=== PATIENT | female | born 1980 ===

== ENCOUNTER 2020-06-11 14:38 | Emergency (ER) | payer OTHER, SELFPAY ==
[2020-06-11 15:05] VITALS: BP 133/94; PULSE 104; RESP 18; TEMP 36.8; O2SAT 100; BMI 35.7
--- NOTE | 2020-06-11 15:43 | ED_ITS ---
HPI - Extremity Problem General Chief complaint: Extremity Injury, Upper Stated complaint: r shoulder pain Time Seen by Provider: 06/11/20 15:35 Source: patient Mode of arrival: ambulatory History of Present Illness HPI Narrative: 39-year-old female with a past medical history of bursitis, diabetes, fibromyalgia, hypothyroid complaining of acute on chronic right shoulder pain. Reports is prescribed tramadol by PCP, however ran out of p rescription, and cannot be filled for 5 days. States was in physical therapy, however was making symptoms worse. Denies any change in symptoms, numbness, tingling, weakness, direct trauma / falls, fever MD Complaint: extremity pain Related Data Home Medications Medication Instructions Recorded Confirmed gabapentin 600 mg tablet 600 mg PO TID 06/11/20 loperamide 2 mg capsule mg PO 06/11/20 meloxicam 15 mg tablet 15 mg PO DAILY 06/11/20 metformin 500 mg tablet mg PO 06/11/20 oxycodone 5 mg tablet 5 mg PO Q6H 06/11/20 tizanidine 4 mg tablet 4 mg PO BID PRN 06/11/20 trazodone 50 mg tablet 50 mg PO BEDTIME 06/11/20 zolpidem 10 mg tablet 10 mg PO BEDTIME PRN 06/11/20 Previous Rx's Medication Instructions Recorded tramadol 50 mg PO Q6H PRN #7 tab 06/11/20 tramadol 50 mg tablet 50 mg PO ONCE PRN 30 Days #30 tab 06/11/20 Allergies Allergy/AdvReac Type Severity Reaction Status Date / Time seasonal Allergy Unknown Itching Uncoded 06/11/20 15:04 SEASONAL ALLERGIES Allergy Unknown ITCHY Uncoded 05/17/20 16:42 NOSE/SNEEZING Review of Systems Review of Systems: Constitutional: No Fever, No Chills Cardiovascular: No Chest Pain, No SOB, No Dyspnea on Exertion Respiratory: No Cough, No Dyspnea Musculoskeletal: + joint pain, No Myalgias, No Joint Swelling Skin: No Skin Lesions, No rash Neuro: No Weakness, No Numbness, No Paresthesias Yes all other systems are reviewed and are negative [facility] Past Medical History Attestation statement: The following information was validated with the patient. Medical History (Updated 06/11/20 @ 15:44 by ALEX Rosenbaum) Bursitis and tendinitis of shoulder region Diabetes Fibromyalgia Knee arthropathy Thyroid activity decreased Social History Social History Smoking Status: Never smoker Use of substances other than those prescribed or required for medical reasons: No Advance Directives: No Advance Directives Information Provided: No Physical Exam Vital Signs: Vital Signs: Vital Signs Temp Pulse Resp BP Pulse Ox 06/11/20 15:05 98.3 F 104 H 18 133/94 H 100 Body Mass Index 35.7 Const: General: cooperative and healthy appearing Orientation/consciousness: patient oriented x3 Limitations: no limitations HENMT: Head: Yes normal to inspection Ears: hearing grossly normal bilaterally General nose exam: Normal external nose present Face and sinus: Yes normal facial exam Eyes: General: appearance normal, both eyes and all related structures EOM: EOMs intact bilaterally Neck: Neck: Yes normal visual inspection Resp: Effort & Inspection: normal respiratory effort Cardio: Rate: regular rate Skin: Rashes: no rashes Wounds: no wounds Neuro: General: patient oriented x3 Gait exam (Neuro): Normal gait present Extrem: Other: + right shoulder tenderness, no deformity or erythema. Decreased ROM. NV intact. General: Yes normal to inspection MDM - Extremity (Nontraumatic) MDM Narrative Medical decision making narrative: Likely MSK pain /acute on chronic pain. Low concern for fracture/ septic joint Discharge Plan Discharge Clinical Impression: Chronic shoulder pain Qualifiers: Laterality: right Qualified Code(s): M25.511 - Pain in right shoulder Patient Disposition: Home, Self-Care Instructions: Shoulder Pain (ED) Additional Instructions: you need to follow-up with her primary care doctor for additional refills her pain medications Follow-up with Physical therapy as discussed with her PCP If pain persists or worsens, you have weakness, or fever return to the ED Prescriptions: New tramadol 50 mg tablet 50 mg PO Q6H PRN (Reason: pain) Qty: 7 RF: 0 No Action tramadol 50 mg tablet 50 mg PO ONCE PRN (Reason: pain) 30 Days Qty: 30 RF: 0 gabapentin 600 mg tablet 600 mg PO TID RF: 0 trazodone 50 mg tablet 50 mg PO BEDTIME RF: 0 zolpidem 10 mg tablet 10 mg PO BEDTIME PRNRF: 0 loperamide 2 mg capsule PO RF: 0 metformin 500 mg tablet PO RF: 0 meloxicam 15 mg tablet 15 mg PO DAILY RF: 0 tizanidine 4 mg tablet 4 mg PO BID PRNRF: 0 oxycodone 5 mg tablet 5 mg PO Q6H RF: 0 Referrals: Meli Olivares NP [Primary Care Provider] - 2 days Discharge Date/Time: 06/11/20 16:09
== END 2020-06-11 16:09 | disposition home or self-care (01) ==
LOC: HO.ED 15:51
PROVIDERS: Emergency Provider Emergency Medicine; PCP Nurse Practitioner Family
DX: M25.511 Pain in right shoulder (principal); E11.9 Type 2 diabetes mellitus without complications; M79.7 Fibromyalgia; Z79.4 Long term (current) use of insulin; Z79.899 Other long term (current) drug therapy
CPT/HCPCS: 99283

== ENCOUNTER → 2020-08-27 09:50 | Outpatient (BNVA) | payer OTHER, SELFPAY | PROVIDERS: PCP Nurse Practitioner Family; Visit Provider Anesthesiology | DX: M19.011 Primary osteoarthritis, right shoulder (principal); M19.012 Primary osteoarthritis, left shoulder | CPT/HCPCS: 99202 ==

== ENCOUNTER 2020-09-11 06:08 | Outpatient (REF) | payer OTHER, SELFPAY ==
--- NOTE | 2020-09-11 08:13 | FL_ITS ---
EXAMINATION: XR FLUOROSCOPY WITH IMAGES CLINICAL INFORMATION: M19.011 - Primary osteoarthritis, right shoulder COMPARISON: Radiographs right shoulder 04/17/2020 TECHNIQUE: Fluoroscopy performed by Oneida Zuniga NP. Fluoroscopy time: 0.3 minutes DAP: 3.5 Gycm2 Images: 1 FINDINGS: There is a spinal needle overlying the right glenohumeral joint with some periarticular contrast, possible early intracapsular contrast. No vascular communication. FL/FL guidance in treatment room IMPRESSION: Fluoroscopy for pain management procedure.
== END 2020-09-11 06:09 | disposition home or self-care (01) ==
LOC: HO.RADIR 06:08
PROVIDERS: Visit Provider Anesthesiology
DX: M19.011 Primary osteoarthritis, right shoulder (principal); M19.012 Primary osteoarthritis, left shoulder
CPT/HCPCS: 20610; J3300; Q9967

== ENCOUNTER → 2020-09-26 08:30 | Outpatient (BNVA) | payer OTHER, SELFPAY | PROVIDERS: PCP Nurse Practitioner Family; Visit Provider Anesthesiology | DX: M19.011 Primary osteoarthritis, right shoulder (principal); M19.012 Primary osteoarthritis, left shoulder; Z02.89 Encounter for other administrative examinations | CPT/HCPCS: 99212 ==

== ENCOUNTER → 2020-10-10 13:42 | Outpatient (BNVA) | payer OTHER, SELFPAY | PROVIDERS: PCP Nurse Practitioner Family; Visit Provider Anesthesiology | DX: M19.011 Primary osteoarthritis, right shoulder (principal); M19.012 Primary osteoarthritis, left shoulder; Z02.89 Encounter for other administrative examinations | CPT/HCPCS: 99212 ==

== ENCOUNTER → 2020-10-17 09:42 | Outpatient (BNVA) | payer OTHER, SELFPAY | PROVIDERS: PCP Internal Medicine; Visit Provider Anesthesiology ==

== ENCOUNTER 2020-11-06 06:10 | Outpatient (REF) | payer OTHER, SELFPAY ==
--- NOTE | ~2020-11-06 | FL_ITS ---
EXAMINATION: XR FLUOROSCOPY WITH IMAGES CLINICAL INFORMATION: M19.011 - Primary osteoarthritis, right shoulder COMPARISON: Fluoroscopic spot view right shoulder 09/11/2020, radiographs right shoulder 04/17/2020 TECHNIQUE: Fluoroscopy performed by Oneida Zuniga NP. Fluoroscopy time: 0.4 minutes DAP: 0.902 Gycm2 Images: 1 FINDINGS: There is spinal needle with tip just superior to the scapular spine with contrast extending medially. No vascular communication. Corticated ossicle at acromioclavicular joint again seen. FL/FL guidance in treatment room IMPRESSION: Fluoroscopy for pain management procedure.
== END 2020-11-06 06:11 | disposition home or self-care (01) ==
LOC: HO.RADIR 06:10
PROVIDERS: Visit Provider Anesthesiology
DX: Z02.89 Encounter for other administrative examinations (principal); M19.011 Primary osteoarthritis, right shoulder; M19.012 Primary osteoarthritis, left shoulder
CPT/HCPCS: Q9967

== ENCOUNTER → 2020-11-07 15:44 | Outpatient (BNVA) | payer OTHER, SELFPAY | PROVIDERS: PCP Internal Medicine; Visit Provider Anesthesiology | DX: Z02.89 Encounter for other administrative examinations (principal); M19.011 Primary osteoarthritis, right shoulder; M19.012 Primary osteoarthritis, left shoulder; Z79.891 Long term (current) use of opiate analgesic | CPT/HCPCS: 99212 ==

== ENCOUNTER → 2020-11-12 14:52 | Outpatient (BNVA) | payer OTHER, SELFPAY | PROVIDERS: PCP Nurse Practitioner Family; Visit Provider Anesthesiology ==

== ENCOUNTER 2020-11-13 06:06 | Outpatient (REF) | payer OTHER, SELFPAY | END 2020-11-13 06:07 | disposition home or self-care (01) | LOC: HO.RADIR 06:06 | PROVIDERS: Visit Provider Anesthesiology | DX: Z13.89 Encounter for screening for other disorder (principal) ==

== ENCOUNTER → 2020-12-05 15:27 | Outpatient (BNVA) | payer OTHER, SELFPAY | PROVIDERS: PCP Internal Medicine; Visit Provider Anesthesiology ==

== ENCOUNTER 2020-12-18 06:05 | Outpatient (REF) | payer OTHER, SELFPAY ==
--- NOTE | ~2020-12-18 | FL_ITS ---
EXAMINATION: XR FLUOROSCOPY WITH IMAGES CLINICAL INFORMATION: Right knee pain COMPARISON: None. TECHNIQUE: Fluoroscopy performed by Oneida Zuniga NP. Fluoroscopy time: 0.1 minutes DAP: 0.275 Gycm2 Images: 1 FINDINGS: There is a needle with tip overlying the mid aspect proximal tibial shaft and a single lateral spot view. FL/FL guidance in treatment room IMPRESSION: Fluoroscopy for pain management procedure.
== END 2020-12-18 06:06 | disposition home or self-care (01) ==
LOC: HO.RADIR 06:05
PROVIDERS: Visit Provider Anesthesiology
DX: M17.11 Unilateral primary osteoarthritis, right knee (principal); M19.011 Primary osteoarthritis, right shoulder; M19.012 Primary osteoarthritis, left shoulder
CPT/HCPCS: 64450; J3300; Q9967

== ENCOUNTER → 2020-12-24 10:42 | Outpatient (BNVA) | payer OTHER, SELFPAY | PROVIDERS: PCP Internal Medicine; Visit Provider Anesthesiology ==

== ENCOUNTER → 2021-01-09 14:01 | Outpatient (BNVA) | payer OTHER, SELFPAY | PROVIDERS: PCP Internal Medicine; Visit Provider Anesthesiology | DX: M19.011 Primary osteoarthritis, right shoulder (principal); M19.012 Primary osteoarthritis, left shoulder; Z02.89 Encounter for other administrative examinations; M17.11 Unilateral primary osteoarthritis, right knee | CPT/HCPCS: 99212 ==

== ENCOUNTER → 2021-02-06 15:23 | Outpatient (BNVA) | payer OTHER, SELFPAY | PROVIDERS: PCP Internal Medicine; Visit Provider Anesthesiology | DX: Z51.81 Encounter for therapeutic drug level monitoring (principal) | CPT/HCPCS: 99211 ==

== ENCOUNTER 2021-02-12 06:26 | Outpatient (REF) | payer OTHER, SELFPAY ==
--- NOTE | ~2021-02-12 | FL_ITS ---
EXAMINATION: XR FLUOROSCOPY WITH IMAGES CLINICAL INFORMATION: M17.11 - Unilateral primary osteoarthritis, right knee COMPARISON: Fluoroscopy with images 12/18/2020 TECHNIQUE: Fluoroscopy performed by Oneida Zuniga NP. Fluoroscopy time: under 1 minute. DAP: 0.571 Gycm2 Images: 1 FINDINGS: There is a needle overlying the mid aspect of the distal right femur. No visible acute bony abnormality. FL/FL guidance in treatment room IMPRESSION: Fluoroscopy for pain management procedure.
== END 2021-02-12 06:27 | disposition home or self-care (01) ==
LOC: HO.RADIR 06:26
PROVIDERS: Visit Provider Anesthesiology
DX: M17.11 Unilateral primary osteoarthritis, right knee (principal); M19.011 Primary osteoarthritis, right shoulder; M19.012 Primary osteoarthritis, left shoulder
CPT/HCPCS: 64450; J3300

== ENCOUNTER → 2021-02-20 14:22 | Outpatient (BNVA) | payer OTHER, SELFPAY | PROVIDERS: PCP Internal Medicine; Visit Provider Anesthesiology ==

== ENCOUNTER → 2021-03-07 15:11 | Outpatient (BNVA) | payer OTHER, SELFPAY | PROVIDERS: PCP Internal Medicine; Visit Provider Anesthesiology | DX: Z02.89 Encounter for other administrative examinations (principal); M19.011 Primary osteoarthritis, right shoulder; M19.012 Primary osteoarthritis, left shoulder; M17.11 Unilateral primary osteoarthritis, right knee | CPT/HCPCS: 99212 ==

== ENCOUNTER 2021-04-10 11:16 | Outpatient (REF) | payer OTHER, SELFPAY ==
[2021-04-10 12:27] LABS: Hematocrit 43.3 % (37-47); Hemoglobin 14.3 g/dl (12.0-16.0); Mean Corpuscular Hemoglobin 28.4 pg (27.0-33.0); Mean Corpuscular Volume 86.1 fL (80-98); Mean Platelet Volume 10.1 fL (9.4-12.3); Platelet Count 312 X10*3/uL (160-400); Red Blood Count 5.03 X10*6/uL (4.20-5.50); Red Cell Distribution Width 13.9 % (11.0-16.0); White Blood Count 9.1 X10*3/uL (4.8-10.8)
[2021-04-10 12:43] LABS: Estimated Average Glucose 148 mg/dL; Hemoglobin A1c % 6.8 %
[2021-04-10 12:51] LABS: Alanine Aminotransferase 12 U/L (0-31); Albumin Level 4.3 g/dL (3.5-5.0); Alkaline Phosphatase 75 U/L (39-117); Anion Gap 14 (12-20); Aspartate Amino Transferase 16 U/L (5-31); Bilirubin Direct 0.3 mg/dL (0.0-0.5); Bilirubin Total 0.6 mg/dL (0.0-1.0); Blood Urea Nitrogen 5 mg/dL (9-16); Calcium 9.6 mg/dL (8.4-10.2); Carbon Dioxide 25 mmol/L (22-29); Chloride 104 mmol/L (96-108); Cholesterol 191 mg/dL; Estimated Glomerular Filt Rate > 60; Glucose Random 123 mg/dL (60-115); HDL Cholesterol 62 mg/dL; LDL Cholesterol Calculated 110 mg/dl; Potassium 4.6 mmol/L (3.3-5.1); Sodium 138 mmol/L (135-145); Total Protein 7.3 g/dL (6.5-8.0); Triglycerides 97 mg/dL
[2021-04-10 13:12] LABS: Thyroid Stimulating Hormone 1.56 uIU/mL (0.32-4.0)
[2021-04-13 12:46] LABS: Folate 7.2 ng/mL (> or = 4.0); Vitamin B12 216 pg/mL (200-900)
[2021-04-15 05:18] LABS: Vitamin D 25-OH, D2 <4 ng/mL; Vitamin D 25-OH, D3 19 ng/mL; Vitamin D 25-OH, Total 19 ng/mL (30-100)
== END 2021-04-10 11:17 | disposition home or self-care (01) ==
LOC: HO.LAB 11:16
PROVIDERS: Absent Provider Internal Medicine; PCP Internal Medicine; Visit Provider Nurse Practitioner Family
DX: G89.4 Chronic pain syndrome (principal); M19.011 Primary osteoarthritis, right shoulder; M17.11 Unilateral primary osteoarthritis, right knee; M19.012 Primary osteoarthritis, left shoulder; M79.7 Fibromyalgia; E11.9 Type 2 diabetes mellitus without complications; G47.00 Insomnia, unspecified; Z87.891 Personal history of nicotine dependence; Z79.891 Long term (current) use of opiate analgesic
CPT/HCPCS: 36415; 80048; 80061; 80076; 82306; 82607; 82746; 83036; 84443; 85027; 99212

== ENCOUNTER 2021-05-07 06:28 | Outpatient (REF) | payer OTHER, SELFPAY | END 2021-05-07 06:29 | disposition home or self-care (01) | LOC: HO.RADIR 06:28 | PROVIDERS: Visit Provider Anesthesiology | DX: Z13.89 Encounter for screening for other disorder (principal) ==

== ENCOUNTER → 2021-05-16 10:36 | Outpatient (BNVA) | payer OTHER, SELFPAY | PROVIDERS: PCP Internal Medicine; Visit Provider Anesthesiology ==

== ENCOUNTER → 2021-06-12 12:55 | Outpatient (BNVA) | payer OTHER, SELFPAY | PROVIDERS: PCP Internal Medicine; Visit Provider Anesthesiology | DX: Z51.81 Encounter for therapeutic drug level monitoring (principal); M19.011 Primary osteoarthritis, right shoulder; M19.012 Primary osteoarthritis, left shoulder; M17.11 Unilateral primary osteoarthritis, right knee | CPT/HCPCS: 99212 ==

== ENCOUNTER → 2021-07-10 13:44 | Outpatient (BNVA) | payer OTHER, SELFPAY | PROVIDERS: PCP Internal Medicine; Visit Provider Anesthesiology | DX: Z51.81 Encounter for therapeutic drug level monitoring (principal); M19.011 Primary osteoarthritis, right shoulder; M19.012 Primary osteoarthritis, left shoulder; M17.11 Unilateral primary osteoarthritis, right knee | CPT/HCPCS: 99212 ==

== ENCOUNTER 2021-07-23 06:31 | Outpatient (REF) | payer OTHER, SELFPAY | END 2021-07-23 06:32 | disposition home or self-care (01) | LOC: HO.RADIR 06:31 | PROVIDERS: Visit Provider Anesthesiology | DX: Z13.89 Encounter for screening for other disorder (principal) ==

== ENCOUNTER → 2021-08-07 14:04 | Outpatient (BNVA) | payer OTHER, SELFPAY | PROVIDERS: PCP Internal Medicine; Visit Provider Anesthesiology | DX: Z51.81 Encounter for therapeutic drug level monitoring (principal); M19.011 Primary osteoarthritis, right shoulder; M19.012 Primary osteoarthritis, left shoulder; M17.11 Unilateral primary osteoarthritis, right knee | CPT/HCPCS: 99212 ==

== ENCOUNTER → 2021-09-11 16:31 | Outpatient (BNVA) | payer OTHER, SELFPAY | PROVIDERS: PCP Internal Medicine; Visit Provider Anesthesiology | DX: M19.012 Primary osteoarthritis, left shoulder (principal); M19.011 Primary osteoarthritis, right shoulder; M17.11 Unilateral primary osteoarthritis, right knee; Z79.891 Long term (current) use of opiate analgesic | CPT/HCPCS: 99212 ==

== ENCOUNTER → 2021-10-09 14:44 | Outpatient (BNVA) | payer OTHER, SELFPAY | PROVIDERS: PCP Internal Medicine; Visit Provider Anesthesiology | DX: Z51.81 Encounter for therapeutic drug level monitoring (principal); F11.20 Opioid dependence, uncomplicated; M19.011 Primary osteoarthritis, right shoulder; M19.012 Primary osteoarthritis, left shoulder; M17.11 Unilateral primary osteoarthritis, right knee | CPT/HCPCS: 99212 ==

== ENCOUNTER → 2021-12-04 15:58 | Outpatient (BNVA) | payer OTHER, SELFPAY | PROVIDERS: PCP Internal Medicine; Visit Provider Anesthesiology | DX: Z13.89 Encounter for screening for other disorder (principal) ==

== ENCOUNTER 2021-12-12 09:40 | Inpatient (IN) | payer OTHER, SELFPAY ==
[2021-12-12] VITALS (9 sets, daily range): BP systolic 124–170; BP diastolic 74–102; PULSE 81–108; RESP 14–18; TEMP 36.6–36.8; O2SAT 97–100; BMI 31.3
--- NOTE | ~2021-12-12 | CT_ITS ---
EXAMINATION: CT HEAD WITHOUT CONTRAST CLINICAL INFORMATION: Dizziness. COMPARISON: None TECHNIQUE: Contiguous axial imaging was performed from the skull base to vertex without intravenous administration of contrast. This CT examination was performed using dose optimization techniques as appropriate, variously including the following: *Automated exposure control *Adjustment of mA and/or kV according to patient size (this includes techniques or standardized protocols for targeted exams where dose is matched to indication/reason for exam; i.e. extremities or head) *Use of iterative reconstruction technique DLP: 648 mGy-cm FINDINGS: There is no evidence of acute intracranial hemorrhage or territorial infarction. No abnormal mass effect or midline shift is seen. Ramos to white matter differentiation is well preserved. No extra-axial fluid collections are identified. The ventricles are normal in size. There is no abnormal attenuation within the brain parenchyma. The osseous structures and soft tissues are normal. The mastoid air cells and visualized portions of the paranasal sinuses are well aerated. CT/CT head/brain wo con IMPRESSION: No acute intracranial process seen.
--- NOTE | ~2021-12-12 | MR_ITS ---
BRAIN MRI WITH IV CONTRAST CLINICAL INFORMATION: CVA. COMPARISON: MRI brain 12/12/2021 and CTA head and neck 12/12/2021. TECHNIQUE: Axial and coronal postcontrast series of the brain are obtained following the administration of 8.5 mL of Gadavist intravenous contrast without complication. FINDINGS: The known acute left cerebellar infarcts are better demonstrated on the previous brain MRI. There is no pathologic enhancement intracranially accounting for artifact.
--- NOTE | ~2021-12-12 | MR_ITS ---
EXAMINATION: MRI OF THE BRAIN WITHOUT CONTRAST CLINICAL INFORMATION: Dizziness, nystagmus. COMPARISON: CT scan of the head obtained earlier 12/12/2021. TECHNIQUE: MRI of the brain was obtained using routine sequences without contrast. FINDINGS: There is an area of restricted diffusion in the medial aspect of the left cerebellar tonsil. This has corresponding hyperintense FLAIR signal. There is no evidence of hemorrhage. No diffusion abnormalities are identified elsewhere to suggest another acute or subacute infarct. No mass effect or midline shift is seen. The ventricles and sulci are slightly commensurately prominent. Brain parenchymal signal elsewhere is unremarkable. No extra-axial fluid collections are seen. The brainstem appears normal. No pathologic magnetic susceptibility artifact is identified on the gradient refocused acquisition. The marrow signal and midline structures are normal. The major intracranial flow-voids at the level of the atka of Venegas are preserved. However, the flow void from the left vertebral artery in the upper cervical region is not well demonstrated. The dural venous sinus flow-voids are maintained. The mastoid air cells and paranasal sinuses are well-aerated. MR/MR head/brain wo con IMPRESSION: 1. There is an area of restricted diffusion in the left cerebellar tonsil, consistent with an acute infarct. There is no evidence of hemorrhagic transformation. No other infarcts are demonstrated. 2. No bleeds or masses are demonstrated. The flow void from the left vertebral artery in the upper neck is not well demonstrated. This could be further evaluated with CTA of the head and neck. 3. This critical result was discussed with ALEX Gallegos by telephone on 12/12/2021 at 9:20 PM and it was ascertained that the content and urgency of the report was understood at the time of direct communication.
--- NOTE | ~2021-12-12 | CT_ITS ---
EXAMINATION: CT ANGIOGRAM OF THE HEAD CT ANGIOGRAM OF THE NECK CLINICAL INFORMATION: Abnormal MRI and dizziness. COMPARISON: MRI of the brain and CT scan of the head obtained earlier 12/12/2021. TECHNIQUE: Test bolus series followed by intravenous administration 70 mL of Omnipaque 350. Helical imaging was performed in the axial plane from the mediastinum to the skull vertex. Delayed postcontrast CT scan of the head was obtained. The degree of stenosis is based off NASCET criteria. The data was processed at the radiologic technologist mammogram workstation for generation of MIP images. Three-dimensional volume rendered reformatted images were also generated at an offline 3-D workstation. This CT examination was performed using dose optimization techniques as appropriate, variously including the following: *Automated exposure control *Adjustment of mA and/or kV according to patient size (this includes techniques or standardized protocols for targeted exams where dose is matched to indication/reason for exam; i.e. extremities or head) *Use of iterative reconstruction technique DLP: 1163 mGy-cm. FINDINGS: CT Head: There is no evidence of acute intracranial hemorrhage or territorial infarction; the area of infarction in the left cerebellar tonsil is better demonstrated on the MRI scan. No abnormal mass-effect or midline shift is seen. Ramos to white matter differentiation is well preserved. No extra-axial fluid collections are identified. There is no abnormal enhancement. The ventricles are normal in size. There is no abnormal attenuation within the brain parenchyma. The osseous structures and soft tissues are normal. The mastoid air cells and visualized portions of the paranasal sinuses are well-aerated. CTA Neck: There is a classic configuration of the aortic arch. Evaluation of the great vessels of the neck is slightly suboptimal due to beam hardening artifact from intravenous blood and from bolus timing. The common carotid arteries are patent bilaterally. The carotid bifurcations appear normal. The cervical internal carotid arteries are slightly tortuous extending almost to the midline bilaterally. The distal cervical internal carotid arteries are widely patent. The origins of the vertebral arteries are well-demonstrated. The right vertebral artery is patent throughout its cervical course. The nondominant left vertebral artery demonstrates flow proximally up to the level of C1 (there is cutoff of the vessel on image [id number], series 502). Flow is demonstrated in the left vertebral artery more distally (image [id number], series 502). Nonvascular: The thyroid gland appears normal. There is no cervical lymphadenopathy. There is no significant spondylosis or facet arthropathy in the cervical spine. The visualized lung lobato are well-aerated. There is extensive caries in multiple teeth in the bilateral mandible and maxilla. CTA Head: The intracranial internal carotid arteries and their bifurcations appear normal. The middle and anterior cerebral arteries bilaterally demonstrate normal caliber with no evidence of focal stenosis, aneurysm or vascular malformation. There is normal arborization of the middle cerebral artery branches. The anterior communicating artery is normal. In the posterior circulation, some flow is demonstrated in the distal V3 segment of the left vertebral artery as described above, and both vertebral arteries are patent in the V4 segments intradurally. The left vertebral artery is thinner compared to the right. The basilar artery is patent. There is a origin of the right posterior cerebral artery. The posterior cerebral arteries are patent bilaterally. The venous sinuses opacify normally. CT/CT angio head neck stroke IMPRESSION: CT head and neck: 1. No acute bleeds or territorial infarcts are demonstrated; the infarct in the left cerebellar tonsil is better visualized on the MRI scan. 2. There are no masses or areas of abnormal enhancement. 3. There is no cervical lymphadenopathy and no masses are demonstrated in the neck CTA head and neck:. 1. The left vertebral artery is nondominant, and no flow is demonstrated in the left vertebral artery from the distal V2 and the proximal V3 segments. Intradurally, flow is demonstrated in the bilateral vertebral arteries. 2. No decreased flow or stenoses are demonstrated in the neck vascularity elsewhere, and intracranially there are no other focal stenoses, aneurysms or vascular malformations. This critical result was discussed with ALEX Gallegos by telephone on 12/12/2021 at 10:37 PM and it was ascertained that the content and urgency of the report was understood at the time of direct communication.
--- NOTE | 2021-12-12 09:46 | ED.GENADULT ---
HPI - General Adult General Chief complaint: Nausea/Vomiting/Diarrhea <Sirena Finn NP - Last Filed: 12/12/21 18:10> Stated complaint: NAUSEA,VOMITING,DIZZY <Sirena Finn NP - Last Filed: 12/12/21 18:10> Time Seen by Provider: 12/12/21 09:44 <Sirena Finn NP - Last Filed: 12/12/21 18:10> Source: patient <Sirena Finn NP - Last Filed: 12/12/21 18:10> Mode of arrival: ambulatory <Sirena Finn NP - Last Filed: 12/12/21 18:10> Limitations: no limitations <Sirena Finn NP - Last Filed: 12/12/21 18:10> History of Present Illness HPI narrative: 39-year-old female with a past medical history of bursitis, diabetes, fibromyalgia, hypothyroidism here with complaints of dizziness which began at 22:00 last evening with associated vomiting. Patient tells me she has been unable to maintain p.o.. Her dizziness is worse with head movement and if her eyes are open. She denies any associated diarrhea, fever, vision changes, weakness, paresthesias. Patient does report some upper abdominal pain associated with her vomiting. <Sirena Finn NP - Last Filed: 12/12/21 18:10> Related Data Home medications: Home Medications Medication Instructions Recorded Confirmed tizanidine 4 mg tablet 4 mg PO DAILY 12/12/21 12/12/21 Previous Rx's Medication Instructions Recorded metformin 500 mg tablet 500 mg PO DAILY 90 Days #90 tab 08/16/21 cholecalciferol (vitamin D3) 1,250 1,250 mcg PO QWEEK #14 cap 10/04/21 mcg (50,000 unit) capsule loratadine 10 mg tablet (Claritin) 10 mg PO DAILY #30 tab 10/07/21 zolpidem 10 mg tablet 10 mg PO BEDTIME #30 tab 11/13/21 gabapentin 600 mg tablet 600 mg PO TID #90 tab 11/25/21 tramadol 50 mg tablet 50 mg PO Q6H PRN 30 Days #120 tab 12/04/21 <Sirena Finn NP - Last Filed: 12/12/21 18:10> Allergies/adverse reactions: Allergies Allergy/AdvReac Type Severity Reaction Status Date / Time Penicillins Allergy Unknown Hives Verified 12/04/21 16:18 Seasonal Allergies Allergy itchy Verified 12/04/21 16:18 nose/sneezing <Sirena Finn NP - Last Filed: 12/12/21 18:10> Review of Systems Review of Systems: Yes all other systems are reviewed and are negative <Sirena Finn NP - Last Filed: 12/12/21 18:10> Constitutional: Constitutional: Reports no additional constitutional complaints, Denies body ache(s), Denies chills, Denies fever(s), Denies headache(s) and Denies weakness <Sirena Finn NP - Last Filed: 12/12/21 18:10> Eyes: Eyes: Reports no additional eye complaints and Denies change in vision <Sirena Finn NP - Last Filed: 12/12/21 18:10> ENT: Reports system reviewed and no additional complaints, except as documented, Reports dizziness, Denies headache(s), Denies nasal congestion, Denies nasal discharge and Denies neck pain <Sirena Finn NP - Last Filed: 12/12/21 18:10> Cardiovascular: Cardiovascular: Reports no additional cardiovascular complaints, Denies chest pain, Denies leg edema and Denies dyspnea <Sirena Finn NP - Last Filed: 12/12/21 18:10> Respiratory: Respiratory: Reports no additional respiratory complaints, Denies cough and Denies dyspnea <Sirena Finn NP - Last Filed: 12/12/21 18:10> Gastrointestinal: Gastrointestinal: Reports no additional gastrointestinal complaints, Reports abdominal pain, Denies diarrhea, Reports nausea and Reports vomiting <Sirena Finn NP - Last Filed: 12/12/21 18:10> Genitourinary: Genitourinary: Reports no additional female genitourinary complaints and Denies urinary incontinence <Sirena Finn NP - Last Filed: 12/12/21 18:10> Musculoskeletal: Musculoskeletal: Reports no additional musculoskeletal complaints, Denies back pain, Denies arthralgias, Denies joint swelling, Denies neck pain, Denies numbness and Denies tingling <Sirena Finn NP - Last Filed: 12/12/21 18:10> Integumentary/Breasts: Skin/Breast: Reports system reviewed and no additional complaints, except as docu and Denies rash <Sirena Finn NP - Last Filed: 12/12/21 18:10> Neurologic: Reports system reviewed and no additional complaints, except as documented, Reports dizziness, Denies headache(s), Denies numbness, Denies tingling and Denies weakness <Sirena Finn NP - Last Filed: 12/12/21 18:10> PMFSH Past Medical History Attestation statement: The following information was validated with the patient. <Sirena Finn NP - Last Filed: 12/12/21 18:10> Source: old records reviewed and nursing notes reviewed <Sirena Finn NP - Last Filed: 12/12/21 18:10> Medical History: Medical History Bronchitis Bursitis and tendinitis of shoulder region Diabetes Diabetes Diabetes mellitus with neuropathy Fibromyalgia Insomnia Knee arthropathy Osteoarthritis of right knee Osteoarthritis of shoulders, bilateral Thyroid activity decreased <Sirena Finn NP - Last Filed: 12/12/21 18:10> Surgical History: Surgical History H/O knee surgery History of shoulder surgery <Sirena Finn NP - Last Filed: 12/12/21 18:10> Family History Family History: Family History Father Stomach cancer Mother No problems noted. Sister No problems noted. <Sirena Finn NP - Last Filed: 12/12/21 18:10> Social History Social History: Social History Housing: Apartment Alcohol intake: never Patient Tobacco Use Status: Former Tobacco user Tobacco use type: Cigarette e-Cigarette/Vaping Use: Never Used Second Hand Smoke Exposure: No Use of substances other than those prescribed or required for medical reasons: No Advance Directives: No Advance Directives Information Provided: No service: No Current occupational status: disabled <Sirena Finn NP - Last Filed: 12/12/21 18:10> Physical Exam ED Vital Signs: Vital Signs - 24 hr 12/12/21 09:47 12/12/21 09:51 12/12/21 12:21 Temperature 98 F Pulse Rate 101 H 83 Respiratory Rate 14 14 Blood Pressure 142/100 H 124/76 Pulse Oximetry 99 99 12/12/21 14:27 12/12/21 16:25 12/12/21 18:47 Temperature 98.3 F 98.2 F Pulse Rate 94 81 89 Respiratory Rate 18 17 18 Blood Pressure 144/94 H 130/75 132/79 Pulse Oximetry 100 100 100 12/12/21 20:58 12/12/21 22:36 Temperature 98.2 F Pulse Rate 85 86 Respiratory Rate 16 15 Blood Pressure 143/83 H 134/74 Pulse Oximetry 97 98 BMI result Body Mass Index 31.3 <Sirena Finn NP - Last Filed: 12/12/21 18:10> Vital Signs - 24 hr 12/12/21 09:47 12/12/21 09:51 12/12/21 12:21 Temperature 98 F Pulse Rate 101 H 83 Respiratory Rate 14 14 Blood Pressure 142/100 H 124/76 Pulse Oximetry 99 99 12/12/21 14:27 12/12/21 16:25 12/12/21 18:47 Temperature 98.3 F 98.2 F Pulse Rate 94 81 89 Respiratory Rate 18 17 18 Blood Pressure 144/94 H 130/75 132/79 Pulse Oximetry 100 100 100 12/12/21 20:58 12/12/21 22:36 Temperature 98.2 F Pulse Rate 85 86 Respiratory Rate 16 15 Blood Pressure 143/83 H 134/74 Pulse Oximetry 97 98 BMI result Body Mass Index 31.3 <ALEX Voss - Last Filed: 12/12/21 23:06> Const General: cooperative, healthy appearing and comfortable <Sirena Finn NP - Last Filed: 12/12/21 18:10> Orientation/consciousness: patient oriented x3 <Sirena Finn NP - Last Filed: 12/12/21 18:10> Limitations: no limitations <Sirena Finn NP - Last Filed: 12/12/21 18:10> HENMT Head: Yes normal to inspection <Sirena Finn NP - Last Filed: 12/12/21 18:10> Ears: hearing grossly normal bilaterally and TM's normal bilaterally <Sirena Finn NP - Last Filed: 12/12/21 18:10> General nose exam: Normal external nose present <Sirena Finn NP - Last Filed: 12/12/21 18:10> Face and sinus: Yes normal facial exam <Sirena Finn NP - Last Filed: 12/12/21 18:10> Mouth: Normal oral and palatal mucosa present <Sirena Finn NP - Last Filed: 12/12/21 18:10> Teeth and gingiva: dentition normal <Sirena Finn NP - Last Filed: 12/12/21 18:10> Throat: Yes posterior oropharynx normal, Yes tonsils normal and Yes uvula midline <Sirena Finn NP - Last Filed: 12/12/21 18:10> Eyes General: appearance normal, both eyes and all related structures <Sirena Finn NP - Last Filed: 12/12/21 18:10> Pupils: Equal, round and reactive pupils present <Sirena Finn NP - Last Filed: 12/12/21 18:10> Neck Neck: Yes normal visual inspection, Yes full ROM, Yes no lymphadenopathy and Yes no meningeal signs <Sirena Finn NP - Last Filed: 12/12/21 18:10> Chest Chest palpation & inspection: normal inspection of the chest <Sirena Finn NP - Last Filed: 12/12/21 18:10> Resp Effort & Inspection: normal respiratory effort <Sirena Finn NP - Last Filed: 12/12/21 18:10> Auscultation: clear to auscultation bilaterally <Sirena Finn NP - Last Filed: 12/12/21 18:10> Cardio Rate: regular rate <Sirena Finn NP - Last Filed: 12/12/21 18:10> Rhythm: regular rhythm <Sirena Finn NP - Last Filed: 12/12/21 18:10> Peripheral pulses: Peripheral pulses 2+ throughout <Sirena Finn NP - Last Filed: 12/12/21 18:10> GI Inspection: Yes normal to inspection <Sirena Finn NP - Last Filed: 12/12/21 18:10> Palpation (GI): Soft to palpation and Tenderness to palpation present (GI) (LUQ/epigastric-no rebound or guarding) <Sirena Finn NP - Last Filed: 12/12/21 18:10> General: Yes no CVA tenderness <Sirena Finn NP - Last Filed: 12/12/21 18:10> Back/Spine/Pelvis Back: no CVA tenderness <Sirena Finn NP - Last Filed: 12/12/21 18:10> Thoracic/Lumbar Spine: thoracic and lumbar spine normal to inspection <Sirena Finn NP - Last Filed: 12/12/21 18:10> Skin General skin exam: no rashes or lesions noted <Sirena Finn NP - Last Filed: 12/12/21 18:10> Neuro Other: Unable to assess nystagmus, EOM, cerebellar function d/t patient having severe dizziness with eyes open <Sirena Finn NP - Last Filed: 12/12/21 18:10> General: patient oriented x3, moves all extremities, no meningeal signs and Unable to assess gait <Sirena Finn NP - Last Filed: 12/12/21 18:10> Cranial nerves: Yes CN's II-XII intact bilaterally, Yes Equal, round and reactive pupils present, Yes Normal facial strength present and Yes Midline tongue present <Sirena Finn NP - Last Filed: 12/12/21 18:10> Cognition (Neuro): normal cognition <Sirena Finn NP - Last Filed: 12/12/21 18:10> Gait exam (Neuro): Unable to assess gait <Sirena Finn NP - Last Filed: 12/12/21 18:10> Motor exam (neuro): 5/5 motor strength present throughout <Sirena Finn NP - Last Filed: 12/12/21 18:10> Sensory Exam: Normal double simultaneous stimulation for sensation <Sirena Finn NP - Last Filed: 12/12/21 18:10> Extrem General: Yes normal to inspection, Yes no pedal edema and Yes no calf tenderness <Sirena Finn NP - Last Filed: 12/12/21 18:10> Course Course Course Narrative: 41 yo female here with dizziness since 10pm with vomiting. Unable to complete neuro exam d/t patient reporting severe dizziness with eyes open. Feels like I'm in motion, on a boat or something. Seems like vertigo Not TPA candidate d/t symptoms >12 hrs. Will obtain labs, EKG, UA, covid/flu testing. Will give zofran, NSB, low dose ativan. Re-asses patient to determine need for CT head, additional meds. <Sirena Finn NP - Last Filed: 12/12/21 18:10> Reevaluation(s) Reevaluation #1: Patient did end up having a CT of the head due to continued symptoms. This was negative for any acute intracranial abnormality. Her labs unremarkable. When I re-evaluated her she was continuing to have symptoms of feeling dizzy. She was able to open her eyes this time with +nystagmus noted. Unable to complete additional cerebellar function due to feeling symptomatic. Discussed with attending physician Dr. Holder. Plan for MRI brain. Unfortunately not TPA candidate d/t length of symptoms <Sirena Finn NP - Last Filed: 12/12/21 18:10> Time: 12:54 <Sirena Finn NP - Last Filed: 12/12/21 18:10> Reevaluation #2: Sign out to Kristy JOHNSON pending MRI <Sirena Finn NP - Last Filed: 12/12/21 18:10> Time: 18:10 <Sirena Finn NP - Last Filed: 12/12/21 18:10> Reevaluation #3: MRI w. Restricted diffusion in the left cerebellar tonsil consistent with acute infarct. This critical result was discussed with . Who tells me this could be a demyelinating lesion or ischemic infarct. Or a variety of other things. At this time he recommends giving a baby aspirin, obtaining a CTA to rule out dissection and other things and posterior circulation. If the CTA is completely negative he recommends 1 g of Solu-Medrol. CTA ordered, aspirin ordered. Will continue to monitor. <ALEX Voss - Last Filed: 12/12/21 23:06> Time: 21:48 <ALEX Voss - Last Filed: 12/12/21 23:06> Additional Reevaluation(s): Left vertebral artery is non dominant no flow is demonstrated in the left vertebral artery from the distal V2 and proximal V3 segments. Discuss this finding with neurology who recommended aspirin, hospital admission. No need for transfer at this time. Patient will be admitted to the hospitalist team to . Patient's nausea and vomiting improving. I informed the patient of the plan she has no questions. Educated her on diagnosis. <ALEX Voss - Last Filed: 12/12/21 23:06> Medical Decision Making Medical Records Medical records reviewed: Yes I reviewed the patient's medical records. <Sirena Finn NP - Last Filed: 12/12/21 18:10> Lab Data Lab results reviewed: Yes I reviewed the patient's lab results. <Sirena Finn NP - Last Filed: 12/12/21 18:10> Result diagrams: : 12/12/21 10:05 12/12/21 10:30 <Sirena Finn NP - Last Filed: 12/12/21 18:10> Labs: Lab Results 12/12/21 12/12/21 12/12/21 Range/Units 10:05 10:05 10:05 WBC 12.3 H (4.8-10.8) X10*3/uL RBC 5.67 H (4.20-5.50) X10*6/uL Hgb 16.0 (12.0-16.0) g/dl Hct 47.7 H (37.0-47.0) % MCV 84.1 (80.0-98.0) fL MCH 28.2 (27.0-33.0) pg MCHC 33.5 (31.0-35.0) g/dl RDW 13.4 (11.0-16.0) % Plt Count 461 H (160-400) X10*3/uL MPV 9.3 L (9.4-12.3) fL Immature Gran % (Auto) 0.3 (0.0-0.4) % Neut % (Auto) 89.4 H (45-73) % Lymph % (Auto) 7.6 L (20-40) % [place] % (Auto) 2.5 (2-11) % Eos % (Auto) 0.0 (0-4) % Baso % (Auto) 0.2 (0-2) % Lymph # (Auto) 0.9 L (1.2-4.9) X10*3/uL [place] # (Auto) 0.3 (0.1-1.2) X10*3/uL Eos # (Auto) 0.0 (0.0-0.4) X10*3/uL Baso # (Auto) 0.0 (0.0-0.2) X10*3/uL Abs Immat Gran (auto) 0.04 H (0.00-0.03) X10*3/uL Absolute Neuts (auto) 11.0 H (2.0-8.3) x10*3/uL Absolute Nucleated RBC 0.000 (0.0-0.012) X10*3/uL Nucleated RBC % (auto) 0.0 (0.0-0.2) /100WBC Sodium (135-145) mmol/L Potassium (3.3-5.1) mmol/L Chloride (96-108) mmol/L Carbon Dioxide (22-29) mmol/L Anion Gap (12-20) BUN (9-16) mg/dL Creatinine (0.5-1.4) mg/dL Estim Creat Clear Calc Estimated GFR Random Glucose (60-115) mg/dL Calcium (8.4-10.2) mg/dL Magnesium (1.6-2.6) mg/dL Total Bilirubin (0.0-1.0) mg/dL Direct Bilirubin (0.0-0.5) mg/dL AST (5-31) U/L ALT (0-31) U/L Alkaline Phosphatase (39-117) U/L Troponin I High Sens < 3.5 (<3.5-17.0) ng/L Total Protein (6.5-8.0) g/dL Albumin (3.5-5.0) g/dL Lipase (8-78) U/L Urine Color Urine Appearance Urine pH (5.0-8.0) Ur Specific [place] (1.005-1.025) Urine Protein (NEG-TRACE) MG/DL Urine Glucose (UA) (NEG) MG/DL Urine Ketones (NEG) MG/DL Urine Blood (NEG) Urine Nitrite (NEG) Ur Leukocyte Esterase (NEG) Urine RBC (0) /HPF Urine WBC (0-4) /HPF Ur Squamous Epith Cells /LPF Urine Bacteria /LPF COVID-19 (GRACY) (Negative) COVID-19 Clin Com Influenza Type A (ROBERT) Negative (Negative) Influenza Type B (ROBERT) Negative (Negative) Influenza A & B Note See Note 12/12/21 12/12/21 12/12/21 Range/Units 10:05 10:30 17:29 WBC (4.8-10.8) X10*3/uL RBC (4.20-5.50) X10*6/uL Hgb (12.0-16.0) g/dl Hct (37.0-47.0) % MCV (80.0-98.0) fL MCH (27.0-33.0) pg MCHC (31.0-35.0) g/dl RDW (11.0-16.0) % Plt Count (160-400) X10*3/uL MPV (9.4-12.3) fL Immature Gran % (Auto) (0.0-0.4) % Neut % (Auto) (45-73) % Lymph % (Auto) (20-40) % [place] % (Auto) (2-11) % Eos % (Auto) (0-4) % Baso % (Auto) (0-2) % Lymph # (Auto) (1.2-4.9) X10*3/uL [place] # (Auto) (0.1-1.2) X10*3/uL Eos # (Auto) (0.0-0.4) X10*3/uL Baso # (Auto) (0.0-0.2) X10*3/uL Abs Immat Gran (auto) (0.00-0.03) X10*3/uL Absolute Neuts (auto) (2.0-8.3) x10*3/uL Absolute Nucleated RBC (0.0-0.012) X10*3/uL Nucleated RBC % (auto) (0.0-0.2) /100WBC Sodium 137 (135-145) mmol/L Potassium 4.9 (3.3-5.1) mmol/L Chloride 104 (96-108) mmol/L Carbon Dioxide 24 (22-29) mmol/L Anion Gap 14 (12-20) BUN 5 L (9-16) mg/dL Creatinine 0.80 (0.5-1.4) mg/dL Estim Creat Clear Calc 97.8 Estimated GFR > 60 Random Glucose 196 H (60-115) mg/dL Calcium 9.3 (8.4-10.2) mg/dL Magnesium 1.7 (1.6-2.6) mg/dL Total Bilirubin 0.5 (0.0-1.0) mg/dL Direct Bilirubin 0.2 (0.0-0.5) mg/dL AST 12 (5-31) U/L ALT < 6 (0-31) U/L Alkaline Phosphatase 67 (39-117) U/L Troponin I High Sens (<3.5-17.0) ng/L Total Protein 6.9 (6.5-8.0) g/dL Albumin 3.9 (3.5-5.0) g/dL Lipase 8 (8-78) U/L Urine Color YELLOW Urine Appearance HAZY Urine pH 7.0 (5.0-8.0) Ur Specific [place] 1.010 (1.005-1.025) Urine Protein NEG (NEG-TRACE) MG/DL Urine Glucose (UA) NEG (NEG) MG/DL Urine Ketones NEG (NEG) MG/DL Urine Blood 1+ H (NEG) Urine Nitrite NEG (NEG) Ur Leukocyte Esterase NEG (NEG) Urine RBC 10-14 H (0) /HPF Urine WBC 0-2 (0-4) /HPF Ur Squamous Epith Cells 3+ /LPF Urine Bacteria 2+ /LPF COVID-19 (GRACY) Negative (Negative) COVID-19 Clin Com See Note Influenza Type A (ROBERT) (Negative) Influenza Type B (ROBERT) (Negative) Influenza A & B Note <Sirena Finn, [employer] - Last Filed: 12/12/21 18:10> Lab Results 12/12/21 12/12/21 12/12/21 Range/Units 10:05 10:05 10:05 WBC 12.3 H (4.8-10.8) X10*3/uL RBC 5.67 H (4.20-5.50) X10*6/uL Hgb 16.0 (12.0-16.0) g/dl Hct 47.7 H (37.0-47.0) % MCV 84.1 (80.0-98.0) fL MCH 28.2 (27.0-33.0) pg MCHC 33.5 (31.0-35.0) g/dl RDW 13.4 (11.0-16.0) % Plt Count 461 H (160-400) X10*3/uL MPV 9.3 L (9.4-12.3) fL Immature Gran % (Auto) 0.3 (0.0-0.4) % Neut % (Auto) 89.4 H (45-73) % Lymph % (Auto) 7.6 L (20-40) % [place] % (Auto) 2.5 (2-11) % Eos % (Auto) 0.0 (0-4) % Baso % (Auto) 0.2 (0-2) % Lymph # (Auto) 0.9 L (1.2-4.9) X10*3/uL [place] # (Auto) 0.3 (0.1-1.2) X10*3/uL Eos # (Auto) 0.0 (0.0-0.4) X10*3/uL Baso # (Auto) 0.0 (0.0-0.2) X10*3/uL Abs Immat Gran (auto) 0.04 H (0.00-0.03) X10*3/uL Absolute Neuts (auto) 11.0 H (2.0-8.3) x10*3/uL Absolute Nucleated RBC 0.000 (0.0-0.012) X10*3/uL Nucleated RBC % (auto) 0.0 (0.0-0.2) /100WBC Sodium (135-145) mmol/L Potassium (3.3-5.1) mmol/L Chloride (96-108) mmol/L Carbon Dioxide (22-29) mmol/L Anion Gap (12-20) BUN (9-16) mg/dL Creatinine (0.5-1.4) mg/dL Estim Creat Clear Calc Estimated GFR Random Glucose (60-115) mg/dL Calcium (8.4-10.2) mg/dL Magnesium (1.6-2.6) mg/dL Total Bilirubin (0.0-1.0) mg/dL Direct Bilirubin (0.0-0.5) mg/dL AST (5-31) U/L ALT (0-31) U/L Alkaline Phosphatase (39-117) U/L Troponin I High Sens < 3.5 (<3.5-17.0) ng/L Total Protein (6.5-8.0) g/dL Albumin (3.5-5.0) g/dL Lipase (8-78) U/L Urine Color Urine Appearance Urine pH (5.0-8.0) Ur Specific [place] (1.005-1.025) Urine Protein (NEG-TRACE) MG/DL Urine Glucose (UA) (NEG) MG/DL Urine Ketones (NEG) MG/DL Urine Blood (NEG) Urine Nitrite (NEG) Ur Leukocyte Esterase (NEG) Urine RBC (0) /HPF Urine WBC (0-4) /HPF Ur Squamous Epith Cells /LPF Urine Bacteria /LPF COVID-19 (GRACY) (Negative) COVID-19 Clin Com Influenza Type A (ROBERT) Negative (Negative) Influenza Type B (ROBERT) Negative (Negative) Influenza A & B Note See Note 12/12/21 12/12/21 12/12/21 Range/Units 10:05 10:30 17:29 WBC (4.8-10.8) X10*3/uL RBC (4.20-5.50) X10*6/uL Hgb (12.0-16.0) g/dl Hct (37.0-47.0) % MCV (80.0-98.0) fL MCH (27.0-33.0) pg MCHC (31.0-35.0) g/dl RDW (11.0-16.0) % Plt Count (160-400) X10*3/uL MPV (9.4-12.3) fL Immature Gran % (Auto) (0.0-0.4) % Neut % (Auto) (45-73) % Lymph % (Auto) (20-40) % [place] % (Auto) (2-11) % Eos % (Auto) (0-4) % Baso % (Auto) (0-2) % Lymph # (Auto) (1.2-4.9) X10*3/uL [place] # (Auto) (0.1-1.2) X10*3/uL Eos # (Auto) (0.0-0.4) X10*3/uL Baso # (Auto) (0.0-0.2) X10*3/uL Abs Immat Gran (auto) (0.00-0.03) X10*3/uL Absolute Neuts (auto) (2.0-8.3) x10*3/uL Absolute Nucleated RBC (0.0-0.012) X10*3/uL Nucleated RBC % (auto) (0.0-0.2) /100WBC Sodium 137 (135-145) mmol/L Potassium 4.9 (3.3-5.1) mmol/L Chloride 104 (96-108) mmol/L Carbon Dioxide 24 (22-29) mmol/L Anion Gap 14 (12-20) BUN 5 L (9-16) mg/dL Creatinine 0.80 (0.5-1.4) mg/dL Estim Creat Clear Calc 97.8 Estimated GFR > 60 Random Glucose 196 H (60-115) mg/dL Calcium 9.3 (8.4-10.2) mg/dL Magnesium 1.7 (1.6-2.6) mg/dL Total Bilirubin 0.5 (0.0-1.0) mg/dL Direct Bilirubin 0.2 (0.0-0.5) mg/dL AST 12 (5-31) U/L ALT < 6 (0-31) U/L Alkaline Phosphatase 67 (39-117) U/L Troponin I High Sens (<3.5-17.0) ng/L Total Protein 6.9 (6.5-8.0) g/dL Albumin 3.9 (3.5-5.0) g/dL Lipase 8 (8-78) U/L Urine Color YELLOW Urine Appearance HAZY Urine pH 7.0 (5.0-8.0) Ur Specific [place] 1.010 (1.005-1.025) Urine Protein NEG (NEG-TRACE) MG/DL Urine Glucose (UA) NEG (NEG) MG/DL Urine Ketones NEG (NEG) MG/DL Urine Blood 1+ H (NEG) Urine Nitrite NEG (NEG) Ur Leukocyte Esterase NEG (NEG) Urine RBC 10-14 H (0) /HPF Urine WBC 0-2 (0-4) /HPF Ur Squamous Epith Cells 3+ /LPF Urine Bacteria 2+ /LPF COVID-19 (GRACY) Negative (Negative) COVID-19 Clin Com See Note Influenza Type A (ROBERT) (Negative) Influenza Type B (ROBERT) (Negative) Influenza A & B Note <ALEX Voss - Last Filed: 12/12/21 23:06> Imaging Data CT scan - head: Attestation: I personally reviewed and interpreted this imaging study as follows: <Sirena Finn NP - Last Filed: 12/12/21 18:10> Radiologist's impression: [place] [id number] CT Scan Report Signed Patient: Lisa Guerrero MR#: [id number] : 1980 Acct:[id number] Age/Sex: 41 / F ADM Date: 12/12/21 Loc: HO.ED Attending Dr: Ordering Physician: Sirena Finn NP Date of Service: 12/12/21 Procedure(s): CT head/brain wo con Accession Number(s): [id number] cc: Sirena Finn NP~ EXAMINATION: CT HEAD WITHOUT CONTRAST CLINICAL INFORMATION: Dizziness.? COMPARISON: None TECHNIQUE: Contiguous axial imaging was performed from the skull base to vertex without intravenous administration of contrast. This CT examination was performed using dose optimization techniques as appropriate, variously including the following: *Automated exposure control *Adjustment of mA and/or kV according to patient size (this includes techniques or standardized protocols for targeted exams where dose is matched to indication/reason for exam; i.e. extremities or head) *Use of iterative reconstruction technique DLP: 648 mGy-cm FINDINGS: There is no evidence of acute intracranial hemorrhage or territorial infarction. No abnormal mass effect or midline shift is seen. Ramos to white matter differentiation is well preserved. No extra-axial fluid collections are identified. The ventricles are normal in size. There is no abnormal attenuation within the brain parenchyma. The osseous structures and soft tissues are normal. The mastoid air cells and visualized portions of the paranasal sinuses are well aerated. ? CT/CT head/brain wo con IMPRESSION: No acute intracranial process seen. <KEVIN Canales Last Filed: 12/12/21 18:10> ECG Data Attestation: I personally reviewed and interpreted this ECG as follows: <KEVIN Canales Last Filed: 12/12/21 18:10> Interpretation: Normal sinus rhythm with a rate of 79, normal PA, normal QRS, normal QT <KEVIN Canales Last Filed: 12/12/21 18:10> Critical Care Time Critical Care Time Critical Care Time: Yes <ALEX Voss Last Filed: 12/12/21 23:06> Total Critical Care Time: 35 <ALEX Voss Last Filed: 12/12/21 23:06> Attestation: I attest to this time spent taking care of the patient, obtaining history, physical, reviewing labs, imaging, speaking to my attending, speaking to specialist. <ALEX Voss Last Filed: 12/12/21 23:06> Discharge Plan Discharge Clinical Impression: Dizziness, Cerebellar infarct <KEVIN Canales Last Filed: 12/12/21 18:10> Patient Disposition: Admitted As Inpatient <KEVIN Canales Last Filed: 12/12/21 18:10>
--- NOTE | 2021-12-12 09:55 | ECG_ITS ---
Test Reason : dissiness Blood Pressure : / mmHG Vent. Rate : 079 BPM Atrial Rate : 079 BPM P-R Int : 152 ms QRS Dur : 080 ms QT Int : 392 ms P-R-T Axes : 023 058 -03 degrees QTc Int : 449 ms Normal sinus rhythm Cannot rule out Inferior infarct , age undetermined Abnormal ECG No previous ECGs available Referred By: Sirena Finn Electronically Signed By:Desean Sena
[2021-12-12 10:20] LABS: MANUAL DIFF FLAG NO
[2021-12-12] MEDS: ondansetron HCL 4 MG/2 ML VIAL IVPUSH ×2 (10:20→11:16)
[2021-12-12] MEDS: 0.9 % Sodium Chloride 1,000 ML 999 ML IV ×2 (10:20→23:28)
[2021-12-12] MEDS: LORazepam 2 MG/ML VIAL 0.5 MG IVPUSH (10:20)
[2021-12-12 10:22] LABS: Basophils Percent Auto 0.2 % (0-2); Hematocrit 47.7 % (37.0-47.0); Imm Gran Abs Auto 0.04 X10*3/uL (0.00-0.03); Imm Gran Pct Auto 0.3 % (0.0-0.4); Lymphocytes Absolute Auto 0.9 X10*3/uL (1.2-4.9); Lymphocytes Percent Auto 7.6 % (20-40); Mean Corpuscular HGB Conc 33.5 g/dl (31.0-35.0); Mean Corpuscular Hemoglobin 28.2 pg (27.0-33.0); Mean Corpuscular Volume 84.1 fL (80.0-98.0); Mean Platelet Volume 9.3 fL (9.4-12.3); Monocytes Absolute Auto 0.3 X10*3/uL (0.1-1.2); Monocytes Percent Auto 2.5 % (2-11); Neutrophils Percent Auto 89.4 % (45-73); Platelet Count 461 X10*3/uL (160-400); Red Blood Count 5.67 X10*6/uL (4.20-5.50); Red Cell Distribution Width 13.4 % (11.0-16.0); White Blood Count 12.3 X10*3/uL (4.8-10.8)
[2021-12-12 10:54] LABS: COVID-19 Test Negative (Negative); IDNOW Serial# 16C4AD1C
[2021-12-12 10:55] LABS: Influenza A Negative (Negative); Influenza B2 Negative (Negative)
[2021-12-12 10:56] LABS: Alanine Aminotransferase < 6 U/L (0-31); Albumin Level 3.9 g/dL (3.5-5.0); Alkaline Phosphatase 67 U/L (39-117); Anion Gap 14 (12-20); Aspartate Amino Transferase 12 U/L (5-31); Bilirubin Direct 0.2 mg/dL (0.0-0.5); Bilirubin Total 0.5 mg/dL (0.0-1.0); Blood Urea Nitrogen 5 mg/dL (9-16); Calcium 9.3 mg/dL (8.4-10.2); Carbon Dioxide 24 mmol/L (22-29); Chloride 104 mmol/L (96-108); Creatinine Clr Calc Pharmacy 97.8; Estimated Glomerular Filt Rate > 60; Glucose Random 196 mg/dL (60-115); Lipase 8 U/L (8-78); Magnesium 1.7 mg/dL (1.6-2.6); Potassium 4.9 mmol/L (3.3-5.1); Sodium 137 mmol/L (135-145); Total Protein 6.9 g/dL (6.5-8.0)
[2021-12-12] MEDS: Meclizine HCl 25 MG TABLET PO ×2 (11:16→13:07)
[2021-12-12 12:46] LABS: Troponin-I High Sensitivity < 3.5 ng/L (<3.5-17.0)
[2021-12-12] MEDS: LORazepam 2 MG/ML VIAL 1 MG IVPUSH (13:07)
[2021-12-12 17:38] LABS: Appearance Urine HAZY; Color Urine YELLOW; Glucose Urine UA NEG (NEG); Leukocyte Esterase Urine NEG (NEG); Nitrite Urine NEG (NEG); UACC Culture Trigger NO; Urine Blood 1+ (NEG); Urine Ketones NEG (NEG); Urine Protein NEG (NEG-TRACE)
[2021-12-12 17:57] LABS: Squamous Epithelial Cell Urine 3+ /LPF
[2021-12-12 17:58] LABS: Bacteria Urine 2+ /LPF
[2021-12-12 17:59] LABS: WBC Urine 0-2 /HPF (0-4)
--- NOTE | 2021-12-12 18:22 | PHA.MEDREC ---
Pharmacy Consult ? Medication Reconciliation Pharmacy has completed the medication reconciliation.
[2021-12-12] MEDS: diphenhydrAMINE HCL 50 MG/ML VIAL IVPUSH (18:49)
[2021-12-12] MEDS: Metoclopramide HCl 10 MG/2 ML VIAL IVPUSH (18:49)
--- NOTE | 2021-12-12 19:11 | PC.NURSE ---
Took report from Jay to assume care of Pt.
[2021-12-12] MEDS: Aspirin Enteric Coated 81 MG TABLET.DR PO (22:15)
[2021-12-12] MEDS: iohexoL 350 MG/ML 100 ML INFUS..BTL IV (22:21)
--- NOTE | 2021-12-12 23:08 | PM.IMHP ---
History of Present Illness Date of Service: 12/12/21 Chief Complaint: Dizziness 41-year-old female with a past medical history of diabetes, osteoarthritis of the knee, fibromyalgia, neuropathy, insomnia presented to the hospital today with a chief complaint of dizziness. Patient reports that since yesterday evening around 2200 she started to have nausea vomiting and dizziness; mentions or dizziness worsens with change of position, movement; also mentioned that she is unsteady on gait; denies any falls or trauma. Mentions that whenever she has dizziness she has hold room spinning. Denies any chest pain or palpitations. Denies any fever chills cough or sputum production. Denies any headaches or blurry visions. Denies any focal weakness, numbness or tingling. Denies any urinary symptoms. Review of all other systems is negative except mentioned above ER course: Per ER team patient noted to be dizzy, unsteady on gait, benign abdominal examination; stent is equal bilaterally; no sensory deficits noted; patient was noted to be having difficulty performing qwwbuz-[id number]-[id number] test and hifm-bi-omyu test;; noted to have nystagmus positive; patient is not a tPA candidate-out of the window; MRI was done which showed acute left cerebellar infarct; patient was given aspirin 81 mg; CT angio of the head and neck was done which showed left vertebral artery at V2/V3 segments-no flow detected; discussed with Dr. Guerrero from Neurology-who mentioned to admit to the hospitalist service, no need for transfer at this time; recommended MRI with contrast in the morning. [facility] Medical History Bronchitis Bursitis and tendinitis of shoulder region Diabetes Diabetes Diabetes mellitus with neuropathy Fibromyalgia Insomnia Knee arthropathy Osteoarthritis of right knee Osteoarthritis of shoulders, bilateral Thyroid activity decreased Family History Father Stomach cancer Mother No problems noted. Sister No problems noted. Surgical History H/O knee surgery History of shoulder surgery Social History Housing: Apartment Alcohol intake: never Patient Tobacco Use Status: Former Tobacco user Tobacco use type: Cigarette e-Cigarette/Vaping Use: Never Used Second Hand Smoke Exposure: No Use of substances other than those prescribed or required for medical reasons: No Advance Directives: No Advance Directives Information Provided: No service: No Current occupational status: disabled Meds Allergies Allergy/AdvReac Type Severity Reaction Status Date / Time Penicillins Allergy Unknown Hives Verified 12/04/21 16:18 Seasonal Allergies Allergy itchy Verified 12/04/21 16:18 nose/sneezing Active Medications: Current Medications Sodium Chloride (Ns) 1,000 mls @ 999 mls/hr IV .Q1H1M ERIC Stop: 12/13/21 00:15 Pharmacy Consult (Consult Rx Perform Med Rec) 1 each MISCELLANE ONCE PRN PRN Reason: Consult order Home Medications Medication Instructions Recorded Confirmed Last Taken Type tizanidine 4 mg tablet 4 mg PO DAILY 12/12/21 12/12/21 Unknown History Physical Exam Vital Signs and Narrative: Vital Signs: Last Vital Signs Temp 98.2 F 12/12/21 20:58 Pulse 86 12/12/21 22:36 Resp 15 12/12/21 22:36 BP 134/74 12/12/21 22:36 Pulse Ox 98 12/12/21 22:36 BMI result Body Mass Index 31.3 Gen: Appears be in no acute distress HEENT: NCAT, Moist mucosa. Pulmonary: Vesicular breath sounds, fair air entry CVS: Normal S1-S2 Abdomen: BS+, Soft, Nontender Extremities: Warm well perfused Neuro: Alert and awake.; oriented x3; strength is equal bilaterally; no sensory deficits; patient unable to perform jxkr-gr-[id number] test with the right leg. Able to perform well with her left leg. Able to perform finger to nose test bilaterally. Gait not tested. Results Labs CBC and Chem 7: 12/12/21 10:05 12/12/21 10:30 Labs: Laboratory Results - last 24 hr 12/12/21 12/12/21 12/12/21 10:05 10:05 10:05 MCV 84.1 MCH 28.2 MCHC 33.5 RDW 13.4 Plt Count 461 H MPV 9.3 L Immature Gran % (Auto) 0.3 Neut % (Auto) 89.4 H Lymph % (Auto) 7.6 L [place] % (Auto) 2.5 Eos % (Auto) 0.0 Baso % (Auto) 0.2 Lymph # (Auto) 0.9 L [place] # (Auto) 0.3 Eos # (Auto) 0.0 Baso # (Auto) 0.0 Abs Immat Gran (auto) 0.04 H Absolute Neuts (auto) 11.0 H Absolute Nucleated RBC 0.000 Nucleated RBC % (auto) 0.0 Anion Gap Estim Creat Clear Calc Estimated GFR Random Glucose Calcium Magnesium Total Bilirubin Direct Bilirubin AST ALT Alkaline Phosphatase Troponin I High Sens < 3.5 Total Protein Albumin Lipase Urine Color Urine Appearance Urine pH Ur Specific [place] Urine Protein Urine Glucose (UA) Urine Ketones Urine Blood Urine Nitrite Ur Leukocyte Esterase Urine RBC Urine WBC Ur Squamous Epith Cells Urine Bacteria COVID-19 (GRACY) COVID-19 Clin Com Influenza Type A (ROBERT) Negative Influenza Type B (ROBERT) Negative Influenza A & B Note See Note 12/12/21 12/12/21 12/12/21 10:05 10:30 17:29 MCV MCH MCHC RDW Plt Count MPV Immature Gran % (Auto) Neut % (Auto) Lymph % (Auto) [place] % (Auto) Eos % (Auto) Baso % (Auto) Lymph # (Auto) [place] # (Auto) Eos # (Auto) Baso # (Auto) Abs Immat Gran (auto) Absolute Neuts (auto) Absolute Nucleated RBC Nucleated RBC % (auto) Anion Gap 14 Estim Creat Clear Calc 97.8 Estimated GFR > 60 Random Glucose 196 H Calcium 9.3 Magnesium 1.7 Total Bilirubin 0.5 Direct Bilirubin 0.2 AST 12 ALT < 6 Alkaline Phosphatase 67 Troponin I High Sens Total Protein 6.9 Albumin 3.9 Lipase 8 Urine Color YELLOW Urine Appearance HAZY Urine pH 7.0 Ur Specific [place] 1.010 Urine Protein NEG Urine Glucose (UA) NEG Urine Ketones NEG Urine Blood 1+ H Urine Nitrite NEG Ur Leukocyte Esterase NEG Urine RBC 10-14 H Urine WBC 0-2 Ur Squamous Epith Cells 3+ Urine Bacteria 2+ COVID-19 (GRACY) Negative COVID-19 Clin Com See Note Influenza Type A (ROBERT) Influenza Type B (ORBERT) Influenza A & B Note Imaging Radiologist's Impressions: Impressions Head CT 12/12/21 11:15 IMPRESSION: No acute intracranial process seen. Brain MRI 12/12/21 20:50 IMPRESSION: 1. There is an area of restricted diffusion in the left cerebellar tonsil, consistent with an acute infarct. There is no evidence of hemorrhagic transformation. No other infarcts are demonstrated. 2. No bleeds or masses are demonstrated. The flow void from the left vertebral artery in the upper neck is not well demonstrated. This could be further evaluated with CTA of the head and neck. 3. This critical result was discussed with ALEX Gallegos by telephone on 12/12/2021 at 9:20 PM and it was ascertained that the content and urgency of the report was understood at the time of direct communication. Head/Neck CTA 12/12/21 22:16 IMPRESSION: CT head and neck: 1. No acute bleeds or territorial infarcts are demonstrated; the infarct in the left cerebellar tonsil is better visualized on the MRI scan. 2. There are no masses or areas of abnormal enhancement. 3. There is no cervical lymphadenopathy and no masses are demonstrated in the neck CTA head and neck:. 1. The left vertebral artery is nondominant, and no flow is demonstrated in the left vertebral artery from the distal V2 and the proximal V3 segments. Intradurally, flow is demonstrated in the bilateral vertebral arteries. 2. No decreased flow or stenoses are demonstrated in the neck vascularity elsewhere, and intracranially there are no other focal stenoses, aneurysms or vascular malformations. This critical result was discussed with ALEX Gallegos by telephone on 12/12/2021 at 10:37 PM and it was ascertained that the content and urgency of the report was understood at the time of direct communication. Assessment and Plan (1) Dizziness: Status: Acute (2) Cerebellar infarct: Status: Acute (3) Diabetes mellitus with neuropathy: Status: Acute Plan 41-year-old female with a past medical history of diabetes, osteoarthritis of the knee, fibromyalgia, neuropathy, insomnia presented to the hospital today with a chief complaint of dizziness. Noted to have acute left cerebellar infarct. Admitted for further management. Acute left cerebellar CVA: Patient has symptoms of onset around 2200 on 12/11/2021. Out of the window. Did not administer tPA. Fall precautions, neuro checks. Speech and swallow eval/PT/OT Continue aspirin, Lipitor. Will obtain lipid profile Monitor on telemetry Echo with bubble study Cycle cardiac enzymes Dizziness: Mentions room spinning and worsens with positional change.? BPPV. Meclizine p.r.n. Left vertebral artery stenosis: No flow directed at V2 V3 segments on the CT angio of the neck. Neurology was notified. No acute intervention recommended. Microscopic hematuria: Denies any urinary symptoms. Repeat urinalysis after hydration. History of diabetes: Insulin sliding scale DVT prophylaxis: SCD boots for now. To be re-evaluated after 24 hours. Code status: Full code Quality Stroke Does the patient have a stroke diagnosis?: No VTE Prior VTE?: No VTE Risk Level:: Medical - moderate - high VTE Device Contraindication: N/A - Device Ordered VTE Drug Contraindication: Treatment Not Indicated
[2021-12-12] MEDS: Dextrose 5 % and 0.45 % NaCl 1,000 ML 50 ML IVCONT (23:28)
[2021-12-13] VITALS (12 sets, daily range): BP systolic 103–138; BP diastolic 55–87; PULSE 9–91; RESP 13–18; TEMP 24.4–36.9; O2SAT 95–100
--- NOTE | 2021-12-13 02:24 | PC.NURSE ---
Pt c/o increased dizziness, Hospitalist made aware and will put in order in OCT.
[2021-12-13] MEDS: Meclizine HCl 25 MG TABLET PO ×3 (02:34→15:28)
[2021-12-13] MEDS: traMADoL HCL 50 MG TABLET PO ×3 (02:50→20:13)
[2021-12-13] MEDS: Zolpidem Tartrate 5 MG TABLET PO (02:50)
--- NOTE | 2021-12-13 05:36 | PC.NURSE ---
Pt sleeping, chest rise and fall observed, on cardiac rn, call light in reach, this RN continues to monitor.
[2021-12-13 06:07] LABS: MANUAL DIFF FLAG NO
[2021-12-13 06:08] LABS: Basophils Percent Auto 0.3 % (0-2); Eosinophils Percent Auto 0.1 % (0-4); Hematocrit 36.1 % (37.0-47.0); Hemoglobin 12.1 g/dl (12.0-16.0); Imm Gran Abs Auto 0.04 X10*3/uL (0.00-0.03); Imm Gran Pct Auto 0.4 % (0.0-0.4); Lymphocytes Absolute Auto 2.4 X10*3/uL (1.2-4.9); Lymphocytes Percent Auto 21.1 % (20-40); Mean Corpuscular HGB Conc 33.5 g/dl (31.0-35.0); Mean Corpuscular Hemoglobin 28.3 pg (27.0-33.0); Mean Corpuscular Volume 84.3 fL (80.0-98.0); Mean Platelet Volume 9.1 fL (9.4-12.3); Monocytes Percent Auto 8.8 % (2-11); Neutrophils Absolute Auto 7.9 x10*3/uL (2.0-8.3); Neutrophils Percent Auto 69.3 % (45-73); Platelet Count 339 X10*3/uL (160-400); Red Blood Count 4.28 X10*6/uL (4.20-5.50); Red Cell Distribution Width 13.8 % (11.0-16.0); White Blood Count 11.3 X10*3/uL (4.8-10.8)
[2021-12-13 06:25] LABS: Anion Gap 11 (12-20); Blood Urea Nitrogen 4 mg/dL (9-16); Calcium 8.7 mg/dL (8.4-10.2); Carbon Dioxide 23 mmol/L (22-29); Chloride 109 mmol/L (96-108); Cholesterol 159 mg/dL; Creatinine Clr Calc Pharmacy 104.3; Estimated Glomerular Filt Rate > 60; Glucose Random 170 mg/dL (60-115); HDL Cholesterol 54 mg/dL; LDL Cholesterol Calculated 92 mg/dl; Potassium 3.8 mmol/L (3.3-5.1); Sodium 139 mmol/L (135-145); Triglycerides 68 mg/dL
--- NOTE | 2021-12-13 07:45 | PC.NURSE ---
no focal deficits noted. denies headache. dizziness is severe. unable to complete orthostatics. was dizzy just adjusting position in bed. NSR on monitor. skin pwd. no vomiting. reports slight nausea.
[2021-12-13 07:56] LABS: Glucose, Whole Blood 119 mg/dL (60-115)
[2021-12-13] MEDS: ondansetron HCL 4 MG/2 ML VIAL IVPUSH (08:36)
--- NOTE | 2021-12-13 08:37 | PC.NURSE ---
pt medicated for nausea and dizziness p/t MRI.
--- NOTE | 2021-12-13 09:00 | CA_ITS ---
Transthoracic Echocardiogram Amended Patient (Last, First, Middle): Lisa Guerrero, Gender: Female Date of : 1980 Age: 41 Procedure Date: 12/13/2021 Procedure Type: Transthoracic Echocardiogram Location: ER Height: 165.1 cm Weight: 85.28 kg BSA: 1.93 m2 Heart Rate: bpm BP: 103 / 55 mmHg Management Planner: DANIELE Amador MD: Donovan Snow MD Symptoms: cva; Study Quality: Fair Conclusions: - Normal left ventricular size, thickness, and systolic function. The visually estimated ejection fraction is between 55-60%. There is no evidence of regional wall motion abnormalities. Diastolic function is normal for age. - Mildly increased right ventricular cavity size. There is normal right ventricular systolic function. - Both atria are normal in size. Findings Left Ventricle Normal left ventricular size, thickness, and systolic function. The visually estimated ejection fraction is between 55-60%. There is no evidence of regional wall motion abnormalities. Diastolic function is normal for age. Right Ventricle Mildly increased right ventricular cavity size. There is normal right ventricular systolic function. Atria Both atria are normal in size. Aortic Valve Normal aortic valve structure and function. There is no aortic valve stenosis. There is no aortic valve regurgitation. Mitral Valve Normal mitral valve structure and function. There is no mitral valve regurgitation. There is no mitral valve stenosis. Pulmonic Valve Normal pulmonic valve structure and function. There is trace pulmonic valve regurgitation. Tricuspid Valve Normal tricuspid valve structure. There is trace tricuspid valve regurgitation. Normal right atrial pressure. There is no evidence of pulmonary hypertension. Great Vessels All visible segments of the aorta are normal in size. The visualized portions of the pulmonary artery and branches are normal. Venous The inferior vena cava is normal in size and collapses greater than 50% with inspiration. Pericardium/Pleural There is no evidence of pericardial effusion. Prior Study Comparison No prior study available for comparison. Measurements 2D Linear Measurements IVSd: 0.99 0.6-0.9/0.6-1.0 cm LVIDd: 4.12 3.9-5.3/4.2-5.9 cm LVIDd Index: 2.13 2.4-3.2/2.2-3.1 cm/m2 LVIDs: 2.54 2.0-3.6 cm LVPWd: 0.80 0.7-1.1 cm LA Diam: 3.40 2.7-3.8/3.0-4.0 cm LAIDs Index: 1.76 1.5-2.3 cm/m2 LV Mass: 141.30 67-162/88-224 g LV Mass Index: 73.21 43-95/49-115 g/m2 LVOT Diam: 2.00 3.0+(-)1.3 cm 2D Volumes LA Vol: 22.20 Mitral Valve MV Pk E: 1.02 MV PK A: 0.86 MV Decel Time: 169.00 E/A: 1.20 E'Lateral: 11.20 E'Medial: 7.83 E/E' Med: 13.00 E/E' Lat: 9.10 PHT: 49.00 MVA PHT: 4.49 Decel [place]: 6.03 Aortic Valve AoV Pk Subhash: 1.62 AoV Mn Subhash: 1.04 AoV VTI: 0.33 AoV Pk Grad: 10.00 Aov Mn Grad: 5.00 JERI Cont.VTI: 2.08 LVOT LVOT Pk Subhash: 1.04 LVOT Mn Subhash: 0.73 LVOT VTI: 0.22 LVOT Pk Grad: 4.00 LVOT Mn Grad: 2.00 LVOT Diam: 2.00 LVOT Area: 3.14 Diastolic Function MV Pk E: 1.02 MV Pk A: 0.86 E/A: 1.20 E'Medial: 7.83 E/E' Med: 13.00 E' Laterial: 11.20 E/E' Lat: 9.10 Right Ventricle TAPSE (mm): 23.60 TVS' Subhash: 11.20 Tricuspid Valve TR Pk Subhash: 2.40 TR Pk Grad: 23.00 RA Press: 8.00 RVSP: 31.00 Great Vessels Aorta Sinus of Valsalva: 3.17 2.0-3.[address] [place]: 2.34 1.7-3.4 cm Ao Asc: 2.70 2.1-3.4 cm Ao Arch: 2.10 Updated in Other Vendor System with Status of Final Desean Sena MD electronically signed on 12/23/2021 4:15:40 PM with status of Final
[2021-12-13] MEDS: Gabapentin 600 MG TABLET PO ×3 (09:35→20:13)
[2021-12-13] MEDS: Loratadine 10 MG TABLET PO (09:35)
[2021-12-13] MEDS: Atorvastatin Calcium 80 MG TABLET PO (09:36)
[2021-12-13] MEDS: Aspirin Enteric Coated 81 MG TABLET.DR PO (09:36)
[2021-12-13] MEDS: TiZANidine HCL 4 MG TABLET PO (09:36)
--- NOTE | 2021-12-13 09:50 | PC.NURSE ---
ed staff assisted pt to commode. rported to this rn that it was difficulty. pt had poor cordination and muscle tone, kind of flopped onto commode. but was able to tolerate the movement despite dizziness.
--- NOTE | 2021-12-13 10:23 | PC.NURSE ---
sister at bedside. states that patient's mother has degenerative cerabellar disease. pt reports feeling much better after zofran and meclazine. was able to tolerate MRI.
--- NOTE | 2021-12-13 10:49 | P.CNNE_ITS ---
History of Present Illness Data of Consult Service Date: 12/13/21 Primary Care Provider: Unknown Physician HPI Reason for consult: Stroke 41 years old woman with no previous history of vascular disease, drug use, her blood clots presented with new onset of severe nausea and vomiting. It started about a day before she came to emergency room. There was no obvious focal weakness. Imaging was done that revealed a small stroke and she was admitted. This morning she was feeling much better Review of Systems Review of Systems: No recent cold or flu-like illness or trauma [facility] Past Medical History Medical History Bronchitis Bursitis and tendinitis of shoulder region Diabetes Diabetes Diabetes mellitus with neuropathy Fibromyalgia Insomnia Knee arthropathy Osteoarthritis of right knee Osteoarthritis of shoulders, bilateral Thyroid activity decreased Family History Family History Father Stomach cancer Mother No problems noted. Sister No problems noted. Surgical History Surgical History H/O knee surgery History of shoulder surgery Social History Social History Housing: Apartment Alcohol intake: never Patient Tobacco Use Status: Former Tobacco user Tobacco use type: Cigarette e-Cigarette/Vaping Use: Never Used Second Hand Smoke Exposure: No Use of substances other than those prescribed or required for medical reasons: No Advance Directives: No Advance Directives Information Provided: No service: No Current occupational status: disabled Meds Allergies Allergy/AdvReac Type Severity Reaction Status Date / Time Penicillins Allergy Unknown Hives Verified 12/04/21 16:18 Seasonal Allergies Allergy itchy Verified 12/04/21 16:18 nose/sneezing Active Medications: Current Medications Acetaminophen (Acetaminophen 325 Mg Tablet) 650 mg PO Q6H PRN PRN Reason: Pain, Mild (Pain Scale 1-3) Aspirin (Aspirin Enteric Coated 81 Mg Tablet.) 81 mg PO DAILY [facility] Last Admin: 12/13/21 09:36 Dose: 81 mg Documented by: Atorvastatin Calcium (Atorvastatin Calcium 80 Mg Tablet) 80 mg PO DAILY [facility] Last Admin: 12/13/21 09:36 Dose: 80 mg Documented by: Dextrose (Dextrose 50 % 25 Gm/50 Ml Syringe) 25 gm IVPUSH Q15M PRN; Protocol PRN Reason: per Hypoglycemia Standing Ord. Gabapentin (Gabapentin 600 Mg Tablet) 600 mg PO TID [facility] Last Admin: 12/13/21 09:35 Dose: 600 mg Documented by: Glucose (Glucose Gel 15 Gm Gel..Gram.) 15 gm PO Q15M PRN; Protocol PRN Reason: per Hypoglycemia Standing Ord. Dextrose/Sodium Chloride (D51/2ns) 1,000 mls @ 50 mls/hr IVCONT .Q20H [facility] Last Admin: 12/12/21 23:28 Dose: 50 mls/hr Documented by: Insulin Human Lispro (Insulin Lispro 100 Unit/Ml 3 Ml Vial) 0 unit SUBCUT QIDACHS [facility]; Protocol Last Admin: 12/13/21 08:14 Dose: Not Given Documented by: Loratadine (Loratadine 10 Mg Tablet) 10 mg PO DAILY [facility] Last Admin: 12/13/21 09:35 Dose: 10 mg Documented by: Meclizine HCl (Meclizine Hcl 25 Mg Tablet) 25 mg PO Q6H PRN PRN Reason: dizziness Last Admin: 12/13/21 08:36 Dose: 25 mg Documented by: Melatonin (Melatonin 3 Mg Tablet) 6 mg PO BEDTIME PRN PRN Reason: Insomnia Ondansetron HCl (Ondansetron Hcl 4 Mg/2 Ml Vial) 4 mg IVPUSH Q6H PRN PRN Reason: Nausea Last Admin: 12/13/21 08:36 Dose: 4 mg Documented by: Pharmacy Consult (Consult Rx Perform Med Rec) 1 each MISCELLANE ONCE PRN PRN Reason: Consult order Senna (Sennosides 8.6 Mg Tablet) 17.2 mg PO BEDTIME PRN PRN Reason: Constipation Sodium Chloride (0.9 % Sodium Chloride Flush 3 Ml Syringe) 3 ml IVFLUSH QSHIFT [facility] Last Admin: 12/13/21 07:47 Dose: Not Given Documented by: Tizanidine HCl (Tizanidine Hcl 4 Mg Tablet) 4 mg PO DAILY [facility] Last Admin: 12/13/21 09:36 Dose: 4 mg Documented by: Tramadol HCl (Tramadol Hcl 50 Mg Tablet) 50 mg PO Q6H PRN PRN Reason: Pain, Severe (Pain Scale 7-10) Last Admin: 12/13/21 02:50 Dose: 50 mg Documented by: Zolpidem Tartrate (Zolpidem Tartrate 5 Mg Tablet) 10 mg PO BEDTIME ERIC Home Medications Medication Instructions Recorded Confirmed Last Taken Type tizanidine 4 mg tablet 4 mg PO DAILY 12/12/21 12/12/21 Unknown History Physical Exam Vital Signs: Vital Signs: Last Vital Signs Temp 98.2 F 12/12/21 20:58 Pulse 87 12/13/21 09:37 Resp 16 12/13/21 09:37 BP 117/71 12/13/21 07:39 Pulse Ox 95 12/13/21 07:32 BMI result Body Mass Index 31.3 Neuro: Other: She was alert and awake with normal spontaneity of speech fluency comprehension and affect. Pupils were equal round react to light. Extraocular muscles were intact. Visual lobato are full. Face was symmetrical. There was no pronator drift. Biwymk-bw-dwgh testing was normal. Deep tendon reflexes were trace with flexor plantars. Speech was normal. There was no nystagmus Results Labs CBC & Chem 7: 12/13/21 06:02 12/13/21 06:02 Labs: Short CBC 12/13/21 Range/Units 06:02 WBC 11.3 H (4.8-10.8) X10*3/uL Hgb 12.1 D (12.0-16.0) g/dl Hct 36.1 L D (37.0-47.0) % Plt Count 339 D (160-400) X10*3/uL BMP 12/12/21 12/13/21 10:30 06:02 Sodium 137 139 Potassium 4.9 3.8 D Chloride 104 109 H Carbon Dioxide 24 23 BUN 5 L 4 L Creatinine 0.80 0.75 Calcium 9.3 8.7 D Liver Function 12/12/21 Range/Units 10:30 Total Bilirubin 0.5 (0.0-1.0) mg/dL Direct Bilirubin 0.2 (0.0-0.5) mg/dL AST 12 (5-31) U/L ALT < 6 (0-31) U/L Alkaline Phosphatase 67 (39-117) U/L Albumin 3.9 (3.5-5.0) g/dL Urine 12/12/21 Range/Units 17:29 Urine Color YELLOW Urine Appearance HAZY Urine pH 7.0 (5.0-8.0) Ur Specific [place] 1.010 (1.005-1.025) Urine Protein NEG (NEG-TRACE) MG/DL Urine Glucose (UA) NEG (NEG) MG/DL Noncontrast head CT revealed a left median cerebellar hypodensity. MRI of brain revealed restricted area of diffusion in that area with hyper intensity on FLAIR sequences. There was no enhancement in that area. 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 EKG revealed normal sinus rhythm. Assessment and Plan (1) Cerebellar infarct: Status: Acute 41 years old woman with subacute left medial cerebellar infarct resulting in severe nausea and vomiting and dizziness. With medical management she was feeling much better. This infarct could be from atherothrombotic disease of left vertebral artery. Because of her young age, cardiac source of embolism should also be looked at. At this time my recommendations are to continue anti- platelet agent such as aspirin 81 mg daily, use p.r.n. antiemetic, and an echocardiogram. Procedures Date of Service Date of Service: 12/13/21
--- NOTE | 2021-12-13 10:57 | MHC.STROKE ---
12/12/21 0933 EMS PRE-NOTIFIED NO STROKE ALERT, DIZZY, NAUSEA, VOMITING, THAT STARTED APPROX. 2200 ON 12/11/21. SEEN BY PROVIDER, NIHSS = 0. 142/100. TO CT, NO BLEED, THEN MRI, THEN CTA, THEN MRI WITH CONTRAST THIS AM. +VERTEBRAL DISEASE. SHE PASSED NURSING SWALLOW SCREEN. SEEN BY PT AND THEY ARE RECOMMENDING ACUTE REHAB. I DISCUSSED CASE WITH DR VINCENT AND SHE SHOULD HAVE AN ECHO WITH BUBBLE, SHE IS ALSO C/O RIGHT LEG ?CALF PAIN. I DID REPORT THIS TO DR SNELL. I DID MEET WITH HER AND HER SISTER AND PROVIDED STROKE EDUCATION, REVIEWED THE BOOKLET, MRI SCREENSHOT AND EXPLAINED THE CORRELATING SYMPTOMS IN THAT LOCATION. AND POWER POINT SLIDES. I REVIEWED THE PLAN OF CARE AND ANSWERED ALL OF HER QUESTIONS. I WILL CONTINUE TO FOLLOW.
[2021-12-13] MEDS: Enoxaparin Sodium 40 MG/0.4 ML SYRINGE SUBCUT (11:27)
--- NOTE | 2021-12-13 12:05 | MHC.SL.SWA ---
Speech Pathologist Impression: Within Functional Limits Risk of Aspiration Due to: None Dysphasia Diet Status: dysphagia and language issues were ruled out Liquid Consistency and Strategies for Safe Swallow: Liquid Intake Recommendation: thin Liquid Intake Strategies: Solid Food Consistency: Dietary Recommendations: Regular Additional Modifications to Solid Foods: Oral Medication Intake: Whole with Liquid Please contact the pharmacy regarding appropriate crushable or liquid drug formulations that are available whenever modified delivery is recommended. Compensatory Strategies and Precautions to be Taken for Safe Swallow: Supervision While Eating and Drinking for Safe Swallow: Foods to Avoid: Swallowing Recommended Treatments: Recommendation for Speech: NA:Typical Evaluation Comment: no barriers or concerns Frequency/Duration: Date Range for Service Req: 1 time follow-up Timeline to reassess: PRN Department Supervisor Clinican/Clinical Fellow: No Supervisory Statement: I have reviewed and agree with the student/clinical fellow's documentation: N/A Speech Language Pathologist: Juliana Phillips M.A., CCC-CAREER EDUCATION TEACHER
--- NOTE | 2021-12-13 13:41 | MHC.CM.PN ---
Patient has a live in [employer]. PT is recommending Acute Rehab; CM has initiated and will follow for dc planning.
--- NOTE | 2021-12-13 14:20 | P.PNIM_ITS ---
Subjective Subjective Date of Service: 12/14/21 Interval History: Feeling better dizziness and nausea has resolved after use of antiemetics and meclizine, complaining of right knee pain that is chronic, denies new neurological symptoms, sister at bedside informed about chronic speech impa irment, and ataxia. Review of Systems [employer] no headache, no dizziness CVS no chest pain, no palpitation GI no nausea, no vomiting, no abdominal pain Review of Systems: Yes all other systems are reviewed and are negative Physical Exam Vital Signs: Vital Signs: Last Vital Signs Temp 98.2 F 12/12/21 20:58 Pulse 83 12/13/21 11:30 Resp 18 12/13/21 11:30 BP 128/73 12/13/21 11:30 Pulse Ox 98 12/13/21 11:30 BMI result Body Mass Index 31.3 Const: Other: General awake alert, no acute distress. Pupils reactive to light and accommodation, no nystagmus, anicteric sclerae Neck supple, no JVD. CVS regular rate rhythm, Respiratory lungs clear to auscultation, no respiratory distress, no wheeze, no rhonchi. Gastrointestinal abdomen soft, nontender, bowel sounds audible Extremities no edema. Neuro nonfocal,speech chronic mild dysarthria as per sister, at present clear speech, no pronator drift, gait not assessed Skin no rash Objective Data Active Medications Acetaminophen (Acetaminophen 325 Mg Tablet) 650 mg PO Q6H PRN PRN Reason: Pain, Mild (Pain Scale 1-3) Aspirin (Aspirin Enteric Coated 81 Mg Tablet.) 81 mg PO DAILY [facility] Last Admin: 12/13/21 09:36 Dose: 81 mg Documented by: HAMMAD Atorvastatin Calcium (Atorvastatin Calcium 80 Mg Tablet) 80 mg PO DAILY [facility] Last Admin: 12/13/21 09:36 Dose: 80 mg Documented by: HAMMAD Dextrose (Dextrose 50 % 25 Gm/50 Ml Syringe) 25 gm IVPUSH Q15M PRN; Protocol PRN Reason: per Hypoglycemia Standing Ord. Enoxaparin Sodium (Enoxaparin Sodium 40 Mg/0.4 Ml Syringe) 40 mg SUBCUT Q24H [facility] Last Admin: 12/13/21 11:27 Dose: 40 mg Documented by: DYLAN Gabapentin (Gabapentin 600 Mg Tablet) 600 mg PO TID [facility] Last Admin: 12/13/21 09:35 Dose: 600 mg Documented by: HAMMAD Glucose (Glucose Gel 15 Gm Gel..Gram.) 15 gm PO Q15M PRN; Protocol PRN Reason: per Hypoglycemia Standing Ord. Dextrose/Sodium Chloride (D51/2ns) 1,000 mls @ 50 mls/hr IVCONT .Q20H [facility] Last Admin: 12/12/21 23:28 Dose: 50 mls/hr Documented by: TOMMY-RYANK Insulin Human Lispro (Insulin Lispro 100 Unit/Ml 3 Ml Vial) 0 unit SUBCUT QIDACHS [facility]; Protocol Last Admin: 12/13/21 08:14 Dose: Not Given Documented by: DYLAN Non-Admin Reason: No Insulin Coverage Loratadine (Loratadine 10 Mg Tablet) 10 mg PO DAILY [facility] Last Admin: 12/13/21 09:35 Dose: 10 mg Documented by: HAMMAD Meclizine HCl (Meclizine Hcl 25 Mg Tablet) 25 mg PO Q6H PRN PRN Reason: dizziness Last Admin: 12/13/21 08:36 Dose: 25 mg Documented by: DYLAN Melatonin (Melatonin 3 Mg Tablet) 6 mg PO BEDTIME PRN PRN Reason: Insomnia Ondansetron HCl (Ondansetron Hcl 4 Mg/2 Ml Vial) 4 mg IVPUSH Q6H PRN PRN Reason: Nausea Last Admin: 12/13/21 08:36 Dose: 4 mg Documented by: DYLAN Pharmacy Consult (Consult Rx Perform Med Rec) 1 each MISCELLANE ONCE PRN PRN Reason: Consult order Senna (Sennosides 8.6 Mg Tablet) 17.2 mg PO BEDTIME PRN PRN Reason: Constipation Sodium Chloride (0.9 % Sodium Chloride Flush 3 Ml Syringe) 3 ml IVFLUSH QSHIFT [facility] Last Admin: 12/13/21 07:47 Dose: Not Given Documented by: DYLAN Non-Admin Reason: Med Not Available Tizanidine HCl (Tizanidine Hcl 4 Mg Tablet) 4 mg PO DAILY [facility] Last Admin: 12/13/21 09:36 Dose: 4 mg Documented by: HAMMAD Tramadol HCl (Tramadol Hcl 50 Mg Tablet) 50 mg PO Q6H PRN PRN Reason: Pain, Severe (Pain Scale 7-10) Last Admin: 12/13/21 11:27 Dose: 50 mg Documented by: DYLAN Zolpidem Tartrate (Zolpidem Tartrate 5 Mg Tablet) 10 mg PO BEDTIME ERIC Labs CBC & Chem 7: 12/13/21 06:02 12/13/21 06:02 Labs: Laboratory Results - last 24 hr 12/12/21 12/13/21 12/13/21 17:29 06:02 06:02 MCV 84.3 MCH 28.3 MCHC 33.5 RDW 13.8 Plt Count 339 D MPV 9.1 L Immature Gran % (Auto) 0.4 Neut % (Auto) 69.3 Lymph % (Auto) 21.1 Gilliam % (Auto) 8.8 Eos % (Auto) 0.1 Baso % (Auto) 0.3 Lymph # (Auto) 2.4 Gilliam # (Auto) 1.0 Eos # (Auto) 0.0 Baso # (Auto) 0.0 Abs Immat Gran (auto) 0.04 H Absolute Neuts (auto) 7.9 Absolute Nucleated RBC 0.000 Nucleated RBC % (auto) 0.0 Anion Gap 11 L Estim Creat Clear Calc 104.3 Estimated GFR > 60 POC Glucose Random Glucose 170 H Calcium 8.7 D Triglycerides Cholesterol LDL Cholesterol, Calc HDL Cholesterol Urine Color YELLOW Urine Appearance HAZY Urine pH 7.0 Ur Specific [place] 1.010 Urine Protein NEG Urine Glucose (UA) NEG Urine Ketones NEG Urine Blood 1+ H Urine Nitrite NEG Ur Leukocyte Esterase NEG Urine RBC 10-14 H Urine WBC 0-2 Ur Squamous Epith Cells 3+ Urine Bacteria 2+ 12/13/21 12/13/21 06:02 07:53 MCV MCH MCHC RDW Plt Count MPV Immature Gran % (Auto) Neut % (Auto) Lymph % (Auto) Gilliam % (Auto) Eos % (Auto) Baso % (Auto) Lymph # (Auto) Gilliam # (Auto) Eos # (Auto) Baso # (Auto) Abs Immat Gran (auto) Absolute Neuts (auto) Absolute Nucleated RBC Nucleated RBC % (auto) Anion Gap Estim Creat Clear Calc Estimated GFR POC Glucose 119 H Random Glucose Calcium Triglycerides 68 Cholesterol 159 LDL Cholesterol, Calc 92 HDL Cholesterol 54 Urine Color Urine Appearance Urine pH Ur Specific [place] Urine Protein Urine Glucose (UA) Urine Ketones Urine Blood Urine Nitrite Ur Leukocyte Esterase Urine RBC Urine WBC Ur Squamous Epith Cells Urine Bacteria Assessment and Plan (1) Cerebellar infarct: Status: Acute (2) Dizziness: Status: Acute (3) Osteoarthritis of right knee: Status: Acute (4) Diabetes: Status: Acute Plan 41-year-old female with a past medical history of diabetes, osteoarthritis of the knee, fibromyalgia, neuropathy, insomnia presented to the hospital today with a chief complaint of dizziness.? Noted to have acute left cerebellar infarct.? Admitted for further management.? Acute left cerebellar CVA: Symptoms of dizziness headache and nausea resolved, patient presented out of window for tPA LDL 92, total cholesterol 159 Will continue aspirin, and low-dose Lipitor.? Follow echo report, bubble study not done since RN not available Patient's sister Alesha Doyle [phone] needs to be cor with any questions. Seen by PT they recommend acute rehab, speech therapy recommend regular diet thin liquids. Seen by neurology they agree with aspirin and recommend echocardiogram with bubble study. Chronic right knee/bilateral shoulder pain due to osteoarthritis continue as needed analgesics Left vertebral artery stenosis:? No flow directed at V2 V3 segments on the CT angio of the neck, No acute intervention as per Neurology History of diabetes: Blood sugar 119, Continue diabetic diet and Insulin sliding scale, at home takes metformin currently on hold. DVT prophylaxis:? Lovenox subQ Code status: Full code Quality Stroke Does the patient have a stroke diagnosis?: No VTE Prior VTE?: No VTE Risk Level:: Medical - moderate - high VTE Device Contraindication: N/A - Device Ordered VTE Drug Contraindication: Treatment Not Indicated
[2021-12-13 14:44] LABS: Glucose, Whole Blood 150 mg/dL (60-115)
--- NOTE | 2021-12-13 15:28 | PC.NURSE ---
dizziness continues to improve. able to move about bed w./o distress, sitting up.
--- NOTE | 2021-12-13 16:15 | PC.NURSE ---
rn to rn with jed on [facility].
[2021-12-13 17:23] LABS: Glucose, Whole Blood 101 mg/dL (60-115)
[2021-12-13 20:03] LABS: Glucose, Whole Blood 118 mg/dL (60-115)
[2021-12-13] MEDS: Zolpidem Tartrate 5 MG TABLET 10 MG PO (20:13)
[2021-12-13] MEDS: 0.9 % Sodium Chloride Flush 3 ML SYRINGE IVFLUSH (20:17)
[2021-12-14] VITALS: BP 154/89; PULSE 85; RESP 20; TEMP 36.8; O2SAT 97
[2021-12-14 04:00] VITALS: BP 136/79; PULSE 90; RESP 19; TEMP 36.9; O2SAT 97
[2021-12-14 07:24] VITALS: BP 146/78; PULSE 78; RESP 18; TEMP 36.5; O2SAT 97
[2021-12-14 07:36] LABS: Glucose, Whole Blood 126 mg/dL (60-115)
[2021-12-14] MEDS: TiZANidine HCL 4 MG TABLET PO (07:55)
[2021-12-14] MEDS: Aspirin Enteric Coated 81 MG TABLET.DR PO (07:55)
[2021-12-14] MEDS: Loratadine 10 MG TABLET PO (07:56)
[2021-12-14] MEDS: Atorvastatin Calcium 10 MG TABLET PO (07:56)
[2021-12-14] MEDS: Meclizine HCl 25 MG TABLET PO (07:56)
[2021-12-14] MEDS: Gabapentin 600 MG TABLET PO (07:56)
[2021-12-14] MEDS: traMADoL HCL 50 MG TABLET PO (07:57)
[2021-12-14] MEDS: 0.9 % Sodium Chloride Flush 3 ML SYRINGE IVFLUSH (07:57)
[2021-12-14 11:27] VITALS: BP 120/68; PULSE 69; RESP 18; TEMP 36.5; O2SAT 99
[2021-12-14 11:36] LABS: Glucose, Whole Blood 142 mg/dL (60-115)
--- NOTE | 2021-12-14 12:18 | MHC.CM.PN ---
per py re eval pt now considered safe to go home with vna for physical therapy aware an d will dc pt home
--- NOTE | 2021-12-14 12:34 | P.DS_ITS ---
DS: Providers Provider Date of Service: 12/14/21 Date of admission: 12/12/21 23:04 Primary care physician: Unknown Physician Consults: 12/12/21 23:02 Consult to Neurology Stat Consulting Provider: [facility] Reason for consultation: cerebellar tonsil infarct 12/12/21 23:06 Consult to Neurology Routine Consulting Provider: Cami Guerrero Reason for consultation: cva DS: Diagnosis Discharge Diagnosis (1) Cerebellar infarct: Status: Acute (2) Dizziness: Status: Acute (3) Osteoarthritis of right knee: Status: Acute (4) Diabetes: Status: Acute DS: Summary Hospital Course Hospital Course: Chief Complaint: Dizziness 41-year-old female with a past medical history of diabetes, osteoarthritis of the knee, fibromyalgia, neuropathy, insomnia presented to the hospital today with a chief complaint of dizziness. Patient reports that since yesterday evening around 2200 she started to have nausea vomiting and dizziness; mentions or dizziness worsens with change of position, movement; also mentioned that she is unsteady on gait; denies any falls or trauma.? Mentions that whenever she has dizziness she has hold room spinning. Denies any chest pain or palpitations.? Denies any fever chills cough or sputum production.? Denies any headaches or blurry visions.? Denies any focal weakness, numbness or tingling.? Denies any urinary symptoms.? Review of all other systems is negative except mentioned above ER course: Per ER team patient noted to be dizzy, unsteady on gait, benign abdominal examination; stent is equal bilaterally; no sensory deficits noted; patient was noted to be having difficulty performing [id number] test and [id number]-[id number] test;; noted to have nystagmus positive; patient is not a tPA candidate-out of the window; MRI was done which showed acute left cerebellar infarct; patient was given aspirin 81 mg; CT angio of the head and neck was done which showed left vertebral artery at V2/V3 segments-no flow detected; discussed with Dr. Guerrero from Neurology-who mentioned to admit to the hospitalist service, no need for transfer at this time; recommended MRI with contrast in the morning. Hospital course 41-year-old female with a past medical history of diabetes, osteoarthritis of the knee, fibromyalgia, neuropathy, insomnia presented to the hospital today with a chief complaint of dizziness mri brain showed acute left cerebellar infarct, admitted to medical floor and placed on aspirin and Lipitor, lipid prof ile showed an LDL 92 total cholesterol of 159, echo with bubble study was not done in-house therefore will be scheduled as outpatient, patient evaluated by Physical therapy and they recommend home PT patient also evaluated by speech therapy and tolerated regular diet and thing liquids since all symptoms of headache dizziness and nausea have resolved patient is being discharged home with PT service. Chronic right knee/bilateral shoulder pain due to osteoarthritis continue as needed analgesics Left vertebral artery stenosis:? No flow directed at V2 V3 segments on the CT angio of the neck, No acute intervention as per Neurology History of diabetes:? Blood sugar 119, recommend to resume metformin. Time Spent with Patient Time attestation: Total time spent providing and/or coordinating discharge services: Discharge coordination time: Greater than 30 minutes Quality: Safe Use of Opioids Does Pt have an Active Cancer Diagnosis on the Problem List?: No Quality: Stroke Does the patient have a stroke diagnosis?: Yes Reason for No Anti-thrombotic at DC: N/A - Med Ordered Reason for No Anticoagulant at DC: N/A - Med Ordered Reason Not Initiating IV-Tpa: Drug treatment not indicated Reason for No Anti-thrombotic by Day Two: N/A - Med Ordered Reason for No Statin at DC: N/A - Med Ordered Physical Exam Vital Signs: Vital Signs: Last Vital Signs Temp 97.7 F 12/14/21 11:27 Pulse 69 12/14/21 11:27 Resp 18 12/14/21 11:27 BP 120/68 12/14/21 11:27 Pulse Ox 99 12/14/21 11:27 BMI result Body Mass Index 31.3 Const: Other: General awake alert, no acute distress.? Pupils reactive to light and accommodation, no nystagmus, anicteric sclerae Neck supple, no JVD. CVS? regular rate rhythm, Respiratory lungs clear to auscultation, no respiratory distress, no wheeze, no rhonchi. Gastrointestinal abdomen soft, nontender, bowel sounds audible Extremities no edema. Neuro nonfocal,speech chronic mild dysarthria as per sister, at present clear speech, no pronator drift, gait not assessed Skin no rash DS: Data Data Completed and Pending Labs on day of discharge: Laboratory Results - last 24 hr 12/13/21 12/13/21 12/13/21 13:12 17:19 19:53 POC Glucose 150 H 101 118 H 12/14/21 12/14/21 07:25 11:26 POC Glucose 126 H 142 H Discharge Plan Discharge Patient Disposition: Home Health Service Discharge Diagnosis: Acute left cerebellar infarction Referrals: sabas ramirez [Other] - 1 Week Physician,Unknown J [Primary Care Provider] - 1 Week Discharge Medications: New atorvastatin 10 mg Tablet 10 mg PO DAILY Qty: 30 0RF aspirin 81 mg Tablet,Delayed Release (Dr/Ec) 81 mg PO DAILY Qty: 30 0RF Continued metformin 500 mg tablet 500 mg PO DAILY 90 Days Qty: 90 7RF cholecalciferol (vitamin D3) 1,250 mcg (50,000 unit) capsule 1,250 mcg PO QWEEK Qty: 14 0RF loratadine [Claritin] 10 mg tablet 10 mg PO DAILY Qty: 30 6RF zolpidem 10 mg tablet 10 mg PO BEDTIME Qty: 30 5RF gabapentin 600 mg tablet 600 mg PO TID Qty: 90 1RF tramadol 50 mg tablet 50 mg PO Q6H PRN (Reason: pain) 30 Days Qty: 120 1RF Rx Instructions: DNF till 12/24/2021 PF per ME tizanidine 4 mg tablet 4 mg PO DAILY 0RF Discharge Orders: Discharge Order (Routine); Ordered 12/14/21 Ordered By: Haroldo Valencia Diet: diabetic diet and low fat, low cholesterol Activity on Discharge: As tolerated Stand Alone Forms: Patient Portal Discharge page Care Plan Goals: Acute CVA, take aspirin 81 mg by mouth daily and follow low-cholesterol diet obtain echocardiogram to be arranged by Cardiology/ going home with physical therapy service Health Concerns: Continue all home medication as before Plan of Treatment: Outpatient follow-up with cardiology for echocardiogram with bubble study, call Dr. Sena from Cardiology if no one call you for an appointment. Assessment: As per discharge summary
[2021-12-14] MEDS: Enoxaparin Sodium 40 MG/0.4 ML SYRINGE SUBCUT (13:05)
--- NOTE | 2021-12-24 09:34 | MHC.STROKE ---
LATE ENTRY FOR 12/14/21, PATIENT HAS PMH OF FIBROMYALGIA AND LDL OF 92, LIPITOR 10MG VERIFIED WITH DR SNLEL DUE TO THIS. HIGHER STATIN DOSE WAS NOT INDICATED.
== END 2021-12-14 14:03 | disposition home health service (06) | DRG 45 ==
LOC: HO.ED 23:04 → HO.EDOVER 12-13 08:17 → HO.S3 12-13 11:03 → HO.EDOVER 12-13 11:04 → HO.IMC 12-13 16:02
PROVIDERS: Nurse Practitioner Family; Admitting Provider Hospitalist; Emergency Provider Emergency Medicine; Visit Provider Hospitalist
DX: I63.212 Cerebral infarction due to unspecified occlusion or stenosis of left vertebral artery (principal); E11.40 Type 2 diabetes mellitus with diabetic neuropathy, unspecified; M79.7 Fibromyalgia; M19.90 Unspecified osteoarthritis, unspecified site; R29.700 NIHSS score 0; H55.00 Unspecified nystagmus; Z20.822 Contact with and (suspected) exposure to COVID-19; Z87.891 Personal history of nicotine dependence; Z79.82 Long term (current) use of aspirin; Z79.84 Long term (current) use of oral hypoglycemic drugs; Z79.899 Other long term (current) drug therapy
CPT/HCPCS: 36415; 70450; 70496; 70498; 70551; 70552; 80048; 80061; 80076; 81001; 82947; 83690; 83735; 84484; 85025; 87502; 87635; 93005; 93306; 96361; 96374; 96375; 96376; 97116; 97162; 97166; 99285; 99291; A9585; J1200; J1650; J2060; J2405; J2765; Q9967

== ENCOUNTER 2021-12-25 23:38 | Emergency (ER) | payer OTHER, SELFPAY ==
--- NOTE | ~2021-12-25 | XR_ITS ---
EXAMINATION: XR CHEST CLINICAL INFORMATION: Chest pain COMPARISON: None TECHNIQUE: Frontal view of the chest was obtained. FINDINGS: No significant abnormality is noted involving the heart, lungs, mediastinum, bony thorax or soft tissues. XR/XR chest 1V IMPRESSION: Unremarkable examination.
[2021-12-25 23:45] VITALS: BP 154/95; BP 160/86; PULSE 95; PULSE 96; RESP 24; TEMP 36.4; O2SAT 100; BMI 34.1
--- NOTE | 2021-12-25 23:45 | ECG_ITS ---
Test Reason : CP Blood Pressure : / mmHG Vent. Rate : 081 BPM Atrial Rate : 081 BPM P-R Int : 142 ms QRS Dur : 082 ms QT Int : 412 ms P-R-T Axes : 023 050 -06 degrees QTc Int : 478 ms Normal sinus rhythm Normal ECG When compared with ECG of 12-DEC-2021 10:02, No significant change was found Referred By: Oneida Acharya Electronically Signed By:JOSLYN DE GUZMAN
--- NOTE | 2021-12-25 23:51 | ED.CHESTPAIN ---
HPI - Chest Pain General Chief Complaint: Chest Pain Stated Complaint: CP Time Seen by Provider: 12/25/21 23:44 Source: patient and EMS Mode of arrival: EMS Limitations: no limitations History of Present Illness HPI narrative: Patient comes to the emergency room complaining of chest pain that started 20 minutes prior to arrival. Patient states that she was arguing with her family, patient states she is under a lot of stress, patient complaining of sharp substernal chest pain, nonradiating, intermittent. Related Data Home Medications Medication Instructions Recorded Confirmed tizanidine 4 mg tablet 4 mg PO DAILY 12/12/21 12/12/21 Previous Rx's Medication Instructions Recorded metformin 500 mg tablet 500 mg PO DAILY 90 Days #90 tab 08/16/21 cholecalciferol (vitamin D3) 1,250 1,250 mcg PO QWEEK #14 cap 10/04/21 mcg (50,000 unit) capsule loratadine 10 mg tablet (Claritin) 10 mg PO DAILY #30 tab 10/07/21 zolpidem 10 mg tablet 10 mg PO BEDTIME #30 tab 11/13/21 gabapentin 600 mg tablet 600 mg PO TID #90 tab 11/25/21 tramadol 50 mg tablet 50 mg PO Q6H PRN 30 Days #120 tab 12/04/21 aspirin 81 mg tablet,delayed 81 mg PO DAILY #30 tab 12/14/21 release atorvastatin 10 mg tablet 10 mg PO DAILY #30 tab 12/14/21 Allergies Allergy/AdvReac Type Severity Reaction Status Date / Time Penicillins Allergy Unknown Hives Verified 12/25/21 23:44 Seasonal Allergies Allergy itchy Verified 12/25/21 23:44 nose/sneezing Review of Systems Review of Systems: Constitutional : No Weight loss, No Fever, No Chills, No Night Sweats, No Fatigue, No Malaise ENT/Mouth : No Hearing loss, No Ear Pain, No Nasal Congestion, No Sinus Pain, No Hoarseness, No sore throat, No Rhinorrhea, No Swallowing Difficulty Eyes: No Eye Pain, No Swelling, No Redness, No Foreign Body, No Discharge, No Vision Changes Cardiovascular : Complaining of sharp substernal Chest Pain, intermittent. No SOB, No Dyspnea on Exertion, No Orthopnea, No Edema, No Palpitations Respiratory : No Cough, No Sputum, No Wheezing, No Smoke Exposure, No Dyspnea Gastrointestinal : No Nausea, No Vomiting, No Diarrhea, No Constipation, No abdominal Pain, No Hematochezia, No Melena Genitourinary : no irregular bleeding, No Dysuria, No Urinary Frequency, No Hematuria, No Urinary Incontinence, No Urgency, No Flank Pain, No Urinary Flow Changes, No Hesitancy Musculoskeletal : No joint pain, No Myalgias, No Joint Swelling Skin : No Skin Lesions, No rash Neuro : No Weakness, No Numbness, No Paresthesias, No Loss of Consciousness, No Dizziness, No Headache Psych : No Anxiety/Panic, No Depression, No SI/HI/AH/VH, No Social Issues, Heme/Lymph: No Bruising, No Bleeding,No Lymphadenopathy Endocrine : No Polyuria, No Polydipsia, No Temperature Intolerance [facility] Past Medical History Medical History Bronchitis Bursitis and tendinitis of shoulder region Diabetes Diabetes Diabetes mellitus with neuropathy Fibromyalgia Insomnia Knee arthropathy Osteoarthritis of right knee Osteoarthritis of shoulders, bilateral Thyroid activity decreased Surgical History H/O knee surgery History of shoulder surgery Family History Family History Father Stomach cancer Mother No problems noted. Sister No problems noted. Social History Social History Household Members: Significant Other Housing: House Do you presently have visiting nurse or other home services: No Alcohol intake: never Patient Tobacco Use Status: Former Tobacco user Tobacco use type: Cigarette e-Cigarette/Vaping Use: Never Used Second Hand Smoke Exposure: No Advance Directives: No Advance Directives Information Provided: No Patient : No service: No Current occupational status: disabled Physical Exam Vital Signs: Vital Signs: Last Vital Signs Temp 97.6 F 12/25/21 23:45 Pulse 72 12/26/21 00:19 Resp 18 12/26/21 00:19 BP 141/86 H 12/26/21 00:19 Pulse Ox 100 12/26/21 00:19 BMI result Body Mass Index 34.1 Course Course Course Narrative: Patient's pain is likely secondary to anxiety. Initial EKG within normal limits. Troponin 1 pending. I discussed with the patient that in 3 hours will repeat a 2nd troponin. Patient was given p.o. aspirin 325 mg and also lorazepam 2 mg. First troponin negative. Second troponin pending. It is likely that patient's pain is likely secondary to anxiety. Sign-out given to Dr. Carmen [facility] - Chest Pain Lab Data Result diagrams: 12/26/21 00:24 12/26/21 00:24 Labs: Lab Results 12/26/21 12/26/21 12/26/21 Range/Units 00:24 00:24 00:24 WBC 9.1 (4.8-10.8) X10*3/uL RBC 4.99 (4.20-5.50) X10*6/uL Hgb 14.0 (12.0-16.0) g/dl Hct 42.1 (37.0-47.0) % MCV 84.4 (80.0-98.0) fL MCH 28.1 (27.0-33.0) pg MCHC 33.3 (31.0-35.0) g/dl RDW 13.4 (11.0-16.0) % Plt Count 390 (160-400) X10*3/uL MPV 9.0 L (9.4-12.3) fL Immature Gran % (Auto) 0.2 (0.0-0.4) % Neut % (Auto) 67.6 (45-73) % Lymph % (Auto) 23.4 (20-40) % Coffey % (Auto) 8.1 (2-11) % Eos % (Auto) 0.3 (0-4) % Baso % (Auto) 0.4 (0-2) % Lymph # (Auto) 2.1 (1.2-4.9) X10*3/uL Coffey # (Auto) 0.7 (0.1-1.2) X10*3/uL Eos # (Auto) 0.0 (0.0-0.4) X10*3/uL Baso # (Auto) 0.0 (0.0-0.2) X10*3/uL Abs Immat Gran (auto) 0.02 (0.00-0.03) X10*3/uL Absolute Neuts (auto) 6.1 (2.0-8.3) x10*3/uL Absolute Nucleated RBC 0.000 (0.0-0.012) X10*3/uL Nucleated RBC % (auto) 0.0 (0.0-0.2) /100WBC Sodium 139 (135-145) mmol/L Potassium 4.3 (3.3-5.1) mmol/L Chloride 100 (96-108) mmol/L Carbon Dioxide 26 (22-29) mmol/L Anion Gap 17 (12-20) BUN 5 L (9-16) mg/dL Creatinine 0.77 (0.5-1.4) mg/dL Estim Creat Clear Calc 106.2 Estimated GFR > 60 Random Glucose 175 H (60-115) mg/dL Calcium 10.0 D (8.4-10.2) mg/dL Troponin I High Sens < 3.5 (<3.5-17.0) ng/L Discharge Plan Discharge Clinical Impression: Chest pain, Anxiety Patient Disposition: Still a Patient Instructions: Chest Pain (DC), Anxiety (ED) Additional Instructions: Please follow-up with your primary care physician tomorrow. If you have any worsening or new symptoms, please return to the emergency room or call 911 Prescriptions: No Action metformin 500 mg tablet 500 mg PO DAILY 90 Days Qty: 90 7RF cholecalciferol (vitamin D3) 1,250 mcg (50,000 unit) capsule 1,250 mcg PO QWEEK Qty: 14 0RF loratadine [Claritin] 10 mg tablet 10 mg PO DAILY Qty: 30 6RF zolpidem 10 mg tablet 10 mg PO BEDTIME Qty: 30 5RF gabapentin 600 mg tablet 600 mg PO TID Qty: 90 1RF tramadol 50 mg tablet 50 mg PO Q6H PRN (Reason: pain) 30 Days Qty: 120 1RF Rx Instructions: DNF till 12/24/2021 PF per DC tizanidine 4 mg tablet 4 mg PO DAILY 0RF atorvastatin 10 mg Tablet 10 mg PO DAILY Qty: 30 0RF aspirin 81 mg Tablet,Delayed Release (Dr/Ec) 81 mg PO DAILY Qty: 30 0RF
[2021-12-26] MEDS: Aspirin Enteric Coated 325 MG TABLET.DR PO (00:04)
[2021-12-26] MEDS: LORazepam 1 MG TABLET 2 MG PO (00:04)
[2021-12-26 00:19] VITALS: BP 141/86; PULSE 72; RESP 18; O2SAT 100
[2021-12-26 00:31] LABS: MANUAL DIFF FLAG NO
[2021-12-26 00:39] LABS: Basophils Percent Auto 0.4 % (0-2); Eosinophils Percent Auto 0.3 % (0-4); Hematocrit 42.1 % (37.0-47.0); Imm Gran Abs Auto 0.02 X10*3/uL (0.00-0.03); Imm Gran Pct Auto 0.2 % (0.0-0.4); Lymphocytes Absolute Auto 2.1 X10*3/uL (1.2-4.9); Lymphocytes Percent Auto 23.4 % (20-40); Mean Corpuscular HGB Conc 33.3 g/dl (31.0-35.0); Mean Corpuscular Hemoglobin 28.1 pg (27.0-33.0); Mean Corpuscular Volume 84.4 fL (80.0-98.0); Monocytes Absolute Auto 0.7 X10*3/uL (0.1-1.2); Monocytes Percent Auto 8.1 % (2-11); Neutrophils Absolute Auto 6.1 x10*3/uL (2.0-8.3); Neutrophils Percent Auto 67.6 % (45-73); Platelet Count 390 X10*3/uL (160-400); Red Blood Count 4.99 X10*6/uL (4.20-5.50); Red Cell Distribution Width 13.4 % (11.0-16.0); White Blood Count 9.1 X10*3/uL (4.8-10.8)
[2021-12-26 01:00] LABS: Anion Gap 17 (12-20); Blood Urea Nitrogen 5 mg/dL (9-16); Carbon Dioxide 26 mmol/L (22-29); Chloride 100 mmol/L (96-108); Creatinine Clr Calc Pharmacy 106.2; Estimated Glomerular Filt Rate > 60; Glucose Random 175 mg/dL (60-115); Potassium 4.3 mmol/L (3.3-5.1); Sodium 139 mmol/L (135-145)
[2021-12-26 01:01] LABS: Troponin-I High Sensitivity < 3.5 ng/L (<3.5-17.0)
[2021-12-26 01:45] VITALS: BP 138/81; PULSE 79; RESP 16; O2SAT 99
[2021-12-26 03:31] LABS: Troponin-I High Sensitivity < 3.5 ng/L (<3.5-17.0)
[2021-12-26 03:57] VITALS: BP 110/70; PULSE 96; RESP 18; O2SAT 98
== END 2021-12-26 04:23 | disposition home or self-care (01) ==
PROVIDERS: Emergency Provider Emergency Medicine
DX: R07.9 Chest pain, unspecified (principal); F41.9 Anxiety disorder, unspecified; E11.9 Type 2 diabetes mellitus without complications
CPT/HCPCS: 36415; 71045; 80048; 84484; 85025; 93005; 99284

== ENCOUNTER → 2021-12-31 16:30 | Outpatient (BNVA) | payer OTHER, SELFPAY | PROVIDERS: Visit Provider Anesthesiology | DX: Z51.81 Encounter for therapeutic drug level monitoring (principal); Z79.891 Long term (current) use of opiate analgesic | CPT/HCPCS: 99211 ==

== ENCOUNTER → 2022-02-03 15:50 | Outpatient (BNVA) | payer OTHER, SELFPAY | PROVIDERS: Visit Provider Anesthesiology | DX: Z79.891 Long term (current) use of opiate analgesic (principal) | CPT/HCPCS: 99211 ==

== ENCOUNTER → 2022-03-10 13:13 | Outpatient (BNVA) | payer OTHER, SELFPAY | PROVIDERS: Visit Provider Anesthesiology | DX: M19.011 Primary osteoarthritis, right shoulder (principal); M19.012 Primary osteoarthritis, left shoulder; M17.11 Unilateral primary osteoarthritis, right knee; Z79.891 Long term (current) use of opiate analgesic | CPT/HCPCS: 99212 ==

== ENCOUNTER → 2022-04-09 15:45 | Outpatient (BNVA) | payer OTHER, SELFPAY | PROVIDERS: Visit Provider Anesthesiology | DX: M19.011 Primary osteoarthritis, right shoulder (principal); M19.012 Primary osteoarthritis, left shoulder; Z79.891 Long term (current) use of opiate analgesic | CPT/HCPCS: 99212 ==

== ENCOUNTER → 2022-06-11 15:48 | Outpatient (BNVA) | payer OTHER, SELFPAY | PROVIDERS: PCP Internal Medicine; Visit Provider Anesthesiology | DX: Z51.81 Encounter for therapeutic drug level monitoring (principal); F11.20 Opioid dependence, uncomplicated | CPT/HCPCS: 99211 ==

== ENCOUNTER → 2022-07-16 15:22 | Outpatient (BNVA) | payer OTHER, SELFPAY | PROVIDERS: PCP Internal Medicine; Visit Provider Anesthesiology | DX: Z51.81 Encounter for therapeutic drug level monitoring (principal); F11.20 Opioid dependence, uncomplicated; M19.011 Primary osteoarthritis, right shoulder; M19.012 Primary osteoarthritis, left shoulder | CPT/HCPCS: 99212 ==

== ENCOUNTER → 2022-08-12 15:46 | Outpatient (BNVA) | payer OTHER, SELFPAY | PROVIDERS: PCP Internal Medicine; Visit Provider Anesthesiology | DX: Z51.81 Encounter for therapeutic drug level monitoring (principal) | CPT/HCPCS: 99211 ==

== ENCOUNTER 2023-04-20 11:13 | Outpatient (AMB) | payer OTHER, SELFPAY ==
--- NOTE | 2023-04-20 11:16 | MHC.OFFVIS ---
Intake Vital Signs 04/20/23 11:22 Height 5 ft 5 in Weight 222 lb BMI 36.9 BP 132/78 Blood Pressure Location Rt brachial Position Sitting Respiration 18 Pulse 93 Pulse Source Pulse Oximeter Pulse Oximetry (%) 99 Oxygen Delivery Method Room Air Intake Visit Reasons: Opioid Program Re-Evaluation Allergies Penicillins Allergy (Unknown, Verified 04/20/23 11:21) Hives Seasonal Allergies Allergy (Verified 04/20/23 11:21) itchy nose/sneezing HPI HPI Comments History of Present Illness Details Lisa is in the office to restart her pain I opioid program. She was suspended in the program for a no-show for random pill count. I strongly recommended her to adhere to the contracts next time she is here. She will be sent for our random urine drug screen today. If the urine drug screen is corresponding to her current opioid regimen she will be rinsed old in the opioid program. She received opioid medications from Dr. Salazar. She also needs to sign a new opioid contract, opioid information page, and Opioid consent. She is suffering from osteoarthritis. She is suffering from shoulder arthritis and knee arthritis. Infrapatellar saphenous nerve block resulted in 40% pain relieve. Suprepatelarr saphenous nerve resulted in 45% pain relieve only. She is also suffering from the shoulder osteoarthritis. She had suprascapular nerve block. Before that she received interarticular steroid injection.? Unfortunately neither block was working for her. Prior: c/o? pain in the neck with radiation into the left shoulder.? She reports that she is suffering from this pain as well as pain in the back in the knee as well as fibromyalgia for long period of time.? ? She reports that cold and weather changes aggravate her pain as well as movements.? She reports that topical medications and oral medications alleviate her pain. ?She was a subject of psychological evaluation her PHQ score is equal to 7. Her opioid risk assessment score is equal to 4 and therefore the total risk is equal to 11 PFSH Medical History Bronchitis Bursitis and tendinitis of shoulder region Diabetes Diabetes Diabetes mellitus with neuropathy Fibromyalgia Insomnia Knee arthropathy Osteoarthritis of right knee Osteoarthritis of shoulders, bilateral Thyroid activity decreased Surgical History H/O knee surgery History of shoulder surgery Family History Father Stomach cancer Mother No problems noted. Sister No problems noted. Social History Household Members: Significant Other Housing: House Do you presently have visiting nurse or other home services: No Alcohol intake: never Patient Tobacco Use Status: Former Tobacco user Tobacco use type: Cigarette e-Cigarette/Vaping Use: Never Used Second Hand Smoke Exposure: No service: No Current occupational status: disabled Current occupational exposures/hazards: No Cognitive needs: Yes Hearing needs: No Vision needs: Yes Review of Systems Const All systems reviewed & are unremarkable except as noted in HPI and below Physical Exam Vital Signs: Last Vital Signs Pulse 93 04/20/23 11:22 Resp 18 04/20/23 11:22 BP 132/78 04/20/23 11:22 Pulse Ox 99 04/20/23 11:22 Oxygen Delivery Method Room Air 04/20/23 11:22 BMI result Body Mass Index 36.9 Const Nutritional Appearance: obese HEENT Head: Yes normocephalic and Yes atraumatic Ears: hearing grossly normal bilaterally Eyes General: appearance normal, both eyes and all related structures Eyelids: Yes eyelids normal Pupils: Equal, round and reactive pupils present EOM: EOMs intact bilaterally Neck Neck: Yes normal visual inspection and Yes no JVD Resp Effort & Inspection: normal respiratory effort, able to speak in complete sentences and no audible wheezes Cardio Jugular venous distension: no JVD Neuro Cranial nerves: Yes Equal, round and reactive pupils present Psych Appearance: grossly normal Mental Status: mental status grossly normal Speech and movement: Normal speech and movement present Affect: normal affect Attitude: cooperative Thought process: Normal thought process present Thought content: Normal thought content present Insight: Good insight present (Psych) Judgement: Good judgement present (Psych) Assessment & Plan Assessment & Plan (1) Osteoarthritis of shoulders, bilateral: Code(s): M19.011 - Primary osteoarthritis, right shoulder; M19.012 - Primary osteoarthritis, left shoulder Plan New opioid contract will be sign. She will call for urine drug screen today. When urine drug screen will return and corresponding to her current opioid regimen I will reinstate her in prescribe her the opioid medication: Tramadol 50 mg q.6 hours. Her opioid addiction risk was mild the score was equal to 11, however now it will go moderate. Next time she is suspended is will be for full year. She had infrapatellar saphenous nerve block in the past she had intra-articular shoulder injections in the past. Coding Level of Care Code New Pt Level 3 (15253) Diagnoses Osteoarthritis of shoulders, bilateral M19.011; M19.012
[2023-04-20 11:22] VITALS: BP 132/78; PULSE 93; RESP 18; O2SAT 99; BMI 36.9
== END 2023-04-20 11:59 | disposition home or self-care (01) ==
PROVIDERS: PCP Internal Medicine; Visit Provider Anesthesiology
DX: M19.011 Primary osteoarthritis, right shoulder (principal); M19.012 Primary osteoarthritis, left shoulder; M16.11 Unilateral primary osteoarthritis, right hip; Z79.891 Long term (current) use of opiate analgesic
CPT/HCPCS: 99213

== ENCOUNTER → 2023-04-20 11:13 | Outpatient (BNVA) | payer OTHER, SELFPAY | PROVIDERS: PCP Internal Medicine; Visit Provider Anesthesiology | DX: M17.11 Unilateral primary osteoarthritis, right knee (principal); M19.012 Primary osteoarthritis, left shoulder; M19.011 Primary osteoarthritis, right shoulder; E11.40 Type 2 diabetes mellitus with diabetic neuropathy, unspecified | CPT/HCPCS: 99212 ==

== ENCOUNTER 2023-05-07 09:15 | Outpatient (AMB) | payer OTHER, SELFPAY ==
--- NOTE | 2023-05-07 09:16 | A.OFFVIS_ITS ---
Intake Vital Signs 05/07/23 09:22 Height 5 ft 5 in Weight 225 lb BMI 37.4 BP 138/84 Blood Pressure Location Rt brachial Position Sitting Respiration 18 Pulse 99 Pulse Source Pulse Oximeter Pulse Oximetry (%) 98 Oxygen Delivery Method Room Air Intake Visit Reasons: Follow Up/UDS Review Intake Note: patient comes in for follow up. Allergies Penicillins Allergy (Unknown, Verified 05/07/23 09:21) Hives Seasonal Allergies Allergy (Verified 05/07/23 09:21) itchy nose/sneezing HPI HPI Comments History of Present Illness Details Lisa is in the office to restart her pain I opioid program. She was suspended in the program for a no-show for random pill count. I strongly recommended her to adhere to the contracts next time she is here. She was sent for urine drug screen and it is consistent with tramadol which was prescribed to her by Dr. Salazar. She signed new opioid contract, opioid information page, and Opioid consent. I will send tramadol 50 mg t.i.d. to her pharmacy today. See as below. She is suffering from osteoarthritis. She is suffering from shoulder arthritis and knee arthritis. Infrapatellar saphenous nerve block resulted in 40% pain relieve. Suprepatelarr saphenous nerve resulted in 45% pain relieve only. She is also suffering from the shoulder osteoarthritis. She had suprascapular nerve block. Before that she received interarticular steroid injection.? Unfortunately neither block was working for her. Prior: c/o? pain in the neck with radiation into the left shoulder.? She reports that she is suffering from this pain as well as pain in the back in the knee as well as fibromyalgia for long period of time.? ? She reports that cold and weather changes aggravate her pain as well as movements.? She reports that topical medications and oral medications alleviate her pain. Her prior risk was mild for opioid addiction however now the risk will be elevated to moderate and if she is suspended it will be 1 year suspension. [facility] Medical History (Updated 05/07/23 @ 09:43 by Bill Sierra MD) Diabetes mellitus with neuropathy Osteoarthritis of right knee Insomnia Diabetes Osteoarthritis of shoulders, bilateral Bronchitis Fibromyalgia Diabetes Thyroid activity decreased Knee arthropathy Bursitis and tendinitis of shoulder region Surgical History History of shoulder surgery H/O knee surgery Family History Father Stomach cancer Mother No problems noted. Sister No problems noted. Social History Household Members: Significant Other Housing: House Do you presently have visiting nurse or other home services: No Alcohol intake: never Patient Tobacco Use Status: Former Tobacco user Tobacco use type: Cigarette e-Cigarette/Vaping Use: Never Used Second Hand Smoke Exposure: No service: No Current occupational status: disabled Current occupational exposures/hazards: No Cognitive needs: Yes Hearing needs: No Vision needs: Yes Review of Systems Const All systems reviewed & are unremarkable except as noted in HPI and below Physical Exam Vital Signs: Last Vital Signs Pulse 99 05/07/23 09:22 Resp 18 05/07/23 09:22 BP 138/84 05/07/23 09:22 Pulse Ox 98 05/07/23 09:22 Oxygen Delivery Method Room Air 05/07/23 09:22 BMI result Body Mass Index 37.4 Const Nutritional Appearance: obese HEENT Head: Yes normocephalic and Yes atraumatic Ears: hearing grossly normal bilaterally Eyes General: appearance normal, both eyes and all related structures Eyelids: Yes eyelids normal Pupils: Equal, round and reactive pupils present EOM: EOMs intact bilaterally Neck Neck: Yes normal visual inspection and Yes no JVD Resp Effort & Inspection: normal respiratory effort, able to speak in complete sentences and no audible wheezes Cardio Jugular venous distension: no JVD Neuro Cranial nerves: Yes Equal, round and reactive pupils present Psych Appearance: grossly normal Mental Status: mental status grossly normal Speech and movement: Normal speech and movement present Affect: normal affect Attitude: cooperative Thought process: Normal thought process present Thought content: Normal thought content present Insight: Good insight present (Psych) Judgement: Good judgement present (Psych) Assessment & Plan Assessment & Plan (1) Osteoarthritis of shoulders, bilateral: Code(s): M19.011 - Primary osteoarthritis, right shoulder; M19.012 - Primary osteoarthritis, left shoulder (2) Osteoarthritis of right knee: Code(s): M17.11 - Unilateral primary osteoarthritis, right knee Plan New opioid contract will be sign. Her UDS is consistent with the tramadol which was prescribed to her by her primary care physician. She was prescribed today: Tramadol 50 mg t.i.d. Her opioid addiction risk was mild the score was equal to 11, however now it will go moderate. Next time she is suspended is will be for full year. She had infrapatellar saphenous nerve block in the past she had intra-articular shoulder injections in the past. She reports no help from those injections. Medications: New tramadol 50 mg PO TID 30 days PRN 90 tabs 1RF pain Discontinued tramadol DNF till 09/13/2022 partial fill only per patient's request Discontinued Reason: Doctor's Order 50 mg PO Q6H 28 days PRN 28 tabs 0RF pain Coding Level of Care Code Est Pt Level 3 (22704) Diagnoses Osteoarthritis of shoulders, bilateral M19.011; M19.012 Osteoarthritis of right knee M17.11
[2023-05-07 09:22] VITALS: BP 138/84; PULSE 99; RESP 18; O2SAT 98; BMI 37.4
== END 2023-05-07 09:35 | disposition home or self-care (01) ==
PROVIDERS: PCP Internal Medicine; Visit Provider Anesthesiology
DX: M19.011 Primary osteoarthritis, right shoulder (principal); M19.012 Primary osteoarthritis, left shoulder; M17.11 Unilateral primary osteoarthritis, right knee
CPT/HCPCS: 99213

== ENCOUNTER → 2023-05-07 09:15 | Outpatient (BNVA) | payer OTHER, SELFPAY | PROVIDERS: PCP Internal Medicine; Visit Provider Anesthesiology | DX: M19.011 Primary osteoarthritis, right shoulder (principal); M19.012 Primary osteoarthritis, left shoulder; M17.11 Unilateral primary osteoarthritis, right knee; M79.7 Fibromyalgia | CPT/HCPCS: 99212 ==

== ENCOUNTER 2023-06-22 10:52 | Outpatient (AMB) | payer OTHER, SELFPAY ==
--- NOTE | 2023-06-22 11:56 | MHC.OFFVIS ---
Intake Vital Signs 06/22/23 11:57 Height 5 ft 5 in Weight 229 lb BMI 38.1 BP 140/82 H Blood Pressure Location Lt brachial Position Sitting Respiration 18 Pulse 96 Pulse Source Pulse Oximeter Pulse Oximetry (%) 98 Oxygen Delivery Method Room Air Intake Visit Reasons: PILL COUNT Intake Note: patient comes in for pill count to Tramadol tablets. Allergies Penicillins Allergy (Unknown, Verified 06/22/23 11:58) Hives Seasonal Allergies Allergy (Verified 06/22/23 11:58) itchy nose/sneezing HPI HPI Comments History of Present Illness Details Lisa is back in my office for the follow-up and pain medication refill. She presented today with 74.5 pills in her possession, she supposed to have only 63 pills in her possession. She is on 50 mg tramadol t.i.d. for her pain. She reports minimal to moderate pain degrees on tramadol. She denies side effects of opioid medications. She is suffering from osteoarthritis. She is suffering from shoulder arthritis and knee arthritis. In the past I attempted to perform some injections to help her pain. Infrapatellar saphenous nerve block resulted in 40% pain relieve. Suprepatelarr saphenous nerve resulted in 45% pain relieve only. Unfortunately at this time I can offer her to adhere to her opioid regimen. I also can offer her to perform some other injections but she does not want to proceed with them. She is also suffering from the shoulder osteoarthritis. She had suprascapular nerve block. Before that she received interarticular steroid injection.? Unfortunately neither block was working for her. Prior: c/o? pain in the neck with radiation into the left shoulder.? She reports that she is suffering from this pain as well as pain in the back in the knee as well as fibromyalgia for long period of time.? ? She reports that cold and weather changes aggravate her pain as well as movements.? She reports that topical medications and oral medications alleviate her pain. She was suspended once for noncompliance. Her prior risk was mild for opioid addiction however now the risk will be elevated to moderate and if she is suspended it will be 1 year suspension. [facility] Medical History (Updated 05/07/23 @ 09:43 by Bill Sierra MD) Diabetes mellitus with neuropathy Osteoarthritis of right knee Insomnia Diabetes Osteoarthritis of shoulders, bilateral Bronchitis Fibromyalgia Diabetes Thyroid activity decreased Knee arthropathy Bursitis and tendinitis of shoulder region Surgical History History of shoulder surgery H/O knee surgery Family History Father Stomach cancer Mother No problems noted. Sister No problems noted. Social History Household Members: Significant Other Housing: House Do you presently have visiting nurse or other home services: No Alcohol intake: never Patient Tobacco Use Status: Former Tobacco user Tobacco use type: Cigarette e-Cigarette/Vaping Use: Never Used Second Hand Smoke Exposure: No service: No Current occupational status: disabled Current occupational exposures/hazards: No Cognitive needs: Yes Hearing needs: No Vision needs: Yes Review of Systems Const All systems reviewed & are unremarkable except as noted in HPI and below Physical Exam Vital Signs: Last Vital Signs Pulse 96 06/22/23 11:57 Resp 18 06/22/23 11:57 BP 140/82 H 06/22/23 11:57 Pulse Ox 98 06/22/23 11:57 Oxygen Delivery Method Room Air 06/22/23 11:57 BMI result Body Mass Index 38.1 Const Nutritional Appearance: obese HEENT Head: Yes normocephalic and Yes atraumatic Ears: hearing grossly normal bilaterally Eyes General: appearance normal, both eyes and all related structures Eyelids: Yes eyelids normal Pupils: Equal, round and reactive pupils present EOM: EOMs intact bilaterally Neck Neck: Yes normal visual inspection and Yes no JVD Resp Effort & Inspection: normal respiratory effort, able to speak in complete sentences and no audible wheezes Cardio Jugular venous distension: no JVD Neuro Cranial nerves: Yes Equal, round and reactive pupils present Psych Appearance: grossly normal Mental Status: mental status grossly normal Speech and movement: Normal speech and movement present Affect: normal affect Attitude: cooperative Thought process: Normal thought process present Thought content: Normal thought content present Insight: Good insight present (Psych) Judgement: Good judgement present (Psych) Assessment & Plan Assessment & Plan (1) Osteoarthritis of shoulders, bilateral: Code(s): M19.011 - Primary osteoarthritis, right shoulder; M19.012 - Primary osteoarthritis, left shoulder (2) Osteoarthritis of right knee: Code(s): M17.11 - Unilateral primary osteoarthritis, right knee Plan Tramadol 50 mg t.i.d. will be sent to her pharmacy due on 07/13/2023 with 1 refill. Her opioid addiction risk was mild the score was equal to 11, however now it will go moderate. Next time she is suspended is will be for full year. She had infrapatellar saphenous nerve block in the past she had intra-articular shoulder injections in the past. She reports no help from those injections. If she wants to try some injections in the future will be open for those procedures. At this time I will continue the prescription. Medications: Refilled tramadol 50 mg PO TID PRN 90 tabs 1RF pain 30 days Coding Level of Care Code Est Pt Level 3 (05474) Diagnoses Osteoarthritis of shoulders, bilateral M19.011; M19.012 Osteoarthritis of right knee M17.11
[2023-06-22 11:57] VITALS: BP 140/82; PULSE 96; RESP 18; O2SAT 98; BMI 38.1
== END 2023-06-22 12:14 | disposition home or self-care (01) ==
PROVIDERS: PCP Internal Medicine; Visit Provider Anesthesiology
DX: M19.011 Primary osteoarthritis, right shoulder (principal); M19.012 Primary osteoarthritis, left shoulder; M17.11 Unilateral primary osteoarthritis, right knee
CPT/HCPCS: 99213

== ENCOUNTER → 2023-06-22 10:52 | Outpatient (BNVA) | payer OTHER, SELFPAY | PROVIDERS: PCP Internal Medicine; Visit Provider Anesthesiology | DX: Z51.81 Encounter for therapeutic drug level monitoring (principal); F11.20 Opioid dependence, uncomplicated; M19.011 Primary osteoarthritis, right shoulder; M19.012 Primary osteoarthritis, left shoulder; M17.11 Unilateral primary osteoarthritis, right knee | CPT/HCPCS: 99212 ==

== ENCOUNTER → 2023-08-21 10:59 | Outpatient (BNVA) | payer OTHER, SELFPAY | PROVIDERS: PCP Internal Medicine; Visit Provider Anesthesiology ==

== ENCOUNTER 2023-10-01 10:11 | Outpatient (AMB) | payer OTHER, SELFPAY ==
--- NOTE | 2023-10-01 10:21 | MHC.OFFVIS ---
Intake Vital Signs 10/01/23 10:30 Height 5 ft 5 in Weight 228 lb 4 oz BMI 38.0 BP 138/90 H Blood Pressure Location Lt brachial Position Sitting Respiration 18 Pulse 107 H Pulse Source Pulse Oximeter Pulse Oximetry (%) 97 Oxygen Delivery Method Room Air Intake Visit Reasons: PILL COUNT/confirmed Intake Note: Patient comes in for pill count to Tramadol 50mg tablets. Reports pain 6/10. Allergies Penicillins Allergy (Unknown, Verified 10/01/23 10:29) Hives Seasonal Allergies Allergy (Verified 10/01/23 10:29) itchy nose/sneezing HPI HPI Comments History of Present Illness Details Lisa is back in my office for the follow-up and pain medication refill. She presented today with 34 pills in her possession, she supposed to have only 30 pills in her possession. She is on 50 mg tramadol t.i.d. for her pain. She reports pain level 6/10 today. She relates the pain increased due to incremental weather. She is using icy hot OTC and NSAIDs OTC to help her pain. She demonstrates responsible attitude to were the opioid medication. In the past I attempted to perform some injections to help her pain. Infrapatellar saphenous nerve block resulted in 40% pain relieve. Suprepatelarr saphenous nerve resulted in 45% pain relieve only. Unfortunately at this time I can offer her to adhere to her opioid regimen. I also can offer her to perform some other injections but she does not want to proceed with them. She is also suffering from the shoulder osteoarthritis. She had suprascapular nerve block. Before that she received interarticular steroid injection.? Unfortunately neither block was working for her. Prior: c/o? pain in the neck with radiation into the left shoulder.? She reports that she is suffering from this pain as well as pain in the back in the knee as well as fibromyalgia for long period of time.? ? She reports that cold and weather changes aggravate her pain as well as movements.? She reports that topical medications and oral medications alleviate her pain. She was suspended once for noncompliance. Her prior risk was mild for opioid addiction however now the risk will be elevated to moderate and if she is suspended it will be 1 year suspension. [facility] Medical History (Updated 10/01/23 @ 10:41 by Bill Sierra MD) Diabetes mellitus with neuropathy Osteoarthritis of right knee Insomnia Diabetes Osteoarthritis of shoulders, bilateral Bronchitis Fibromyalgia Diabetes Thyroid activity decreased Knee arthropathy Bursitis and tendinitis of shoulder region Surgical History History of shoulder surgery H/O knee surgery Family History Father Stomach cancer Mother No problems noted. Sister No problems noted. Social History Household Members: Significant Other Housing: House Do you presently have visiting nurse or other home services: No Alcohol intake: never Patient Tobacco Use Status: Former Tobacco user Tobacco use type: Cigarette e-Cigarette/Vaping Use: Never Used Second Hand Smoke Exposure: No service: No Current occupational status: disabled Current occupational exposures/hazards: No Cognitive needs: Yes Hearing needs: No Vision needs: Yes Review of Systems Const All systems reviewed & are unremarkable except as noted in HPI and below Physical Exam Vital Signs: Last Vital Signs Pulse 107 H 10/01/23 10:30 Resp 18 10/01/23 10:30 BP 138/90 H 10/01/23 10:30 Pulse Ox 97 10/01/23 10:30 Oxygen Delivery Method Room Air 10/01/23 10:30 BMI result Body Mass Index 38.0 Const Nutritional Appearance: obese HEENT Head: Yes normocephalic and Yes atraumatic Ears: hearing grossly normal bilaterally Eyes General: appearance normal, both eyes and all related structures Eyelids: Yes eyelids normal Pupils: Equal, round and reactive pupils present EOM: EOMs intact bilaterally Neck Neck: Yes normal visual inspection and Yes no JVD Resp Effort & Inspection: normal respiratory effort, able to speak in complete sentences and no audible wheezes Cardio Jugular venous distension: no JVD Neuro Cranial nerves: Yes Equal, round and reactive pupils present Psych Appearance: grossly normal Mental Status: mental status grossly normal Speech and movement: Normal speech and movement present Affect: normal affect Attitude: cooperative Thought process: Normal thought process present Thought content: Normal thought content present Insight: Good insight present (Psych) Judgement: Good judgement present (Psych) Assessment & Plan Assessment & Plan (1) Osteoarthritis of shoulders, bilateral: Code(s): M19.011 - Primary osteoarthritis, right shoulder; M19.012 - Primary osteoarthritis, left shoulder (2) Osteoarthritis of right knee: Code(s): M17.11 - Unilateral primary osteoarthritis, right knee (3) Chronic pain syndrome: Code(s): G89.4 - Chronic pain syndrome Plan There is a refill of tramadol in the pharmacy due on October 10 2023. She would need to give us a call when the October script will in October. Next appointment will be scheduled in 2 months. Her opioid addiction risk was mild the score was equal to 11, however now it will go moderate. Next time she is suspended is will be for full year. She had infrapatellar saphenous nerve block in the past she had intra-articular shoulder injections in the past. She reports no help from those injections. If she wants to try some injections in the future will be open for those procedures. Coding Level of Care Code Est Pt Level 3 (20774) Diagnoses Osteoarthritis of shoulders, bilateral M19.011; M19.012 Osteoarthritis of right knee M17.11 Chronic pain syndrome G89.4
[2023-10-01 10:30] VITALS: BP 138/90; PULSE 107; RESP 18; O2SAT 97; BMI 38.0
== END 2023-10-01 10:40 | disposition home or self-care (01) ==
PROVIDERS: PCP Internal Medicine; Visit Provider Anesthesiology
DX: G89.4 Chronic pain syndrome (principal); M19.011 Primary osteoarthritis, right shoulder; M19.012 Primary osteoarthritis, left shoulder; Z79.891 Long term (current) use of opiate analgesic; M17.11 Unilateral primary osteoarthritis, right knee
CPT/HCPCS: 99213

== ENCOUNTER → 2023-10-01 10:11 | Outpatient (BNVA) | payer OTHER, SELFPAY | PROVIDERS: PCP Internal Medicine; Visit Provider Anesthesiology | DX: G89.4 Chronic pain syndrome (principal); M19.011 Primary osteoarthritis, right shoulder; M19.012 Primary osteoarthritis, left shoulder; M17.11 Unilateral primary osteoarthritis, right knee; Z79.891 Long term (current) use of opiate analgesic | CPT/HCPCS: 99212 ==

== ENCOUNTER 2023-12-03 10:09 | Outpatient (AMB) | payer OTHER, SELFPAY ==
--- NOTE | 2023-12-03 10:15 | MHC.OFFVIS ---
Intake Vital Signs 12/03/23 10:23 Height 5 ft 5 in Weight 224 lb BMI 37.3 BP 144/90 H Blood Pressure Location Lt brachial Position Sitting Respiration 16 Pulse 100 Pulse Source Pulse Oximeter Pulse Oximetry (%) 98 Oxygen Delivery Method Room Air Intake Visit Reasons: Medication Count Intake Note: Patient comes in for pill count. Reports pain 03/09. Allergies Penicillins Allergy (Unknown, Verified 12/03/23 10:22) Hives Seasonal Allergies Allergy (Verified 12/03/23 10:22) itchy nose/sneezing HPI HPI Comments History of Present Illness Details Lisa is back in my office for the follow-up and pain medication refill. She presented today with 22 pills in her possession, she supposed to have 24 pills in her possession. She is 2 pills short today. She states that she forgot counting 2 pills, she forgot to present them for the count. I strictly warned her next time to present all the medications in his possession. This is very important. For shortage of the medication she maybe suspended. She understood. She is on 50 mg tramadol t.i.d. for her pain. She is using icy hot OTC and NSAIDs OTC to help her pain. She demonstrates responsible attitude to were the opioid medication. In the past I attempted to perform injections Infrapatellar saphenous nerve block resulted in 40% pain relieve. Suprepatelarr saphenous nerve resulted in 45% pain relieve only. Unfortunately at this time I can offer her to adhere to her opioid regimen. I also can offer her to perform some other injections but she does not want to proceed with them. She is also suffering from the shoulder osteoarthritis. She had suprascapular nerve block. Before that she received interarticular steroid injection.? Unfortunately neither block was working for her. Prior: c/o? pain in the neck with radiation into the left shoulder.? She reports that she is suffering from this pain as well as pain in the back in the knee as well as fibromyalgia for long period of time.? ? She reports that cold and weather changes aggravate her pain as well as movements.? She reports that topical medications and oral medications alleviate her pain. She was suspended once for noncompliance. Her prior risk was mild for opioid addiction however now the risk will be elevated to moderate and if she is suspended it will be 1 year suspension. PFSH Medical History (Updated 10/01/23 @ 10:41 by Bill Sierra MD) Diabetes mellitus with neuropathy Osteoarthritis of right knee Insomnia Diabetes Osteoarthritis of shoulders, bilateral Bronchitis Fibromyalgia Diabetes Thyroid activity decreased Knee arthropathy Bursitis and tendinitis of shoulder region Surgical History History of shoulder surgery H/O knee surgery Family History Father Stomach cancer Mother No problems noted. Sister No problems noted. Social History Household Members: Significant Other Housing: House Do you presently have visiting nurse or other home services: No Alcohol intake: never Patient Tobacco Use Status: Former Tobacco user Tobacco use type: Cigarette e-Cigarette/Vaping Use: Never Used Second Hand Smoke Exposure: No service: No Current occupational status: disabled Current occupational exposures/hazards: No Cognitive needs: Yes Hearing needs: No Vision needs: Yes Review of Systems Const All systems reviewed & are unremarkable except as noted in HPI and below Physical Exam Vital Signs: Last Vital Signs Pulse 100 12/03/23 10:23 Resp 16 12/03/23 10:23 BP 144/90 H 12/03/23 10:23 Pulse Ox 98 12/03/23 10:23 Oxygen Delivery Method Room Air 12/03/23 10:23 BMI result Body Mass Index 37.3 Const Nutritional Appearance: obese HEENT Head: Yes normocephalic and Yes atraumatic Ears: hearing grossly normal bilaterally Eyes General: appearance normal, both eyes and all related structures Eyelids: Yes eyelids normal Pupils: Equal, round and reactive pupils present EOM: EOMs intact bilaterally Neck Neck: Yes normal visual inspection and Yes no JVD Resp Effort & Inspection: normal respiratory effort, able to speak in complete sentences and no audible wheezes Cardio Jugular venous distension: no JVD Neuro Cranial nerves: Yes Equal, round and reactive pupils present Psych Appearance: grossly normal Mental Status: mental status grossly normal Speech and movement: Normal speech and movement present Affect: normal affect Attitude: cooperative Thought process: Normal thought process present Thought content: Normal thought content present Insight: Good insight present (Psych) Judgement: Good judgement present (Psych) Assessment & Plan Assessment & Plan (1) Osteoarthritis of shoulders, bilateral: Code(s): M19.011 - Primary osteoarthritis, right shoulder; M19.012 - Primary osteoarthritis, left shoulder (2) Osteoarthritis of right knee: Code(s): M17.11 - Unilateral primary osteoarthritis, right knee (3) Chronic pain syndrome: Code(s): G89.4 - Chronic pain syndrome Plan She is 2 pills short today. She was given strict warning. She is above. There is a refill of tramadol in the pharmacy due on 12/11/2023. She would need to give us a call in December when she will run out of the prescription. I will send the next prescription for her. Her opioid addiction risk was mild the score was equal to 11, however now it will go moderate. Next time she is suspended is will be for full year. She had infrapatellar saphenous nerve block in the past she had intra-articular shoulder injections in the past. She reports no help from those injections. Coding Level of Care Code Est Pt Level 3 (57683) Diagnoses Osteoarthritis of shoulders, bilateral M19.011; M19.012 Osteoarthritis of right knee M17.11 Chronic pain syndrome G89.4
[2023-12-03 10:23] VITALS: BP 144/90; PULSE 100; RESP 16; O2SAT 98; BMI 37.3
== END 2023-12-03 10:38 | disposition home or self-care (01) ==
PROVIDERS: PCP Internal Medicine; Visit Provider Anesthesiology
DX: G89.4 Chronic pain syndrome (principal); M19.011 Primary osteoarthritis, right shoulder; M19.012 Primary osteoarthritis, left shoulder; M17.11 Unilateral primary osteoarthritis, right knee
CPT/HCPCS: 99213

== ENCOUNTER → 2023-12-03 10:09 | Outpatient (BNVA) | payer OTHER, SELFPAY | PROVIDERS: PCP Internal Medicine; Visit Provider Anesthesiology | DX: M19.011 Primary osteoarthritis, right shoulder (principal); M19.012 Primary osteoarthritis, left shoulder; M17.11 Unilateral primary osteoarthritis, right knee; M79.7 Fibromyalgia; G89.4 Chronic pain syndrome | CPT/HCPCS: 99212 ==

== ENCOUNTER 2024-01-28 11:10 | Outpatient (AMB) | payer OTHER, SELFPAY ==
--- NOTE | 2024-01-28 11:15 | A.OFFVIS_ITS ---
Vital Signs 01/28/24 11:27 Height 5 ft 5 in Weight 219 lb 8 oz BMI 36.5 BP 141/90 H Blood Pressure Location Lt brachial Position Sitting Respiration 14 Pulse 102 H Pulse Source Pulse Oximeter Pulse Oximetry (%) 99 Oxygen Delivery Method Room Air Intake Visit Reasons: PILL COUNT Intake Note: Patient comes in for pill count. Reports pain 6-7/10. Allergies Penicillins Allergy (Unknown, Verified 01/28/24 11:28) Hives Seasonal Allergies Allergy (Verified 01/28/24 11:28) itchy nose/sneezing HPI Comments Details: Lisa is back in my office for the follow-up and pain medication refill. She is on 50 mg tramadol t.i.d. for her pain. She is using icy hot OTC and NSAIDs OTC to help her pain. She demonstrates responsible attitude to were the opioid medication. The pill count was performed today. She supposed to have 42 pills in her possession. She came with 46 pills in her possession. Her pain level today 6/10. She is also taking gabapentin 600 mg t.i.d. which is prescribed to her by primary care physician. She is adequately managed by this regimen. In the past I attempted to perform injections Infrapatellar saphenous nerve block resulted in 40% pain relieve. Suprepatelarr saphenous nerve resulted in 45% pain relieve only. Unfortunately at this time I can offer her to adhere to her opioid regimen. I also can offer her to perform some other injections but she does not want to proceed with them. She is also suffering from the shoulder osteoarthritis. She had suprascapular nerve block. Before that she received interarticular steroid injection.? Unfortunately neither block was working for her. Prior: c/o? pain in the neck with radiation into the left shoulder.? She reports that she is suffering from this pain as well as pain in the back in the knee as well as fibromyalgia for long period of time.? ? She reports that cold and weather changes aggravate her pain as well as movements.? She reports that topical medications and oral medications alleviate her pain. She was suspended once for noncompliance. Her prior risk was mild for opioid addiction however now the risk will be elevated to moderate and if she is suspended it will be 1 year suspension. [facility] Medical History (Updated 10/01/23 @ 10:41 by Bill Sierra MD) Diabetes mellitus with neuropathy Osteoarthritis of right knee Insomnia Diabetes Osteoarthritis of shoulders, bilateral Bronchitis Fibromyalgia Diabetes Thyroid activity decreased Knee arthropathy Bursitis and tendinitis of shoulder region Surgical History History of shoulder surgery H/O knee surgery Family History Father Stomach cancer Mother No problems noted. Sister No problems noted. Social History Household Members: Significant Other Housing: House Do you presently have visiting nurse or other home services: No Alcohol intake: never Patient Tobacco Use Status: Former Tobacco user Tobacco use type: Cigarette e-Cigarette/Vaping Use: Never Used Second Hand Smoke Exposure: No service: No Current occupational status: disabled Current occupational exposures/hazards: No Cognitive needs: Yes Hearing needs: No Vision needs: Yes Review of Systems Const All systems reviewed & are unremarkable except as noted in HPI and below Physical Exam Vital Signs: Last Vital Signs Pulse 102 H 01/28/24 11:27 Resp 14 01/28/24 11:27 BP 141/90 H 01/28/24 11:27 Pulse Ox 99 01/28/24 11:27 Oxygen Delivery Method Room Air 01/28/24 11:27 BMI result Body Mass Index 36.5 Const Nutritional Appearance: obese HEENT Head: Yes normocephalic and Yes atraumatic Ears: hearing grossly normal bilaterally Eyes General: appearance normal, both eyes and all related structures Eyelids: Yes eyelids normal Pupils: Equal, round and reactive pupils present EOM: EOMs intact bilaterally Neck Neck: Yes normal visual inspection and Yes no JVD Resp Effort & Inspection: normal respiratory effort, able to speak in complete sentences and no audible wheezes Cardio Jugular venous distension: no JVD Neuro Cranial nerves: Yes Equal, round and reactive pupils present Psych Appearance: grossly normal Mental Status: mental status grossly normal Speech and movement: Normal speech and movement present Affect: normal affect Attitude: cooperative Thought process: Normal thought process present Thought content: Normal thought content present Insight: Good insight present (Psych) Judgement: Good judgement present (Psych) Assessment & Plan Assessment & Plan (1) Osteoarthritis of shoulders, bilateral: Code(s): M19.011 - Primary osteoarthritis, right shoulder; M19.012 - Primary osteoarthritis, left shoulder Category: Medical (2) Osteoarthritis of right knee: Code(s): M17.11 - Unilateral primary osteoarthritis, right knee Category: Medical (3) Chronic pain syndrome: Code(s): G89.4 - Chronic pain syndrome Category: Medical Plan Her pill count is correct today. There is a refill of tramadol in the pharmacy She supposed to receive new prescription with 1 refill on 02/11/2024. I requested her to give us a call close to the day of the refill I will refill her medications. Next appointment in 2 months. Her opioid addiction risk was mild the score was equal to 11, however now it will go moderate. Next time she is suspended is will be for full year. She had infrapatellar saphenous nerve block in the past she had intra-articular shoulder injections in the past. She reports no help from those injections. Coding Level of Care Code Est Pt Level 3 (06826) Diagnoses Osteoarthritis of shoulders, bilateral M19.011; M19.012 Osteoarthritis of right knee M17.11 Chronic pain syndrome G89.4
[2024-01-28 11:27] VITALS: BP 141/90; PULSE 102; RESP 14; O2SAT 99; BMI 36.5
== END 2024-01-28 11:36 | disposition home or self-care (01) ==
PROVIDERS: PCP Internal Medicine; Visit Provider Anesthesiology
DX: G89.4 Chronic pain syndrome (principal); M19.011 Primary osteoarthritis, right shoulder; M19.012 Primary osteoarthritis, left shoulder; M17.11 Unilateral primary osteoarthritis, right knee
CPT/HCPCS: 99213

== ENCOUNTER → 2024-01-28 11:10 | Outpatient (BNVA) | payer OTHER, SELFPAY | PROVIDERS: PCP Internal Medicine; Visit Provider Anesthesiology | DX: M17.11 Unilateral primary osteoarthritis, right knee (principal); M19.011 Primary osteoarthritis, right shoulder; M19.012 Primary osteoarthritis, left shoulder; G89.4 Chronic pain syndrome | CPT/HCPCS: 99212 ==

== ENCOUNTER 2024-02-12 11:28 | Outpatient (AMB) | payer OTHER, SELFPAY ==
[2024-02-12 11:29] VITALS: BP 130/84; PULSE 84; O2SAT 98; BMI 36.6
--- NOTE | 2024-02-12 11:29 | MHC.PC.OV ---
Vital Signs 02/12/24 11:29 Height 5 ft 5 in Weight 220 lb BMI 36.6 BP 130/84 Blood Pressure Location Lt brachial Position Sitting Pulse 84 Pulse Source Pulse Oximeter Pulse Oximetry (%) 98 Oxygen Delivery Method Room Air Intake Visit Reasons: office visit National Coverage Specialist Required: No Maintenance Supervisor Electrical: Not Required per policy Accompanied by: Self / Same As Patient Allergies Penicillins Allergy (Unknown, Verified 02/12/24 11:30) Hives Seasonal Allergies Allergy (Verified 02/12/24 11:30) itchy nose/sneezing Medication List - Last Reconciled 02/12/24 by Panchito Morales MD aspirin 81 mg PO DAILY atorvastatin 10 mg PO DAILY cholecalciferol (vitamin D3) 1,250 mcg PO QWEEK clonidine HCl 0.1 mg PO BID PRN 30 days gabapentin 600 mg PO TID loratadine (Claritin) 10 mg PO DAILY metformin 500 mg PO DAILY 90 days tizanidine 4 mg PO DAILY tramadol 50 mg PO TID PRN 30 days zolpidem 10 mg PO BEDTIME Tobacco use date assessed: 02/12/24 Dental Screening Dental Screen Date: 02/12/24 Did you have a dental visit in the last 12 months?: Yes Did you have a dental problem in the last 6 months where you did not have access to dental care?: No Was dental information given to patient?: Patient has dentist HPI office visit HPI Details rash on hands due to eczeme PFSH Medical History (Updated 02/12/24 @ 12:53 by Panchito Morales MD) Diabetes mellitus with neuropathy Osteoarthritis of right knee Insomnia Diabetes Osteoarthritis of shoulders, bilateral Bronchitis Fibromyalgia Diabetes Thyroid activity decreased Knee arthropathy Bursitis and tendinitis of shoulder region Surgical History History of shoulder surgery H/O knee surgery Family History Father Stomach cancer Mother No problems noted. Sister No problems noted. Social History Household Members: Significant Other Housing: House Do you presently have visiting nurse or other home services: No Alcohol intake: never Patient Tobacco Use Status: Former Tobacco user Tobacco use type: Cigarette e-Cigarette/Vaping Use: Never Used Second Hand Smoke Exposure: No service: No Current occupational status: disabled Current occupational exposures/hazards: No Cognitive needs: Yes Hearing needs: No Vision needs: Yes Questionnaire PHQ-9 Over the last 2 weeks, how often have you been bothered by any of the following problems? 1. Little interest or pleasure in doing things: not at all 2. Feeling down, depressed, or hopeless: not at all 3. Trouble falling or staying asleep, or sleeping too much: not at all 4. Feeling tired or having little energy: not at all 5. Poor appetite or overeating: not at all 6. Feeling bad about yourself - or that you are a failure or have let yourself or your family down: not at all 7. Trouble concentrating on things, such as reading the newspaper or watching television: not at all 8. Moving or speaking so slowly that other people could have noticed. Or the opposite - being so fidgety or restless that you have been moving around a lot more than usual: not at all 9. Thoughts that you would be better off or of hurting yourself in some way: not at all Total score: 0 Depression Screening Interpretation: Negative Depression Screening Done: Yes 46326 - PHQ-9 Billing: Yes Source: Developed by Drs. Spenser Lopez, Guerda Mayberry, Eliot Espitia and colleagues, with an educational sinan from [employer]. Thrive Questionnaire Date Thrive assessed: 02/12/24 I am a: Patient What is your living situation today?: I have a steady place to live Within the past 12 months, did the food you bought not last and you didn't have the money to get more?: Never true Within the past 12 months, did you worry whether your food would run out before you got money to buy more?: Never true Do you have trouble paying for medicines?: No Do you have trouble getting transportation to medical appointments?: No Do you have trouble paying your heating and electricity bill?: No Do you have trouble taking care of your child, family member or friend?: No Do you have trouble with day-to-day activities such as bathing, preparing meals, shopping, managing finances, etc.?: No Are you currently unemployed and looking for a job?: No Are you interested in more education?: No Please select the resources that you would like help with: None THRIVE Score: 0 AUDIT C Alcohol Use Questionnaire (AUDIT-C) Score Reviewed/Action Taken: Yes BRADLEY-7 AMB Questionnaire BRADLEY-7 Date BRADLEY - 7 assessed: 02/12/24 Feeling nervous, anxious, or on edge: 0 = Not at all Not being able to stop or control worryin = Not at all Worrying too much about different things: 0 = Not at all Trouble relaxin = Not at all Being so restless that it is hard to sit still: 0 = Not at all Becoming easily annoyed or irritable: 0 = Not at all Feeling afraid as if something awful might happen: 0 = Not at all Total BRADLEY-7 score (0-4 normal; 5-9 mild; 10-14 moderate; 15-21 severe): 0 Source: Developed by Drs. Spenser Lopez, Guerda Mayberry, Eliot Espitia and colleagues, with an educational sinan from [employer]. Review of Systems Const Denies chills, Denies headache(s) and Denies weight loss ENT Denies headache(s) Card Denies chest pain, Denies syncope, Denies irregular heart rhythm and Denies dyspnea Resp Denies chest congestion, Denies cough and Denies dyspnea GI Denies abdominal pain, Denies change in stool character, Denies nausea and Denies vomiting Musc Denies deformity and Denies joint swelling Neuro Denies syncope and Denies headache(s) Physical exam (Primary Care) Vital Signs: Last Vital Signs Pulse 84 02/12/24 11:29 BP 130/84 02/12/24 11:29 Pulse Ox 98 02/12/24 11:29 Oxygen Delivery Method Room Air 02/12/24 11:29 BMI result Body Mass Index 36.6 Tobacco/Smoking Status: Tobacco use Status Tobacco use date assessed 02/12/24 02/12/24 11:31 Patient Tobacco Use Status Former Tobacco user 02/12/24 11:31 Tobacco use type Cigarette 02/12/24 11:31 e-Cigarette/Vaping Use Never Used 02/12/24 11:31 PHQ-9: PHQ-9 Score PHQ-9: Total score 0 02/12/24 11:31 Depression Screening Interpretation: Negative Thrive Assessment: Date of Thrive Assessment Date Thrive assessed 02/12/24 02/12/24 11:31 Const General: cooperative, comfortable, no acute distress and alert Neck Neck: Yes no lymphadenopathy Thyroid: Thyroid normal Resp Effort & Inspection: normal respiratory effort Auscultation: clear to auscultation bilaterally Percussion: percussion normal Cardio Jugular venous distension: no JVD Palpation: normal PMI Rate: regular rate Rhythm: regular rhythm Heart sounds: S1 normal heart sound present and S2 normal heart sound present GI Inspection: Yes normal to inspection Palpation (GI): No hepatosplenomegaly present Extrem General: Yes no clubbing, cyanosis or edema Assessment and Plan Assessment & Plan (1) Eczema: Code(s): L30.9 - Dermatitis, unspecified Plan: rx sent Medications: New triamcinolone acetonide 0.5% 1 appl topical TID 15 grams 3RF Coding Level of Care Code Est Pt Level 3 (91996) Diagnoses Eczema L30.9
== END 2024-02-12 11:42 | disposition home or self-care (01) ==
PROVIDERS: PCP Internal Medicine; Visit Provider Internal Medicine
DX: L30.9 Dermatitis, unspecified (principal)
CPT/HCPCS: 99213

== ENCOUNTER 2024-03-24 10:47 | Outpatient (AMB) | payer OTHER, SELFPAY ==
--- NOTE | 2024-03-24 10:53 | MHC.OFFVIS ---
Vital Signs 03/24/24 11:07 Height 5 ft 5 in Weight 218 lb 8 oz BMI 36.4 BP 197/104 H Blood Pressure Location Rt brachial Position Sitting Pulse 107 H Pulse Source Pulse Oximeter Pulse Oximetry (%) 96 Oxygen Delivery Method Room Air Intake Visit Reasons: PILL COUNT Intake Note: Lisa comes in today for a pill count to tramadol, patient should have 63 tablets and presents with 62 tablets which she last took today 03/24/24 at 6am. 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 She reports today level of her pain 03/09. She reports tramadol has no side effects. She wants to try TENS unit to help her pain. I encouraged her to try. Today pill count is correct she supposed to come with 63 pills in her possession. She came with 62 pills in her possession. She has 1 refill of the tramadol available for her on April 14. After that she will give us a call and we will send new prescription for her. She is on 50 mg tramadol t.i.d. for her pain. She is using icy hot OTC and NSAIDs OTC to help her pain. She is also taking gabapentin 600 mg t.i.d. which is prescribed to her by primary care physician. She is adequately managed by this regimen. In the past I attempted to perform injections Infrapatellar saphenous nerve block resulted in 40% pain relieve. Suprepatelarr saphenous nerve resulted in 45% pain relieve only. Unfortunately at this time I can offer her to adhere to her opioid regimen. I also can offer her to perform some other injections but she does not want to proceed with them. She is also suffering from the shoulder osteoarthritis. She had suprascapular nerve block. Before that she received interarticular steroid injection.? Unfortunately neither block was working for her. Prior: c/o? pain in the neck with radiation into the left shoulder.? She reports that she is suffering from this pain as well as pain in the back in the knee as well as fibromyalgia for long period of time.? ? She reports that cold and weather changes aggravate her pain as well as movements.? She reports that topical medications and oral medications alleviate her pain. She was suspended once for noncompliance. Her prior risk was mild for opioid addiction however now the risk will be elevated to moderate and if she is suspended it will be 1 year suspension. [facility] Medical History (Updated 02/12/24 @ 12:53 by Panchito Morales MD) Diabetes mellitus with neuropathy Osteoarthritis of right knee Insomnia Diabetes Osteoarthritis of shoulders, bilateral Bronchitis Fibromyalgia Diabetes Thyroid activity decreased Knee arthropathy Bursitis and tendinitis of shoulder region Surgical History History of shoulder surgery H/O knee surgery Family History Father Stomach cancer Mother No problems noted. Sister No problems noted. Social History Household Members: Significant Other Housing: House Do you presently have visiting nurse or other home services: No Alcohol intake: never Patient Tobacco Use Status: Former Tobacco user Tobacco use type: Cigarette e-Cigarette/Vaping Use: Never Used Second Hand Smoke Exposure: No service: No Current occupational status: disabled Current occupational exposures/hazards: No Cognitive needs: Yes Hearing needs: No Vision needs: Yes Review of Systems Const All systems reviewed & are unremarkable except as noted in HPI and below Physical Exam Vital Signs: Last Vital Signs Pulse 107 H 03/24/24 11:07 BP 197/104 H 03/24/24 11:07 Pulse Ox 96 03/24/24 11:07 Oxygen Delivery Method Room Air 03/24/24 11:07 BMI result Body Mass Index 36.4 Const Nutritional Appearance: obese HEENT Head: Yes normocephalic and Yes atraumatic Ears: hearing grossly normal bilaterally Eyes General: appearance normal, both eyes and all related structures Eyelids: Yes eyelids normal Pupils: Equal, round and reactive pupils present EOM: EOMs intact bilaterally Neck Neck: Yes normal visual inspection and Yes no JVD Resp Effort & Inspection: normal respiratory effort, able to speak in complete sentences and no audible wheezes Cardio Jugular venous distension: no JVD Neuro Cranial nerves: Yes Equal, round and reactive pupils present Psych Appearance: grossly normal Mental Status: mental status grossly normal Speech and movement: Normal speech and movement present Affect: normal affect Attitude: cooperative Thought process: Normal thought process present Thought content: Normal thought content present Insight: Good insight present (Psych) Judgement: Good judgement present (Psych) Assessment & Plan Assessment & Plan (1) Osteoarthritis of shoulders, bilateral: Code(s): M19.011 - Primary osteoarthritis, right shoulder; M19.012 - Primary osteoarthritis, left shoulder Category: Medical (2) Osteoarthritis of right knee: Code(s): M17.11 - Unilateral primary osteoarthritis, right knee Category: Medical (3) Chronic pain syndrome: Code(s): G89.4 - Chronic pain syndrome Category: Medical Plan Her pill count is correct today. There is a refill of tramadol in the pharmacy I requested her to give us a call close to the day of the refill I will refill her medications. Next appointment in 2 months. Her opioid addiction risk was mild the score was equal to 11, however now it will go moderate. Next time she is suspended is will be for full year. She had infrapatellar saphenous nerve block in the past she had intra-articular shoulder injections in the past. She reports no help from those injections. Coding Level of Care Code Est Pt Level 3 (60365) Diagnoses Osteoarthritis of shoulders, bilateral M19.011; M19.012 Osteoarthritis of right knee M17.11 Chronic pain syndrome G89.4
[2024-03-24 11:07] VITALS: BP 197/104; PULSE 107; O2SAT 96; BMI 36.4
== END 2024-03-24 11:15 | disposition home or self-care (01) ==
PROVIDERS: PCP Internal Medicine; Visit Provider Anesthesiology
DX: G89.4 Chronic pain syndrome (principal); M19.011 Primary osteoarthritis, right shoulder; M19.012 Primary osteoarthritis, left shoulder; M17.11 Unilateral primary osteoarthritis, right knee
CPT/HCPCS: 99213

== ENCOUNTER → 2024-03-24 10:47 | Outpatient (BNVA) | payer OTHER, SELFPAY | PROVIDERS: PCP Internal Medicine; Visit Provider Anesthesiology | DX: M17.11 Unilateral primary osteoarthritis, right knee (principal); M19.011 Primary osteoarthritis, right shoulder; M19.012 Primary osteoarthritis, left shoulder; G89.4 Chronic pain syndrome; M79.7 Fibromyalgia | CPT/HCPCS: 99212 ==

== ENCOUNTER → 2024-05-19 13:57 | Outpatient (BNVA) | payer OTHER, SELFPAY | PROVIDERS: PCP Internal Medicine; Visit Provider Anesthesiology ==

== ENCOUNTER 2024-07-05 11:23 | Outpatient (AMB) | payer OTHER, SELFPAY ==
[2024-07-05 11:27] VITALS: BP 150/102; PULSE 102; O2SAT 96; BMI 35.8
--- NOTE | 2024-07-05 11:27 | MHC.PC.OV ---
Vital Signs 07/05/24 11:27 Height 5 ft 5 in Weight 215 lb BMI 35.8 BP 150/102 H Blood Pressure Location Lt brachial Position Sitting Pulse 102 H Pulse Source Pulse Oximeter Pulse Oximetry (%) 96 Oxygen Delivery Method Room Air Intake Visit Reasons: f\u Intake Note: pt states feeling dizzy and numb/tingling in her RT leg and LT arm but it eventually resolves itself. she says this is normal for her since the stroke. 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 Accompanied by: Self / Same As Patient Allergies Penicillins Allergy (Unknown, Verified 07/05/24 11:27) Hives Seasonal Allergies Allergy (Verified 07/05/24 11:27) itchy nose/sneezing Medication List - Last Reconciled 07/05/24 by Panchito Morales MD aspirin 81 mg PO DAILY atorvastatin 10 mg PO DAILY cholecalciferol (vitamin D3) 1,250 mcg PO QWEEK clonidine HCl 0.1 mg PO BID PRN 30 days gabapentin 600 mg PO TID loratadine (Claritin) 10 mg PO DAILY metformin 500 mg PO DAILY 90 days tizanidine 4 mg PO DAILY tramadol 50 mg PO TID PRN 30 days triamcinolone acetonide 0.5% 1 appl topical TID zolpidem 10 mg PO BEDTIME Tobacco use date assessed: 02/12/24 Dental Screening Dental Screen Date: 02/12/24 HPI f\u HPI Details hyperlip on rx; doing well; due for labs [facility] Medical History (Updated 02/12/24 @ 12:53 by Panchito Morales MD) Diabetes mellitus with neuropathy Osteoarthritis of right knee Insomnia Diabetes Osteoarthritis of shoulders, bilateral Bronchitis Fibromyalgia Diabetes Thyroid activity decreased Knee arthropathy Bursitis and tendinitis of shoulder region Surgical History History of shoulder surgery H/O knee surgery Family History Father Stomach cancer Mother No problems noted. Sister No problems noted. Social History Household Members: Significant Other Housing: House Do you presently have visiting nurse or other home services: No Alcohol intake: never Patient Tobacco Use Status: Former Tobacco user Tobacco use type: Cigarette e-Cigarette/Vaping Use: Never Used Second Hand Smoke Exposure: No service: No Current occupational status: disabled Current occupational exposures/hazards: No Cognitive needs: Yes Hearing needs: No Vision needs: Yes Questionnaire Thrive Questionnaire Date Thrive assessed: 02/12/24 AUDIT C Alcohol Use Questionnaire (AUDIT-C) 3. How often do you have six or more drinks on one occasion?: Never Total Score: 0 BRADLEY-7 AMB Questionnaire BRADLEY-7 Date BRADLEY - 7 assessed: 02/12/24 Source: Developed by Drs. Spenser Lopez, Guerda Mayberry, Eliot Espitia and colleagues, with an educational sinan from [employer]. Review of Systems Const Denies chills, Denies headache(s) and Denies weight loss ENT Denies headache(s) Card Denies chest pain, Denies syncope, Denies irregular heart rhythm and Denies dyspnea Resp Denies chest congestion, Denies cough and Denies dyspnea GI Denies abdominal pain, Denies change in stool character, Denies nausea and Denies vomiting Musc Denies deformity and Denies joint swelling Neuro Denies syncope and Denies headache(s) Physical exam (Primary Care) Vital Signs: Last Vital Signs Pulse 102 H 07/05/24 11:27 BP 150/102 H 07/05/24 11:27 Pulse Ox 96 07/05/24 11:27 Oxygen Delivery Method Room Air 07/05/24 11:27 BMI result Body Mass Index 35.8 Tobacco/Smoking Status: Tobacco use Status Tobacco use date assessed 02/12/24 07/05/24 11:28 Patient Tobacco Use Status Former Tobacco user 07/05/24 11:28 Tobacco use type Cigarette 07/05/24 11:28 e-Cigarette/Vaping Use Never Used 07/05/24 11:28 Thrive Assessment: Date of Thrive Assessment Date Thrive assessed 02/12/24 07/05/24 11:28 Const General: cooperative, comfortable, no acute distress and alert Neck Neck: Yes no lymphadenopathy Thyroid: Thyroid normal Resp Effort & Inspection: normal respiratory effort Auscultation: clear to auscultation bilaterally Percussion: percussion normal Cardio Jugular venous distension: no JVD Palpation: normal PMI Rate: regular rate Rhythm: regular rhythm Heart sounds: S1 normal heart sound present and S2 normal heart sound present GI Inspection: Yes normal to inspection Palpation (GI): No hepatosplenomegaly present Skin General skin exam: no rashes or lesions noted Extrem General: Yes no clubbing, cyanosis or edema Coding Level of Care Code Est Pt Level 3 (65011) Diagnoses Hyperlipidemia E78.5 Assessment & Plan Assessment & Plan (1) Hyperlipidemia: Code(s): E78.5 - Hyperlipidemia, unspecified Category: Medical Plan: stable; do labs Orders: Orders Lipid Panel Today Z13.220 - Encounter for screening for lipoid disorders
== END 2024-07-05 11:37 | disposition home or self-care (01) ==
LOC: HO.HMCH 11:24
PROVIDERS: PCP Internal Medicine; Visit Provider Internal Medicine
DX: E78.5 Hyperlipidemia, unspecified (principal)

== ENCOUNTER → 2024-07-05 11:23 | Outpatient (BNVA) | payer OTHER, SELFPAY | PROVIDERS: PCP Internal Medicine; Visit Provider Internal Medicine | DX: E78.5 Hyperlipidemia, unspecified (principal) | CPT/HCPCS: 99212 ==

== ENCOUNTER 2024-07-07 11:10 | Outpatient (AMB) | payer OTHER, SELFPAY ==
--- NOTE | 2024-07-07 11:12 | A.OFFVIS_ITS ---
Vital Signs 07/07/24 11:19 Height 5 ft 5 in Weight 214 lb 8 oz BMI 35.7 BP 156/82 H Blood Pressure Location Lt brachial Position Sitting Respiration 17 Pulse 103 H Pulse Source Pulse Oximeter Pulse Oximetry (%) 98 Oxygen Delivery Method Room Air Intake Visit Reasons: PILL COUNT Intake Note: Patient comes in for pill count. Reports pain 7/10. Allergies Penicillins Allergy (Unknown, Verified 07/07/24 11:20) Hives Seasonal Allergies Allergy (Verified 07/07/24 11:20) itchy nose/sneezing HPI Comments Details: Lisa is back in my office for the follow-up and pain medication refill. She reports today level of her pain 7/10. She reports tramadol has no side effects. She tried 10s units and that was not helpful. She reports that in the past she had ?orange round pill ?which helped her a lot. She is going to call to [place] pharmacy where she received those medications and when she will come back she will tell me what medication it was. If it is not an opioid or goes into conflict with her tramadol I do not mind to start this medication. On a pill count today she presented with 38 pills in her possession. She supposed to have 39 pills in her possession. She has 1 pills short but it is within the limit of her 3 pills a day limitation. She is on 50 mg tramadol t.i.d. for her pain. She is using icy hot OTC and NSAIDs OTC to help her pain. She is on gabapentin 600 mg t.i.d. which is prescribed to her by primary care physician. In the past I attempted to perform injections Infrapatellar saphenous nerve block resulted in 40% pain relieve. Suprepatelarr saphenous nerve resulted in 45% pain relieve only. Unfortunately at this time I can offer her to adhere to her opioid regimen. I also can offer her to perform some other injections but she does not want to proceed with them. She is also suffering from the shoulder osteoarthritis. She had suprascapular nerve block. Before that she received interarticular steroid injection.? Unfortunately neither block was working for her. Prior: c/o? pain in the neck with radiation into the left shoulder.? She reports that she is suffering from this pain as well as pain in the back in the knee as well as fibromyalgia for long period of time.? ? She reports that cold and weather changes aggravate her pain as well as movements.? She reports that topical medications and oral medications alleviate her pain. She was suspended once for noncompliance. Her prior risk was mild for opioid addiction however now the risk will be elevated to moderate and if she is suspended it will be 1 year suspension. [facility] Medical History (Updated 02/12/24 @ 12:53 by Panchito Morales MD) Diabetes mellitus with neuropathy Osteoarthritis of right knee Insomnia Diabetes Osteoarthritis of shoulders, bilateral Bronchitis Fibromyalgia Diabetes Thyroid activity decreased Knee arthropathy Bursitis and tendinitis of shoulder region Surgical History History of shoulder surgery H/O knee surgery Family History Father Stomach cancer Mother No problems noted. Sister No problems noted. Social History Household Members: Significant Other Housing: House Do you presently have visiting nurse or other home services: No Alcohol intake: never Patient Tobacco Use Status: Former Tobacco user Tobacco use type: Cigarette e-Cigarette/Vaping Use: Never Used Second Hand Smoke Exposure: No service: No Current occupational status: disabled Current occupational exposures/hazards: No Cognitive needs: Yes Hearing needs: No Vision needs: Yes Review of Systems Const All systems reviewed & are unremarkable except as noted in HPI and below Physical Exam Vital Signs: Last Vital Signs Pulse 103 H 07/07/24 11:19 Resp 17 07/07/24 11:19 BP 156/82 H 07/07/24 11:19 Pulse Ox 98 07/07/24 11:19 Oxygen Delivery Method Room Air 07/07/24 11:19 BMI result Body Mass Index 35.7 Const Nutritional Appearance: obese HEENT Head: Yes normocephalic and Yes atraumatic Ears: hearing grossly normal bilaterally Eyes General: appearance normal, both eyes and all related structures Eyelids: Yes eyelids normal Pupils: Equal, round and reactive pupils present EOM: EOMs intact bilaterally Neck Neck: Yes normal visual inspection and Yes no JVD Resp Effort & Inspection: normal respiratory effort, able to speak in complete sentences and no audible wheezes Cardio Jugular venous distension: no JVD Neuro Cranial nerves: Yes Equal, round and reactive pupils present Psych Appearance: grossly normal Mental Status: mental status grossly normal Speech and movement: Normal speech and movement present Affect: normal affect Attitude: cooperative Thought process: Normal thought process present Thought content: Normal thought content present Insight: Good insight present (Psych) Judgement: Good judgement present (Psych) Assessment & Plan Assessment & Plan (1) Osteoarthritis of shoulders, bilateral: Code(s): M19.011 - Primary osteoarthritis, right shoulder; M19.012 - Primary osteoarthritis, left shoulder Category: Medical (2) Osteoarthritis of right knee: Code(s): M17.11 - Unilateral primary osteoarthritis, right knee Category: Medical (3) Chronic pain syndrome: Code(s): G89.4 - Chronic pain syndrome Category: Medical Plan Her pill count is correct today although she is 1 pills short today. We agreed that I will schedule her for an appointment in 2 months. Tramadol with 2 refills is prescribed today to be due on 07/20/2024.. Medications: Refilled tramadol 50 mg PO TID 30 days PRN 90 tabs 1RF pain Coding Level of Care Code Est Pt Level 3 (76451) Diagnoses Osteoarthritis of shoulders, bilateral M19.011; M19.012 Osteoarthritis of right knee M17.11 Chronic pain syndrome G89.4
[2024-07-07 11:19] VITALS: BP 156/82; PULSE 103; RESP 17; O2SAT 98; BMI 35.7
== END 2024-07-07 11:30 | disposition home or self-care (01) ==
LOC: HO.PMC 11:11
PROVIDERS: PCP Internal Medicine; Visit Provider Anesthesiology
DX: M19.011 Primary osteoarthritis, right shoulder (principal); M19.012 Primary osteoarthritis, left shoulder; M17.11 Unilateral primary osteoarthritis, right knee; G89.4 Chronic pain syndrome
CPT/HCPCS: 99213

== ENCOUNTER → 2024-07-07 11:10 | Outpatient (BNVA) | payer OTHER, SELFPAY | PROVIDERS: PCP Internal Medicine; Visit Provider Anesthesiology | DX: M19.011 Primary osteoarthritis, right shoulder (principal); M19.012 Primary osteoarthritis, left shoulder; M17.11 Unilateral primary osteoarthritis, right knee; G89.4 Chronic pain syndrome; Z51.81 Encounter for therapeutic drug level monitoring; Z79.891 Long term (current) use of opiate analgesic | CPT/HCPCS: 99212 ==

== ENCOUNTER 2024-09-01 12:52 | Outpatient (AMB) | payer OTHER, SELFPAY ==
--- NOTE | 2024-09-01 13:10 | MHC.OFFVIS ---
Vital Signs 09/01/24 13:11 09/01/24 13:11 Height 5 ft 5 in Weight 212 lb 8 oz BMI 35.4 BP 192/111 H 174/107 H Blood Pressure Location Rt brachial Lt brachial Position Sitting Sitting Pulse 78 Pulse Source Pulse Oximeter Pulse Oximetry (%) 98 Oxygen Delivery Method Room Air Intake Visit Reasons: PILL COUNT/ random UDS Intake Note: Lisa comes in today for a pill count to Tramadol, patient should have 78 tablets and presents with 85 which she last took today 09/01/24 at 9am. Pain today 03/09. Patient resigned opioid contracts in office today, signed copy of contract was provided to patient. Patient had random UDS done in office today. 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 She reports today level of her pain 03/09. She reports tramadol has no side effects. She reports it helps very little with her pain. She request escalation of the opioid medications. I explained to her that we are interventional pain management and when patient asks us for escalation we offer interventional pain management 1st. The patient stated that she will think about interventional pain management. She had some medial branch blocks performed back in [place]. I think I can offer her diagnostic medial branch block L3, L4, dorsal ramus L5 bilateral good results I can offer her sprint PNS to help her lower back pain. The same approach could be done for her neck pain. Pill count today: She supposed to have 78 pills in her possession. She presented with 85 pills in her possession. This demonstrates responsible attitude for opioid medications. She denies side effects of the opioid medications she denies constipation. She is on 50 mg tramadol t.i.d. for her pain. She is using icy hot OTC and NSAIDs OTC to help her pain. She is on gabapentin 600 mg t.i.d. which is prescribed to her by primary care physician. In the past I attempted to perform injections Infrapatellar saphenous nerve block resulted in 40% pain relieve. Suprepatelarr saphenous nerve resulted in 45% pain relieve only. Unfortunately at this time I can offer her to adhere to her opioid regimen. I also can offer her to perform some other injections but she does not want to proceed with them. She is also suffering from the shoulder osteoarthritis. She had suprascapular nerve block. Before that she received interarticular steroid injection.? Unfortunately neither block was working for her. Prior: c/o? pain in the neck with radiation into the left shoulder.? She reports that she is suffering from this pain as well as pain in the back in the knee as well as fibromyalgia for long period of time.? ? She reports that cold and weather changes aggravate her pain as well as movements.? She reports that topical medications and oral medications alleviate her pain. She was suspended once for noncompliance. Her prior risk was mild for opioid addiction however now the risk will be elevated to moderate and if she is suspended it will be 1 year suspension. [facility] Medical History (Updated 02/12/24 @ 12:53 by Panchito Morales MD) Diabetes mellitus with neuropathy Osteoarthritis of right knee Insomnia Diabetes Osteoarthritis of shoulders, bilateral Bronchitis Fibromyalgia Diabetes Thyroid activity decreased Knee arthropathy Bursitis and tendinitis of shoulder region Surgical History History of shoulder surgery H/O knee surgery Family History Father Stomach cancer Mother No problems noted. Sister No problems noted. Social History Household Members: Significant Other Housing: House Do you presently have visiting nurse or other home services: No Alcohol intake: never Patient Tobacco Use Status: Former Tobacco user Tobacco use type: Cigarette e-Cigarette/Vaping Use: Never Used Second Hand Smoke Exposure: No service: No Current occupational status: disabled Current occupational exposures/hazards: No Cognitive needs: Yes Hearing needs: No Vision needs: Yes Review of Systems Const All systems reviewed & are unremarkable except as noted in HPI and below Physical Exam Vital Signs: Last Vital Signs Pulse 78 09/01/24 13:11 BP 174/107 H 09/01/24 13:11 Pulse Ox 98 09/01/24 13:11 Oxygen Delivery Method Room Air 09/01/24 13:11 BMI result Body Mass Index 35.4 Const Nutritional Appearance: obese HEENT Head: Yes normocephalic and Yes atraumatic Ears: hearing grossly normal bilaterally Eyes General: appearance normal, both eyes and all related structures Eyelids: Yes eyelids normal Pupils: Equal, round and reactive pupils present EOM: EOMs intact bilaterally Neck Neck: Yes normal visual inspection and Yes no JVD Resp Effort & Inspection: normal respiratory effort, able to speak in complete sentences and no audible wheezes Cardio Jugular venous distension: no JVD Neuro Cranial nerves: Yes Equal, round and reactive pupils present Psych Appearance: grossly normal Mental Status: mental status grossly normal Speech and movement: Normal speech and movement present Affect: normal affect Attitude: cooperative Thought process: Normal thought process present Thought content: Normal thought content present Insight: Good insight present (Psych) Judgement: Good judgement present (Psych) Assessment & Plan Assessment & Plan (1) Osteoarthritis of shoulders, bilateral: Code(s): M19.011 - Primary osteoarthritis, right shoulder; M19.012 - Primary osteoarthritis, left shoulder Category: Medical (2) Osteoarthritis of right knee: Code(s): M17.11 - Unilateral primary osteoarthritis, right knee Category: Medical (3) Chronic pain syndrome: Code(s): G89.4 - Chronic pain syndrome Category: Medical Plan Her pill count is correct today she presented with excess of the medication. See as above. The patient will be scheduled for urine drug screen today. Thinks that her last medication she took today at 09:00 but she is unsure if she took it. We agreed that I will schedule her for an appointment in 2 months. Tramadol with 2 refills is prescribed today to be due on 09/29/2024 We discussed possible medial branch blocks for the lower back pain. Patient refused but she agreed to think about it. Medications: Refilled tramadol 50 mg PO TID PRN 90 tabs 1RF pain 30 days Patient Instructions: I hereby testify that I spent 35 minutes in conversation with this patient as well as evaluating her prior records and organizing this note. Coding Level of Care Code Est Pt Level 4 (26765) Diagnoses Osteoarthritis of shoulders, bilateral M19.011; M19.012 Osteoarthritis of right knee M17.11 Chronic pain syndrome G89.4
[2024-09-01 13:11] VITALS: BP 174/107; BP 192/111; PULSE 78; O2SAT 98; BMI 35.4
== END 2024-09-01 13:18 | disposition home or self-care (01) ==
PROVIDERS: PCP Internal Medicine; Visit Provider Anesthesiology
DX: M19.011 Primary osteoarthritis, right shoulder (principal); M19.012 Primary osteoarthritis, left shoulder; M17.11 Unilateral primary osteoarthritis, right knee; G89.4 Chronic pain syndrome
CPT/HCPCS: 99214

== ENCOUNTER → 2024-09-01 12:52 | Outpatient (BNVA) | payer OTHER, SELFPAY | PROVIDERS: PCP Internal Medicine; Visit Provider Anesthesiology | DX: Z51.81 Encounter for therapeutic drug level monitoring (principal); F11.20 Opioid dependence, uncomplicated; M17.11 Unilateral primary osteoarthritis, right knee; M19.011 Primary osteoarthritis, right shoulder; M19.012 Primary osteoarthritis, left shoulder; G89.4 Chronic pain syndrome | CPT/HCPCS: 99212 ==

== ENCOUNTER 2024-10-31 10:49 | Outpatient (AMB) | payer OTHER, SELFPAY ==
[2024-10-31 10:57] VITALS: BP 171/91; PULSE 111; O2SAT 98; BMI 36.1
--- NOTE | 2024-10-31 10:57 | A.OFFVIS_ITS ---
Vital Signs 10/31/24 10:57 Height 5 ft 5 in Weight 217 lb BMI 36.1 BP 171/91 H Blood Pressure Location Rt brachial Position Sitting Pulse 111 H Pulse Source Doppler Pulse Oximetry (%) 98 Oxygen Delivery Method Room Air Intake Visit Reasons: Pill Count Allergies Penicillins Allergy (Unknown, Verified 10/31/24 11:01) Hives Seasonal Allergies Allergy (Verified 10/31/24 11:01) itchy nose/sneezing HPI Comments Details: Lisa is back in my office for the follow-up and pain medication refill. She reports today level of her pain 03/09. She reports tramadol has no side effects. She reports it helps very little with her pain. We discussed possibility of treatment of her pain with physical therapy. I will schedule her for physical therapy at [facility]. Patient states that she has problems with transportation however she can use public transportation to reach the hospital since she lives in [place]. The patient stated that she will think about interventional pain management. She had some medial branch blocks performed back in [place]. I think I can offer her diagnostic medial branch block L3, L4, dorsal ramus L5 bilateral good results I can offer her sprint PNS to help her lower back pain. The same approach could be done for her neck pain. Pill count today: She supposed to have a 81 pills in her possession. She presented with 84 pills in her possession. This demonstrates responsible attitude for opioid medications. She denies side effects of the opioid medications she denies constipation. She is on 50 mg tramadol t.i.d. for her pain. She is using icy hot OTC and NSAIDs OTC to help her pain. She is on gabapentin 600 mg t.i.d. which is prescribed to her by primary care physician. In the past I attempted to perform injections Infrapatellar saphenous nerve block resulted in 40% pain relieve. Suprepatelarr saphenous nerve resulted in 45% pain relieve only. She is also suffering from the shoulder osteoarthritis. She had suprascapular nerve block. Before that she received interarticular steroid injection.? Unfortunately neither block was working for her. Prior: c/o? pain in the neck with radiation into the left shoulder.? She reports that she is suffering from this pain as well as pain in the back in the knee as well as fibromyalgia for long period of time.? ? She reports that cold and weather changes aggravate her pain as well as movements. She was suspended once for noncompliance. Her prior risk was mild for opioid addiction however now the risk will be elevated to moderate and if she is suspended it will be 1 year suspension. [facility] Medical History (Updated 10/31/24 @ 11:24 by Bill Sierra MD) Cerebellar infarct Diabetes mellitus with neuropathy Osteoarthritis of right knee Insomnia Diabetes Osteoarthritis of shoulders, bilateral Bronchitis Fibromyalgia Diabetes Thyroid activity decreased Knee arthropathy Bursitis and tendinitis of shoulder region Surgical History History of shoulder surgery H/O knee surgery Family History Father Stomach cancer Mother No problems noted. Sister No problems noted. Social History Household Members: Significant Other Housing: House Do you presently have visiting nurse or other home services: No Alcohol intake: never Patient Tobacco Use Status: Former Tobacco user Tobacco use type: Cigarette e-Cigarette/Vaping Use: Never Used Second Hand Smoke Exposure: No service: No Current occupational status: disabled Current occupational exposures/hazards: No Cognitive needs: Yes Hearing needs: No Vision needs: Yes Review of Systems Const All systems reviewed & are unremarkable except as noted in HPI and below Physical Exam Vital Signs: Last Vital Signs Pulse 111 H 10/31/24 10:57 BP 171/91 H 10/31/24 10:57 Pulse Ox 98 10/31/24 10:57 Oxygen Delivery Method Room Air 10/31/24 10:57 BMI result Body Mass Index 36.1 Const Nutritional Appearance: obese HEENT Head: Yes normocephalic and Yes atraumatic Ears: hearing grossly normal bilaterally Eyes General: appearance normal, both eyes and all related structures Eyelids: Yes eyelids normal Pupils: Equal, round and reactive pupils present EOM: EOMs intact bilaterally Neck Neck: Yes normal visual inspection and Yes no JVD Resp Effort & Inspection: normal respiratory effort, able to speak in complete sentences and no audible wheezes Cardio Jugular venous distension: no JVD Neuro Cranial nerves: Yes Equal, round and reactive pupils present Psych Appearance: grossly normal Mental Status: mental status grossly normal Speech and movement: Normal speech and movement present Affect: normal affect Attitude: cooperative Thought process: Normal thought process present Thought content: Normal thought content present Insight: Good insight present (Psych) Judgement: Good judgement present (Psych) Assessment & Plan Assessment & Plan (1) Osteoarthritis of shoulders, bilateral: Code(s): M19.011 - Primary osteoarthritis, right shoulder; M19.012 - Primary osteoart hritis, left shoulder Category: Medical (2) Osteoarthritis of right knee: Code(s): M17.11 - Unilateral primary osteoarthritis, right knee Category: Medical (3) Chronic pain syndrome: Code(s): G89.4 - Chronic pain syndrome Category: Medical (4) Bursitis and tendinitis of shoulder region: Code(s): M75.50 - Bursitis of unspecified shoulder; M75.90 - Shoulder lesion, unspecified, unspecified shoulder Category: Medical (5) Cerebellar infarct: Code(s): I63.9 - Cerebral infarction, unspecified Category: Medical (6) Cerebellar infarct: Code(s): I63.9 - Cerebral infarction, unspecified Category: Medical Plan Her pill count is correct today she presented with excess of the medication. See as above. She will be sent for physical therapy to maintain mobility and improve function. She reports problems with transportation however she lives in [place] pain can reach Hospital on public transportation. We agreed that I will schedule her for an appointment in 2 months. Tramadol with 2 refills is prescribed today to be due on 11/26/2024 with 1 refill Orders: Orders PT Evaluation and Treatment Today G89.4 - Chronic pain syndrome, I63.9 - Cerebral infarction, unspecified, M19.011 - Primary osteoarthritis, right shoulder, M19.012 - Primary osteoarthritis, left shoulder, M75.50 - Bursitis of unspecified shoulder, M75.90 - Shoulder lesion, unspecified, unspecified shoulder Medications: Refilled tramadol 50 mg PO TID 30 days PRN 90 tabs 1RF pain Coding Level of Care Code Est Pt Level 3 (39736) Diagnoses Osteoarthritis of shoulders, bilateral M19.011; M19.012 Osteoarthritis of right knee M17.11 Chronic pain syndrome G89.4 Bursitis and tendinitis of shoulder region M75.50; M75.90 Cerebellar infarct I63.9
--- OUTSIDE RECORDS SUMMARY | 2024-10-31 12:44 | XMS_ITS | Data Portability ---
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 She underwent knee arthroscopic surgery in July 2015. She states that surgery increased her pain. There have been two subsequent knee surgeries with Dr. Alexander in [place]. . She also reports right shoulder surgery under the care of Dr. Alexander. She has failed shoulder and knee inj per the orthopedic provider. Percocet 5/325 mg twice a day is well tolerated and helpful. continue current medication. After eval today recommend stabilization brace right knee. there is a therapy provider in [place] but she does not know the name of the address. I provided her with a written prescription so she may hand deliver that to set up an appointment to be fitted for the appropriate brace. A prescription for opioids was prescribed today given the failure of more conservative treatment options. The risks (including dependency, addiction, and possible ), benefits, and alternatives were discussed in detail with the patient. Goals of improved activity and analgesia will continue to be monitored in subsequent encounters. There is no evidence of addiction or aberrancy to date. The terms and conditions of the Opioid Contract were discussed in detail with the patient today. The patient is agreeable to the terms and signed the document. the confirmatory drug screen from february 2019 was reviewed today and was as expected [email or web address] Not available 05/09/2019 11:17:23 07/06/2019 07/06/2019 Ms CONTRERAS here for follow up visit and medication refill. She is 38-year-old female with history of right knee pain that began 2014 after falling on ice. She underwent knee arthroscopic surgery in July 2015. She states that surgery increased her pain. There have been two subsequent knee surgeries with Dr. Alexander in [place]. . She also reports right shoulder surgery under the care of Dr. Alexander. She has failed shoulder and knee inj per the orthopedic provider. Percocet 5/325 mg twice a day is well tolerated and helpful. continue current medication. A prescription for opioids was prescribed today given the failure of more conservative treatment options. The risks (including dependency, addiction, and possible ), benefits, and alternatives were discussed in detail with the patient. Goals of improved activity and analgesia will continue to be monitored in subsequent encounters. There is no evidence of addiction or aberrancy to date. The terms and conditions of the Opioid Contract were discussed in detail with the patient today. The patient is agreeable to the terms and signed the document. the confirmatory drug screen from MAY 2019 was reviewed today and was as expected/ moderate risk/ all udts have been as expected. [email or web address] Not available 07/06/2019 11:39:23 09/07/2019 09/07/2019 Ms CONTRERAS is 38-year-old female with history of right knee pain that began 2014 after falling on ice. She underwent knee arthroscopic surgery in July 2015. She states that surgery increased her pain. There have been two subsequent knee surgeries with Dr. Alexander in [place]. . She also reports right shoulder surgery under the care of Dr. Alexander. She has failed shoulder and knee inj per the orthopedic provider. Percocet 5/325 mg twice a day is helping her maintain ADLs and is keeping pain tolerable so continue the same regimen. A prescription for opioids was prescribed today given the failure of more conservative treatment options. The risks (including dependency, addiction, and possible ), benefits, and alternatives were discussed in detail with the patient. Goals of improved activity and analgesia will continue to be monitored in subsequent encounters. There is no evidence of addiction or aberrancy to date. The terms and conditions of the Opioid Contract were discussed in detail with the patient today. The patient is agreeable to the terms and signed the document. the preliminary screening does need to be sent to confirm the presence of only the currently prescribed opiate medication as there can be false negatives in the cup MOD risk [email or web address] Not available 09/07/2019 11:26:29 11/03/2019 11/03/2019 Ms CONTRERAS is 39-year-old female with history of right knee pain that began 2014 after falling on ice. She underwent knee arthroscopic surgery in July 2015. She states that surgery increased her pain. There have been two subsequent knee surgeries with Dr. Alexander in [place]. . She also had right shoulder surgery under the care of Dr. Alexander. She has failed shoulder and knee inj per the orthopedic provider. Percocet 5/325 mg twice a day is helping her maintain ADLs and is keeping pain tolerable so continue the same A prescription for opioids was prescribed today given the failure of more conservative treatment options. The risks (including dependency, addiction, and possible ), benefits, and alternatives were discussed in detail with the patient. Goals of improved activity and analgesia will continue to be monitored in subsequent encounters. There is no evidence of addiction or aberrancy to date. The terms and conditions of the Opioid Contract were discussed in detail with the patient today. The patient is agreeable to the terms and signed the document. conf udt aug 2019 reviewed today and appropriate. MOD risk Not available 11/03/2019 11:34:53 01/10/2020 01/10/2020 Ms CONTRERAS is 39-year-old female scheduled today for a telemedicine visit. She has a history of right knee pain that began 2014 after falling on ice. She underwent knee arthroscopic surgery in July 2015. She states that surgery increased her pain. There have been two subsequent knee surgeries with Dr. Alexander in [place]. . She also had right shoulder surgery under the care of Dr. Alexander. She has failed shoulder and knee inj per the orthopedic provider. Percocet 5/325 mg twice a day is helping her maintain ADLs and is keeping pain tolerable so continue the same A prescription for opioids was prescribed today given the failure of more conservative treatment options. The risks (including dependency, addiction, and possible ), benefits, and alternatives were discussed in detail with the patient. Goals of improved activity and analgesia will continue to be monitored in subsequent encounters. There is no evidence of addiction or aberrancy to date. The terms and conditions of the Opioid Contract were discussed in detail with the patient today. The patient is agreeable to the terms and signed the document. conf udt OCTOBER 2019 reviewed today and appropriate. MOD risk Patient is an established patient with their informed consent to treat signed and on file. Patient was visually authenticated based on the photograph in the patient? s file. Patient was given choice of telemedicine visit or office visit; patient chose telemedicine visit due to COVID-19 state of emergency. This visit is being conducted via telemedicine in accordance to all applicable laws and regulations. Patient is located in their home and the treating medical provider is located in [facility]. [email or web address] Not available 01/10/2020 12:10:01 Plan of Treatment Reminders Order Date Submit Date Provider Last Modified By Organization Details Last Modified Time Details Appointments None recorded. Lab drug screen, urine 2019 020 [email or web address] [place], [address], [place], [address], 0 11:33:41 drug screen, urine 2019 020 [email or web address] [place], [address], [place], [address], 0 11:24:07 unlisted lab - confirm appropriat e oxycodone 2019 020 [email or web address] [facility], [facility], [address] [place] [address], [address], 0 06:58:19 drug screen, urine 2018 019 [email or web address] [place], [address], [place], [address], 9 11:16:53 opiates, quantitati ve, urine 2018 019 [email or web address] [facility], [facility], [address] [place] [address], [address], 9 10:46:33 drug screen, urine 2018 019 [email or web address] [place], [address], [place], [address], 9 11:13:17 Referral physical therapist referral 2018 019 [email or web address] Not available 9 11:17:02 Procedures None recorded. Surgeries None recorded. Imaging None recorded. Medication Orders oxycodone- acetaminop hen 5 mg-325 mg tablet 2019 020 INTERFACE [facility], [address] [facility] [place], [address], 0 12:13:23 oxycodone- acetaminop hen 5 mg-325 mg tablet 2019 020 [facility], [address] [facility], [address], 0 12:13:23 oxycodone- acetaminop hen 5 mg-325 mg tablet 2019 020 [facility], [address], [address], 0 11:35:58 oxycodone- acetaminop hen 5 mg-325 mg tablet 2019 020 [facility], [address] [place], [address], 0 11:35:57 oxycodone- acetaminop hen 5 mg-325 mg tablet 2019 020 [facility], [address], [address], 0 11:25:41 oxycodone- acetaminop hen 5 mg-325 mg tablet 2019 020 [facility], [address], [address], 0 11:25:43 oxycodone- acetaminop hen 5 mg-325 mg tablet 2018 019 INTERFACE [facility], [address] [address] [place], [address], 9 11:20:30 oxycodone- acetaminop hen 5 mg-325 mg tablet 2018 [facility], [address] [place], [place] [address] [place], [address], 9 11:20:28 oxycodone- acetaminop hen 5 mg-325 mg tablet 2018 [facility], [address] [place] [place] [address] [place], [address], 9 11:15:59 oxycodone- acetaminop hen 5 mg-325 mg tablet 2018 [facility], [address] [place] [address] [place], [address], 9 11:16:24 Patient TargetsNo targets recorded. Patient InstructionsNo instructions recorded. Reason for Referral Physical Therapist Referral for Derangement of knee Referring Physician: Radha Gaffney, Pain Management, Encounter Date: 05/09/2019 Results Created Date Observation Date Name Description Value Unit Range Abnormal Flag Note LastModifiedBy Organization Detail LastModifiedTime 11/03/1911/03/2019 drug scree n, urine THC: negati ve Not Available [place] [address], [place], [address], 11/03/2019 11:06:25 11/03/1911/03/2019 drug scree n, urine Buprenorphin e: negati ve Not Available [place] [address], [place], [address], 11/03/2019 11:06:25 11/03/19 20 11/03/2019 drug scree n, urine TCA: negati ve Not Available [place] [address], [place], [address], 11/03/2019 11:06:25 11/03/19 20 11/03/2019 drug scree n, urine Barbiturates : negati ve Not Available [place] [address], [place], [address], 11/03/2019 11:06:25 11/03/19 20 11/03/2019 drug scree n, urine Benzodiazepi lavonne: negati ve Not Available [place] [address], [place], [address], 11/03/2019 11:06:25 11/03/19 20 11/03/2019 drug scree n, urine Methadone: negati ve Not Available [place] [address], [place], [address], 11/03/2019 11:06:25 11/03/19 20 11/03/2019 drug scree n, urine Amphetamines : negati ve Not Available [place] [address], [place], [address], 11/03/2019 11:06:25 11/03/19 20 11/03/2019 drug scree n, urine Morphine/Opi ates: negati ve Not Available [place] [address], [place], [address], 11/03/2019 11:06:25 11/03/19 20 11/03/2019 drug scree n, urine Oxycodone: positi ve Not Available [place] [address], [place], [address], 11/03/2019 11:06:25 11/03/19 20 11/03/2019 drug scree n, urine MDMA: negati ve Not Available [place] [address], [place], [address], 11/03/2019 11:06:25 11/03/19 20 11/03/2019 drug scree n, urine Cocaine: negati ve Not Available [place] [address], [place], [address], 11/03/2019 11:06:25 11/03/19 20 11/03/2019 drug scree n, urine Methamphetam ine: negati ve Not Available [place] [address], [place], [address], 11/03/2019 11:06:25 09/07/19 20 09/07/2019 drug scree n, urine THC: negati ve Not Available [place] [address], [place], [address], 09/07/2019 10:49:25 09/07/19 20 09/07/2019 drug scree n, urine Buprenorphin e: negati ve Not Available [place] [address], [place], [address], 09/07/2019 10:49:25 09/07/19 20 09/07/2019 drug scree n, urine TCA: negati ve Not Available [place] [address], [place], [address], 09/07/2019 10:49:25 09/07/19 20 09/07/2019 drug scree n, urine Barbiturates : negati ve Not Available [place] [address], [place], [address], 09/07/2019 10:49:25 09/07/19 20 09/07/2019 drug scree n, urine Benzodiazepi lavonne: negati ve Not Available [place] [address], [place], [address], 09/07/2019 10:49:25 09/07/19 20 09/07/2019 drug scree n, urine Methadone: negati ve Not Available [place] [address], [place], [address], 09/07/2019 10:49:25 09/07/19 20 09/07/2019 drug scree n, urine Amphetamines : negati ve Not Available [place] [address], [place], [address], 09/07/2019 10:49:25 09/07/19 20 09/07/2019 drug scree n, urine Morphine/Opi ates: negati ve Not Available [place] [address], [place], [address], 09/07/2019 10:49:25 09/07/19 20 09/07/2019 drug scree n, urine Oxycodone: positi ve Not Available [place] [address], [place], [address], 09/07/2019 10:49:25 09/07/19 20 09/07/2019 drug scree n, urine MDMA: negati ve Not Available [place] [address], [place], [address], 09/07/2019 10:49:25 09/07/19 20 09/07/2019 drug scree n, urine Cocaine: negati ve Not Available [place] [address], [place], [address], 09/07/2019 10:49:25 09/07/19 20 09/07/2019 drug scree n, urine Methamphetam ine: negati ve Not Available [place] [address], [place], [address], 09/07/2019 10:49:25 07/06/20 19 07/06/2019 drug scree n, urine THC: negati ve Not Available [place] [address], [place], [address], 07/06/2019 10:31:41 11/0607/06/2019 drug scree n, urine Buprenorphin e: negati ve Not Available [place] [address], [place], [address], 07/06/2019 10:31:41 07/06/2007/06/2019 drug scree n, urine TCA: negati ve Not Available [place] [address], [place], [address], 07/06/2019 10:31:41 07/06/2007/06/2019 drug scree n, urine Barbiturates : negati ve Not Available [place] [address], [place], [address], 07/06/2019 10:31:41 07/06/2007/06/2019 drug scree n, urine Benzodiazepi lavonne: negati ve Not Available [place] [address], [place], [address], 07/06/2019 10:31:41 07/06/2007/06/2019 drug scree n, urine Methadone: negati ve Not Available [place] [address], [place], [address], 07/06/2019 10:31:41 07/06/2007/06/2019 drug scree n, urine Amphetamines : negati ve Not Available [place] [address], [place], [address], 07/06/2019 10:31:41 07/06/2007/06/2019 drug scree n, urine Morphine/Opi ates: negati ve Not Available [place] [address], [place], [address], 07/06/2019 10:31:41 07/06/2007/06/2019 drug scree n, urine Oxycodone: positi ve Not Available [place] [address], [place], [address], 07/06/2019 10:31:41 07/06/20 19 07/06/2019 drug scree n, urine MDMA: negati ve Not Available [place] [address], [place], [address], 07/06/2019 10:31:41 07/06/20 19 07/06/2019 drug scree n, urine Cocaine: negati ve Not Available [place] [address], [place], [address], 07/06/2019 10:31:41 07/06/20 19 07/06/2019 drug scree n, urine Methamphetam ine: negati ve Not Available [place] [address], [place], [address], 07/06/2019 10:31:41 05/09/20 19 05/09/2019 drug scree n, urine THC: negati ve Not Available [place] [address], [place], [address], 05/09/2019 10:34:13 05/09/20 19 05/09/2019 drug scree n, urine Buprenorphin e: negati ve Not Available [place] [address], [place], [address], 05/09/2019 10:34:13 05/09/20 19 05/09/2019 drug scree n, urine TCA: negati ve Not Available [place] [address], [place], [address], 05/09/2019 10:34:13 05/09/20 19 05/09/2019 drug scree n, urine Barbiturates : negati ve Not Available [place] [address], [place], [address], 05/09/2019 10:34:13 05/09/20 19 05/09/2019 drug scree n, urine Benzodiazepi lavonne: negati ve Not Available [place] [address], [place], [address], 05/09/2019 10:34:13 05/09/2005/09/2019 drug scree n, urine Methadone: negati ve Not Available [place] [address], [place], [address], 05/09/2019 10:34:13 05/09/2005/09/2019 drug scree n, urine Amphetamines : negati ve Not Available [place] [address], [place], [address], 05/09/2019 10:34:13 05/09/2005/09/2019 drug scree n, urine Morphine/Opi ates: negati ve Not Available [place] [address], [place], [address], 05/09/2019 10:34:13 05/09/2005/09/2019 drug scree n, urine Oxycodone: positi ve Not Available [place] [address], [place], [address], 05/09/2019 10:34:05/09/2005/09/2019 drug scree n, urine MDMA: negati ve Not Available [place] [address], [place], [address], 05/09/2019 10:34:13 05/09/2005/09/2019 drug scree n, urine Cocaine: negati ve Not Available [place] [address], [place], [address], 05/09/2019 10:34:13 05/09/2005/09/2019 drug scree n, urine Methamphetam ine: negati ve Not Available [place] [address], [place], [address], 05/09/2019 10:34:13 05/09/20 19 05/09/2019 6-Mon oacet ylmor phine (6-MA M), QN, urine 6-acetylmorp princess Negati ve NG/mL 5 normal Negat duy-E xpect ed Not Available [facility] [address], [address], 05/13/2019 05:01:40 05/09/20 19 05/09/2019 6-Mon oacet ylmor phine (6-MA M), QN, urine buprenorphin e Negati ve NG/mL 5 normal Negat duy-E xpect ed Not Available [facility] [address], [address], 05/13/2019 05:01:40 05/09/20 19 05/09/2019 6-Mon oacet ylmor phine (6-MA M), QN, urine codeine Negati ve NG/mL 50 normal Negat duy-E xpect ed Not Available [facility] [address], [address], 05/13/2019 05:01:40 05/09/20 19 05/09/2019 6-Mon oacet ylmor phine (6-MA M), QN, urine EDDP Negati ve NG/mL 100 normal Negat duy-E xpect ed Not Available [facility] [address], [address], 05/13/2019 05:01:40 05/09/20 19 05/09/2019 6-Mon oacet ylmor phine (6-MA M), QN, urine fentanyl Negati ve NG/mL 1 normal Negat duy-E xpect ed Not Available [facility] [address], [address], 05/13/2019 05:01:40 05/09/20 19 05/09/2019 6-Mon oacet ylmor phine (6-MA M), QN, urine hydrocodone Negati ve NG/mL 5 normal Negat duy-E xpect ed Not Available [facility] [address], [address], 05/13/2019 05:01:40 05/09/20 19 05/09/2019 6-Mon oacet ylmor phine (6-MA M), QN, urine hydromorphon e Negati ve NG/mL 5 normal Negat duy-E xpect ed Not Available [facility] [address], [address], 05/13/2019 05:01:40 05/09/20 19 05/09/2019 6-Mon oacet ylmor phine (6-MA M), QN, urine ketamine Negati ve NG/mL 2 normal Negat duy-E xpect ed Not Available [address], [address], 05/13/2019 05:01:40 05/09/20 19 05/09/2019 6-Mon oacet ylmor phine (6-MA M), QN, urine meperidine Negati ve NG/mL 2 normal Negat duy-E xpect ed Not Available [address], [address], 05/13/2019 05:01:40 05/09/20 19 05/09/2019 6-Mon oacet ylmor phine (6-MA M), QN, urine methadone Negati ve NG/mL 50 normal Negat duy-E xpect ed Not Available [address], [address], 05/13/2019 05:01:40 05/09/20 19 05/09/2019 6-Mon oacet ylmor phine (6-MA M), QN, urine morphine Negati ve NG/mL 50 normal Negat duy-E xpect ed Not Available [facility] [address], [address], 05/13/2019 05:01:40 05/09/20 19 05/09/2019 6-Mon oacet ylmor phine (6-MA M), QN, urine naloxone Negati ve NG/mL 10 normal Negat duy-E xpect ed Not Available [facility] [address], [address], 05/13/2019 05:01:40 05/09/20 19 05/09/2019 6-Mon oacet ylmor phine (6-MA M), QN, urine N-desmethylt apentadol Negati ve NG/mL 25 normal Negat duy-E xpect ed Not Available [facility] [address], [address], 05/13/2019 05:01:40 05/09/20 19 05/09/2019 6-Mon oacet ylmor phine (6-MA M), QN, urine norbuprenorp princess Negati ve NG/mL 5 normal Negat duy-E xpect ed Not Available [facility] [address], [address], 05/13/2019 05:01:40 05/09/20 19 05/09/2019 6-Mon oacet ylmor phine (6-MA M), QN, urine norfentanyl Negati ve NG/mL 2 normal Negat duy-E xpect ed Not Available [facility] [address], [address], 05/13/2019 05:01:40 05/09/20 19 05/09/2019 6-Mon oacet ylmor phine (6-MA M), QN, urine norhydrocodo ne Negati ve NG/mL 10 normal Negat duy-E xpect ed Not Available [facility] [address], [address], 05/13/2019 05:01:40 05/09/20 19 05/09/2019 6-Mon oacet ylmor phine (6-MA M), QN, urine norketamine Negati ve NG/mL 2 normal Negat duy-E xpect ed Not Available [facility] [address], [address], 05/13/2019 05:01:40 05/09/20 19 05/09/2019 6-Mon oacet ylmor phine (6-MA M), QN, urine oxymorphone 259 NG/mL 10 high Posit duy-E xpect ed Not Available [facility] [address], [address], 05/13/2019 05:01:40 05/09/20 19 05/09/2019 6-Mon oacet ylmor phine (6-MA M), QN, urine propoxyphene Negati ve NG/mL 10 normal Negat duy-E xpect ed Not Available [facility] [address], [address], 05/13/2019 05:01:40 05/09/20 19 05/09/2019 6-Mon oacet ylmor phine (6-MA M), QN, urine tapentadol Negati ve NG/mL 2 normal Negat duy-E xpect ed Not Available [facility] [address], [address], 05/13/2019 05:01:40 05/09/20 19 05/09/2019 6-Mon oacet ylmor phine (6-MA M), QN, urine tramadol Negati ve NG/mL 25 normal Negat duy-E xpect ed Not Available [facility] [address], [address], 05/13/2019 05:01:40 05/09/20 19 05/09/2019 6-Mon oacet ylmor phine (6-MA M), QN, urine noroxycodone 3257 NG/mL 50 high Posit duy-E xpect ed Not Available [facility] [address], [address], 05/13/2019 05:01:40 05/09/20 19 05/09/2019 6-Mon oacet ylmor phine (6-MA M), QN, urine oxycodone 3247 NG/mL 50 high Posit duy-E xpect ed Not Available [address], [address], 05/13/2019 05:01:40 05/09/20 19 05/09/2019 6-Mon oacet ylmor phine (6-MA M), QN, urine acetylfentan yl Negati ve NG/mL 2 normal Negat duy-E xpect ed Not Available [address], [address], 05/13/2019 05:01:40 05/09/20 19 05/09/2019 6-Mon oacet ylmor phine (6-MA M), QN, urine acetylnorfen tanyl Negati ve NG/mL 5 normal Negat duy-E xpect ed Not Available [facility] [address], [address], 05/13/2019 05:01:40 05/09/20 19 05/09/2019 6-Mon oacet ylmor phine (6-MA M), QN, urine acrylfentany l Negati ve NG/mL 2 normal Negat duy-E xpect ed Not Available [facility] [address], [address], 05/13/2019 05:01:40 05/09/20 19 05/09/2019 6-Mon oacet ylmor phine (6-MA M), QN, urine butyrylfenta nyl Negati ve NG/mL 10 normal Negat duy-E xpect ed Not Available [facility] [address], [address], 05/13/2019 05:01:40 05/09/20 19 05/09/2019 6-Mon oacet ylmor phine (6-MA M), QN, urine butyrylnorfe ntanyl Negati ve NG/mL 10 normal Negat duy-E xpect ed Not Available [facility] [address], [address], 05/13/2019 05:01:40 05/09/20 19 05/09/2019 6-Mon oacet ylmor phine (6-MA M), QN, urine carfentanil Negati ve NG/mL 5 normal Negat duy-E xpect ed Not Available [facility] [address], [address], 05/13/2019 05:01:40 05/09/2005/09/2019 6-Mon oacet ylmor phine (6-MA M), QN, urine vua-5-mhkzsa fentanyl Negati ve NG/mL 10 normal Negat duy-E xpect ed Not Available [facility] [address], [address], 05/13/2019 05:01:40 05/09/20 19 05/09/2019 6-Mon oacet ylmor phine (6-MA M), QN, urine [id number] norfentanyl Negati ve NG/mL 10 normal Negat duy-E xpect ed Not Available [facility] [address], [address], 05/13/2019 05:01:40 05/09/20 19 05/09/2019 6-Mon oacet ylmor phine (6-MA M), QN, urine furanylfenta nyl Negati ve NG/mL 2 normal Negat duy-E xpect ed Not Available [facility] [address], [address], 05/13/2019 05:01:40 05/09/20 19 05/09/2019 6-Mon oacet ylmor phine (6-MA M), QN, urine N-desmethyl- [id number] Negati ve NG/mL 5 normal Negat duy-E xpect ed Not Available [facility] [address], [address], 05/13/2019 05:01:40 05/09/20 19 05/09/2019 6-Mon oacet ylmor phine (6-MA M), QN, urine norcarfentan il Negati ve NG/mL 5 normal Negat duy-E xpect ed Not Available [facility] [address], [address], 05/13/2019 05:01:40 05/09/20 19 05/09/2019 6-Mon oacet ylmor phine (6-MA M), QN, urine O-desmethylt ramadol Negati ve NG/mL 100 normal Negat duy-E xpect ed Not Available [facility] [address], [address], 05/13/2019 05:01:40 05/09/20 19 05/09/2019 6-Mon oacet ylmor phine (6-MA M), QN, urine [id number] Negati ve NG/mL 5 normal Negat duy-E xpect ed Not Available [address], [place], [address], 05/13/2019 05:01:40 09/07/19 20 09/10/2019 [facility] 6-acetylmorp princess, cutoff 10 NG/mL normal Not Available [facility] [address] [place] [address], [id number], 09/14/2019 16:39:29 09/07/19 20 09/10/2019 [facility] buprenorphin e, cutoff 5 NG/mL normal Not Available [facility] [address] [place] [address], [id number], 09/14/2019 16:39:29 09/07/19 20 09/10/2019 [facility] fentanyl, cutoff 5 NG/mL normal Not Available [facility] [address] [place] [address], [id number], 09/14/2019 16:39:29 09/07/19 20 09/10/2019 [facility] methadone, cutoff 50 NG/mL normal Not Available [facility] [address] [place] [address], [id number], 09/14/2019 16:39:29 09/07/19 20 09/10/2019 [facility] codeine, cutoff 50 NG/mL normal Not Available [facility] [address] [place] [address], [id number], 09/14/2019 16:39:29 09/07/19 20 09/10/2019 [facility] hydrocodone, cutoff 50 NG/mL normal Not Available [facility] [address] [place] [address], [id number], 09/14/2019 16:39:29 09/07/19 20 09/10/2019 [facility] hydromorphon e, cutoff 50 NG/mL normal Not Available [facility] [address] [place] [address], [id number], 09/14/2019 16:39:29 09/07/19 20 09/10/2019 [facility] morphine, cutoff 50 NG/mL normal Not Available [facility] [address] [place] [address], 18[address], 09/14/2019 16:39:29 09/07/19 20 09/10/2019 [facility] naloxone, cutoff 10 NG/mL normal Not Available [facility] [address] [place] [address], [id number], 09/14/2019 16:39:29 09/07/19 20 09/10/2019 [facility] oxycodone, cutoff 50 NG/mL normal Not Available [facility] [address] [place] [address], [id number], 09/14/2019 16:39:29 09/07/19 20 09/10/2019 [facility] oxymorphone, cutoff 50 NG/mL normal Not Available [facility] [address] [place] [address], [id number], 09/14/2019 16:39:29 09/07/19 20 09/10/2019 [facility] tapentadol, cutoff 50 NG/mL normal Not Available [facility] [address] [place] [address], 56131, 09/14/2019 16:39:29 09/07/19 20 09/10/2019 [facility] cis-tramadol , cutoff 50 NG/mL normal Not Available [facility] [address] [place] [address], 06144, 09/14/2019 16:39:29 09/07/19 20 09/14/2019 [facility] 6-acetylmorp princess Not Detect ed NG/mL normal Not Available [facility] [address] [place] [address], 60482, 09/14/2019 16:39:29 09/07/19 20 09/14/2019 [facility] buprenorphin e Not Detect ed NG/mL normal Not Available [facility] [address] [place] [address], [id number], 09/14/2019 16:39:29 09/07/19 20 09/14/2019 [facility] fentanyl Not Detect ed NG/mL normal Not Available [facility] [address] [place] [address], [id number], 09/14/2019 16:39:29 09/07/19 20 09/14/2019 [facility] methadone Not Detect ed NG/mL normal Not Available [facility] [address] [place] [address], [id number], 09/14/2019 16:39:29 09/07/19 20 09/14/2019 [facility] codeine Not Detect ed NG/mL normal Not Available [facility] [address] [place] [address], [id number], 09/14/2019 16:39:29 09/07/19 20 09/14/2019 [facility] hydrocodone Not Detect ed NG/mL normal Not Available [facility] [address] [place] [address], [id number], 09/14/2019 16:39:29 09/07/19 20 09/14/2019 [facility] hydromorphon e Not Detect ed NG/mL normal Not Available [facility] [address] [place] [address], [id number], 09/14/2019 16:39:29 09/07/19 20 09/14/2019 [facility] morphine Not Detect ed NG/mL normal Not Available [facility] [address] [place] [address], [id number], 09/14/2019 16:39:29 09/07/19 20 09/14/2019 [facility] naloxone Not Detect ed NG/mL normal Not Available [facility] [address] [place] [address], 15717, 09/14/2019 16:39:29 09/07/19 20 09/14/2019 [facility] oxycodone Detect ed NG/mL abnormal Not Available [facility] [address] [place] [address], [id number], 09/14/2019 16:39:29 09/07/19 20 09/14/2019 [facility] oxycodone, interp Consis tent NG/mL normal Oxyco done is a semi- synth etic narco tic analg esic relat ed to codei ne and is avail able by presc ripti on (e.g. Extam pza ER?, Oxyco ntin? , Roxic odone ?). It is metab olize d by the liver enzym e CYP2D 6 to the activ e metab olite oxymo rphon e. Patie nts with defic ient CYP2D 6 enzym atic activ ity may not produ ce oxymo rphon e at detec table level s. Low sohan ntrat ions of hydro codon e may be prese nt. Not Available [facility] [address] [place] [address], [id number], 09/14/2019 16:39:29 09/07/19 20 09/14/2019 [facility] oxycodone, creat adj >786 normal Not Available [facility] [address] [place] [address], 92881, 09/14/2019 16:39:29 09/07/19 20 09/14/2019 [facility] oxymorphone Detect ed NG/mL abnormal Not Available [facility] [address] [place] [address], 58771, 09/14/2019 16:39:29 09/07/19 20 09/14/2019 [facility] oxymorphone, interp Consis tent NG/mL normal Oxymo rphon e is an opioi d analg esic simil ar to morph ine. It is avail able by presc ripti on (Numo rphan ?, Opana ?) and is a metab olite of oxyco done. Not Available [facility] [address] [place] [address], [id number], 09/14/2019 16:39:29 09/07/19 20 09/14/2019 [facility] oxymorphone, creat adj >786 normal Not Available [facility] [address] [place] [address], 54946, 09/14/2019 16:39:29 09/07/19 20 09/14/2019 [facility] tapentadol Not Detect ed NG/mL normal Not Available [facility] [address] [place] [address], [id number], 09/14/2019 16:39:29 09/07/19 20 09/14/2019 [facility] cis-tramadol Not Detect ed NG/mL normal Not Available [facility] [address] [place] [address], 05445, 09/14/2019 16:39:29 09/07/19 20 09/10/2019 [facility] general oxidants, cutoff 200 NG/mL normal Not Available [facility] [address] [place] [address], 10540, 09/14/2019 16:39:30 09/07/19 20 09/13/2019 [facility] general oxidants Not Detect ed NG/mL normal Not Available [facility] [address] [place] [address], [id number], 09/14/2019 16:39:30 09/07/19 20 09/10/2019 [facility] xref confirmation [id number] 50 normal Not Available [facility] [address] [place] [address], [id number], 09/14/2019 16:39:30 09/07/19 20 09/10/2019 oxyco done, QN, confi rm, urine oxycodone, cutoff 50 NG/mL normal Not Available [facility] [address] [place] [address], 33654, 09/14/2019 16:39:31 09/07/19 20 09/10/2019 oxyco done, QN, confi rm, urine noroxycodone , cutoff 50 NG/mL normal Not Available [facility] [address] [place] [address], 65801, 09/14/2019 16:39:31 09/07/19 20 09/10/2019 oxyco done, QN, confi rm, urine oxymorphone, cutoff 50 NG/mL normal Not Available [facility] [address] [place] [address], [id number], 09/14/2019 16:39:31 09/07/19 20 09/14/2019 oxyco done, QN, confi rm, urine oxycodone Detect ed NG/mL abnormal Not Available [facility] [address] [place] [address], [id number], 09/14/2019 16:39:31 09/07/19 20 09/14/2019 oxyco done, QN, confi rm, urine oxycodone, interp Consis tent NG/mL normal Oxyco done is a semi- synth etic narco tic analg esic relat ed to codei ne and is avail able by presc ripti on (e.g. Extam pza ER?, Oxyco ntin? , Roxic odone ?). It is metab olize d by the liver enzym e CYP2D 6 to the activ e metab olite oxymo rphon e. Patie nts with defic ient CYP2D 6 enzym atic activ ity may not produ ce oxymo rphon e at detec table level s. Low sohan ntrat ions of hydro codon e may be prese nt. Not Available [facility] [address] [place] [address], [id number], 09/14/2019 16:39:31 09/07/19 20 09/14/2019 oxyco done, QN, confi rm, urine oxycodone, creat adj >786 normal Not Available [facility] [address] [place] [address], 24612, 09/14/2019 16:39:31 09/07/19 20 09/14/2019 oxyco done, QN, confi rm, urine noroxycodone Detect ed NG/mL abnormal Not Available [facility] [address] [place] [address], [id number], 09/14/2019 16:39:31 09/07/19 20 09/14/2019 oxyco done, QN, confi rm, urine noroxycodone , interp Consis tent NG/mL normal Nor-O xycod one is a uniqu e metab olite of oxyco done. It is not avail able by presc ripti on. Not Available [facility] [address] [place] [address], [id number], 09/14/2019 16:39:31 09/07/19 20 09/14/2019 oxyco done, QN, confi rm, urine noroxycodone , creat adj >786 normal Not Available [facility] [address] [place] [address], 34665, 09/14/2019 16:39:31 09/07/19 20 09/14/2019 oxyco done, QN, confi rm, urine oxymorphone Detect ed NG/mL abnormal Not Available [facility] [address] [place] [address], 13660, 09/14/2019 16:39:31 09/07/19 20 09/14/2019 oxyco done, QN, confi rm, urine oxymorphone, interp Consis tent NG/mL normal Oxymo rphon e is an opioi d analg esic simil ar to morph ine. [facility] (Numo rphan ?, Opana ?) and is a metab olite of oxyco done. Not Available [facility] [address] [place] [address], [id number], 09/14/2019 16:39:31 09/07/19 20 09/14/2019 oxyco done, QN, confi rm, urine oxymorphone, creat adj >786 normal Not Available [facility] [address] [place] [address], 46721, 09/14/2019 16:39:31 09/07/19 20 09/07/2019 gabap entin , quant itati ve, urine abnormal status abnormal Not Available [facility] [address] [place] [address], 87276, 09/14/2019 16:39:31 09/07/19 20 09/10/2019 [facility] 6-acetylmorp princess, cutoff 10 NG/mL normal Not Available [facility] [address] [place] [address], 66172, 09/14/2019 17:30:01 09/07/19 20 09/10/2019 [facility] buprenorphin e, cutoff 5 NG/mL normal Not Available [facility] [address], [address], 09/14/2019 17:30:01 09/07/19 20 09/10/2019 [facility] fentanyl, cutoff 5 NG/mL normal Not Available [facility] [address] [place] [address], 84007, 09/14/2019 17:30:01 09/07/19 20 09/10/2019 [facility] methadone, cutoff 50 NG/mL normal Not Available [facility] [address] [place] [address], [id number], 09/14/2019 17:30:01 09/07/19 20 09/10/2019 [facility] codeine, cutoff 50 NG/mL normal Not Available [facility] [address] [place] [address], 90486, 09/14/2019 17:30:01 09/07/19 20 09/10/2019 [facility] hydrocodone, cutoff 50 NG/mL normal Not Available [facility] [address] [place] [address], 76461, 09/14/2019 17:30:01 09/07/19 20 09/10/2019 [facility] hydromorphon e, cutoff 50 NG/mL normal Not Available [facility] [address] [place] [address], [id number], 09/14/2019 17:30:01 09/07/19 20 09/10/2019 [facility] morphine, cutoff 50 NG/mL normal Not Available [facility] [address] [place] [address], 43886, 09/14/2019 17:30:01 09/07/19 20 09/10/2019 [facility] naloxone, cutoff 10 NG/mL normal Not Available [facility] [address] [place] [address] [place], [address], 09/14/2019 17:30:01 09/07/19 20 09/10/2019 [facility] oxycodone, cutoff 50 NG/mL normal Not Available [facility] [address] [place] [address], 65398, 09/14/2019 17:30:01 09/07/19 20 09/10/2019 [facility] oxymorphone, cutoff 50 NG/mL normal Not Available [facility] [address] [place] [address], 60711, 09/14/2019 17:30:01 09/07/19 20 09/10/2019 [facility] tapentadol, cutoff 50 NG/mL normal Not Available [facility] [address] [place] [address], 26722, 09/14/2019 17:30:01 09/07/19 20 09/10/2019 [facility] cis-tramadol , cutoff 50 NG/mL normal Not Available [facility] [address] [place] [address], 86466, 09/14/2019 17:30:01 09/07/19 20 09/14/2019 [facility] 6-acetylmorp princess Not Detect ed NG/mL normal Not Available [facility] [address] [place] [address], 76407, 09/14/2019 17:30:01 09/07/19 20 09/14/2019 [facility] buprenorphin e Not Detect ed NG/mL normal Not Available [facility] [address] [place] [address], 60769, 09/14/2019 17:30:01 09/07/19 20 09/14/2019 [facility] fentanyl Not Detect ed NG/mL normal Not Available [facility] [address] [place] [address], 91309, 09/14/2019 17:30:01 09/07/19 20 09/14/2019 [facility] methadone Not Detect ed NG/mL normal Not Available [facility] [address] [place] [address], 58771, 09/14/2019 17:30:01 09/07/19 20 09/14/2019 [facility] codeine Not Detect ed NG/mL normal Not Available [facility] [address] [place] [address], 54702, 09/14/2019 17:30:01 09/07/19 20 09/14/2019 [facility] hydrocodone Not Detect ed NG/mL normal Not Available [facility] [address] [place] [address], 53371, 09/14/2019 17:30:01 09/07/19 20 09/14/2019 [facility] hydromorphon e Not Detect ed NG/mL normal Not Available [facility] [address] [place] [address], 92922, 09/14/2019 17:30:01 09/07/19 20 09/14/2019 [facility] morphine Not Detect ed NG/mL normal Not Available [facility] [address] [place] [address], [id number], 09/14/2019 17:30:01 09/07/19 20 09/14/2019 [facility] naloxone Not Detect ed NG/mL normal Not Available [facility] [address] [place] [address], 96554, 09/14/2019 17:30:01 09/07/19 20 09/14/2019 [facility] oxycodone Detect ed NG/mL abnormal Not Available [facility] [address] [place] [address], 22373, 09/14/2019 17:30:01 09/07/19 20 09/14/2019 [facility] oxycodone, interp Consis tent NG/mL normal Oxyco done is a semi- synth etic narco tic analg esic relat ed to codei ne and is avail able by presc ripti on (e.g. Extam pza ER?, Oxyco ntin? , Roxic odone ?). It is metab olize d by the liver enzym e CYP2D 6 to the activ e metab olite oxymo rphon e. Patie nts with defic ient CYP2D 6 enzym atic activ ity may not produ ce oxymo rphon e at detec table level s. Low sohan ntrat ions of hydro codon e may be prese nt. Not Available [facility] [address] [place] [address], 43183, 09/14/2019 17:30:01 09/07/19 20 09/14/2019 [facility] oxycodone, creat adj >786 normal Not Available [facility] [address] [place] [address], 05746, 09/14/2019 17:30:01 09/07/19 20 09/14/2019 [facility] oxymorphone Detect ed NG/mL abnormal Not Available [facility] [address] [place] [address], 70914, 09/14/2019 17:30:01 09/07/19 20 09/14/2019 [facility] oxymorphone, interp Consis tent NG/mL normal Oxymo rphon e is an opioi d analg esic simil ar to morph ine. It is avail able by presc ripti on (Numo rphan ?, Opana ?) and is a metab olite of oxyco done. Not Available [facility] [address] [place] [address], 98707, 09/14/2019 17:30:01 09/07/19 20 09/14/2019 [facility] oxymorphone, creat adj >786 normal Not Available [facility] [address] [place] [address], 61480, 09/14/2019 17:30:01 09/07/19 20 09/14/2019 [facility] tapentadol Not Detect ed NG/mL normal Not Available [facility] [address] [place] [address], 56633, 09/14/2019 17:30:01 09/07/19 20 09/14/2019 [facility] cis-tramadol Not Detect ed NG/mL normal Not Available [facility] [address] [place] [address], 17417, 09/14/2019 17:30:01 09/07/19 20 09/10/2019 [facility] general oxidants, cutoff 200 NG/mL normal Not Available [facility] [address] [place] [address], 56239, 09/14/2019 17:30:01 09/07/19 20 09/13/2019 [facility] general oxidants Not Detect ed NG/mL normal Not Available [facility] [address] [place] [address], 69852, 09/14/2019 17:30:01 09/07/19 20 09/14/2019 [facility] xref confirmation [id number] 12 normal Not Available [facility] [address] [place] [address], [id number], 09/14/2019 17:30:02 Result Notes None recorded. Problems Name Problem SNOMED Code Status Onset Date Resolution Date Notes Provider Name and Address Organization Details Recorded Time Long-term drug therapy Active Surendra colin [facility] 10/21/2017 10:41:31 Knee pain Active 018 WILLIE Armstrong [facility] 10/21/2017 10:41:53 Problem Notes None recorded. Procedures Surgical History Date Name Laterality Status Provider Name and Address Organization Details Recorded Time 5 General Surgery completed Patti TAPIA [facility] 10/21/2017 10:42:27 Imaging Results None recorded. Procedure Notes None recorded. Medical Equipment None Reported. Allergies Allergen ID Allergen Name Allergen Category Reaction Reaction Severity Criticality Documentation Date Start Date Code Code System Note Provider Name and Address Organization Details Recorded Time 00810 Product containin g penicilli n (product) medicatio n Not available Not available Not available 09/15/20172016 22732 8001 SNOMED Not Available [facility] 8 23:37:56 Medications Name Sig Start Date Stop Date Status Note LastModified by Organization Details LastModified Time cyclobenzap rine 10 mg tablet 07/12 completed Not Available Not Available Not Available atorvastati n 40 mg tablet 09/07 completed Not Available Not Available Not Available metformin 500 mg tablet active Not Available Not Available Not Available atorvastati n 80 mg tablet active Not Available Not Available Not Available gabapentin 600 mg tablet active Not Available Not Available Not Available atorvastati n 20 mg tablet 03/15 completed Not Available Not Available Not Available azithromyci n 250 mg tablet 07/06 completed Not Available Not Available Not Available tizanidine 4 mg tablet Take 1 tablet twice a day by oral route. active Not Available Not Available No t Available benzonatate 200 mg capsule active Not Available Not Available Not Available hydrocodone 5 mg-acetamin ophen 325 mg tablet 10/21 completed Not Available Not Available Not Available FreeStyle Lancets 28 gauge 01/05 completed Not Available Not Available Not Available betamethaso ne, augmented 0.05 % topical cream 01/05 completed Not Available Not Available Not Available doxepin 75 mg capsule 05/12 completed Not Available Not Available Not Available tramadol 50 mg tablet 10/21 completed Not Available Not Available Not Available oxycodone-a cetaminophe n 5 mg-325 mg tablet one po BID prn pain active Not Available Not Available No t Available trazodone 100 mg tablet 10/21 completed Not Available Not Available Not Available levothyroxi ne 50 mcg tablet active Not Available Not Available Not Available hydrocodone 7.5 mg-acetamin ophen 325 mg tablet 10/21 completed Not Available Not Available Not Available trazodone 150 mg tablet 03/15 completed Not Available Not Available Not Available metformin 1,000 mg tablet active Not Available Not Available Not Available gabapentin 300 mg capsule 03/15 completed Not Available Not Available Not Available levofloxaci n 500 mg tablet 10/21 completed Not Available Not Available Not Available zolpidem 10 mg tablet active Not Available Not Available No t Available methylpredn isolone 4 mg tablets in a dose pack 10/21 completed Not Available Not Available Not Available cholecalcif nivia (vitamin D3) 125 mcg (5,000 unit) capsule 05/12 completed Not Available Not Available Not Available loratadine 10 mg tablet active Not Available Not Available Not Available naproxen 500 mg tablet 03/15 completed Not Available Not Available Not Available omeprazole 20 mg tablet,phillip yed release active Not Available Not Available Not Available Voltaren 1 % topical gel APPLY 2 GRAM TO THE AFFECTED AREA(S) BY TOPICAL ROUTE 4 TIMES PER DAY 01/13 completed Not Available Not Available Not Available Accu-Chek SmartView Test Strips 09/07 completed Not Available Not Available Not Available Belsomra 20 mg tablet 11/02 completed Not Available Not Available Not Available Fluvirin 45 mcg (15 mcg x 3)/0.5 mL intramuscul ar suspension 05/12 completed Not Available Not Available Not Available Afluria Quad 60 mcg (15 mcg x 4)/0.5 mL IM suspension 09/09 completed Not Available Not Available Not Available Vitals Date Recorded Body height Body mass index (BMI) Body weight Provider Name and Address Organization Details Last Updated DateTime 05/09/2019 160.02 cm 39 kg/m2 81632.32 g Patti Ede [facility] 05/09/2019 10:34:29 Date Recorded Body height Body mass index (BMI) Body weight Heart rate Oxygen saturation Oxygen saturation in Arterial blood by Pulse oximetry Systolic blood pressure Diastolic blood pressure Provider Name and Address Organization Details Last Updated DateTime 9 160.02 cm 39 kg/m2 80395.3 2 g 78 /min 100 % 100 % 126 mm[Hg] 82 mm[Hg] Patti Mera [facility] [place] [facility] 10:37:59 Date Recorded Body height Body mass index (BMI) Body weight Heart rate Oxygen saturation Oxygen saturation in Arterial blood by Pulse oximetry Systolic blood pressure Diastolic blood pressure Provider Name and Address Organization Details Last Updated DateTime 0 160.02 cm 39 kg/m2 69232.3 2 g 84 /min 98 % 98 % 134 mm[Hg] 82 mm[Hg] Patti Mera [facility] 0 10:55:57 Date Recorded Body height Body mass index (BMI) Body weight Oxygen saturation Oxygen saturation in Arterial blood by Pulse oximetry Heart rate Systolic blood pressure Diastolic blood pressure Provider Name and Address Organization Details Last Updated DateTime 0 160.02 cm 39 kg/m2 40314.3 2 g 98 % 98 % 80 /min 136 mm[Hg] 80 mm[Hg] Eros Villegas [facility] 0 11:13:09 Date Recorded Body height Provider Name an d Address Organization Details Last Updated DateTime 01/10/2020 160.02 cm Patti TAPIA [facility] 01/10/2020 11:38:28 Social History Question Answer Notes LastModified by Organizat ion Details LastModified Time Tobacco Smoking Status Never [facility]oker [facility] 10/21/2017 10:45:58 What Is Your Level Of Alcohol Consumption? None [email or web address] Information not available 10/21/2017 What Is Your Occupation? Unemployed [email or web address] Information not available 10/21/2017 Prescription Drug Abuse No Information not available 10/21/2017 History Of Sexual Abuse No [email or web address] Information not available 10/21/2017 Marital Status [email or web address] Informatio n not available 10/21/2017 What Was The Date Of Your Most Recent Tobacco Screening? 04/14/2018 Information not available 03/23/2019 Sex: Unknown Functional Status Question Answer Note LastModified by Organization D etails LastModified Time What is your exercise level? None [email or web address] Information not available 10/21/2017 Mental Status None recorded. Family History Relationship Description Onset Age of this Age Resolved Age Notes LastModified by Organization Details LastModified Time Father No current problems or disability [email or web address] Not available 10/21 10:41:55 Mother No current problems or disability [email or web address] Not available 10/21 10:41:55 Medical History Condition Response Bipolar Disease N Coronary Artery Disease N Gout N Seizure Disorder N Atrial Fibrillation N Thyroid Disease Y Osteoarthritis N Head Trauma/Injury N Hernia N Neurosurgery N Depression N COPD N Peptic Ulcer Disease N Anemia Y Heart Attack (ME) N Anxiety Disorder Y Diabetes Y Cardiomyopathy N Bleeding Disorder N CHF N AIDS/HIV N Inflammatory Bowel Disease N Cancer N Stroke N Skin Disorder N Dementia N Asthma N Substance Abuse N Sleep Apnea N High Cholesterol N Hepatitis N Liver Disease N Heart Disease N Rheumatoid Arthritis N Chronic Low Back Pain N Headaches N Fibromyalgia Y Hypertension N Osteoporosis N Kidney Disease N Autoimmune Disease N Gynecological HistoryNo gynecological history recorded. Obstetrics History GPAL:G 0 P 0 0 0 0 Past Encounters Encounter ID Performer Location Encounter Start Date Encounter Closed Date Diagnosis/Indication Diagnosis SNOMED-CT Code Diagnosis ICD10 Code Diagnosis Note [id number] [facility] [address] [place] [address] 10/21/2017 10:30:50 10/21/2017 11:09:30 Knee pain 54023000 M25.569 Long-term drug therapy 487659584 Z79.899 the confirmato ry drug screen from August 2017 was reviewed today and it was appropriat e. The preliminar y screen today is as expected. [id number] [facility] [address] [place] [address] 11/16/2017 09:49:29 11/16/2017 11:03:40 Knee pain 63031648 M25.569 M25.561 Long-term drug therapy 170185316 Z79.899 the preliminar y drug screen does need to be sent to confirm all substances to monitor adherence to the opiate contract due to the safety of the patient Shoulder pain 65586677 M 25.511 Medication monitoring 39 4678205 Z51.81 [id number] [facility] [address] [place] [address] 12/14/2017 11:19:10 12/14/2017 11:52:59 Knee pain 05785368 M25.569 M25.561 Shoulder pain 56691714 M 25.511 Long-term drug therapy 195904324 Z79.899 the preliminar y drug screen does need to be sent to confirm all substances to monitor adherence to the opiate contract due to the safety of the patient Medication monitoring 39 4662619 Z79.899 [id number] [facility] [address] [place] [address] 01/13/2018 10:30:23 01/13/2018 11:21:36 Knee pain 05345583 M25.569 M25.561 Shoulder pain 44662765 M 25.511 Long-term drug therapy 194007207 Z79.899 the confirmato ry drug screen from November 2017 was reviewed today and it was appropriat e. The preliminar y screen today is as expected [id number] [facility] [address] [place] [address] 02/10/2018 10:10:31 02/10/2018 10:56:03 Knee pain 55977204 M25.569 M25.561 Shoulder pain 73081347 M 25.511 Long-term drug therapy 056814232 Z79.899 The preliminar y urine drug screen is appropriat e for the class of medication s that the patient is being prescribed , however the patient's current medication is in a large family of drugs. The sample is being sent for quantitati ve, LCMS analysis to confirm the presence of this specific drug within this much larger family of drugs and to evaluate for the expected metabolite s. Medication monitoring 39 7791282 Z79.899 [id number] [facility] [address] [place] [address] 03/15/2018 11:12:26 03/15/2018 12:05:46 Knee pain 85334543 M25.569 M25.561 Shoulder pain 28567948 M 25.511 Long-term drug therapy 012621552 Z79.899 the confirmato ry drug screen from January 2018 was reviewed today and was appropriat e. The pulmonary screen today if as expected [id number] [facility] [address] [place] [address] 04/14/2018 11:00:23 04/14/2018 12:04:12 Knee pain 04324169 M25.569 M25.561 Shoulder pain 17442855 M 25.511 Long-term drug therapy 264141729 Z79.899 the confirmato ry drug screen from January 2018 was reviewed today and was appropriat e. The preliminar y screening today is as expected positive for oxycodone [id number] [facility] [address] [place] [address] 05/12/2018 14:07:58 05/12/2018 15:17:19 Knee pain 26280676 M25.569 M25.561 Shoulder pain 54423882 M 25.511 Long-term drug therapy 118384753 Z79.899 The preliminar y urine drug screen is appropriat e for the class of medication s that the patient is being prescribed , however the patient's current medication is in a large family of drugs. The sample is being sent for quantitati ve, LCMS analysis to confirm the presence of this specific drug within this much larger family of drugs and to evaluate for the expected metabolite s. Medication monitoring 39 3943180 Z79.899 [id number] [facility] [address] [place] [address] 07/12/2018 10:17:07 07/12/2018 11:04:07 Knee pain 53147770 M25.569 M25.561 Shoulder pain 33403219 M 25.511 Long-term drug therapy 175118253 Z79.899 the confirmato ry drug screen from May 2018 was reviewed today and it was appropriat e. The preliminar y screen today is appropriat [place] positive for oxycodone. Medication monitoring 39 3403701 Z79.899 [id number] [facility] [address] [place] [address] 09/09/2018 13:04:07 09/09/2018 14:03:35 Shoulder pain 93100424 M25.511 Long-term drug therapy 439317254 Z79.899 Derangement of knee 6364 3000 M23.91 [id number] [facility] [address] [place] [address] 11/09/2018 11:01:23 11/09/2018 12:02:40 Derangement of knee 33964480 M23.91 Shoulder pain 28742385 M 25.511 Long-term drug therapy 064867267 Z79.899 The preliminar y urine drug screen is appropriat e for the class of medication s that the patient is being prescribed , however the patient's current medication is in a large family of drugs. The sample is being sent for quantitati ve, LCMS analysis to confirm the presence of this specific drug within this much larger family of drugs and to evaluate for the expected metabolite s. Medication monitoring 39 6648131 Z79.899 [id number] AN[facility] [address] [place] [address] 01/05/2019 11:14:22 01/05/2019 11:43:42 Derangement of knee 71120937 M23.91 Shoulder pain 50857143 M 25.511 Long-term drug therapy 004154644 Z79.899 The preliminar y urine drug screen is appropriat e for the class of medication s that the patient is being prescribed , however the patient's current medication is in a large family of drugs. The sample is being sent for quantitati ve, LCMS analysis to confirm the presence of this specific drug within this much larger family of drugs and to evaluate for the expected metabolite s. Medication monitoring 39 2853781 Z79.899 [id number] AN[facility] [address] [place] [address] 03/09/2019 10:50:52 03/09/2019 11:41:33 Derangement of knee 96532617 M23.91 Shoulder pain 59048072 M 25.511 Long-term drug therapy 454169348 Z79.899 [id number] AN[facility] [address] [place] [address] 05/09/2019 10:21:08 05/09/2019 11:17:02 Derangement of knee 30076092 M23.91 Shoulder pain 92267708 M 25.511 Long-term drug therapy 295660264 Z79.899 Send for LCMS confirmati on of Opiates (Codeine, Hydrocodon e, Hydromorph one, Morphine, and Heroin) to confirm the quantitati ve level of drug and metabolite s in this urine sample, as hydrocodon e is part of a larger family of drugs that could be present with a positive Opiate IA test. Send for LCMS confirmati on of Oxycodone and Oxymorphon e as these drugs are frequently not detected with IA testing at 300 ng/mL and these are frequently used and/or abused pain medication s in our community. Send for LCMS confirmati on of Synthetic Opioids (Fentanyl, Methadone, Tramadol, Tapentadol , and Buprenorph ine) as these drugs will not be detected in Opiate IA testing and these are frequently used and/or abused pain medication s in our community. Medication monitoring 39 3915904 Z79.899 [id number] [facility] [address] [place] [address] 07/06/2019 10:27:03 07/06/2019 11:18:23 Derangement of knee 25312165 M23.91 Shoulder pain 07810829 M 25.511 Long-term drug therapy 113578170 Z79.899 The preliminar y IA urine drug screen is appropriat e for the class of medication (s) that the patient is being prescribed and based on their risk stratifica tion I will not send this sample for further quantitati ve LCMS testing. [id number] [facility] [address] [place] [address] 09/07/2019 10:45:07 09/07/2019 11:25:49 Derangement of knee 29340561 M23.91 Shoulder pain 17830023 M 25.511 Long-term drug therapy 641548241 Z79.899 Send for LCMS confirmati on of Oxycodone and Oxymorphon e to confirm the quantitati ve levels of these drugs that the patient is prescribed . Send for LCMS confirmati on of Opiates (Codeine, Hydrocodon e, Hydromorph one, Morphine, and Heroin) as these are frequently used and/or abused pain medication s amongst chronic pain patients in our community. Send for LCMS confirmati on of Synthetic Opioids (Fentanyl, Methadone, Tramadol, Tapentadol , and Buprenorph ine) as these drugs will not be detected in Opiate IA testing and these are also frequently used and/or abused pain medication s in our community. [id number] [facility] [address] [place] [address] 11/03/2019 10:49:53 11/03/2019 11:37:10 Derangement of knee 47609609 M23.91 Shoulder pain 34353806 M 25.511 Long-term drug therapy 519245890 Z79.899 The preliminar y IA urine drug screen is appropriat e for the class of medication (s) that the patient is being prescribed and based on their risk stratifica tion I will not send this sample for further quantitati ve LCMS testing. [id number] [facility] [address] [place] [address] 01/10/2020 11:16:40 01/10/2020 12:27:53 Derangement of knee 40623919 M23.91 Shoulder pain 65321551 M 25.511 Long-term drug therapy 764814585 Z79.899 Health Concerns Section Related Observation LastModified by Organization Detai ls LastModified Time None Recorded Concern Status LastModified by Organization Details LastModified Time None Recorded Advance Directives Directive None Recorded Payers Encounter Date Sequence Insurance Name Policy Number Policy Mcdaniels Covered Member ID Mcdaniels Member ID Guarantor Name 05/09/2019 1 [employer] [place] [id number] Lisa A Presz [id number] Lisa A Presz 07/06/2019 1 [employer] [place] [id number] Lisa A Presz [id number] Lisa A Presz 09/07/2019 1 [employer] [place] [id number] Lisa A Presz [id number] Lisa A Presz 11/03/2019 [facility] [place] [facility] [place] [id number] Lisa A Presz [id number] Lisa A Presz 01/10/2020 1 [employer] [facility] [place] [id number] Lisa A Presz [id number] Lisa A Presz Notes Date Note Type Note Provider Name and Address Organization Details Recorded Time 05/09/2019 text/html Follow-up (meds & injections)Reporte d bypatient.Improvem ent:Pain is the same as compared to last visit. Current Analgesics:Opioids - oxycodone; Reported pain relief- 20% for 4 hours (The last dose of percocet was taken 05-09-2019) Pain Scores:Current pain- 7/10 Activities of Daily Living (ADL):Living independently.; Able to bathe/groom without assistance.; Able to complete continuing education specialist.; Walking without assistance. Physical Therapy:[facility] ( [facility] completed [facility]); Response to therapy- stopped by therapist due to lack of improvement Recent Injections:NoneKne eReported bypatient.Location :right; anterior; posterior; medial; lateral Quality:throbbing; sharp Severity:pain level 7/10; worst pain 7/10 Duration:continuou s since onset Timing:chronic Context:cannot identify Alleviating Factors:rest; pain medication Aggravating Factors:standing; walking; weight bearing Associated Symptoms:no weakness; no numbness; no tingling Previous Surgery:2015 right knee arthroscopy Prior Imaging:x ray; 2015 @ [facility] in [place] Previous Injections:none Previous PT: in [place] Work Related:no Working:noNotes: NSAID's: Naproxen - ineffective Muscle Relaxers: Currently takes Flexeril 10mg TID -effective Neuropathic Meds: Currently takes Neurontin 600mg TID -effective Narcotic Meds: [place] 7.5/325mg TID - QID s Tramadol 50mg TID - ineffective, Percocet 5/325 BID- Effective PREVIOUS TREATMENTS: Physical therapy: [facility] (2014) 6 months of PT without relief Prior Pain Management: Dr. Paul and Dr. Guthrie - Oral Meds Injection in the past: Dr. Alexander - ShoulderReported bypatient.Location :right Quality:aching; burning; stabbing; constant Severity:pain level 7/10; worst pain 8/10 Duration:1 years Timing:cannot identify Context:cannot identify Alleviating Factors:pain medication Aggravating Factors:movement Associated Symptoms:no numbness; no tingling;weakness Previous Surgery:Right Shoulder surgery ? Prior Imaging:x ray; MRI Previous Injections:intr-ar ticular steroid injection; did not help Work Related:no Working:noNotes: Radha Gaffney APRN [address] [place] [address], [phone], [facility] 05/09/2019 11:17:37 07/06/2019 text/html Follow-up (meds & injections)Reporte d bypatient.Improvem ent:Pain is the same as compared to last visit. Current Analgesics:Opioids - oxycodone; Reported pain relief- 20% for 4 hours (The last dose of percocet was taken 07-06-2019) Pain Scores:Current pain- 6/10 Activities of Daily Living (ADL):Living independently.; Able to bathe/groom without assistance.; Able to complete continuing education specialist.; Walking without assistance. Physical Therapy:Completed [facility] the [facility]- @ [facility] ( for the [facility] @ [employer] completed 6 weeks); Response to therapy- stopped by therapist due to lack of improvement Recent Injections:NoneKne eReported bypatient.Location :right; anterior; posterior; medial; lateral Quality:throbbing; sharp Severity:pain level 6/10; worst pain 7/10 Duration:continuou s since onset Timing:chronic Context:cannot identify Alleviating Factors:rest; pain medication Aggravating Factors:standing; walking; weight bearing Associated Symptoms:no weakness; no numbness; no tingling Previous Surgery:2014 right knee arthroscopy Prior Imaging:x ray; 2014 @ [facility] in [place] Previous Injections:none [place]: [place] Work Related:no Working:noNotes: NSAID's: Naproxen - ineffective Muscle Relaxers: Currently takes Flexeril 10mg TID -effective Neuropathic Meds: Currently takes Neurontin 600mg TID -effective Narcotic Meds: [place] 7.5/325mg TID - QID s Tramadol 50mg TID - ineffective, Percocet 5/325 BID- Effective PREVIOUS TREATMENTS: Physical therapy: [facility] (2014) 6 months of PT without relief Prior Pain Management: Dr. Paul and Dr. Guthrie - Oral Meds Injection in the past: Dr. Alexander - ShoulderReported bypatient.Location :right Quality:aching; burning; stabbing; constant Severity:pain level 6/10; worst pain 8/10 Duration:1 years Timing:cannot identify Context:cannot identify Alleviating Factors:pain medication Aggravating Factors:movement Associated Symptoms:no numbness; no tingling;weakness Previous Surgery:Right Shoulder surgery ? Prior Imaging:x ray; MRI Previous Injections:intr-ar ticular steroid injection; did not help Work Related:no Working:noNotes: Radha Gaffney APRN [address] [place], [phone], [facility] 07/06/2019 11:39:30 09/07/2019 text/html Follow-up (meds & injections)Reporte d bypatient.Improvem ent:Pain is the same as compared to last visit. Current Analgesics:Opioids - oxycodone; Reported pain relief- 20% for 4 hours (The last dose of percocet was taken 09-07-2019) Pain Scores:Current pain- 6/10 Activities of Daily Living (ADL):Living independently.; Able to bathe/groom without assistance.; Able to complete continuing education specialist.; Walking without assistance. Physical Therapy:Completed [facility] the [facility]- [facility] ( for the [facility] @ [facility] [employer] completed 6 weeks); Response to therapy- stopped by therapist due to lack of improvement Recent Injections:NoneKne eReported bypatient.Location :right; anterior; posterior; medial; lateral Quality:throbbing; sharp Severity:pain level 6/10; worst pain 7/10 Duration:continuou s since onset Timing:chronic Context:cannot identify Alleviating Factors:rest; pain medication Aggravating Factors:standing; walking; weight bearing Associated Symptoms:no weakness; no numbness; no tingling Previous Surgery:2015 right knee arthroscopy Prior Imaging:x ray; 2015 @ [facility] [place] Previous Injections:none [place]: [place] Work Related:no Working:noNotes: NSAID's: Naproxen - ineffective Muscle Relaxers: Currently takes Flexeril 10mg TID -effective Neuropathic Meds: Currently takes Neurontin 600mg TID -effective Narcotic Meds: [place] 7.5/325mg TID - QID s Tramadol 50mg TID - ineffective, Percocet 5/325 BID- Effective PREVIOUS TREATMENTS: Physical therapy: [facility] (2014) 6 months of PT without relief Prior Pain Management: Dr. Paul and Dr. Guthrie - Oral Meds Injection in the past: Dr. Alexander - ShoulderReported bypatient.Location :right Quality:aching; burning; stabbing; constant Severity:pain level 6/10; worst pain 8/10 Duration:1 years Timing:cannot identify Context:cannot identify Alleviating Factors:pain medication Aggravating Factors:movement Associated Symptoms:no numbness; no tingling;weakness Previous Surgery:Right Shoulder surgery ? Prior Imaging:x ray; MRI Previous Injections:intr-ar ticular steroid injection; did not help Work Related:no Working:noNotes: Radha Gaffney, [employer] TECHNICIAN [address] [place], [phone], [facility] 09/07/2019 11:26:38 11/03/2019 text/html Follow-up (meds & injections)Reporte d bypatient.Improvem ent:Pain is the same as compared to last visit. Current Analgesics:Opioids - oxycodone; Reported pain relief- 20% for 4 hours (The last dose of percocet was taken this morning 11/03/2019) Pain Scores:Current pain- 5/10 Activities of Daily Living (ADL):Living independently.; Able to bathe/groom without assistance.; Able to complete continuing education specialist.; Walking without assistance. Adverse Reactions:No nausea.; No vomiting.; No constipation.; No itching.; No sedation. Physical Therapy:Completed [facility]- [facility] ( for [facility] @ [facility] [employer] completed 6 weeks); Response to therapy- stopped by therapist due to lack of improvement Recent Injections:NoneKne eReported bypatient.Location :right; anterior; posterior; medial; lateral Quality:throbbing; sharp Severity:pain level 4/10; worst pain 7/10 Duration:continuou s since onset Timing:chronic Context:cannot identify Alleviating Factors:rest; pain medication Aggravating Factors:standing; walking; weight bearing Associated Symptoms:no weakness; no numbness; no tingling Previous Surgery:2014 right knee arthroscopy Prior Imaging:x ray; 2014 @ [facility] [place] Previous Injections:none Previous PT: in [place] Work Related:no Working:noNotes: NSAID's: Naproxen - ineffective Muscle Relaxers: Currently takes Flexeril 10mg TID -effective Neuropathic Meds: Currently takes Neurontin 600mg TID -effective Narcotic Meds: [place] 7.5/325mg TID - QID s Tramadol 50mg TID - ineffective, Percocet 5/325 BID- Effective PREVIOUS TREATMENTS: Physical therapy: [facility] (2014) 6 months of PT without relief Prior Pain Management: Dr. Paul and Dr. Guthrie - Oral Meds Injection in the past: Dr. Alexander - ShoulderReported bypatient.Location :right Quality:aching; burning; stabbing; constant Severity:pain level 5/10; worst pain 8/10 Duration:1 years Timing:cannot identify Context:cannot identify Alleviating Factors:pain medication Aggravating Factors:movement Associated Symptoms:no numbness; no tingling;weakness Previous Surgery:Right Shoulder surgery ? Prior Imaging:x ray; MRI Previous Injections:intr-ar ticular steroid injection; did not help Work Related:no Working:noNotes: Radha Gaffney APRN [address] [place] [address], [phone], [facility] 11/03/2019 11:51:35 01/10/2020 text/html Follow-up (meds & injections)Reporte d bypatient.Improvem ent:Pain is the same as compared to last visit. Current Analgesics:Opioids - oxycodone; Reported pain relief- 20% for 4 hours (The last dose of percocet was taken 01-10-2020) Pain Scores:Current pain- 5/10 Activities of Daily Living (ADL):Living independently.; Able to bathe/groom without assistance.; Able to complete continuing education specialist.; Walking without assistance. Adverse Reactions:No nausea.; No vomiting.; No constipation.; No itching.; No sedation. Physical Therapy:Completed [facility]- [facility] ( for [facility] @ [employer] completed 6 weeks); Response to therapy- stopped by therapist due to lack of improvement Recent Injections:NoneKne eReported bypatient.Location :right; anterior; posterior; medial; lateral Quality:throbbing; sharp Severity:pain level 5/10; worst pain 7/10 Duration:continuou s since onset Timing:chronic Context:cannot identify Alleviating Factors:rest; pain medication Aggravating Factors:standing; walking; weight bearing Associated Symptoms:no weakness; no numbness; no tingling Previous Surgery:2014 right knee arthroscopy Prior Imaging:x ray; 2015 @ [facility] [place] Previous Injections:none Previous PT: in [place] Work Related:no Working:noNotes: NSAID's: Naproxen - ineffective Muscle Relaxers: Currently takes Flexeril 10mg TID -effective Neuropathic Meds: Currently takes Neurontin 600mg TID -effective Narcotic Meds: [place] 7.5/325mg TID - QID s Tramadol 50mg TID - ineffective, Percocet 5/325 BID- Effective PREVIOUS TREATMENTS: Physical therapy: [facility] (2014) 6 months of PT without relief Prior Pain Management: Dr. Paul and Dr. Guthrie - Oral Meds Injection in the past: Dr. Alexander - ShoulderReported bypatient.Location :right Quality:aching; burning; stabbing; constant Severity:pain level 5/10; worst pain 8/10 Duration:1 years Timing:cannot identify Context:cannot identify Alleviating Factors:pain medication Aggravating Factors:movement Associated Symptoms:no numbness; no tingling;weakness Previous Surgery:Right Shoulder surgery ? Prior Imaging:x ray; MRI Previous Injections:intr-ar ticular steroid injection; did not help Work Related:no Working:noNotes: Radha Gaffney APRN [address] [place], [id number], [facility] 01/10/2020 12:15:24 OBGyn Episode No OBEpisode recorded.
== END 2024-10-31 11:11 | disposition home or self-care (01) ==
PROVIDERS: PCP Internal Medicine; Visit Provider Anesthesiology
DX: G89.4 Chronic pain syndrome (principal); M19.011 Primary osteoarthritis, right shoulder; M19.012 Primary osteoarthritis, left shoulder; Z79.891 Long term (current) use of opiate analgesic; M17.11 Unilateral primary osteoarthritis, right knee; M75.50 Bursitis of unspecified shoulder; M75.90 Shoulder lesion, unspecified, unspecified shoulder; I63.9 Cerebral infarction, unspecified
CPT/HCPCS: 99213

== ENCOUNTER → 2024-10-31 10:49 | Outpatient (BNVA) | payer OTHER, SELFPAY | PROVIDERS: PCP Internal Medicine; Visit Provider Anesthesiology | DX: G89.4 Chronic pain syndrome (principal); M19.011 Primary osteoarthritis, right shoulder; M19.012 Primary osteoarthritis, left shoulder; M17.11 Unilateral primary osteoarthritis, right knee; M75.52 Bursitis of left shoulder; M75.51 Bursitis of right shoulder; I63.9 Cerebral infarction, unspecified; Z79.891 Long term (current) use of opiate analgesic; Z59.82 Transportation insecurity | CPT/HCPCS: 99212 ==

== ENCOUNTER 2024-11-11 14:04 | Outpatient (AMB) | payer OTHER, SELFPAY ==
--- NOTE | 2024-11-11 14:04 | MHC.PC.OV ---
Intake Visit Reasons: Follow Up Equipment Service Technician Required: No Puddler Pile Driving: Not Required per policy Accompanied by: Self / Same As Patient Allergies Penicillins Allergy (Unknown, Verified 11/11/24 14:05) Hives Seasonal Allergies Allergy (Verified 11/11/24 14:05) itchy nose/sneezing Medication List - Last Reconciled 11/11/24 by Panchito Morales MD albuterol sulfate 90 mcg/actuation 2 puffs inhalation Q6H PRN 15 days aspirin 81 mg PO DAILY atorvastatin 10 mg PO DAILY cholecalciferol (vitamin D3) 1,250 mcg PO QWEEK clonidine HCl 0.1 mg PO BID PRN 30 days clotrimazole-betamethasone 1-0.05 % 1 appl topical BID 2 weeks gabapentin 600 mg PO TID loratadine (Claritin) 10 mg PO DAILY metformin 500 mg PO DAILY 90 days tizanidine 4 mg PO DAILY tramadol 50 mg PO TID PRN 30 days triamcinolone acetonide 0.5% 1 appl topical TID zolpidem 10 mg PO BEDTIME Tobacco use date assessed: 11/11/24 Dental Screening Dental Screen Date: 11/11/24 Did you have a dental visit in the last 12 months?: Yes Did you have a dental problem in the last 6 months where you did not have access to dental care?: No Was dental information given to patient?: Patient has dentist HPI Follow Up HPI Details recurrent shingles; improving; on trunk [facility] Medical History (Updated 10/31/24 @ 11:24 by Bill Sierra MD) Cerebellar infarct Diabetes mellitus with neuropathy Osteoarthritis of right knee Insomnia Diabetes Osteoarthritis of shoulders, bilateral Bronchitis Fibromyalgia Diabetes Thyroid activity decreased Knee arthropathy Bursitis and tendinitis of shoulder region Surgical History History of shoulder surgery H/O knee surgery Family History Father Stomach cancer Mother No problems noted. Sister No problems noted. Social History Household Members: Significant Other Housing: House Do you presently have visiting nurse or other home services: No Alcohol intake: never Patient Tobacco Use Status: Former Tobacco user Tobacco use type: Cigarette e-Cigarette/Vaping Use: Never Used Second Hand Smoke Exposure: Yes service: No Current occupational status: disabled Current occupational exposures/hazards: No Cognitive needs: Yes Hearing needs: No Vision needs: Yes Questionnaire PHQ-9 Over the last 2 weeks, how often have you been bothered by any of the following problems? 1. Little interest or pleasure in doing things: not at all 2. Feeling down, depressed, or hopeless: not at all 3. Trouble falling or staying asleep, or sleeping too much: not at all 4. Feeling tired or having little energy: not at all 5. Poor appetite or overeating: not at all 6. Feeling bad about yourself - or that you are a failure or have let yourself or your family down: not at all 7. Trouble concentrating on things, such as reading the newspaper or watching television: not at all 8. Moving or speaking so slowly that other people could have noticed. Or the opposite - being so fidgety or restless that you have been moving around a lot more than usual: not at all 9. Thoughts that you would be better off or of hurting yourself in some way: not at all Total score: 0 Depression Screening Interpretation: Negative Depression Screening Done: Yes Source: Developed by Drs. Spenser Lopez, Guerda Mayberry, Eliot Espitia and colleagues, with an educational sinan from [employer]. Thrive Questionnaire Date Thrive assessed: 11/11/24 I am a: Patient What is your living situation today?: I have a steady place to live Within the past 12 months, did the food you bought not last and you didn't have the money to get more?: Never true Within the past 12 months, did you worry whether your food would run out before you got money to buy more?: Never true Do you have trouble paying for medicines?: No Do you have trouble getting transportation to medical appointments?: No Do you have trouble paying your heating and electricity bill?: No Do you have trouble taking care of your child, family member or friend?: No Do you have trouble with day-to-day activities such as bathing, preparing meals, shopping, managing finances, etc.?: No Are you currently unemployed and looking for a job?: No Are you interested in more education?: No Please select the resources that you would like help with: None Currently or been in a relationship where the following occur: No concerns reported THRIVE Score: 0 AUDIT C Alcohol Use Questionnaire (AUDIT-C) 1. How often do you have a drink containing alcohol?: Never Total Score: 0 BRADLEY-7 AMB Questionnaire BRADLEY-7 Date BRADLEY - 7 assessed: 11/11/24 Feeling nervous, anxious, or on edge: 0 = Not at all Not being able to stop or control worryin = Not at all Worrying too much about different things: 0 = Not at all Trouble relaxin = Not at all Being so restless that it is hard to sit still: 0 = Not at all Becoming easily annoyed or irritable: 0 = Not at all Feeling afraid as if something awful might happen: 0 = Not at all Total BRADLEY-7 score (0-4 normal; 5-9 mild; 10-14 moderate; 15-21 severe): 0 Source: Developed by Drs. Spenser Lopez, Guerda Mayberry, Eliot Espitia and colleagues, with an educational sinan from [employer]. Review of Systems Const Denies chills, Denies headache(s) and Denies weight loss ENT Denies headache(s) Card Denies chest pain, Denies syncope, Denies irregular heart rhythm and Denies dyspnea Resp Denies chest congestion, Denies cough and Denies dyspnea GI Denies abdominal pain, Denies change in stool character, Denies nausea and Denies vomiting Musc Denies deformity and Denies joint swelling Neuro Denies syncope and Denies headache(s) Physical exam (Primary Care) Tobacco/Smoking Status: Tobacco use Status Tobacco use date assessed 11/11/24 11/11/24 14:06 Patient Tobacco Use Status Former Tobacco user 11/11/24 14:06 Tobacco use type Cigarette 11/11/24 14:06 e-Cigarette/Vaping Use Never Used 11/11/24 14:06 PHQ-9: PHQ-9 Score PHQ-9: Total score 0 11/11/24 14:06 Depression Screening Interpretation: Negative Thrive Assessment: Date of Thrive Assessment Date Thrive assessed 11/11/24 11/11/24 14:06 Currently or been in a relationship where the following occur: No concerns reported Telehealth Telehealth Telehealth Platform: Telephone Location of provider rendering services: practice address Location of patient: address on file Patient Identification confirmed using: Name, : Yes Telehealth method: voice only Patient verbally consented to treatment: Yes Patient verbally consented to billing insurance company: Yes Patient informed of any privacy concerns related to visit: Yes Minutes spent on Phone/Video with Pt.: 15 (telephone) Coding Level of Care Code Est Pt Level 3 (43238) Diagnoses Shingles B02.9 Assessment & Plan Assessment & Plan (1) Shingles: Code(s): B02.9 - Zoster without complications Plan: supportive care; too late for rx; shingles shots in 4-6 months
--- OUTSIDE RECORDS SUMMARY | 2024-11-11 15:44 | XMS_ITS | Data Portability ---
Author Organization Formerly [facility] in [facility] Address [address] [place] [address] Care Team Providers Care Manager Activities Name Role Isauro CLAUDIO NEGRO Primary Care [...] subsequent knee surgeries with Dr. Alexander in [place]. . She also reports right shoulder surgery under the care of Dr. Alexander. She has failed shoulder and knee inj per the orthopedic provider. Percocet 5/325 mg twice a day is well tolerated and helpful. continue current medication. After eval today recommend stabilization brace right knee. there is a therapy provider in [place] but she does not know the name [...] was reviewed today and was as expected [email or web address] Not available 05/09/2019 11:17:23 07/06/2019 07/06/2019 Ms CONTRERAS here for follow up visit and medication refill. She is 38-year-old female with history of right knee pain that began 2014 after falling on ice. She underwent knee arthroscopic surgery in July 2015. She states that surgery increased her pain. There have been two subsequent knee surgeries with Dr. Alexander in [place]. . She also reports right shoulder surgery [...] risk/ all udts have been as expected. [email or web address] Not available 07/06/2019 11:39:23 09/07/2019 09/07/2019 Ms CONTRERAS is 38-year-old female with history of right knee pain that began 2014 after falling on ice. She underwent knee arthroscopic surgery in July 2015. She states that surgery increased her pain. There have been two subsequent knee surgeries with Dr. Alexander in [place]. . She also reports right shoulder surgery [...] false negatives in the cup MOD risk [email or web address] Not available 09/07/2019 11:26:29 11/03/2019 11/03/2019 Ms CONTRERAS is 39-year-old female with history of right knee pain that began 2014 after falling on ice. She underwent knee arthroscopic surgery in July 2015. She states that surgery increased her pain. There have been two subsequent knee surgeries with Dr. Alexander in [place]. . She also had right shoulder surgery [...] 2019 reviewed today and appropriate. MOD risk [email or web address] Not available 11/03/2019 11:34:53 01/10/2020 01/10/2020 Ms CONTRERAS is 39-year-old female scheduled today for a telemedicine visit. She has a history of right knee pain that began 2014 after falling on ice. She underwent knee arthroscopic surgery in July 2015. She states that surgery increased her pain. There have been two subsequent knee surgeries with Dr. Alexander in [place]. . She also had right shoulder surgery [...] the treating medical provider is located in [facility]. [email or web address] Not available 01/10/2020 12:10:01 Plan of Treatment Reminders Order Date Submit Date Provider Last Modified By Organization Details Last Modified Time Details Appointments None recorded. Lab drug screen, urine 2019 020 [email or web address] [place], [address], [place], [address], 0 11:33:41 drug screen, urine 2019 020 [email or web address] [place], [address], [place], [address], 0 11:24:07 unlisted lab - confirm appropriat e oxycodone 2019 020 [email or web address] [facility], [facility], [address] [place] [address], [address], 0 06:58:19 drug screen, urine 2018 019 [email or web address] [place], [address], [place], [address], 9 11:16:53 opiates, quantitati ve, urine 2018 019 [email or web address] [facility], [facility], [address] [place] [address], [address], 9 10:46:33 drug screen, urine 2018 019 [email or web address] [place], [address], [place], [address], 9 11:13:17 Referral physical therapist referral 2018 019 [email or web address] Not available 9 11:17:02 Procedures None recorded. Surgeries None recorded. Imaging None recorded. Medication Orders oxycodone- acetaminop hen 5 mg-325 mg tablet 2019 020 INTERFACE [facility], [address] [facility], [address], 0 12:13:23 oxycodone- acetaminop hen 5 mg-325 mg tablet 2019 020 [facility], [address] [facility], [address], 0 12:13:23 oxycodone- acetaminop hen 5 mg-325 mg tablet 2019 020 [facility], [address] [place], [address], 0 11:35:58 oxycodone- acetaminop hen 5 mg-325 mg tablet 2019 020 [facility], [address], [address], 0 11:35:57 oxycodone- acetaminop hen 5 mg-325 mg tablet 2019 020 [facility], [address] [place], [address], 0 11:25:41 oxycodone- acetaminop hen 5 mg-325 mg tablet 2019 020 [facility], [address] [place], [address], 0 11:25:43 oxycodone- acetaminop hen 5 mg-325 mg tablet 2018 019 INTERFACE [facility], [address] [place] [address] [place], [address], 9 11:20:30 oxycodone- acetaminop hen 5 mg-325 mg tablet 2018 [facility], [address] [place], [place] [address] [place], [address], 9 11:20:28 oxycodone- acetaminop hen 5 mg-325 mg tablet 2018 [facility], [address] [place] [address] [place], [address], 9 11:15:59 oxycodone- acetaminop hen 5 mg-325 mg tablet 2018 [facility], [address] [place] [address] [place], [address], 9 11:16:24 Patient TargetsNo targets recorded. Patient InstructionsNo instructions recorded. Reason for Referral Physical Therapist Referral for Derangement of knee Referring Physician: Radha Gaffney, Pain Management, Encounter Date: 05/09/2019 Results Created Date Observation Date Name Description Value Unit Range Abnormal Flag Note LastModifiedBy Organization Detail LastModifiedTime 11/03/1911/03/2019 drug scree n, urine THC: negati ve Not Available [place] [address], [place], [address], 11/03/2019 11:06:25 11/03/1911/03/2019 drug scree n, urine Buprenorphin e: negati ve Not Available [place] [address], [place], [address], 11/03/2019 11:06:25 11/03/19 20 11/03/2019 drug scree n, urine TCA: negati ve Not Available [place] [address], [place], [address], 11/03/2019 11:06:25 11/03/19 20 11/03/2019 drug scree n, urine Barbiturates : negati ve Not Available [place] [address], [place], [address], 11/03/2019 11:06:25 11/03/19 20 11/03/2019 drug scree n, urine Benzodiazepi lavonne: negati ve Not Available [place] [address], [place], [address], 11/03/2019 11:06:25 11/03/19 20 11/03/2019 drug scree n, urine Methadone: negati ve Not Available [place] [address], [place], [address], 11/03/2019 11:06:25 11/03/19 20 11/03/2019 drug scree n, urine Amphetamines : negati ve Not Available [place] [address], [place], [address], 11/03/2019 11:06:25 11/03/19 20 11/03/2019 drug scree n, urine Morphine/Opi ates: negati ve Not Available [place] [address], [place], [address], 11/03/2019 11:06:25 11/03/19 20 11/03/2019 drug scree n, urine Oxycodone: positi ve Not Available [place] [address], [place], [address], 11/03/2019 11:06:25 11/03/19 20 11/03/2019 drug scree n, urine MDMA: negati ve Not Available [place] [address], [place], [address], 11/03/2019 11:06:25 11/03/19 20 11/03/2019 drug scree n, urine Cocaine: negati ve Not Available [place] [address], [place], [address], 11/03/2019 11:06:25 11/03/19 20 11/03/2019 drug scree n, urine Methamphetam ine: negati ve Not Available [place] [address], [place], [address], 11/03/2019 11:06:25 09/07/19 20 09/07/2019 drug scree n, urine THC: negati ve Not Available [place] [address], [place], [address], 09/07/2019 10:49:25 09/07/19 20 09/07/2019 drug scree n, urine Buprenorphin e: negati ve Not Available [place] [address], [place], [address], 09/07/2019 10:49:25 09/07/19 20 09/07/2019 drug scree n, urine TCA: negati ve Not Available [place] [address], [place], [address], 09/07/2019 10:49:25 09/07/19 20 09/07/2019 drug scree n, urine Barbiturates : negati ve Not Available [place] [address], [place], [address], 09/07/2019 10:49:25 09/07/19 20 09/07/2019 drug scree n, urine Benzodiazepi lavonne: negati ve Not Available [place] [address], [place], [address], 09/07/2019 10:49:25 09/07/19 20 09/07/2019 drug scree n, urine Methadone: negati ve Not Available [place] [address], [place], [address], 09/07/2019 10:49:25 09/07/19 20 09/07/2019 drug scree n, urine Amphetamines : negati ve Not Available [place] [address], [place], [address], 09/07/2019 10:49:25 09/07/19 20 09/07/2019 drug scree n, urine Morphine/Opi ates: negati ve Not Available [place] [address], [place], [address], 09/07/2019 10:49:25 09/07/19 20 09/07/2019 drug scree n, urine Oxycodone: positi ve Not Available [place] [address], [place], [address], 09/07/2019 10:49:25 09/07/19 20 09/07/2019 drug scree n, urine MDMA: negati ve Not Available [place] [address], [place], [address], 09/07/2019 10:49:25 09/07/19 20 09/07/2019 drug scree n, urine Cocaine: negati ve Not Available [place] [address], [place], [address], 09/07/2019 10:49:25 09/07/19 20 09/07/2019 drug scree n, urine Methamphetam ine: negati ve Not Available [place] [address], [place], [address], 09/07/2019 10:49:25 07/06/20 19 07/06/2019 drug scree n, urine THC: negati ve Not Available [place] [address], [place], [address], 07/06/2019 10:31:41 11/0607/06/2019 drug scree n, urine Buprenorphin e: negati ve Not Available [place] [address], [place], [address], 07/06/2019 10:31:41 07/06/2007/06/2019 drug scree n, urine TCA: negati ve Not Available [place] [address], [place], [address], 07/06/2019 10:31:41 07/06/2007/06/2019 drug scree n, urine Barbiturates : negati ve Not Available [place] [address], [place], [address], 07/06/2019 10:31:41 07/06/2007/06/2019 drug scree n, urine Benzodiazepi lavonne: negati ve Not Available [place] [address], [place], [address], 07/06/2019 10:31:41 07/06/2007/06/2019 drug scree n, urine Methadone: negati ve Not Available [place] [address], [place], [address], 07/06/2019 10:31:41 07/06/2007/06/2019 drug scree n, urine Amphetamines : negati ve Not Available [place] [address], [place], [address], 07/06/2019 10:31:41 07/06/2007/06/2019 drug scree n, urine Morphine/Opi ates: negati ve Not Available [place] [address], [place], [address], 07/06/2019 10:31:41 07/06/2007/06/2019 drug scree n, urine Oxycodone: positi ve Not Available [place] [address], [place], [address], 07/06/2019 10:31:41 07/06/20 19 07/06/2019 drug scree n, urine MDMA: negati ve Not Available [place] [address], [place], [address], 07/06/2019 10:31:41 07/06/20 19 07/06/2019 drug scree n, urine Cocaine: negati ve Not Available [place] [address], [place], [address], 07/06/2019 10:31:41 07/06/20 19 07/06/2019 drug scree n, urine Methamphetam ine: negati ve Not Available [place] [address], [place], [address], 07/06/2019 10:31:41 05/09/20 19 05/09/2019 drug scree n, urine THC: negati ve Not Available [place] [address], [place], [address], 05/09/2019 10:34:13 05/09/20 19 05/09/2019 drug scree n, urine Buprenorphin e: negati ve Not Available [place] [address], [place], [address], 05/09/2019 10:34:13 05/09/20 19 05/09/2019 drug scree n, urine TCA: negati ve Not Available [place] [address], [place], [address], 05/09/2019 10:34:13 05/09/20 19 05/09/2019 drug scree n, urine Barbiturates : negati ve Not Available [place] [address], [place], [address], 05/09/2019 10:34:13 05/09/20 19 05/09/2019 drug scree n, urine Benzodiazepi lavonne: negati ve Not Available [place] [address], [place], [address], 05/09/2019 10:34:13 05/09/2005/09/2019 drug scree n, urine Methadone: negati ve Not Available [place] [address], [place], [address], 05/09/2019 10:34:13 05/09/2005/09/2019 drug scree n, urine Amphetamines : negati ve Not Available [place] [address], [place], [address], 05/09/2019 10:34:13 05/09/2005/09/2019 drug scree n, urine Morphine/Opi ates: negati ve Not Available [place] [address], [place], [address], 05/09/2019 10:34:13 05/09/2005/09/2019 drug scree n, urine Oxycodone: positi ve Not Available [place] [address], [place], [address], 05/09/2019 10:34:05/09/2005/09/2019 drug scree n, urine MDMA: negati ve Not Available [place] [address], [place], [address], 05/09/2019 10:34:13 05/09/2005/09/2019 drug scree n, urine Cocaine: negati ve Not Available [place] [address], [place], [address], 05/09/2019 10:34:13 05/09/2005/09/2019 drug scree n, urine Methamphetam ine: negati ve Not Available [place] [address], [place], [address], 05/09/2019 10:34:13 05/09/20 19 05/09/2019 6-Mon o[place] ylmor phine (6-MA M), QN, urine 6-acetylmorp princess Negati ve NG/mL 5 normal Negat duy-E xpect ed Not Available [facility] [address], [address], 05/13/2019 05:01:40 05/09/20 19 05/09/2019 6-Mon o[place] ylmor phine (6-MA M), QN, urine buprenorphin e Negati ve NG/mL 5 normal Negat duy-E xpect ed Not Available [facility] [address], [address], 05/13/2019 05:01:40 05/09/20 19 05/09/2019 6-Mon oacet ylmor phine (6-MA M), QN, urine codeine Negati ve NG/mL 50 normal Negat duy-E xpect ed Not Available [facility] [address], [address], 05/13/2019 05:01:40 05/09/20 19 05/09/2019 6-Mon oacet ylmor phine (6-MA M), QN, urine EDDP Negati ve NG/mL 100 normal Negat duy-E xpect ed Not Available [facility] [address], [address], 05/13/2019 05:01:40 05/09/20 19 05/09/2019 6-Mon oacet ylmor phine (6-MA M), QN, urine fentanyl Negati ve NG/mL 1 normal Negat duy-E xpect ed Not Available [facility] [address], [address], 05/13/2019 05:01:40 05/09/20 19 05/09/2019 6-Mon o[place] ylmor phine (6-MA M), QN, urine hydrocodone Negati ve NG/mL 5 normal Negat duy-E xpect ed Not Available [facility] [address], [address], 05/13/2019 05:01:40 05/09/20 19 05/09/2019 6-Mon oacet ylmor phine (6-MA M), QN, urine hydromorphon e Negati ve NG/mL 5 normal Negat duy-E xpect ed Not Available [facility] [address], [address], 05/13/2019 05:01:40 05/09/20 19 05/09/2019 6-Mon o[place] ylmor phine (6-MA M), QN, urine ketamine Negati ve NG/mL 2 normal Negat duy-E xpect ed Not Available [address], [address], 05/13/2019 05:01:40 05/09/20 19 05/09/2019 6-Mon o[place] ylmor phine (6-MA M), QN, urine meperidine Negati ve NG/mL 2 normal Negat duy-E xpect ed Not Available [address], [address], 05/13/2019 05:01:40 05/09/20 19 05/09/2019 6-Mon o[place] ylmor phine (6-MA M), QN, urine methadone Negati ve NG/mL 50 normal Negat duy-E xpect ed Not Available [address], [address], 05/13/2019 05:01:40 05/09/20 19 05/09/2019 6-Mon [place] ylmor phine (6-MA M), QN, urine morphine Negati ve NG/mL 50 normal Negat duy-E xpect ed Not Available [facility] [address], [address], 05/13/2019 05:01:40 05/09/20 19 05/09/2019 6-Mon [place] ylmor phine (6-MA M), QN, urine naloxone Negati ve NG/mL 10 normal Negat duy-E xpect ed Not Available [facility] [address], [address], 05/13/2019 05:01:40 05/09/20 19 05/09/2019 6-Mon o[place] ylmor phine (6-MA M), QN, urine N-desmethylt apentadol Negati ve NG/mL 25 normal Negat duy-E xpect ed Not Available [facility] [address], [address], 05/13/2019 05:01:40 05/09/20 19 05/09/2019 6-Mon [place] ylmor phine (6-MA M), QN, urine norbuprenorp princess Negati ve NG/mL 5 normal Negat duy-E xpect ed Not Available [facility] [address], [address], 05/13/2019 05:01:40 05/09/20 19 05/09/2019 6-Mon oacet ylmor phine (6-MA M), QN, urine norfentanyl Negati ve NG/mL 2 normal Negat duy-E xpect ed Not Available [facility] [address], [address], 05/13/2019 05:01:40 05/09/20 19 05/09/2019 6-Mon o[place] ylmor phine (6-MA M), QN, urine norhydrocodo ne Negati ve NG/mL 10 normal Negat duy-E xpect ed Not Available [facility] [address], [address], 05/13/2019 05:01:40 05/09/20 19 05/09/2019 6-Mon o[place] ylmor phine (6-MA M), QN, urine norketamine Negati ve NG/mL 2 normal Negat duy-E xpect ed Not Available [facility] [address], [address], 05/13/2019 05:01:40 05/09/20 19 05/09/2019 6-Mon oacet ylmor phine (6-MA M), QN, urine oxymorphone 259 NG/mL 10 high Posit duy-E xpect ed Not Available [facility] [address], [address], 05/13/2019 05:01:40 05/09/20 19 05/09/2019 6-Mon o[place] ylmor phine (6-MA M), QN, urine propoxyphene Negati ve NG/mL 10 normal Negat duy-E xpect ed Not Available [facility] [address], [address], 05/13/2019 05:01:40 05/09/20 19 05/09/2019 6-Mon [place] ylmor phine (6-MA M), QN, urine tapentadol Negati ve NG/mL 2 normal Negat duy-E xpect ed Not Available [facility] [address], [address], 05/13/2019 05:01:40 05/09/20 19 05/09/2019 6-Mon [place] ylmor phine (6-MA M), QN, urine tramadol Negati ve NG/mL 25 normal Negat duy-E xpect ed Not Available [facility] [address], [address], 05/13/2019 05:01:40 05/09/20 19 05/09/2019 6-Mon [place] ylmor phine (6-MA M), QN, urine noroxycodone 3257 NG/mL 50 high Posit duy-E xpect ed Not Available [facility] [address], [address], 05/13/2019 05:01:40 05/09/20 19 05/09/2019 6-Mon [place] ylmor phine (6-MA M), QN, urine oxycodone 3247 NG/mL 50 high Posit duy-E xpect ed Not Available [address], [address], 05/13/2019 05:01:40 05/09/20 19 05/09/2019 6-Mon [place] ylmor phine (6-MA M), QN, urine acetylfentan yl Negati ve NG/mL 2 normal Negat duy-E xpect ed Not Available [address], [address], 05/13/2019 05:01:40 05/09/20 19 05/09/2019 6-Mon o[place] ylmor phine (6-MA M), QN, urine acetylnorfen tanyl Negati ve NG/mL 5 normal Negat duy-E xpect ed Not Available [facility] [address], [address], 05/13/2019 05:01:40 05/09/20 19 05/09/2019 6-Mon [place] ylmor phine (6-MA M), QN, urine acrylfentany l Negati ve NG/mL 2 normal Negat duy-E xpect ed Not Available [facility] [address], [address], 05/13/2019 05:01:40 05/09/20 19 05/09/2019 6-Mon [place] ylmor phine (6-MA M), QN, urine butyrylfenta nyl Negati ve NG/mL 10 normal Negat duy-E xpect ed Not Available [facility] [address], [address], 05/13/2019 05:01:40 05/09/20 19 05/09/2019 6-Mon [place] ylmor phine (6-MA M), QN, urine butyrylnorfe ntanyl Negati ve NG/mL 10 normal Negat duy-E xpect ed Not Available [facility] [address], [address], 05/13/2019 05:01:40 05/09/20 19 05/09/2019 6-Mon [place] ylmor phine (6-MA M), QN, urine carfentanil Negati ve NG/mL 5 normal Negat duy-E xpect ed Not Available [facility] [address], [address], 05/13/2019 05:01:40 05/09/2005/09/2019 6-Mon [place] ylmor phine (6-MA M), QN, urine [id number] fentanyl Negati ve NG/mL 10 normal Negat duy-E xpect ed Not Available [facility] [address], [address], 05/13/2019 05:01:40 05/09/20 19 05/09/2019 6-Mon [place] ylmor phine (6-MA M), QN, urine bop-3-[id number] norfentanyl Negati ve NG/mL 10 normal Negat duy-E xpect ed Not Available [facility] [address], [address], 05/13/2019 05:01:40 05/09/20 19 05/09/2019 6-Mon [place] ylmor phine (6-MA M), QN, urine furanylfenta nyl Negati ve NG/mL 2 normal Negat duy-E xpect ed Not Available [facility] [address], [address], 05/13/2019 05:01:40 05/09/20 19 05/09/2019 6-Mon [place] ylmor phine (6-MA M), QN, urine N-desmethyl- [id number] Negati ve NG/mL 5 normal Negat duy-E xpect ed Not Available [facility] [address], [address], 05/13/2019 05:01:40 05/09/20 19 05/09/2019 6-Mon [place] ylmor phine (6-MA M), QN, urine norcarfentan il Negati ve NG/mL 5 normal Negat duy-E xpect ed Not Available [facility] [address], [address], 05/13/2019 05:01:40 05/09/20 19 05/09/2019 6-Mon [place] ylmor phine (6-MA M), QN, urine O-desmethylt ramadol Negati ve NG/mL 100 normal Negat duy-E xpect ed Not Available [facility] [address], [address], 05/13/2019 05:01:40 05/09/20 19 05/09/2019 6-Mon [place] ylmor phine (6-MA M), QN, urine [id number] Negati ve NG/mL 5 normal Negat duy-E xpect ed Not Available [address], [place], [address], 05/13/2019 05:01:40 09/07/19 20 09/10/2019 [facility] 6-acetylmorp princess, cutoff 10 NG/mL normal Not Available [facility] [address] [place] [address], [address], 09/14/2019 16:39:29 09/07/19 20 09/10/2019 [facility] buprenorphin e, cutoff 5 NG/mL normal Not Available [facility] [address] [place] [address], [address], 09/14/2019 16:39:29 09/07/19 20 09/10/2019 [facility] fentanyl, cutoff 5 NG/mL normal Not Available [facility] [address] [place] [address], [address], 09/14/2019 16:39:29 09/07/19 20 09/10/2019 [facility] methadone, cutoff 50 NG/mL normal Not Available [facility] [address] [place] [address], [address], 09/14/2019 16:39:29 09/07/19 20 09/10/2019 [facility] codeine, cutoff 50 NG/mL normal Not Available [facility] [address] [place] [address], [address], 09/14/2019 16:39:29 09/07/19 20 09/10/2019 [facility] hydrocodone, cutoff 50 NG/mL normal Not Available [facility] [address] [place] [address], [address], 09/14/2019 16:39:29 09/07/19 20 09/10/2019 [facility] hydromorphon e, cutoff 50 NG/mL normal Not Available [facility] [address] [place] [address], [address], 09/14/2019 16:39:29 09/07/19 20 09/10/2019 [facility] morphine, cutoff 50 NG/mL normal Not Available [facility] [address] [place] [address], [address], 09/14/2019 16:39:29 09/07/19 20 09/10/2019 [facility] naloxone, cutoff 10 NG/mL normal Not Available [facility] [address] [place] [address], [address], 09/14/2019 16:39:29 09/07/19 20 09/10/2019 [facility] oxycodone, cutoff 50 NG/mL normal Not Available [facility] [address] [place] [address], [address], 09/14/2019 16:39:29 09/07/19 20 09/10/2019 [facility]ori es oxymorphone, cutoff 50 NG/mL normal Not Available [facility] [address] [place] [address], [address], 09/14/2019 16:39:29 09/07/19 20 09/10/2019 [facility]ori [facility] tapentadol, cutoff 50 NG/mL normal Not Available [facility] [address] [place] [address], [address], 09/14/2019 16:39:29 09/07/19 20 09/10/2019 [facility] cis-tramadol , cutoff 50 NG/mL normal Not Available [facility] [address] [place] [address], [address], 09/14/2019 16:39:29 09/07/19 20 09/14/2019 [facility]ori es 6-acetylmorp princess Not Detect ed NG/mL normal Not Available [facility] [address] [place] [address], [address], 09/14/2019 16:39:29 09/07/19 20 09/14/2019 [facility]ori es buprenorphin e Not Detect ed NG/mL normal Not Available [facility] [address] [place] [address], [address], 09/14/2019 16:39:29 09/07/19 20 09/14/2019 [facility] fentanyl Not Detect ed NG/mL normal Not Available [facility] [address] [place] [address], [address], 09/14/2019 16:39:29 09/07/19 20 09/14/2019 [facility] methadone Not Detect ed NG/mL normal Not Available [facility] [address] [place] [address], [id number], 09/14/2019 16:39:29 09/07/19 20 09/14/2019 [facility] codeine Not Detect ed NG/mL normal Not Available [facility] [address] [place] [address], [id number], 09/14/2019 16:39:29 09/07/19 20 09/14/2019 [facility] hydrocodone Not Detect ed NG/mL normal Not Available [facility] [address] [place] [address], 36700, 09/14/2019 16:39:29 09/07/19 20 09/14/2019 [facility] hydromorphon e Not Detect ed NG/mL normal Not Available [facility] [address] [place] [address], 22369, 09/14/2019 16:39:29 09/07/19 20 09/14/2019 [facility] morphine Not Detect ed NG/mL normal Not Available [facility] [address] [place] [address], 61579, 09/14/2019 16:39:29 09/07/19 20 09/14/2019 [facility] naloxone Not Detect ed NG/mL normal Not Available [facility] [address] [place] [address], 38022, 09/14/2019 16:39:29 09/07/19 20 09/14/2019 [facility] oxycodone Detect ed NG/mL abnormal Not Available [facility] [address] [place] [address], 05239, 09/14/2019 16:39:29 09/07/19 20 09/14/2019 [facility] [...] prese nt. Not Available [facility] [address] [place] [address], [id number], 09/14/2019 16:39:29 09/07/19 20 09/14/2019 [facility] oxycodone, creat adj >786 normal Not Available [facility] [address] [place] [address], 27279, 09/14/2019 16:39:29 09/07/19 20 09/14/2019 [facility] oxymorphone Detect ed NG/mL abnormal Not Available [facility] [address] [place] [address], 37930, 09/14/2019 16:39:29 09/07/19 20 09/14/2019 [facility] oxymorphone, interp Consis tent NG/mL normal Oxymo rphon e is an opioi d analg esic simil ar to morph ine. It is avail able by presc ripti on (Numo rphan ?, Opana ?) and is a metab olite of oxyco done. Not Available [facility] [address] [place] [address], [id number], 09/14/2019 16:39:29 09/07/19 20 09/14/2019 [facility] oxymorphone, creat adj >786 normal Not Available [facility] [address] [place] [address], 07617, 09/14/2019 16:39:29 09/07/19 20 09/14/2019 [facility] tapentadol Not Detect ed NG/mL normal Not Available [facility] [address] [place] [address], [id number], 09/14/2019 16:39:29 09/07/19 20 09/14/2019 [facility] cis-tramadol Not Detect ed NG/mL normal Not Available [facility] [address] [place] [address], 02098, 09/14/2019 16:39:29 09/07/19 20 09/10/2019 [facility] general oxidants, cutoff 200 NG/mL normal Not Available [facility] [address] [place] [address], 45267, 09/14/2019 16:39:30 09/07/19 20 09/13/2019 [facility] general oxidants Not Detect ed NG/mL normal Not Available [facility] [address] [place] [address], [id number], 09/14/2019 16:39:30 09/07/19 20 09/10/2019 [facility] xref confirmation [id number] 50 normal Not Available [facility] [address] [place] [address], 79475, 09/14/2019 16:39:30 09/07/19 20 09/10/2019 oxyco done, QN, confi rm, urine oxycodone, cutoff 50 NG/mL normal Not Available [facility] [address] [place] [address], 71245, 09/14/2019 16:39:31 09/07/19 20 09/10/2019 oxyco done, QN, confi rm, urine noroxycodone , cutoff 50 NG/mL normal Not Available [facility] [address] [place] [address], 15819, 09/14/2019 16:39:31 09/07/19 20 09/10/2019 oxyco done, QN, confi rm, urine oxymorphone, cutoff 50 NG/mL normal Not Available [facility] [address] [place] [address], [id number], 09/14/2019 16:39:31 09/07/19 20 09/14/2019 oxyco done, QN, confi rm, urine oxycodone Detect ed NG/mL abnormal Not Available [facility] [address] [place] [address], 92266, 09/14/2019 16:39:31 09/07/19 20 09/14/2019 oxyco done, [...] prese nt. Not Available [facility] [address] [place] [address], 27431, 09/14/2019 16:39:31 09/07/19 20 09/14/2019 oxyco done, QN, confi rm, urine oxycodone, creat adj >786 normal Not Available [facility] [address] [place] [address], 98387, 09/14/2019 16:39:31 09/07/19 20 09/14/2019 oxyco done, QN, confi rm, urine noroxycodone Detect ed NG/mL abnormal Not Available [facility] [address] [place] [address], 11493, 09/14/2019 16:39:31 09/07/19 20 09/14/2019 oxyco done, QN, confi rm, urine noroxycodone , interp Consis tent NG/mL normal Nor-O xycod one is a uniqu e metab olite of oxyco done. It is not avail able by presc ripti on. Not Available [facility] [address] [place] [address], 69035, 09/14/2019 16:39:31 09/07/19 20 09/14/2019 oxyco done, QN, confi rm, urine noroxycodone , creat adj >786 normal Not Available [facility] [address] [place] [address], 21468, 09/14/2019 16:39:31 09/07/19 20 09/14/2019 oxyco done, QN, confi rm, urine oxymorphone Detect ed NG/mL abnormal Not Available [facility] [address] [place] [address], 30630, 09/14/2019 16:39:31 09/07/19 20 09/14/2019 oxyco done, QN, confi rm, urine oxymorphone, interp Consis tent NG/mL normal Oxymo rphon e is an opioi d analg esic simil ar to morph ine. It is [facility] (Numo rphan ?, Opana ?) and is a metab olite of oxyco done. Not Available [facility] [address] [place] [address], 80434, 09/14/2019 16:39:31 09/07/19 20 09/14/2019 oxyco done, QN, confi rm, urine oxymorphone, creat adj >786 normal Not Available [facility] [address] [place] [address], 87011, 09/14/2019 16:39:31 09/07/19 20 09/07/2019 gabap entin , quant itati ve, urine abnormal status abnormal Not Available [facility] [address] [place] [address], 86807, 09/14/2019 16:39:31 09/07/19 20 09/10/2019 [facility] 6-acetylmorp princess, cutoff 10 NG/mL normal Not Available [facility] [address] [place] [address], 60460, 09/14/2019 17:30:01 09/07/19 20 09/10/2019 [facility] buprenorphin e, cutoff 5 NG/mL normal Not Available [facility] [address], [address], 09/14/2019 17:30:01 09/07/19 20 09/10/2019 [facility] fentanyl, cutoff 5 NG/mL normal Not Available [facility] [address] [place] [address], 31705, 09/14/2019 17:30:01 09/07/19 20 09/10/2019 [facility] methadone, cutoff 50 NG/mL normal Not Available [facility] [address] [place] [address], 99758, 09/14/2019 17:30:01 09/07/19 20 09/10/2019 [facility] codeine, cutoff 50 NG/mL normal Not Available [facility] [address] [place] [address], 53323, 09/14/2019 17:30:01 09/07/19 20 09/10/2019 [facility] hydrocodone, cutoff 50 NG/mL normal Not Available [facility] [address] [place] [address], 20023, 09/14/2019 17:30:01 09/07/19 20 09/10/2019 [facility] hydromorphon e, cutoff 50 NG/mL normal Not Available [facility] [address] [place] [address], 59416, 09/14/2019 17:30:01 09/07/19 20 09/10/2019 [facility] morphine, cutoff 50 NG/mL normal Not Available [facility] [address] [place] [address], 29100, 09/14/2019 17:30:01 09/07/19 20 09/10/2019 [facility] naloxone, cutoff 10 NG/mL normal Not Available [facility] [address] [place] [address] [place], [address], 09/14/2019 17:30:01 09/07/19 20 09/10/2019 [facility] oxycodone, cutoff 50 NG/mL normal Not Available [facility] [address] [place] [address], 32357, 09/14/2019 17:30:01 09/07/19 20 09/10/2019 [facility] oxymorphone, cutoff 50 NG/mL normal Not Available [facility] [address] [place] [address], 48980, 09/14/2019 17:30:01 09/07/19 20 09/10/2019 [facility] tapentadol, cutoff 50 NG/mL normal Not Available [facility] [address] [place] [address], 80146, 09/14/2019 17:30:01 09/07/19 20 09/10/2019 [facility] cis-tramadol , cutoff 50 NG/mL normal Not Available [facility] [address] [place] [address], 88484, 09/14/2019 17:30:01 09/07/19 20 09/14/2019 [facility] 6-acetylmorp princess Not Detect ed NG/mL normal Not Available [facility] [address] [place] [address], 91077, 09/14/2019 17:30:01 09/07/19 20 09/14/2019 [facility] buprenorphin e Not Detect ed NG/mL normal Not Available [facility] [address] [place] [address], 31752, 09/14/2019 17:30:01 09/07/19 20 09/14/2019 [facility] fentanyl Not Detect ed NG/mL normal Not Available [facility] [address] [place] [address], 28464, 09/14/2019 17:30:01 09/07/19 20 09/14/2019 [facility] methadone Not Detect ed NG/mL normal Not Available [facility] [address] [place] [address], 62268, 09/14/2019 17:30:01 09/07/19 20 09/14/2019 [facility] codeine Not Detect ed NG/mL normal Not Available [facility] [address] [place] [address], 01964, 09/14/2019 17:30:01 09/07/19 20 09/14/2019 [facility] hydrocodone Not Detect ed NG/mL normal Not Available [facility] [address] [place] [address], 31927, 09/14/2019 17:30:01 09/07/19 20 09/14/2019 [facility] hydromorphon e Not Detect ed NG/mL normal Not Available [facility] [address] [place] [address], 98448, 09/14/2019 17:30:01 09/07/19 20 09/14/2019 [facility] morphine Not Detect ed NG/mL normal Not Available [facility] [address] [place] [address], 22066, 09/14/2019 17:30:01 09/07/19 20 09/14/2019 [facility] naloxone Not Detect ed NG/mL normal Not Available [facility] [address] [place] [address], 23186, 09/14/2019 17:30:01 09/07/19 20 09/14/2019 [facility] oxycodone Detect ed NG/mL abnormal Not Available [facility] [address] [place] [address], 22269, 09/14/2019 17:30:01 09/07/19 20 09/14/2019 [facility] [...] prese nt. Not Available [facility] [address] [place] [address], 94038, 09/14/2019 17:30:01 09/07/19 20 09/14/2019 [facility] oxycodone, creat adj >786 normal Not Available [facility] [address] [place] [address], 78795, 09/14/2019 17:30:01 09/07/19 20 09/14/2019 [facility] oxymorphone Detect ed NG/mL abnormal Not Available [facility] [address] [place] [address], 12188, 09/14/2019 17:30:01 09/07/19 20 09/14/2019 [facility] oxymorphone, interp Consis tent NG/mL normal Oxymo rphon e is an opioi d analg esic simil ar to morph ine. It is avail able by presc ripti on (Numo rphan ?, Opana ?) and is a metab olite of oxyco done. Not Available [facility] [address] [place] [address], 37148, 09/14/2019 17:30:01 09/07/19 20 09/14/2019 [facility] oxymorphone, creat adj >786 normal Not Available [facility] [address] [place] [address], 24802, 09/14/2019 17:30:01 09/07/19 20 09/14/2019 [facility] tapentadol Not Detect ed NG/mL normal Not Available [facility] [address] [place] [address], 89627, 09/14/2019 17:30:01 09/07/19 20 09/14/2019 [facility] cis-tramadol Not Detect ed NG/mL normal Not Available [facility] [address] [place] [address], 94777, 09/14/2019 17:30:01 09/07/19 20 09/10/2019 [facility] general oxidants, cutoff 200 NG/mL normal Not Available [facility] [address] [place] [address], 92543, 09/14/2019 17:30:01 09/07/19 20 09/13/2019 [facility] general oxidants Not Detect ed NG/mL normal Not Available [facility] [address] [place] [address], 34656, 09/14/2019 17:30:01 09/07/19 20 09/14/2019 [facility] xref confirmation [id number] 12 normal Not Available [facility] [address] [place] [address], 88897, 09/14/2019 17:30:02 Result Notes None recorded. Problems Name Problem SNOMED Code Status Onset Date Resolution Date Notes Provider Name and Address Organization Details Recorded Time Long-term drug therapy Active Surendra colin [facility] 10/21/2017 10:41:31 Knee pain Active 018 WILLIE Armstrong [facility] 10/21/2017 10:41:53 Problem Notes None recorded. Procedures Surgical History Date Name Laterality Status Provider Name and Address Organization Details Recorded Time 5 General Surgery completed Patti TAPIA [facility] 10/21/2017 10:42:27 Imaging Results None recorded. Procedure Notes None recorded. Medical Equipment None Reported. Allergies Allergen ID Allergen Name Allergen Category Reaction Reaction Severity Criticality Documentation Date Start Date Code Code System Note Provider Name and Address Organization Details Recorded Time 49497 Product containin g penicilli n (product) medicatio n Not available Not available Not available 09/15/20172016 84110 8001 SNOMED Not Available [facility] 8 23:37:56 Medications Name Sig Start Date [...] Updated DateTime 05/09/2019 160.02 cm 39 kg/m2 35075.32 g Patti Ede [facility] 05/09/2019 10:34:29 Date Recorded Body height Body mass index (BMI) Body weight Heart rate Oxygen saturation Oxygen saturation in Arterial blood by Pulse oximetry Systolic blood pressure Diastolic blood pressure Provider Name and Address Organization Details Last Updated DateTime 9 160.02 cm 39 kg/m2 83133.3 2 g 78 /min 100 % 100 % 126 mm[Hg] 82 mm[Hg] Patti Mera [facility] 9 10:37:59 Date Recorded Body height Body mass index (BMI) Body weight Heart rate Oxygen saturation Oxygen saturation in Arterial blood by Pulse oximetry Systolic blood pressure Diastolic blood pressure Provider Name and Address Organization Details Last Updated DateTime 0 160.02 cm 39 kg/m2 24488.3 2 g 84 /min 98 % 98 % 134 mm[Hg] 82 mm[Hg] Patti Mera [facility] 0 10:55:57 Date Recorded Body height Body mass index (BMI) Body weight Oxygen saturation Oxygen saturation in Arterial blood by Pulse oximetry Heart rate Systolic blood pressure Diastolic blood pressure Provider Name and Address Organization Details Last Updated DateTime 0 160.02 cm 39 kg/m2 08232.3 2 g 98 % 98 % 80 /min 136 mm[Hg] 80 mm[Hg] Eros Villegas [facility] 0 11:13:09 Date Recorded Body height Provider Name an d Address Organization Details Last Updated DateTime 01/10/2020 160.02 cm Patti TAPIA On license of [facility] 01/10/2020 11:38:28 Social History Question Answer Notes LastModified by Organizat ion Details LastModified Time Tobacco Smoking Status [facility] 10/21/2017 10:45:58 What Is Your Level Of Alcohol Consumption? None [email or web address] Information not available 10/21/2017 What Is Your Occupation? Unemployed Information not available 10/21/2017 Prescription Drug Abuse No [email or web address] Information not available 10/21/2017 History Of Sexual Abuse No [email or web address] Information not available 10/21/2017 Marital Status [email or web address] Informatio n not available 10/21/2017 What Was The Date Of Your Most Recent Tobacco Screening? 04/14/2018 Information not available 03/23/2019 Sex: Unknown Functional Status Question Answer Note LastModified by Organization D etails LastModified Time What is your exercise level? None [email or web address] Information not available 10/21/2017 Mental Status None recorded. Family History Relationship Description Onset Age of this Age Resolved Age Notes LastModified by Organization Details LastModified Time Father No current problems or disability [email or web address] Not available 10/21 10:41:55 Mother No current problems or disability [email or web address] Not available 10/21 10:41:55 Medical History Condition Response Bipolar Disease N Coronary Artery Disease N Seizure Disorder N Gout N Thyroid Disease Y Atrial Fibrillation N Osteoarthritis N Head Trauma/Injury N Hernia N Neurosurgery N Depression N COPD N Peptic Ulcer Disease N Anemia Y Heart Attack (PA) N Anxiety Disorder Y Diabetes Y Cardiomyopathy N Bleeding Disorder N CHF N AIDS/HIV N Inflammatory Bowel Disease N Cancer N Stroke N Skin Disorder N Dementia N Asthma N Substance Abuse N Sleep Apnea N High Cholesterol N Hepatitis N Liver Disease N Heart Disease N Rheumatoid Arthritis N Chronic Low Back Pain N Fibromyalgia Y Headaches N Hypertension N Osteoporosis N Kidney Disease N Autoimmune Disease N Gynecological HistoryNo gynecological history recorded. Obstetrics History GPAL:G 0 P 0 0 0 0 Past Encounters Encounter ID Performer Location Encounter Start Date Encounter Closed Date Diagnosis/Indication Diagnosis SNOMED-CT Code Diagnosis ICD10 Code Diagnosis Note [id number] [facility] [address] [place] [id number] 10/21/2017 10:30:50 10/21/2017 11:09:30 Knee pain 91388520 M25.569 Long-term drug therapy 640862414 Z79.899 the confirmato ry drug screen from August 2017 was reviewed today and it was appropriat e. The preliminar y screen today is as expected. [id number] [facility] [address] [place] [id number] 11/16/2017 09:49:29 11/16/2017 11:03:40 Knee pain 99068987 M25.569 M25.561 Long-term drug therapy 048427078 Z79.899 the preliminar y drug screen does need to be sent to confirm all substances to monitor adherence to the opiate contract due to the safety of the patient Shoulder pain 62325440 M 25.511 Medication monitoring 39 7218836 Z51.81 [id number] [facility] [address] [place] [address] 12/14/2017 11:19:10 12/14/2017 11:52:59 Knee pain 89630119 M25.569 M25.561 Shoulder pain 00269741 M 25.511 Long-term drug therapy 515612661 Z79.899 the preliminar y drug screen does need to be sent to confirm all substances to monitor adherence to the opiate contract due to the safety of the patient Medication monitoring 39 6688744 Z79.899 [id number] [facility] [address] [place] [id number] 01/13/2018 10:30:23 01/13/2018 11:21:36 Knee pain 75918159 M25.569 M25.561 Shoulder pain 69689873 M 25.511 Long-term drug therapy 661172657 Z79.899 the confirmato ry drug screen from November 2017 was reviewed today and it was appropriat e. The preliminar y screen today is as expected [id number] [facility] [address] [place] [id number] 02/10/2018 10:10:31 02/10/2018 10:56:03 Knee pain 90582345 M25.569 M25.561 Shoulder pain 25113849 M 25.511 Long-term drug therapy 660415565 Z79.899 The preliminar y urine drug screen [...] the expected metabolite s. Medication monitoring 39 7983974 Z79.899 [id number] [facility] [address] [place] [id number] 03/15/2018 11:12:26 03/15/2018 12:05:46 Knee pain 86777911 M25.569 M25.561 Shoulder pain 08751202 M 25.511 Long-term drug therapy 834981537 Z79.899 the confirmato ry drug screen from January 2018 was reviewed today and was appropriat e. The pulmonary screen today if as expected [id number] [facility] [address] [place] [id number] 04/14/2018 11:00:23 04/14/2018 12:04:12 Knee pain 93948796 M25.569 M25.561 Shoulder pain 21418895 M 25.511 Long-term drug therapy 224238812 Z79.899 the confirmato ry drug screen from January 2018 was reviewed today and was appropriat e. The preliminar y screening today is as expected positive for oxycodone [id number] [facility] [address] [place] [id number] 05/12/2018 14:07:58 05/12/2018 15:17:19 Knee pain 88749749 M25.569 M25.561 Shoulder pain 36925614 M 25.511 Long-term drug therapy 039946026 Z79.899 The preliminar y urine drug screen [...] the expected metabolite s. Medication monitoring 39 2192817 Z79.899 [id number] [facility] [address] [place] [address] 07/12/2018 10:17:07 07/12/2018 11:04:07 Knee pain 71975340 M25.569 M25.561 Shoulder pain 57781895 M 25.511 Long-term drug therapy 276040383 Z79.899 the confirmato ry drug screen from May 2018 was reviewed today and it was appropriat e. The preliminar y screen today is appropriat [place] positive for oxycodone. Medication monitoring 39 2404423 Z79.899 [id number] [facility] [address] [place] [address] 09/09/2018 13:04:07 09/09/2018 14:03:35 Shoulder pain 09099927 M25.511 Long-term drug therapy 066476748 Z79.899 Derangement of knee 6364 3000 M23.91 [id number] [facility] [address] [place] [id number] 11/09/2018 11:01:23 11/09/2018 12:02:40 Derangement of knee 28912382 M23.91 Shoulder pain 20642523 M 25.511 Long-term drug therapy 586426497 Z79.899 The preliminar y urine drug screen [...] the expected metabolite s. Medication monitoring 39 0375581 Z79.899 [id number] [facility] [address] [place] [id number] 01/05/2019 11:14:22 01/05/2019 11:43:42 Derangement of knee 65480166 M23.91 Shoulder pain 60062647 M 25.511 Long-term drug therapy 674331236 Z79.899 The preliminar y urine drug screen [...] the expected metabolite s. Medication monitoring 39 2643767 Z79.899 [id number] [facility] [address] [place] [address] 03/09/2019 10:50:52 03/09/2019 11:41:33 Derangement of knee 50412665 M23.91 Shoulder pain 22024549 M 25.511 Long-term drug therapy 255676356 Z79.899 [id number] [facility] [address] [place] [address] 05/09/2019 10:21:08 05/09/2019 11:17:02 Derangement of knee 35824603 M23.91 Shoulder pain 03378446 M 25.511 Long-term drug therapy 617847708 Z79.899 Send for LCMS confirmati on of [...] s in our community. Medication monitoring 39 9301109 Z79.899 [id number] [facility] [address] [place] [address] 07/06/2019 10:27:03 07/06/2019 11:18:23 Derangement of knee 64594631 M23.91 Shoulder pain 31034466 M 25.511 Long-term drug therapy 442913826 Z79.899 The preliminar y [place] urine drug screen is appropriat e for the class of medication (s) that the patient is being prescribed and based on their risk stratifica tion I will not send this sample for further quantitati ve LCMS testing. [id number] [facility] [address] [place] [address] 09/07/2019 10:45:07 09/07/2019 11:25:49 Derangement of knee 67407594 M23.91 Shoulder pain 63589026 M 25.511 Long-term drug therapy 749743332 Z79.899 Send for LCMS confirmati on of [...] abused pain medication s in our community. [id number] [address] [place] [address] 11/03/2019 10:49:53 11/03/2019 11:37:10 Derangement of knee [id number] M23.91 Shoulder pain [id number] M 25.511 Long-term drug therapy [id number] Z79.899 The preliminar y [place] urine drug screen is appropriat e for the class of medication (s) that the patient is being prescribed and based on their risk stratifica tion I will not send this sample for further quantitati ve LCMS testing. [id number] [address] [place] [address] 01/10/2020 11:16:40 01/10/2020 12:27:53 Derangement of knee [id number] M23.91 Shoulder pain [id number] M 25.511 Long-term drug therapy [id number] Z79.899 Health Concerns Section Related Observation LastModified by Organization Detai ls LastModified Time None Recorded Concern Status LastModified by Organization Details LastModified Time None Recorded Advance Directives Directive None Recorded Payers Encounter Date Sequence Insurance Name Policy Number Policy Mcdaniels Covered Member ID Mcdaniels Member ID Guarantor Name 05/09/2019 1 [employer] [place] [id number] Lisa A Presz [id number] Lisa A Presz 07/06/2019 1 [employer] [place] [id number] Lisa A Presz [id number] Lisa A Presz 09/07/2019 1 [employer] [place] [id number] Lisa A Presz [id number] Lisa A Presz 11/03/2019 1 [facility] [place] [place] [facility] [place] [id number] Lisa A Presz [id number] Lisa A Presz 01/10/2020 1 [employer] [facility] [place] [id number] Lisa A Presz [id number] Lisa A Presz Notes Date Note [...] to bathe/groom without assistance.; 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 Physical Therapy:Completed course in [...] Prior Imaging:x ray; 2015 @ [facility] in [place] Previous Injections:none Previous PT: in [place] Work Related:no Working:noNotes: NSAID's: Naproxen - ineffective Muscle Relaxers: Currently takes Flexeril 10mg TID -effective Neuropathic Meds: Currently takes Neurontin 600mg TID -effective Narcotic Meds: Hooppole 7.5/325mg TID - QID s Tramadol 50mg TID - ineffective, Percocet 5/325 BID- Effective PREVIOUS TREATMENTS: Physical therapy: [facility] (2014) 6 months of PT without [...] help Work Related:no Working:noNotes: Radha Gaffney APRN [address] [place] [address], [phone], [facility] 05/09/2019 11:17:37 07/06/2019 text/html Follow-up (meds & injections)Reporte d bypatient.Improvem ent:Pain is the same as compared to last visit. Current Analgesics:Opioids - oxycodone; Reported pain relief- 20% for 4 hours (The last dose of percocet was taken 07-06-2019) Pain Scores:Current pain- 6/10 Activities of Daily Living (ADL):Living independently.; Able to bathe/groom without assistance.; 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 Physical Therapy:Completed course in [...] Prior Imaging:x ray; 2014 @ [facility] in [place] Previous Injections:none [place] PT: [place] Work Related:no Working:noNotes: NSAID's: Naproxen - ineffective Muscle Relaxers: Currently takes Flexeril 10mg TID -effective Neuropathic Meds: Currently takes Neurontin 600mg TID -effective Narcotic Meds: Hooppole 7.5/325mg TID - QID s Tramadol 50mg TID - ineffective, Percocet 5/325 BID- Effective PREVIOUS TREATMENTS: Physical therapy: [facility] (2014) 6 months of PT without [...] Work Related:no Working:noNotes: Radha Gaffney APRN [address] [place], [phone], [facility] 07/06/2019 11:39:30 09/07/2019 text/html Follow-up (meds & injections)Reporte d bypatient.Improvem ent:Pain is the same as compared to last visit. Current Analgesics:Opioids - oxycodone; Reported pain relief- 20% for 4 hours (The last dose of percocet was taken 09-07-2019) Pain Scores:Current pain- 6/10 Activities of Daily Living (ADL):Living independently.; Able to bathe/groom without assistance.; 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 Physical Therapy:Completed course in [...] [place] Previous Injections:none [place]: [place] Work Related:no Working:noNotes: NSAID's: Naproxen - ineffective Muscle Relaxers: Currently takes Flexeril 10mg TID -effective Neuropathic Meds: Currently takes Neurontin 600mg TID -effective Narcotic Meds: Hooppole 7.5/325mg TID - QID s Tramadol 50mg TID - ineffective, Percocet 5/325 BID- Effective PREVIOUS TREATMENTS: Physical therapy: [facility] (2014) 6 months of PT without [...] not help Work Related:no Working:noNotes: Radha Gaffney, COUNSEL [address] [place], [phone], [facility] 09/07/2019 11:26:38 11/03/2019 text/html Follow-up (meds & injections)Reporte d bypatient.Improvem ent:Pain is the same as compared to last visit. Current Analgesics:Opioids - oxycodone; Reported pain relief- 20% for 4 hours (The last dose of percocet was taken this morning 11/03/2019) Pain Scores:Current pain- 5/10 Activities of Daily Living (ADL):Living independently.; Able to bathe/groom without assistance.; 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 Adverse Reactions:No nausea.; No [...] Prior Imaging:x ray; 2014 @ [facility] in [place] Previous Injections:none Previous PT: [place] Work Related:no Working:noNotes: NSAID's: Naproxen - ineffective Muscle Relaxers: Currently takes Flexeril 10mg TID -effective Neuropathic Meds: Currently takes Neurontin 600mg TID -effective Narcotic Meds: Hooppole 7.5/325mg TID - QID s Tramadol 50mg TID - ineffective, Percocet 5/325 BID- Effective PREVIOUS TREATMENTS: Physical therapy: [facility] (2014) 6 months of PT without [...] help Work Related:no Working:noNotes: Radha Gaffney APRN [address] [place] [address], [phone], [facility] 11/03/2019 11:51:35 01/10/2020 text/html Follow-up (meds & injections)Reporte d bypatient.Improvem ent:Pain is the same as compared to last visit. Current Analgesics:Opioids - oxycodone; Reported pain relief- 20% for 4 hours (The last dose of percocet was taken 01-10-2020) Pain Scores:Current pain- 5/10 Activities of Daily Living (ADL):Living independently.; Able to bathe/groom without assistance.; 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 Adverse Reactions:No nausea.; No [...] Prior Imaging:x ray; 2015 @ [facility] in [place] Previous Injections:none Previous PT: [place] Work Related:no Working:noNotes: NSAID's: Naproxen - ineffective Muscle Relaxers: Currently takes Flexeril 10mg TID -effective Neuropathic Meds: Currently takes Neurontin 600mg TID -effective Narcotic Meds: Hooppole 7.5/325mg TID - QID s Tramadol 50mg TID - ineffective, Percocet 5/325 BID- Effective PREVIOUS TREATMENTS: Physical therapy: [facility] (2014) 6 months of PT without [...] Work Related:no Working:noNotes: Radha Gaffney APRN [address] [place], [address], [facility] 01/10/2020 12:15:24 OBGyn Episode No OBEpisode recorded.
== END 2024-11-11 14:54 | disposition home or self-care (01) ==
LOC: HO.HMCH 14:04
PROVIDERS: PCP Internal Medicine; Visit Provider Internal Medicine
DX: B02.9 Zoster without complications (principal)

== ENCOUNTER → 2024-11-11 14:04 | Outpatient (BNVA) | payer OTHER, SELFPAY | PROVIDERS: PCP Internal Medicine; Visit Provider Internal Medicine | DX: B02.9 Zoster without complications (principal) | CPT/HCPCS: 99212 ==

== ENCOUNTER 2024-12-26 15:16 | Outpatient (AMB) | payer OTHER, SELFPAY ==
--- NOTE | 2024-12-26 15:35 | A.OFFVIS_ITS ---
Vital Signs 12/26/24 15:36 Height 5 ft 5 in Weight 217 lb BMI 36.1 BP 150/104 H Blood Pressure Location Lt brachial Position Sitting Respiration 16 Pulse 99 Pulse Source Pulse Oximeter Pulse Oximetry (%) 100 Oxygen Delivery Method Room Air Intake Visit Reasons: Pill count Intake Note: Pt states she last took tramadol 12/26/24 @ 11am Allergies Penicillins Allergy (Unknown, Verified 12/26/24 15:37) Hives Seasonal Allergies Allergy (Verified 12/26/24 15:37) itchy nose/sneezing Medication List - Last Reconciled 12/26/24 by Carmen Carpenter LPN albuterol sulfate 90 mcg/actuation 2 puffs inhalation Q6H PRN 15 days aspirin 81 mg PO DAILY atorvastatin 10 mg PO DAILY cholecalciferol (vitamin D3) 1,250 mcg PO QWEEK clonidine HCl 0.1 mg PO BID PRN 30 days clotrimazole-betamethasone 1-0.05 % 1 appl topical BID 2 weeks gabapentin 600 mg PO TID loratadine (Claritin) 10 mg PO DAILY metformin 500 mg PO DAILY 90 days tizanidine 4 mg PO DAILY tramadol 50 mg PO TID PRN 30 days triamcinolone acetonide 0.5% 1 appl topical TID zolpidem 10 mg PO BEDTIME HPI Comments Details: Lisa is back in my office for the follow-up and pain medication refill. She reports today level of her pain 7/10. She reports tramadol has no side effects. She reports it helps very little with her pain. However she reports that medication helps her with the mobility. The pill count is correct today, she supposed to have no medications in her possession. She presented with 7 pills in her possession. This demonstrates responsible attitude to were the opioid medications. The patient stated that she will think about interventional pain management. She had some medial branch blocks performed back in [place]. I think I can offer her diagnostic medial branch block L3, L4, dorsal ramus L5 bilateral good results I can offer her sprint PNS to help her lower back pain. The same approach could be done for her neck pain. Pill count today: She supposed to have a 81 pills in her possession. She presented with 84 pills in her possession. This demonstrates responsible attitude for opioid medications. She denies side effects of the opioid medications she denies constipation. She is on 50 mg tramadol t.i.d. for her pain. She is using icy hot OTC and NSAIDs OTC to help her pain. She is on gabapentin 600 mg t.i.d. which is prescribed to her by primary care physician. In the past I attempted to perform injections Infrapatellar saphenous nerve block resulted in 40% pain relieve. Suprepatelarr saphenous nerve resulted in 45% pain relieve only. She is also suffering from the shoulder osteoarthritis. She had suprascapular nerve block. Before that she received interarticular steroid injection.? Unfortunately neither block was working for her. Prior: c/o? pain in the neck with radiation into the left shoulder.? She reports that she is suffering from this pain as well as pain in the back in the knee as well as fibromyalgia for long period of time.? ? She reports that cold and weather changes aggravate her pain as well as movements. She was suspended once for noncompliance. Her prior risk was mild for opioid addiction however now the risk will be elevated to moderate and if she is suspended it will be 1 year suspension. [facility] Medical History (Updated 10/31/24 @ 11:24 by Bill Sierra MD) Cerebellar infarct Diabetes mellitus with neuropathy Osteoarthritis of right knee Insomnia Diabetes Osteoarthritis of shoulders, bilateral Bronchitis Fibromyalgia Diabetes Thyroid activity decreased Knee arthropathy Bursitis and tendinitis of shoulder region Surgical History History of shoulder surgery H/O knee surgery Family History Father Stomach cancer Mother No problems noted. Sister No problems noted. Social History Household Members: Significant Other Housing: House Do you presently have visiting nurse or other home services: No Alcohol intake: never Patient Tobacco Use Status: Former Tobacco user Tobacco use type: Cigarette e-Cigarette/Vaping Use: Never Used Second Hand Smoke Exposure: Yes service: No Current occupational status: disabled Current occupational exposures/hazards: No Cognitive needs: Yes Hearing needs: No Vision needs: Yes Review of Systems Const All systems reviewed & are unremarkable except as noted in HPI and below Physical Exam Vital Signs: Last Vital Signs Pulse 99 12/26/24 15:36 Resp 16 12/26/24 15:36 BP 150/104 H 12/26/24 15:36 Pulse Ox 100 12/26/24 15:36 Oxygen Delivery Method Room Air 12/26/24 15:36 BMI result Body Mass Index 36.1 Const Nutritional Appearance: obese HEENT Head: Yes normocephalic and Yes atraumatic Ears: hearing grossly normal bilaterally Eyes General: appearance normal, both eyes and all related structures Eyelids: Yes eyelids normal Pupils: Equal, round and reactive pupils present EOM: EOMs intact bilaterally Neck Neck: Yes normal visual inspection and Yes no JVD Resp Effort & Inspection: normal respiratory effort, able to speak in complete sentences and no audible wheezes Cardio Jugular venous distension: no JVD Neuro Cranial nerves: Yes Equal, round and reactive pupils present Psych Appearance: grossly normal Mental Status: mental status grossly normal Speech and movement: Normal speech and movement present Affect: normal affect Attitude: cooperative Thought process: Normal thought process present Thought content: Normal thought content present Insight: Good insight present (Psych) Judgement: Good judgement present (Psych) Assessment & Plan Assessment & Plan (1) Osteoarthritis of shoulders, bilateral: Code(s): M19.011 - Primary osteoarthritis, right shoulder; M19.012 - Primary osteoarthritis, left shoulder Category: Medical (2) Osteoarthritis of right knee: Code(s): M17.11 - Unilateral primary osteoarthritis, right knee Category: Medical (3) Chronic pain syndrome: Code(s): G89.4 - Chronic pain syndrome Category: Medical (4) Bursitis and tendinitis of shoulder region: Code(s): M75.50 - Bursitis of unspecified shoulder; M75.90 - Shoulder lesion, unspecified, unspecified shoulder Category: Medical Plan Her pill count is correct today she presented with excess of the medication. See as above. Tramadol with 1 refills is prescribed on 11/26/2024 with 1 refill therefore she must have 1 refill her possession. She will give us a call when she will run out of her refill and I will renew her medication. I will see her in 2 months. Coding Level of Care Code Est Pt Level 3 (19793) Diagnoses Osteoarthritis of shoulders, bilateral M19.011; M19.012 Osteoarthritis of right knee M17.11 Chronic pain syndrome G89.4 Bursitis and tendinitis of shoulder region M75.50; M75.90
[2024-12-26 15:36] VITALS: BP 150/104; PULSE 99; RESP 16; O2SAT 100; BMI 36.1
--- OUTSIDE RECORDS SUMMARY | 2024-12-26 18:02 | XMS_ITS | Data Portability ---
Author Organization [facility] in [facility] Address [address] [place] [address] Care Team Providers Care Cleaning Professional Name Role Isauro CLAUDIO NEGRO Primary Care Provider [phone] Assessment Encounter Date Assessment Date Assessment LastModified by Organization Details LastModified Time 05/09/2019 05/09/2019 This is a 38-year-old female with history of right knee pain that began 2014 after falling on ice. She underwent knee arthroscopic surgery in July 2015. She states that surgery increased her pain. There have been two subsequent knee surgeries with Dr. Alexander in [place]. . She also reports right shoulder surgery under the care of Dr. Alexander. She has failed shoulder and knee inj per the orthopedic provider. Percocet 5/325 mg twice a day is well tolerated and helpful. continue current medication. After eval today recommend stabilization brace right knee. there is a therapy provider in [place] but she does not know the name [...] was reviewed today and was as expected [email or web address] Not available 05/09/2019 11:17:23 07/06/2019 07/06/2019 Ms CONTRERAS here for follow up visit and medication refill. She is 38-year-old female with history of right knee pain that began 2014 after falling on ice. She underwent knee arthroscopic surgery in July 2015. She states that surgery increased her pain. There have been two subsequent knee surgeries with Dr. Alexander in [place]. . She also reports right shoulder surgery [...] risk/ all udts have been as expected. [email or web address] Not available 07/06/2019 11:39:23 09/07/2019 09/07/2019 Ms CONTRERAS is 38-year-old female with history of right knee pain that began 2014 after falling on ice. She underwent knee arthroscopic surgery in July 2015. She states that surgery increased her pain. There have been two subsequent knee surgeries with Dr. Alexander in [place]. . She also reports right shoulder surgery [...] false negatives in the cup MOD risk [email or web address] Not available 09/07/2019 11:26:29 11/03/2019 11/03/2019 Ms CONTRERAS is 39-year-old female with history of right knee pain that began 2014 after falling on ice. She underwent knee arthroscopic surgery in July 2015. She states that surgery increased her pain. There have been two subsequent knee surgeries with Dr. Alexander in [place]. . She also had right shoulder surgery [...] 2019 reviewed today and appropriate. MOD risk [email or web address] Not available 11/03/2019 11:34:53 01/10/2020 01/10/2020 Ms CONTRERAS is 39-year-old female scheduled today for a telemedicine visit. She has a history of right knee pain that began 2014 after falling on ice. She underwent knee arthroscopic surgery in July 2015. She states that surgery increased her pain. There have been two subsequent knee surgeries with Dr. Alexander in [place]. . She also had right shoulder surgery [...] the treating medical provider is located in [facility]. [email or web address] Not available 01/10/2020 12:10:01 Plan of Treatment Reminders Order Date Submit Date Provider Last Modified By Organization Details Last Modified Time Details Appointments None recorded. Lab drug screen, urine 2019 020 [email or web address] [place], [address], [place], [address], 0 11:33:41 drug screen, urine 2019 020 [email or web address] [place], [address], [place], [address], 0 11:24:07 unlisted lab - confirm appropriat e oxycodone 2019 020 [email or web address] [facility], [facility], [address] [place] [address], [address], 0 06:58:19 drug screen, urine 2018 019 [email or web address] [place], [address], [place], [address], 9 11:16:53 opiates, quantitati ve, urine 2018 019 [email or web address] [facility], [facility], [address] [place] [address], [address], 9 10:46:33 drug screen, urine 2018 019 [email or web address] [place], [address], [place], [address], 9 11:13:17 Referral physical therapist referral 2018 019 [email or web address] Not available 9 11:17:02 Procedures None recorded. Surgeries None recorded. Imaging None recorded. Medication Orders oxycodone- acetaminop hen 5 mg-325 mg tablet 2019 020 INTERFACE [facility], [address] [facility], [address], 0 12:13:23 oxycodone- acetaminop hen 5 mg-325 mg tablet 2019 020 [facility], [address] [facility], [address], 0 12:13:23 oxycodone- acetaminop hen 5 mg-325 mg tablet 2019 020 [facility], [address] [facility] [place], [address], 0 11:35:58 oxycodone- acetaminop hen 5 mg-325 mg tablet 2019 020 [facility], [address] [facility] [place], [address], 0 11:35:57 oxycodone- acetaminop hen 5 mg-325 mg tablet 2019 020 [facility], [address] [facility] [place], [address], 0 11:25:41 oxycodone- acetaminop hen 5 mg-325 mg tablet 2019 020 [facility], [address] [place], [address], 0 11:25:43 oxycodone- acetaminop hen 5 mg-325 mg tablet 2018 019 INTERFACE [facility], [address] [place] [address] [place], [address], 9 11:20:30 oxycodone- acetaminop hen 5 mg-325 mg tablet 2018 [facility], [address] [place], [place] [address] [place], [address], 9 11:20:28 oxycodone- acetaminop hen 5 mg-325 mg tablet 2018 [facility], [address] [place] [address] [place], [address], 9 11:15:59 oxycodone- acetaminop hen 5 mg-325 mg tablet 2018 [facility], [address] [place] [address] [place], [address], 9 11:16:24 Patient TargetsNo targets recorded. Patient InstructionsNo instructions recorded. Reason for Referral Physical Therapist Referral for Derangement of knee Referring Physician: Radha Gaffney, Pain Management, Encounter Date: 05/09/2019 Results Created Date Observation Date Name Description Value Unit Range Abnormal Flag Note LastModifiedBy Organization Detail LastModifiedTime 11/03/1911/03/2019 drug scree n, urine THC: negati ve Not Available [place] [address], [place], [address], 11/03/2019 11:06:25 11/03/1911/03/2019 drug scree n, urine Buprenorphin e: negati ve Not Available [place] [address], [place], [address], 11/03/2019 11:06:25 11/03/19 20 11/03/2019 drug scree n, urine TCA: negati ve Not Available [place] [address], [place], [address], 11/03/2019 11:06:25 11/03/19 20 11/03/2019 drug scree n, urine Barbiturates : negati ve Not Available [place] [address], [place], [address], 11/03/2019 11:06:25 11/03/19 20 11/03/2019 drug scree n, urine Benzodiazepi lavonne: negati ve Not Available [place] [address], [place], [address], 11/03/2019 11:06:25 11/03/19 20 11/03/2019 drug scree n, urine Methadone: negati ve Not Available [place] [address], [place], [address], 11/03/2019 11:06:25 11/03/19 20 11/03/2019 drug scree n, urine Amphetamines : negati ve Not Available [place] [address], [place], [address], 11/03/2019 11:06:25 11/03/19 20 11/03/2019 drug scree n, urine Morphine/Opi ates: negati ve Not Available [place] [address], [place], [address], 11/03/2019 11:06:25 11/03/19 20 11/03/2019 drug scree n, urine Oxycodone: positi ve Not Available [place] [address], [place], [address], 11/03/2019 11:06:25 11/03/19 20 11/03/2019 drug scree n, urine MDMA: negati ve Not Available [place] [address], [place], [address], 11/03/2019 11:06:25 11/03/19 20 11/03/2019 drug scree n, urine Cocaine: negati ve Not Available [place] [address], [place], [address], 11/03/2019 11:06:25 11/03/19 20 11/03/2019 drug scree n, urine Methamphetam ine: negati ve Not Available [place] [address], [place], [address], 11/03/2019 11:06:25 09/07/19 20 09/07/2019 drug scree n, urine THC: negati ve Not Available [place] [address], [place], [address], 09/07/2019 10:49:25 09/07/19 20 09/07/2019 drug scree n, urine Buprenorphin e: negati ve Not Available [place] [address], [place], [address], 09/07/2019 10:49:25 09/07/19 20 09/07/2019 drug scree n, urine TCA: negati ve Not Available [place] [address], [place], [address], 09/07/2019 10:49:25 09/07/19 20 09/07/2019 drug scree n, urine Barbiturates : negati ve Not Available [place] [address], [place], [address], 09/07/2019 10:49:25 09/07/19 20 09/07/2019 drug scree n, urine Benzodiazepi lavonne: negati ve Not Available [place] [address], [place], [address], 09/07/2019 10:49:25 09/07/19 20 09/07/2019 drug scree n, urine Methadone: negati ve Not Available [place] [address], [place], [address], 09/07/2019 10:49:25 09/07/19 20 09/07/2019 drug scree n, urine Amphetamines : negati ve Not Available [place] [address], [place], [address], 09/07/2019 10:49:25 09/07/19 20 09/07/2019 drug scree n, urine Morphine/Opi ates: negati ve Not Available [place] [address], [place], [address], 09/07/2019 10:49:25 09/07/19 20 09/07/2019 drug scree n, urine Oxycodone: positi ve Not Available [place] [address], [place], [address], 09/07/2019 10:49:25 09/07/19 20 09/07/2019 drug scree n, urine MDMA: negati ve Not Available [place] [address], [place], [address], 09/07/2019 10:49:25 09/07/19 20 09/07/2019 drug scree n, urine Cocaine: negati ve Not Available [place] [address], [place], [address], 09/07/2019 10:49:25 09/07/19 20 09/07/2019 drug scree n, urine Methamphetam ine: negati ve Not Available [place] [address], [place], [address], 09/07/2019 10:49:25 07/06/20 19 07/06/2019 drug scree n, urine THC: negati ve Not Available [place] [address], [place], [address], 07/06/2019 10:31:41 11/0607/06/2019 drug scree n, urine Buprenorphin e: negati ve Not Available [place] [address], [place], [address], 07/06/2019 10:31:41 07/06/2007/06/2019 drug scree n, urine TCA: negati ve Not Available [place] [address], [place], [address], 07/06/2019 10:31:41 07/06/2007/06/2019 drug scree n, urine Barbiturates : negati ve Not Available [place] [address], [place], [address], 07/06/2019 10:31:41 07/06/2007/06/2019 drug scree n, urine Benzodiazepi lavonne: negati ve Not Available [place] [address], [place], [address], 07/06/2019 10:31:41 07/06/2007/06/2019 drug scree n, urine Methadone: negati ve Not Available [place] [address], [place], [address], 07/06/2019 10:31:41 07/06/2007/06/2019 drug scree n, urine Amphetamines : negati ve Not Available [place] [address], [place], [address], 07/06/2019 10:31:41 07/06/2007/06/2019 drug scree n, urine Morphine/Opi ates: negati ve Not Available [place] [address], [place], [address], 07/06/2019 10:31:41 07/06/2007/06/2019 drug scree n, urine Oxycodone: positi ve Not Available [place] [address], [place], [address], 07/06/2019 10:31:41 07/06/20 19 07/06/2019 drug scree n, urine MDMA: negati ve Not Available [place] [address], [place], [address], 07/06/2019 10:31:41 07/06/20 19 07/06/2019 drug scree n, urine Cocaine: negati ve Not Available [place] [address], [place], [address], 07/06/2019 10:31:41 07/06/20 19 07/06/2019 drug scree n, urine Methamphetam ine: negati ve Not Available [place] [address], [place], [address], 07/06/2019 10:31:41 05/09/20 19 05/09/2019 drug scree n, urine THC: negati ve Not Available [place] [address], [place], [address], 05/09/2019 10:34:13 05/09/20 19 05/09/2019 drug scree n, urine Buprenorphin e: negati ve Not Available [place] [address], [place], [address], 05/09/2019 10:34:13 05/09/20 19 05/09/2019 drug scree n, urine TCA: negati ve Not Available [place] [address], [place], [address], 05/09/2019 10:34:13 05/09/20 19 05/09/2019 drug scree n, urine Barbiturates : negati ve Not Available [place] [address], [place], [address], 05/09/2019 10:34:13 05/09/20 19 05/09/2019 drug scree n, urine Benzodiazepi lavonne: negati ve Not Available [place] [address], [place], [address], 05/09/2019 10:34:13 05/09/2005/09/2019 drug scree n, urine Methadone: negati ve Not Available [place] [address], [place], [address], 05/09/2019 10:34:13 05/09/2005/09/2019 drug scree n, urine Amphetamines : negati ve Not Available [place] [address], [place], [address], 05/09/2019 10:34:13 05/09/2005/09/2019 drug scree n, urine Morphine/Opi ates: negati ve Not Available [place] [address], [place], [address], 05/09/2019 10:34:13 05/09/2005/09/2019 drug scree n, urine Oxycodone: positi ve Not Available [place] [address], [place], [address], 05/09/2019 10:34:05/09/2005/09/2019 drug scree n, urine MDMA: negati ve Not Available [place] [address], [place], [address], 05/09/2019 10:34:13 05/09/2005/09/2019 drug scree n, urine Cocaine: negati ve Not Available [place] [address], [place], [address], 05/09/2019 10:34:13 05/09/2005/09/2019 drug scree n, urine Methamphetam ine: negati ve Not Available [place] [address], [place], [address], 05/09/2019 10:34:13 05/09/20 19 05/09/2019 6-Mon oacet ylmor phine (6-MA M), QN, urine 6-acetylmorp princess Negati ve NG/mL 5 normal Negat duy-E xpect ed Not Available [facility] [address], [address], 05/13/2019 05:01:40 05/09/20 19 05/09/2019 6-Mon oacet ylmor phine (6-MA M), QN, urine buprenorphin e Negati ve NG/mL 5 normal Negat duy-E xpect ed Not Available [facility] [address], [address], 05/13/2019 05:01:40 05/09/20 19 05/09/2019 6-Mon oacet ylmor phine (6-MA M), QN, urine codeine Negati ve NG/mL 50 normal Negat duy-E xpect ed Not Available [facility] [address], [address], 05/13/2019 05:01:40 05/09/20 19 05/09/2019 6-Mon oacet ylmor phine (6-MA M), QN, urine EDDP Negati ve NG/mL 100 normal Negat duy-E xpect ed Not Available [facility] [address], [address], 05/13/2019 05:01:40 05/09/20 19 05/09/2019 6-Mon oacet ylmor phine (6-MA M), QN, urine fentanyl Negati ve NG/mL 1 normal Negat duy-E xpect ed Not Available [facility] [address], [address], 05/13/2019 05:01:40 05/09/20 19 05/09/2019 6-Mon oacet ylmor phine (6-MA M), QN, urine hydrocodone Negati ve NG/mL 5 normal Negat duy-E xpect ed Not Available [facility] [address], [address], 05/13/2019 05:01:40 05/09/20 19 05/09/2019 6-Mon oacet ylmor phine (6-MA M), QN, urine hydromorphon e Negati ve NG/mL 5 normal Negat duy-E xpect ed Not Available [facility] [address], [address], 05/13/2019 05:01:40 05/09/20 19 05/09/2019 6-Mon oacet ylmor phine (6-MA M), QN, urine ketamine Negati ve NG/mL 2 normal Negat duy-E xpect ed Not Available [address], [address], 05/13/2019 05:01:40 05/09/20 19 05/09/2019 6-Mon oacet ylmor phine (6-MA M), QN, urine meperidine Negati ve NG/mL 2 normal Negat duy-E xpect ed Not Available [address], [address], 05/13/2019 05:01:40 05/09/20 19 05/09/2019 6-Mon oacet ylmor phine (6-MA M), QN, urine methadone Negati ve NG/mL 50 normal Negat duy-E xpect ed Not Available [address], [address], 05/13/2019 05:01:40 05/09/20 19 05/09/2019 6-Mon oacet ylmor phine (6-MA M), QN, urine morphine Negati ve NG/mL 50 normal Negat duy-E xpect ed Not Available [facility] [address], [address], 05/13/2019 05:01:40 05/09/20 19 05/09/2019 6-Mon oacet ylmor phine (6-MA M), QN, urine naloxone Negati ve NG/mL 10 normal Negat duy-E xpect ed Not Available [facility] [address], [address], 05/13/2019 05:01:40 05/09/20 19 05/09/2019 6-Mon oacet ylmor phine (6-MA M), QN, urine N-desmethylt apentadol Negati ve NG/mL 25 normal Negat duy-E xpect ed Not Available [facility] [address], [address], 05/13/2019 05:01:40 05/09/20 19 05/09/2019 6-Mon oacet ylmor phine (6-MA M), QN, urine norbuprenorp princess Negati ve NG/mL 5 normal Negat duy-E xpect ed Not Available [facility] [address], [address], 05/13/2019 05:01:40 05/09/20 19 05/09/2019 6-Mon oacet ylmor phine (6-MA M), QN, urine norfentanyl Negati ve NG/mL 2 normal Negat duy-E xpect ed Not Available [facility] [address], [address], 05/13/2019 05:01:40 05/09/20 19 05/09/2019 6-Mon oacet ylmor phine (6-MA M), QN, urine norhydrocodo ne Negati ve NG/mL 10 normal Negat duy-E xpect ed Not Available [facility] [address], [address], 05/13/2019 05:01:40 05/09/20 19 05/09/2019 6-Mon oacet ylmor phine (6-MA M), QN, urine norketamine Negati ve NG/mL 2 normal Negat duy-E xpect ed Not Available [facility] [address], [address], 05/13/2019 05:01:40 05/09/20 19 05/09/2019 6-Mon oacet ylmor phine (6-MA M), QN, urine oxymorphone 259 NG/mL 10 high Posit duy-E xpect ed Not Available [facility] [address], [address], 05/13/2019 05:01:40 05/09/20 19 05/09/2019 6-Mon oacet ylmor phine (6-MA M), QN, urine propoxyphene Negati ve NG/mL 10 normal Negat duy-E xpect ed Not Available [facility] [address], [address], 05/13/2019 05:01:40 05/09/20 19 05/09/2019 6-Mon oacet ylmor phine (6-MA M), QN, urine tapentadol Negati ve NG/mL 2 normal Negat duy-E xpect ed Not Available [facility] [address], [address], 05/13/2019 05:01:40 05/09/20 19 05/09/2019 6-Mon oacet ylmor phine (6-MA M), QN, urine tramadol Negati ve NG/mL 25 normal Negat duy-E xpect ed Not Available [facility] [address], [address], 05/13/2019 05:01:40 05/09/20 19 05/09/2019 6-Mon oacet ylmor phine (6-MA M), QN, urine noroxycodone 3257 NG/mL 50 high Posit duy-E xpect ed Not Available [facility] [address], [address], 05/13/2019 05:01:40 05/09/20 19 05/09/2019 6-Mon oacet ylmor phine (6-MA M), QN, urine oxycodone 3247 NG/mL 50 high Posit duy-E xpect ed Not Available [address], [address], 05/13/2019 05:01:40 05/09/20 19 05/09/2019 6-Mon oacet ylmor phine (6-MA M), QN, urine acetylfentan yl Negati ve NG/mL 2 normal Negat duy-E xpect ed Not Available [address], [address], 05/13/2019 05:01:40 05/09/20 19 05/09/2019 6-Mon oacet ylmor phine (6-MA M), QN, urine acetylnorfen tanyl Negati ve NG/mL 5 normal Negat duy-E xpect ed Not Available [facility] [address], [address], 05/13/2019 05:01:40 05/09/20 19 05/09/2019 6-Mon oacet ylmor phine (6-MA M), QN, urine acrylfentany l Negati ve NG/mL 2 normal Negat duy-E xpect ed Not Available [facility] [address], [address], 05/13/2019 05:01:40 05/09/20 19 05/09/2019 6-Mon oacet ylmor phine (6-MA M), QN, urine butyrylfenta nyl Negati ve NG/mL 10 normal Negat duy-E xpect ed Not Available [facility] [address], [address], 05/13/2019 05:01:40 05/09/20 19 05/09/2019 6-Mon oacet ylmor phine (6-MA M), QN, urine butyrylnorfe ntanyl Negati ve NG/mL 10 normal Negat duy-E xpect ed Not Available [facility] [address], [address], 05/13/2019 05:01:40 05/09/20 19 05/09/2019 6-Mon oacet ylmor phine (6-MA M), QN, urine carfentanil Negati ve NG/mL 5 normal Negat duy-E xpect ed Not Available [facility] [address], [address], 05/13/2019 05:01:40 05/09/2005/09/2019 6-Mon oacet ylmor phine (6-MA M), QN, urine yps-8-[id number] fentanyl Negati ve NG/mL 10 normal Negat duy-E xpect ed Not Available [facility] [address], [address], 05/13/2019 05:01:40 05/09/20 19 05/09/2019 6-Mon oacet ylmor phine (6-MA M), QN, urine ndl-1-zafxld norfentanyl Negati ve NG/mL 10 normal Negat duy-E xpect ed Not Available [facility] [address], [address], 05/13/2019 05:01:40 05/09/20 19 05/09/2019 6-Mon oacet ylmor phine (6-MA M), QN, urine furanylfenta nyl Negati ve NG/mL 2 normal Negat duy-E xpect ed Not Available [facility] [address], [address], 05/13/2019 05:01:40 05/09/20 19 05/09/2019 6-Mon oacet ylmor phine (6-MA M), QN, urine N-desmethyl- [id number] Negati ve NG/mL 5 normal Negat duy-E xpect ed Not Available [facility] [address], [address], 05/13/2019 05:01:40 05/09/20 19 05/09/2019 6-Mon oacet ylmor phine (6-MA M), QN, urine norcarfentan il Negati ve NG/mL 5 normal Negat duy-E xpect ed Not Available [facility] [address], [address], 05/13/2019 05:01:40 05/09/20 19 05/09/2019 6-Mon oacet ylmor phine (6-MA M), QN, urine O-desmethylt ramadol Negati ve NG/mL 100 normal Negat duy-E xpect ed Not Available [facility] [address], [address], 05/13/2019 05:01:40 05/09/20 19 05/09/2019 6-Mon oacet ylmor phine (6-MA M), QN, urine [id number] Negati ve NG/mL 5 normal Negat duy-E xpect ed Not Available [address], [place], [address], 05/13/2019 05:01:40 09/07/19 20 09/10/2019 [facility]ori es 6-acetylmorp princess, cutoff 10 NG/mL normal Not Available [facility] [address] [place] [address], [address], 09/14/2019 16:39:29 09/07/19 20 09/10/2019 [facility] buprenorphin e, cutoff 5 NG/mL normal Not Available [facility] [address] [place] [address], [address], 09/14/2019 16:39:29 09/07/19 20 09/10/2019 [facility]ori es fentanyl, cutoff 5 NG/mL normal Not Available [facility] [address] [place] [address], [address], 09/14/2019 16:39:29 09/07/19 20 09/10/2019 [facility]ori es methadone, cutoff 50 NG/mL normal Not Available [facility] [address] [place] [address], [address], 09/14/2019 16:39:29 09/07/19 20 09/10/2019 [facility] labor [facility]ori es codeine, cutoff 50 NG/mL normal Not Available [facility] [address] [place] [address], [address], 09/14/2019 16:39:29 09/07/19 20 09/10/2019 [facility]ori es hydrocodone, cutoff 50 NG/mL normal Not Available [facility] [address] [place] [address], [address], 09/14/2019 16:39:29 09/07/19 20 09/10/2019 [facility] labor [facility]ori es hydromorphon e, cutoff 50 NG/mL normal Not Available [facility] [address] [place] [address], [address], 09/14/2019 16:39:29 09/07/19 20 09/10/2019 [facility] labor atori es morphine, cutoff 50 NG/mL normal Not Available [facility] [address] [place] [address], [address], 09/14/2019 16:39:29 09/07/19 20 09/10/2019 [facility] labor atori es naloxone, cutoff 10 NG/mL normal Not Available [facility] [address] [place] [address], [address], 09/14/2019 16:39:29 09/07/19 20 09/10/2019 [facility] labor atori es oxycodone, cutoff 50 NG/mL normal Not Available [facility] [address] [place] [address], [address], 09/14/2019 16:39:29 09/07/19 20 09/10/2019 [facility] clin[facility] labor atori es oxymorphone, cutoff 50 NG/mL normal Not Available [facility] [address] [place] [address], [address], 09/14/2019 16:39:29 09/07/19 20 09/10/2019 [facility] labor atori es tapentadol, cutoff 50 NG/mL normal Not Available [facility] [address] [place] [address], [address], 09/14/2019 16:39:29 09/07/19 20 09/10/2019 [facility] labor atori es cis-tramadol , cutoff 50 NG/mL normal Not Available [facility] [address] [place] [address], [address], 09/14/2019 16:39:29 09/07/19 20 09/14/2019 [facility] labor atori es 6-acetylmorp princess Not Detect ed NG/mL normal Not Available [facility] [address] [place] [address], [address], 09/14/2019 16:39:29 09/07/19 20 09/14/2019 [facility] clini [facility] labor atori es buprenorphin e Not Detect ed NG/mL normal Not Available [facility] [address] [place] [address], [address], 09/14/2019 16:39:29 09/07/19 20 09/14/2019 [facility] labor atori es fentanyl Not Detect ed NG/mL normal Not Available [facility] [address] [place] [address], [address], 09/14/2019 16:39:29 09/07/19 20 09/14/2019 [facility] methadone Not Detect ed NG/mL normal Not Available [facility] [address] [place] [address], [id number], 09/14/2019 16:39:29 09/07/19 20 09/14/2019 [facility] codeine Not Detect ed NG/mL normal Not Available [facility] [address] [place] [address], [id number], 09/14/2019 16:39:29 09/07/19 20 09/14/2019 [facility] hydrocodone Not Detect ed NG/mL normal Not Available [facility] [address] [place] [address], 82478, 09/14/2019 16:39:29 09/07/19 20 09/14/2019 [facility] hydromorphon e Not Detect ed NG/mL normal Not Available [facility] [address] [place] [address], 89127, 09/14/2019 16:39:29 09/07/19 20 09/14/2019 [facility] morphine Not Detect ed NG/mL normal Not Available [facility] [address] [place] [address], 77762, 09/14/2019 16:39:29 09/07/19 20 09/14/2019 [facility] naloxone Not Detect ed NG/mL normal Not Available [facility] [address] [place] [address], 55168, 09/14/2019 16:39:29 09/07/19 20 09/14/2019 [facility] oxycodone Detect ed NG/mL abnormal Not Available [facility] [address] [place] [address], 75705, 09/14/2019 16:39:29 09/07/19 20 09/14/2019 [facility] [...] prese nt. Not Available [facility] [address] [place] [address], 52278, 09/14/2019 16:39:29 09/07/19 20 09/14/2019 [facility] oxycodone, creat adj >786 normal Not Available [facility] [address] [place] [address], 24199, 09/14/2019 16:39:29 09/07/19 20 09/14/2019 [facility] oxymorphone Detect ed NG/mL abnormal Not Available [facility] [address] [place] [address], 77260, 09/14/2019 16:39:29 09/07/19 20 09/14/2019 [facility] oxymorphone, interp Consis tent NG/mL normal Oxymo rphon e is an opioi d analg esic simil ar to morph ine. It is avail able by presc ripti on (Numo rphan ?, Opana ?) and is a metab olite of oxyco done. Not Available [facility] [address] [place] [address], 51063, 09/14/2019 16:39:29 09/07/19 20 09/14/2019 [facility] oxymorphone, creat adj >786 normal Not Available [facility] [address] [place] [address], 42474, 09/14/2019 16:39:29 09/07/19 20 09/14/2019 [facility] tapentadol Not Detect ed NG/mL normal Not Available [facility] [address] [place] [address], 58249, 09/14/2019 16:39:29 09/07/19 20 09/14/2019 [facility] cis-tramadol Not Detect ed NG/mL normal Not Available [facility] [address] [place] [address], 43788, 09/14/2019 16:39:29 09/07/19 20 09/10/2019 [facility] general oxidants, cutoff 200 NG/mL normal Not Available [facility] [address] [place] [address], 01525, 09/14/2019 16:39:30 09/07/19 20 09/13/2019 [facility] general oxidants Not Detect ed NG/mL normal Not Available [facility] [address] [place] [address], 31936, 09/14/2019 16:39:30 09/07/19 20 09/10/2019 [facility] xref confirmation [id number] 50 normal Not Available [facility] [address] [place] [address], 51086, 09/14/2019 16:39:30 09/07/19 20 09/10/2019 oxyco done, QN, confi rm, urine oxycodone, cutoff 50 NG/mL normal Not Available [facility] [address] [place] [address], 03686, 09/14/2019 16:39:31 09/07/19 20 09/10/2019 oxyco done, QN, confi rm, urine noroxycodone , cutoff 50 NG/mL normal Not Available [facility] [address] [place] [address], 60108, 09/14/2019 16:39:31 09/07/19 20 09/10/2019 oxyco done, QN, confi rm, urine oxymorphone, cutoff 50 NG/mL normal Not Available [facility] [address] [place] [address], 63256, 09/14/2019 16:39:31 09/07/19 20 09/14/2019 oxyco done, QN, confi rm, urine oxycodone Detect ed NG/mL abnormal Not Available [facility] [address] [place] [address], 26108, 09/14/2019 16:39:31 09/07/19 20 09/14/2019 oxyco done, [...] prese nt. Not Available [facility] [address] [place] [address], 40584, 09/14/2019 16:39:31 09/07/19 20 09/14/2019 oxyco done, QN, confi rm, urine oxycodone, creat adj >786 normal Not Available [facility] [address] [place] [address], 06741, 09/14/2019 16:39:31 09/07/19 20 09/14/2019 oxyco done, QN, confi rm, urine noroxycodone Detect ed NG/mL abnormal Not Available [facility] [address] [place] [address], 90655, 09/14/2019 16:39:31 09/07/19 20 09/14/2019 oxyco done, QN, confi rm, urine noroxycodone , interp Consis tent NG/mL normal Nor-O xycod one is a uniqu e metab olite of oxyco done. It is not avail able by presc ripti on. Not Available [facility] [address] [place] [address], 89835, 09/14/2019 16:39:31 09/07/19 20 09/14/2019 oxyco done, QN, confi rm, urine noroxycodone , creat adj >786 normal Not Available [facility] [address] [place] [address], 98936, 09/14/2019 16:39:31 09/07/19 20 09/14/2019 oxyco done, QN, confi rm, urine oxymorphone Detect ed NG/mL abnormal Not Available [facility] [address] [place] [address], 00404, 09/14/2019 16:39:31 09/07/19 20 09/14/2019 oxyco done, QN, confi rm, urine oxymorphone, interp Consis tent NG/mL normal Oxymo rphon e is an opioi d analg esic simil ar to morph ine. It is [facility] able [facility] (Numo rphan ?, Opana ?) and is a metab olite of oxyco done. Not Available [facility] [address] [place] [address], 73818, 09/14/2019 16:39:31 09/07/19 20 09/14/2019 oxyco done, QN, confi rm, urine oxymorphone, creat adj >786 normal Not Available [facility] [address] [place] [address], 71370, 09/14/2019 16:39:31 09/07/19 20 09/07/2019 gabap entin , quant itati ve, urine abnormal status abnormal Not Available [facility] [address] [place] [address], 96457, 09/14/2019 16:39:31 09/07/19 20 09/10/2019 [facility] 6-acetylmorp princess, cutoff 10 NG/mL normal Not Available [facility] [address] [place] [address], 89538, 09/14/2019 17:30:01 09/07/19 20 09/10/2019 [facility] buprenorphin e, cutoff 5 NG/mL normal Not Available [facility] [address], 76[address], 09/14/2019 17:30:01 09/07/19 20 09/10/2019 [facility] fentanyl, cutoff 5 NG/mL normal Not Available [facility] [address] [place] [address], 42847, 09/14/2019 17:30:01 09/07/19 20 09/10/2019 [facility] methadone, cutoff 50 NG/mL normal Not Available [facility] [address] [place] [address], 30279, 09/14/2019 17:30:01 09/07/19 20 09/10/2019 [facility] codeine, cutoff 50 NG/mL normal Not Available [facility] [address] [place] [address], 51936, 09/14/2019 17:30:01 09/07/19 20 09/10/2019 [facility] hydrocodone, cutoff 50 NG/mL normal Not Available [facility] [address] [place] [address], 81420, 09/14/2019 17:30:01 09/07/19 20 09/10/2019 [facility] hydromorphon e, cutoff 50 NG/mL normal Not Available [facility] [address] [place] [address], 44464, 09/14/2019 17:30:01 09/07/19 20 09/10/2019 [facility] morphine, cutoff 50 NG/mL normal Not Available [facility] [address] [place] [address], 17325, 09/14/2019 17:30:01 09/07/19 20 09/10/2019 [facility] naloxone, cutoff 10 NG/mL normal Not Available [facility] [address] [place] [address] [place], [address], 09/14/2019 17:30:01 09/07/19 20 09/10/2019 [facility] oxycodone, cutoff 50 NG/mL normal Not Available [facility] [address] [place] [address], 26951, 09/14/2019 17:30:01 09/07/19 20 09/10/2019 [facility] oxymorphone, cutoff 50 NG/mL normal Not Available [facility] [address] [place] [address], 39689, 09/14/2019 17:30:01 09/07/19 20 09/10/2019 [facility] tapentadol, cutoff 50 NG/mL normal Not Available [facility] [address] [place] [address], 22326, 09/14/2019 17:30:01 09/07/19 20 09/10/2019 [facility] cis-tramadol , cutoff 50 NG/mL normal Not Available [facility] [address] [place] [address], 17370, 09/14/2019 17:30:01 09/07/19 20 09/14/2019 [facility] 6-acetylmorp princess Not Detect ed NG/mL normal Not Available [facility] [address] [place] [address], 90641, 09/14/2019 17:30:01 09/07/19 20 09/14/2019 [facility] buprenorphin e Not Detect ed NG/mL normal Not Available [facility] [address] [place] [address], 08759, 09/14/2019 17:30:01 09/07/19 20 09/14/2019 [facility] fentanyl Not Detect ed NG/mL normal Not Available [facility] [address] [place] [address], 32977, 09/14/2019 17:30:01 09/07/19 20 09/14/2019 [facility] methadone Not Detect ed NG/mL normal Not Available [facility] [address] [place] [address], 67989, 09/14/2019 17:30:01 09/07/19 20 09/14/2019 [facility] codeine Not Detect ed NG/mL normal Not Available [facility] [address] [place] [address], 97299, 09/14/2019 17:30:01 09/07/19 20 09/14/2019 [facility] hydrocodone Not Detect ed NG/mL normal Not Available [facility] [address] [place] [address], 55186, 09/14/2019 17:30:01 09/07/19 20 09/14/2019 [facility] hydromorphon e Not Detect ed NG/mL normal Not Available [facility] [address] [place] [address], 21267, 09/14/2019 17:30:01 09/07/19 20 09/14/2019 [facility] morphine Not Detect ed NG/mL normal Not Available [facility] [address] [place] [address], 92041, 09/14/2019 17:30:01 09/07/19 20 09/14/2019 [facility] naloxone Not Detect ed NG/mL normal Not Available [facility] [address] [place] [address], 97551, 09/14/2019 17:30:01 09/07/19 20 09/14/2019 [facility] oxycodone Detect ed NG/mL abnormal Not Available [facility] [address] [place] [address], 46374, 09/14/2019 17:30:01 09/07/19 20 09/14/2019 [facility] [...] prese nt. Not Available [facility] [address] [place] [address], 14747, 09/14/2019 17:30:01 09/07/19 20 09/14/2019 [facility] oxycodone, creat adj >786 normal Not Available [facility] [address] [place] [address], 81567, 09/14/2019 17:30:01 09/07/19 20 09/14/2019 [facility] oxymorphone Detect ed NG/mL abnormal Not Available [facility] [address] [place] [address], 51703, 09/14/2019 17:30:01 09/07/19 20 09/14/2019 [facility] oxymorphone, interp Consis tent NG/mL normal Oxymo rphon e is an opioi d analg esic simil ar to morph ine. It is avail able by presc ripti on (Numo rphan ?, Opana ?) and is a metab olite of oxyco done. Not Available [facility] [address] [place] [address], 82794, 09/14/2019 17:30:01 09/07/19 20 09/14/2019 [facility] oxymorphone, creat adj >786 normal Not Available [facility] [address] [place] [address], 27903, 09/14/2019 17:30:01 09/07/19 20 09/14/2019 [facility] tapentadol Not Detect ed NG/mL normal Not Available [facility] [address] [place] [address], 35145, 09/14/2019 17:30:01 09/07/19 20 09/14/2019 [facility] cis-tramadol Not Detect ed NG/mL normal Not Available [facility] [address] [place] [address], 41016, 09/14/2019 17:30:01 09/07/19 20 09/10/2019 [facility] general oxidants, cutoff 200 NG/mL normal Not Available [facility] [address] [place] [address], 00816, 09/14/2019 17:30:01 09/07/19 20 09/13/2019 [facility] general oxidants Not Detect ed NG/mL normal Not Available [facility] [address] [place] [address], 04025, 09/14/2019 17:30:01 09/07/19 20 09/14/2019 [facility] xref confirmation [id number] 019003 12 normal Not Available [facility] [address] [place] [address], 32248, 09/14/2019 17:30:02 Result Notes None recorded. Problems Name Problem SNOMED Code Status Onset Date Resolution Date Notes Provider Name and Address Organization Details Recorded Time Long-term drug therapy Active Surendra colin [facility] 10/21/2017 10:41:31 Knee pain Active 018 WILLIE Armstrong [facility] 10/21/2017 10:41:53 Problem Notes None recorded. Procedures Surgical History Date Name Laterality Status Provider Name and Address Organization Details Recorded Time 5 General Surgery completed Patti TAPIA [facility] 10/21/2017 10:42:27 Imaging Results None recorded. Procedure Notes None recorded. Medical Equipment None Reported. Allergies Allergen ID Allergen Name Allergen Category Reaction Reaction Severity Criticality Documentation Date Start Date Code Code System Note Provider Name and Address Organization Details Recorded Time 56345 Product containin g penicilli n (product) medicatio n Not available Not available Not available 09/15/20172016 57000 8001 SNOMED Not Available [facility] 8 23:37:56 Medications Name Sig Start Date [...] Updated DateTime 05/09/2019 160.02 cm 39 kg/m2 15106.32 g Patti Ede [facility] 05/09/2019 10:34:29 Date Recorded Body height Body mass index (BMI) Body weight Heart rate Oxygen saturation Oxygen saturation in Arterial blood by Pulse oximetry Systolic blood pressure Diastolic blood pressure Provider Name and Address Organization Details Last Updated DateTime 9 160.02 cm 39 kg/m2 73892.3 2 g 78 /min 100 % 100 % 126 mm[Hg] 82 mm[Hg] Patti Mera [facility] 9 10:37:59 Date Recorded Body height Body mass index (BMI) Body weight Heart rate Oxygen saturation Oxygen saturation in Arterial blood by Pulse oximetry Systolic blood pressure Diastolic blood pressure Provider Name and Address Organization Details Last Updated DateTime 0 160.02 cm 39 kg/m2 72456.3 2 g 84 /min 98 % 98 % 134 mm[Hg] 82 mm[Hg] Patti Mera [facility] 0 10:55:57 Date Recorded Body height Body mass index (BMI) Body weight Oxygen saturation Oxygen saturation in Arterial blood by Pulse oximetry Heart rate Systolic blood pressure Diastolic blood pressure Provider Name and Address Organization Details Last Updated DateTime 0 160.02 cm 39 kg/m2 89722.3 2 g 98 % 98 % 80 /min 136 mm[Hg] 80 mm[Hg] Eros Villegas [facility] 0 11:13:09 Date Recorded Body height Provider Name an d Address Organization Details Last Updated DateTime 01/10/2020 160.02 cm Patti TAPIA [facility] 01/10/2020 11:38:28 Social History Question Answer Notes LastModified by Organizat ion Details LastModified Time Tobacco Smoking Status [facility] 10/21/2017 10:45:58 What Is Your Level Of Alcohol Consumption? None [email or web address] Information not available 10/21/2017 What Is Your Occupation? Unemployed [email or web address] Information not available 10/21/2017 Prescription Drug Abuse No Information not available 10/21/2017 History Of Sexual Abuse No Information not available 10/21/2017 Marital Status [email or web address] Informatio n not available 10/21/2017 What Was The Date Of Your Most Recent Tobacco Screening? 04/14/2018 Information not available 03/23/2019 Sex: Unknown Functional Status Question Answer Note LastModified by Organization D etails LastModified Time What is your exercise level? None [email or web address] Information not available 10/21/2017 Mental Status None recorded. Family History Relationship Description Onset Age of this Age Resolved Age Notes LastModified by Organization Details LastModified Time Father No current problems or disability [email or web address] Not available 10/21 10:41:55 Mother No current problems or disability Not available 10/21 10:41:55 Medical History Condition Response Bipolar Disease N Coronary Artery Disease N Seizure Disorder N Gout N Atrial Fibrillation N Osteoarthritis N Thyroid Disease Y Head Trauma/Injury N Hernia N Neurosurgery N Depression N COPD N Peptic Ulcer Disease N Anemia Y Heart Attack ([place]) N Anxiety Disorder Y Diabetes Y Cardiomyopathy [...] SNOMED-CT Code Diagnosis ICD10 Code Diagnosis Note [id number] [facility] [address] [place] [address] 10/21/2017 10:30:50 10/21/2017 11:09:30 Knee pain 88530938 M25.569 Long-term drug therapy 592544090 Z79.899 the confirmato ry drug screen from August 2017 was reviewed today and it was appropriat e. The preliminar y screen today is as expected. [id number] [facility] [address] [place] [address] 11/16/2017 09:49:29 11/16/2017 11:03:40 Knee pain 79044254 M25.569 M25.561 Long-term drug therapy 010789957 Z79.899 the preliminar y drug screen does need to be sent to confirm all substances to monitor adherence to the opiate contract due to the safety of the patient [facility] 19653649 M25.511 Medication monitoring 39 1874098 Z51.81 [id number] AN[facility] [address] [place] [address] 12/14/2017 11:19:10 12/14/2017 11:52:59 Knee pain 06063521 M25.569 M25.561 [facility] 72049841 M25.511 Long-term drug therapy 894594241 Z79.899 the preliminar y drug screen does need to be sent to confirm all substances to monitor adherence to the opiate contract due to the safety of the patient Medication monitoring 39 1533011 Z79.899 [id number] ANEL [facility] [address] [place] [address] 01/13/2018 10:30:23 01/13/2018 11:21:36 Knee pain 48462138 M25.569 M25.561 [facility] 30245608 M25.511 Long-term drug therapy 030012778 Z79.899 the confirmato ry drug screen from November 2017 was reviewed today and it was appropriat e. The preliminar y screen today is as expected [id number] ANEL [facility] [address] [place] [address] 02/10/2018 10:10:31 02/10/2018 10:56:03 Knee pain 32793975 M25.569 M25.561 [facility] 88425110 M25.511 Long-term drug therapy 411644025 Z79.899 The preliminar y urine drug screen [...] the expected metabolite s. Medication monitoring 39 7407828 Z79.899 [id number] ANEL [facility] [address] [place] [address] 03/15/2018 11:12:26 03/15/2018 12:05:46 Knee pain 74896389 M25.569 M25.561 [facility] 67964059 M25.511 Long-term drug therapy 347104672 Z79.899 the confirmato ry drug screen from January 2018 was reviewed today and was appropriat e. The pulmonary screen today if as expected [id number] [facility] [address] [place] [address] 04/14/2018 11:00:23 04/14/2018 12:04:12 Knee pain 51804881 M25.569 M25.561 [facility] 26940224 M25.511 Long-term drug therapy 549830473 Z79.899 the confirmato ry drug screen from January 2018 was reviewed today and was appropriat e. The preliminar y screening today is as expected positive for oxycodone [id number] Radha Gaffney APRN [place] [address] [place] [address] 05/12/2018 14:07:58 05/12/2018 15:17:19 Knee pain 95314490 M25.569 M25.561 [facility] 63989150 M25.511 Long-term drug therapy 635660589 Z79.899 The preliminar y urine drug screen [...] the expected metabolite s. Medication monitoring 39 2954551 Z79.899 [id number] Radha Gaffney AN[facility] [place] [address] [place] [address] 07/12/2018 10:17:07 07/12/2018 11:04:07 Knee pain 93620125 M25.569 M25.561 [facility] 92754205 M25.511 Long-term drug therapy 602553774 Z79.899 the confirmato ry drug screen from May 2018 was reviewed today and it was appropriat e. The preliminar y screen today is appropriat [place] positive for oxycodone. Medication monitoring 39 6368247 Z79.899 [id number] ANEL [facility] [address] [place] [address] 09/09/2018 13:04:07 09/09/2018 14:03:35 Pain of shoulder region 80959979 M25.511 Long-term drug therapy 064735419 Z79.899 Derangement of knee 6364 3000 M23.91 [id number] ANEL [facility] [address] [place] [address] 11/09/2018 11:01:23 11/09/2018 12:02:40 Derangement of knee 29838796 M23.91 [facility] [place] [facility] 90578002 M25.511 Long-term drug therapy 549609420 Z79.899 The preliminar y urine drug screen [...] the expected metabolite s. Medication monitoring 39 1361090 Z79.899 [id number] ANEL [facility] [address] [place] [address] 01/05/2019 11:14:22 01/05/2019 11:43:42 Derangement of knee 06782314 M23.91 [facility] [place] 87736453 M25.511 Long-term drug therapy 186829346 Z79.899 The preliminar y urine drug screen [...] the expected metabolite s. Medication monitoring 39 0065000 Z79.899 [id number] ANEL [facility] [address] [place] [address] 03/09/2019 10:50:52 03/09/2019 11:41:33 Derangement of knee 75959035 M23.91 [facility] [place] [facility] 92760881 M25.511 Long-term drug therapy 906290467 Z79.899 [id number] ANEL [facility] [address] [place] [address] 05/09/2019 10:21:08 05/09/2019 11:17:02 Derangement of knee 30694634 M23.91 [facility] 14700218 M25.511 Long-term drug therapy 655189265 Z79.899 Send for LCMS confirmati on of [...] s in our community. Medication monitoring 39 2740198 Z79.899 [id number] ANEL Fortune [address] [facility] [place] [address] 07/06/2019 10:27:03 07/06/2019 11:18:23 Derangement of knee 62231571 M23.91 [facility] 32079345 M25.511 Long-term drug therapy 203421606 Z79.899 The preliminar y [place] urine drug screen is appropriat e for the class of medication (s) that the patient is being prescribed and based on their risk stratifica tion I will not send this sample for further quantitati ve LCMS testing. [id number] ANEL Fortune [address] [place] [address] 09/07/2019 10:45:07 09/07/2019 11:25:49 Derangement of knee 06781541 M23.91 [facility] 86958579 M25.511 Long-term drug therapy 117086023 Z79.899 Send for LCMS confirmati on of [...] abused pain medication s in our community. [id number] Radha Gaffney, [employer] [facility] [address] [place] [address] 11/03/2019 10:49:53 11/03/2019 11:37:10 Derangement of knee 74239253 M23.91 [facility] 65501072 M25.511 Long-term drug therapy 132291512 Z79.899 The preliminar y [place] urine drug screen is appropriat e for the class of medication (s) that the patient is being prescribed and based on their risk stratifica tion I will not send this sample for further quantitati ve LCMS testing. [id number] Radha [facility] [address] [place] [address] 01/10/2020 11:16:40 01/10/2020 12:27:53 Derangement of knee 22334764 M23.91 [facility] 93576464 M25.511 Long-term drug therapy 331662906 Z79.899 Health Concerns Section Related Observation LastModified by Organization Detai ls LastModified Time None Recorded Concern Status LastModified by Organization Details LastModified Time None Recorded Advance Directives Directive None Recorded Payers Encounter Date Sequence Insurance Name Policy Number Policy Mcdaniels Covered Member ID Mcdaniels Member ID Guarantor Name 05/09/2019 1 [employer] [place] [facility] PLAN (MEDICAID HMO) [id number] Lisa A Presz [id number] Lisa A Presz 07/06/2019 1 [employer] [place] [facility] Lisa A Presz [id number] Lisa A Presz 09/07/2019 1 [employer] [place] [facility] Lisa A Presz [id number] Lisa A Presz 11/03/2019 1 [employer] [place] [id number] Lisa A Presz [id number] Lisa A Presz 01/10/2020 1 [employer] [place] [id number] Lisa A Presz [id number] Lisa A Presz Notes Date Note [...] to bathe/groom without assistance.; 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 Physical Therapy:Completed course in [...] knee arthroscopy Prior Imaging:x ray; 2015 @ [facility] [place] Previous Injections:none [place] PT: [place] Work Related:no Working:noNotes: NSAID's: Naproxen - ineffective Muscle Relaxers: Currently takes Flexeril 10mg TID -effective Neuropathic Meds: Currently takes Neurontin 600mg TID -effective Narcotic Meds: [place] 7.5/325mg TID - QID s Tramadol 50mg TID - ineffective, Percocet 5/325 BID- Effective PREVIOUS TREATMENTS: Physical therapy: [facility] (2014) 6 months of PT [...] not help Work Related:no Working:noNotes: Radha Gaffney, ANEL [address] [place] [address], [phone], [facility] 05/09/2019 11:17:37 07/06/2019 text/html Follow-up (meds & injections)Reporte d bypatient.Improvem ent:Pain is the same as compared to last visit. 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 Physical Therapy:Completed course in [...] Prior Imaging:x ray; 2015 @ [facility] in [place] Previous Injections:none Previous PT: in [place] Work Related:no Working:noNotes: NSAID's: Naproxen - ineffective Muscle Relaxers: Currently takes Flexeril 10mg TID -effective Neuropathic Meds: Currently takes Neurontin 600mg TID -effective Narcotic Meds: [place] 7.5/325mg TID - QID s Tramadol 50mg TID - ineffective, Percocet 5/325 BID- Effective PREVIOUS TREATMENTS: Physical therapy: [facility] (2014) 6 months of PT [...] not help Work Related:no Working:noNotes: Radha Gaffney, [employer] [address] [place], [phone], [facility] 07/06/2019 11:39:30 09/07/2019 text/html Follow-up (meds & injections)Reporte d bypatient.Improvem ent:Pain is the same as compared to last visit. 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 Physical Therapy:Completed course in [...] Prior Imaging:x ray; 2014 @ [facility] in [place] Previous Injections:none Previous PT: in [place] Work Related:no Working:noNotes: NSAID's: Naproxen - ineffective Muscle Relaxers: Currently takes Flexeril 10mg TID -effective Neuropathic Meds: Currently takes Neurontin 600mg TID -effective Narcotic Meds: [place] 7.5/325mg TID - QID s Tramadol 50mg TID - ineffective, Percocet 5/325 BID- Effective PREVIOUS TREATMENTS: Physical therapy: [facility] (2014) 6 months of PT [...] Work Related:no Working:noNotes: Radha Gaffney APRN [address] [place], [phone], [facility] 09/07/2019 11:26:38 11/03/2019 text/html Follow-up (meds & injections)Reporte d bypatient.Improvem ent:Pain is the same as compared to last visit. 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 Adverse Reactions:No nausea.; No [...] knee arthroscopy Prior Imaging:x ray; 2015 @ [facility] [place] Previous Injections:none Previous PT: in [place] Work Related:no Working:noNotes: NSAID's: Naproxen - ineffective Muscle Relaxers: Currently takes Flexeril 10mg TID -effective Neuropathic Meds: Currently takes Neurontin 600mg TID -effective Narcotic Meds: [place] 7.5/325mg TID - QID s Tramadol 50mg TID - ineffective, Percocet 5/325 BID- Effective PREVIOUS TREATMENTS: Physical therapy: [facility] (2014) 6 months of PT [...] Work Related:no Working:noNotes: Radha Gaffney APRN [address] [place], [phone], [facility] 11/03/2019 11:51:35 01/10/2020 text/html Follow-up (meds & injections)Reporte d bypatient.Improvem ent:Pain is the same as compared to last visit. 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 Adverse Reactions:No nausea.; No [...] knee arthroscopy Prior Imaging:x ray; 2014 @ [facility] in [place] Previous Injections:none Previous PT: in [place] Work Related:no Working:noNotes: NSAID's: Naproxen - ineffective Muscle Relaxers: Currently takes Flexeril 10mg TID -effective Neuropathic Meds: Currently takes Neurontin 600mg TID -effective Narcotic Meds: [place] 7.5/325mg TID - QID s Tramadol 50mg TID - ineffective, Percocet 5/325 BID- Effective PREVIOUS TREATMENTS: Physical therapy: [facility] (2014) 6 months of PT [...] Work Related:no Working:noNotes: Radha Gaffney APRN [address] [place], [phone], [facility] 01/10/2020 12:15:24 OBGyn Episode No OBEpisode recorded.
== END 2024-12-26 15:46 | disposition home or self-care (01) ==
LOC: HO.PMC 15:16
PROVIDERS: PCP Internal Medicine; Visit Provider Anesthesiology
DX: G89.4 Chronic pain syndrome (principal); M19.011 Primary osteoarthritis, right shoulder; M19.012 Primary osteoarthritis, left shoulder; Z79.891 Long term (current) use of opiate analgesic; M17.11 Unilateral primary osteoarthritis, right knee; M75.50 Bursitis of unspecified shoulder; M75.90 Shoulder lesion, unspecified, unspecified shoulder
CPT/HCPCS: 99213

== ENCOUNTER → 2024-12-26 15:16 | Outpatient (BNVA) | payer OTHER, SELFPAY | PROVIDERS: PCP Internal Medicine; Visit Provider Anesthesiology | DX: M19.011 Primary osteoarthritis, right shoulder (principal); M19.012 Primary osteoarthritis, left shoulder; M17.11 Unilateral primary osteoarthritis, right knee; M75.50 Bursitis of unspecified shoulder; M75.90 Shoulder lesion, unspecified, unspecified shoulder; G89.4 Chronic pain syndrome; Z79.891 Long term (current) use of opiate analgesic | CPT/HCPCS: 99212 ==

== ENCOUNTER 2025-02-20 11:19 | Outpatient (AMB) | payer OTHER, SELFPAY ==
--- NOTE | 2025-02-20 11:25 | MHC.OFFVIS ---
Vital Signs 02/20/25 11:31 02/20/25 11:32 02/20/25 11:42 Height 5 ft 5 in Weight 216 lb 4 oz BMI 36.0 BP 207/114 H 187/112 H 140/78 H Blood Pressure Location Lt brachial Rt brachial Rt brachial Position Sitting Sitting Sitting Pulse 104 H 104 H Pulse Source Pulse Oximeter Pulse Oximeter Pulse Oximetry (%) 97 98 Oxygen Delivery Method Room Air Room Air Comment bp recheck bp recheck manually Intake Visit Reasons: pill count Intake Note: Lisa comes in today for a pill count to tramadol, patient should have 21 tablets and presents with 22 tablets which she last took today 02/20/25 at 10 am. 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 She has been taking tramadol 50 mg three times a day, which she reports helps her function better and reduces symptoms, although her pain remains at a level of 6 out of 10. She denies any side effects from tramadol and does not use marijuana or other substances. The patient also has a history of back arthritis and intervertebral disc degeneration. She is apprehensive about back injections due to advice from a family member who is a nurse practitioner, and she has declined further surgical interventions for her shoulder pain after two previous surgeries. Additionally, the patient experiences shoulder pain, described as throbbing and stabbing, with limited range of motion. Physical therapy has been attempted with limited success, and she has been advised against further surgery by an hazardous material specialist in [place]. The patient reports being borderline diabetic, with her HbA1c levels currently well-controlled. - Pain level is 6/10, described as throbbing and stabbing. - Primary locations are the back and shoulder. - Pain interferes with range of motion, particularly in the shoulder. - Tramadol provides some relief, improving functionality. - Affect: Pain impacts daily activities but is managed with tramadol. - Analgesia: Tramadol 50 mg three times daily, pain level 6/10. - Adverse Effects: Denies any side effects from tramadol. - Activities of Daily Living: Pain limits shoulder movement, but tramadol helps maintain functionality. - Aberrant Drug Related Behaviors: No misuse of tramadol reported. PRIOR 12/26/24 Dr. Sierra: Lisa is back in my office for the follow-up and pain medication refill. She reports today level of her pain 7/10. She reports tramadol has no side effects. She reports it helps very little with her pain. However she reports that medication helps her with the mobility. The pill count is correct today, she supposed to have no medications in her possession. She presented with 7 pills in her possession. This demonstrates responsible attitude to were the opioid medications. The patient stated that she will think about interventional pain management. She had some medial branch blocks performed back in [place]. I think I can offer her diagnostic medial branch block L3, L4, dorsal ramus L5 bilateral good results I can offer her sprint PNS to help her lower back pain. The same approach could be done for her neck pain. Pill count today: She supposed to have a 81 pills in her possession. She presented with 84 pills in her possession. This demonstrates responsible attitude for opioid medications. She denies side effects of the opioid medications she denies constipation. She is on 50 mg tramadol t.i.d. for her pain. She is using icy hot OTC and NSAIDs OTC to help her pain. She is on gabapentin 600 mg t.i.d. which is prescribed to her by primary care physician. In the past I attempted to perform injections Infrapatellar saphenous nerve block resulted in 40% pain relieve. Suprepatelarr saphenous nerve resulted in 45% pain relieve only. She is also suffering from the shoulder osteoarthritis. She had suprascapular nerve block. Before that she received interarticular steroid injection.? Unfortunately neither block was working for her. Prior: c/o? pain in the neck with radiation into the left shoulder.? She reports that she is suffering from this pain as well as pain in the back in the knee as well as fibromyalgia for long period of time.? ? She reports that cold and weather changes aggravate her pain as well as movements. She was suspended once for noncompliance. Her prior risk was mild for opioid addiction however now the risk will be elevated to moderate and if she is suspended it will be 1 year suspension. [facility] Medical History Cerebellar infarct Diabetes mellitus with neuropathy Osteoarthritis of right knee Insomnia Diabetes Osteoarthritis of shoulders, bilateral Bronchitis Fibromyalgia Diabetes Thyroid activity decreased Knee arthropathy Bursitis and tendinitis of shoulder region Surgical History History of shoulder surgery H/O knee surgery Family History Father Stomach cancer Mother No problems noted. Sister No problems noted. Social History Household Members: Significant Other Housing: House Do you presently have visiting nurse or other home services: No Alcohol intake: never Patient Tobacco Use Status: Former Tobacco user Tobacco use type: Cigarette e-Cigarette/Vaping Use: Never Used Second Hand Smoke Exposure: Yes service: No Current occupational status: disabled Current occupational exposures/hazards: No Cognitive needs: Yes Hearing needs: No Vision needs: Yes Review of Systems Const Details: - Musculoskeletal: Reports chronic back pain and shoulder pain with limited range of motion. - Gastrointestinal: Denies constipation. - Neurological: Denies any side effects from tramadol. - Endocrine: Reports borderline diabetes, well-controlled. BMI=36. - Substance Use: Denies use of marijuana, alcohol, or tobacco. All systems reviewed & are unremarkable except as noted in HPI and below Physical Exam General: Appears afebrile. Alert and oriented. Mood and affect appropriate. Follows and participates in conversation appropriately. Respiratory effort is unlabored. No cough. Able to transition from sit to stand unassisted. Ambulates with bilaterally normal heel strike and toe off. Eyes General: appearance normal, both eyes and all related structures Back/Spine/Pelvis Thoracic/Lumbar Spine: thoracic and lumbar spine normal to inspection, Lasegue's sign negative, straight leg raise negative bilaterally, pain with thoraco-lumbar ROM, thoraco-lumbar ROM limited, No thoracic spinal tenderness and No lumbar spinal tenderness Sacroiliac joints: bilaterally nontender Psych Appearance: grossly normal Mental Status: mental status grossly normal Speech and movement: Normal speech and movement present and Clear speech present Affect: normal affect Attitude: cooperative Thought process: Normal thought process present Thought content: Normal thought content present, suicidality (none), no homicidality and No Depressive thoughts present Assessment & Plan Assessment & Plan (1) Opioid contract exists: Code(s): Z79.891 - supervisor intermediates (current) use of opiate analgesic Category: Medical (2) Chronic pain syndrome: Code(s): G89.4 - Chronic pain syndrome Category: Medical (3) Osteoarthritis of shoulders, bilateral: Code(s): M19.011 - Primary osteoarthritis, right shoulder; M19.012 - Primary osteoarthritis, left shoulder Category: Medical (4) Osteoarthritis of right knee: Code(s): M17.11 - Unilateral primary osteoarthritis, right knee Category: Medical (5) Bursitis and tendinitis of shoulder region: Code(s): M75.50 - Bursitis of unspecified shoulder; M75.90 - Shoulder lesion, unspecified, unspecified shoulder Category: Medical Plan The patient will continue with tramadol 50 mg three times daily for chronic pain management, as it provides functional improvement and symptom relief without adverse effects. Masspat was reviewed and without concerns. No obvious signs of diversion, abuse or misuse of the opioid medications. Tramadol with 1 refills is prescribed on 02/27/25 with 1 refill therefore she must have 1 refill her possession. Narcan sent today. The patient is informed about the importance of having Narcan at home due to the use of tramadol, and she is advised on its proper use and storage. She is also reminded to inform her neighbors, family and friends about Narcan usage in case of emergencies. Patient is advised to consider back injections in the future if her condition worsens, although she currently prefers to avoid them due to family advice. For shoulder pain, further surgical intervention is not planned at this time, and she is encouraged to continue monitoring her condition and seek orthopedic consultation if necessary. All questions and concerns have been answered and patient agreed with the plan. Follow up for pill count in 8 weeks and sooner as needed. Patient was informed and verbally consented to the use of an ambient scribe for clinic note documentation during this visit. Medications: New naloxone 4 mg/actuation (Narcan) spray 1 dose into ONE nostril; alternate nostrils w each dose until help arrives 4 mg intranasal Q2M PRN 2 ea 0RF opioid overdose Z79.891 - supervisor intermediates (current) use of opiate analgesic Refilled tramadol 50 mg PO TID PRN 90 tabs 1RF pain 30 days G89.4 - Chronic pain syndrome, Z79.891 - supervisor intermediates (current) use of opiate analgesic Patient Instructions: I discussed with the patient the continuation of tramadol for her chronic pain management, emphasizing its benefits in improving functionality and reducing symptoms without adverse effects. We talked about the option of back injections, which she is currently hesitant to pursue due to family advice. For her shoulder pain, I advised against further surgery at this time and recommended monitoring her condition. I explained the importance of having Narcan at home due to her use of tramadol and provided instructions on its use and storage. I also advised her to inform her neighbors, family or friends about Narcan usage in case of emergencies. I recommended follow-up appointments with Dr. Sierra or myself for pill count and to reassess her pain management plan. Coding Level of Care Code Est Pt Level 4 (08666) Complex EM visit Add On G2211 Diagnoses Opioid contract exists Z79.891 Chronic pain syndrome G89.4 Osteoarthritis of shoulders, bilateral M19.011; M19.012 Osteoarthritis of right knee M17.11 Bursitis and tendinitis of shoulder region M75.50; M75.90
[2025-02-20 11:31] VITALS: BP 207/114; PULSE 104; O2SAT 97; BMI 36.0
[2025-02-20 11:32] VITALS: BP 187/112; PULSE 104; O2SAT 98
[2025-02-20 11:42] VITALS: BP 140/78
== END 2025-02-20 11:41 | disposition home or self-care (01) ==
LOC: HO.PMC 11:20
PROVIDERS: PCP Internal Medicine; Visit Provider Nurse Practitioner Family
DX: Z79.891 Long term (current) use of opiate analgesic (principal); G89.4 Chronic pain syndrome; M19.011 Primary osteoarthritis, right shoulder; M19.012 Primary osteoarthritis, left shoulder; M17.11 Unilateral primary osteoarthritis, right knee; M75.50 Bursitis of unspecified shoulder; M75.90 Shoulder lesion, unspecified, unspecified shoulder
CPT/HCPCS: 99214; G2211

== ENCOUNTER → 2025-02-20 11:19 | Outpatient (BNVA) | payer OTHER, SELFPAY | PROVIDERS: PCP Internal Medicine; Visit Provider Nurse Practitioner Family | DX: M19.011 Primary osteoarthritis, right shoulder (principal); M19.012 Primary osteoarthritis, left shoulder; M17.11 Unilateral primary osteoarthritis, right knee; M75.52 Bursitis of left shoulder; M75.51 Bursitis of right shoulder; Z79.891 Long term (current) use of opiate analgesic | CPT/HCPCS: 99212 ==

== ENCOUNTER 2025-04-19 11:14 | Outpatient (AMB) | payer OTHER, SELFPAY ==
--- NOTE | 2025-04-19 11:37 | A.OFFVIS_ITS ---
Vital Signs 04/19/25 11:38 04/19/25 11:39 Weight 215 lb BP 169/99 H Blood Pressure Location Rt brachial Lt brachial Position Sitting Right Lateral Respiration 18 18 Pulse 106 H Pulse Source Pulse Oximeter Pulse Oximetry (%) 98 Intake Visit Reasons: Pill count/ random UDS Intake Note: pt states she last took her tramadol at 830 8. AishaT says she should have 27 pills she presented with 28 Physical Education Aide Required: No Allergies Penicillins Allergy (Unknown, Verified 04/19/25 11:37) Hives Seasonal Allergies Allergy (Verified 04/19/25 11:37) itchy nose/sneezing HPI Comments Details: Lisa is back in my office for the follow-up and pain medication refill. She reports today level of her pain 02/07. She reports tramadol has no side effects. We discussed today physical therapy in the order to help her pain better. The patient stated that she is unable to attend physical therapy at this time because of the difficulty with transportation. She stated that it will be better situation in the spring. I will schedule her for physical therapy in the spring. She presented today for follow-up and pill count. She supposed to have 27 pills in her possession. She came with 28 pills in her possession. She had some medial branch blocks performed back in [place]. I think I can offer her diagnostic medial branch block L3, L4, dorsal ramus L5 bilateral good results I can offer her sprint PNS to help her lower back pain. The same approach could be done for her neck pain. She receives gabapentin 600 mg from PCP. In the past I attempted to perform injections Infrapatellar saphenous nerve block resulted in 40% pain relieve. Suprepatelarr saphenous nerve resulted in 45% pain relieve only. She is also suffering from the shoulder osteoarthritis. She had suprascapular nerve block. Before that she received interarticular steroid injection.? Unfortunately neither block was working for her. Prior: c/o? pain in the neck with radiation into the left shoulder.? She reports that she is suffering from this pain as well as pain in the back in the knee as well as fibromyalgia for long period of time.? ? She reports that cold and weather changes aggravate her pain as well as movements. She was suspended once for noncompliance. Her prior risk was mild for opioid addiction however now the risk will be elevated to moderate and if she is suspended it will be 1 year suspension. [facility] Medical History Cerebellar infarct Diabetes mellitus with neuropathy Osteoarthritis of right knee Insomnia Diabetes Osteoarthritis of shoulders, bilateral Bronchitis Fibromyalgia Diabetes Thyroid activity decreased Knee arthropathy Bursitis and tendinitis of shoulder region Surgical History History of shoulder surgery H/O knee surgery Family History Father Stomach cancer Mother No problems noted. Sister No problems noted. Social History Household Members: Significant Other Housing: House Do you presently have visiting nurse or other home services: No Alcohol intake: never Patient Tobacco Use Status: Former Tobacco user Tobacco use type: Cigarette e-Cigarette/Vaping Use: Never Used Second Hand Smoke Exposure: Yes service: No Current occupational status: disabled Current occupational exposures/hazards: No Cognitive needs: Yes Hearing needs: No Vision needs: Yes Review of Systems Const All systems reviewed & are unremarkable except as noted in HPI and below Physical Exam Vital Signs: Last Vital Signs Pulse 106 H 04/19/25 11:39 Resp 18 04/19/25 11:39 BP 169/99 H 04/19/25 11:39 Pulse Ox 98 04/19/25 11:39 General: Appears afebrile. Alert and oriented. Mood and affect appropriate. Follows and participates in conversation appropriately. Respiratory effort is unlabored. No cough. Able to transition from sit to stand unassisted. Ambulates with bilaterally normal heel strike and toe off. Const Nutritional Appearance: obese HEENT Head: Yes normocephalic and Yes atraumatic Ears: hearing grossly normal bilaterally Eyes General: appearance normal, both eyes and all related structures Eyelids: Yes eyelids normal Pupils: Equal, round and reactive pupils present EOM: EOMs intact bilaterally Neck Neck: Yes normal visual inspection and Yes no JVD Resp Effort & Inspection: normal respiratory effort, able to speak in complete sentences and no audible wheezes Cardio Jugular venous distension: no JVD Back/Spine/Pelvis Thoracic/Lumbar Spine: thoracic and lumbar spine normal to inspection, Lasegue's sign negative, straight leg raise negative bilaterally, pain with thoraco-lumbar ROM, thoraco-lumbar ROM limited, No thoracic spinal tenderness and No lumbar spinal tenderness Sacroiliac joints: bilaterally nontender Neuro Cranial nerves: Yes Equal, round and reactive pupils present Psych Appearance: grossly normal Mental Status: mental status grossly normal Speech and movement: Normal speech and movement present and Clear speech present Affect: normal affect Attitude: cooperative Thought process: Normal thought process present Thought content: Normal thought content present, suicidality (none), no homicidality and No Depressive thoughts present Insight: Good insight present (Psych) Judgement: Good judgement present (Psych) Assessment & Plan Assessment & Plan (1) Osteoarthritis of shoulders, bilateral: Code(s): M19.011 - Primary osteoarthritis, right shoulder; M19.012 - Primary osteoarthritis, left shoulder Category: Medical (2) Osteoarthritis of right knee: Code(s): M17.11 - Unilateral primary osteoarthritis, right knee Category: Medical (3) Chronic pain syndrome: Code(s): G89.4 - Chronic pain syndrome Category: Medical (4) Bursitis and tendinitis of shoulder region: Code(s): M75.50 - Bursitis of unspecified shoulder; M75.90 - Shoulder lesion, unspecified, unspecified shoulder Category: Medical Plan Her pill count is correct today she presented with excess of the medication. We agreed that her situation with transportation will improve in the spring and I will refer her for the physical therapy. Tramadol with 1 refills is prescribed on 04/22/2025 with 1 refill She will give us a call when she will run out of her refill and I will renew her medication. I will see her in 2 months. 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
[2025-04-19 11:38] VITALS: RESP 18
[2025-04-19 11:39] VITALS: BP 169/99; PULSE 106; RESP 18; O2SAT 98
--- OUTSIDE RECORDS SUMMARY | 2025-04-19 12:37 | XMS_ITS | Patient Health Record ---
Author Organization [facility] Ajay rachael KulkarniCarlos Manuel Address [address] [place] [address] Care Team Providers Care Manager Custom Name Role Phone Rose Dior MD Primary Care Provider Unavailab Adrian Turner Unavailable [phone] Reason For Referral No Information Medications Medication SIG (Take, Route, Fr equency, Duration) Notes Start Date End Date Status Baclofen Active Gabapentin Active La Active traZODone HCl Active oxyCODONE-Acetaminophen Active Levothyroxine Sodium Active Problems Problem Type SNOMED Code ICD Code Onset Dates Problem Status W/U Status Risk Notes Problem Xerosis (706.8) Active confirmed Plan Of Treatment No Information Insurance Providers Payer Name Payer Address Payer Phone Subscriber Number Group Number Insured Name Patient Relationship to Insured Coverage Start Date Coverage End Date [facility] [id number] [place] [address] [id number] Jude Guerrero Spouse - patient is the spouse of the insured Medical (General) History Medical History History ICD Code fibromyalgia chicken pox thyroid disorder Surgical History Surgery Date(Month/Year) laproscopy 2003
--- OUTSIDE RECORDS SUMMARY | 2025-04-19 12:37 | XMS_ITS | Clinical Summary ---
Author Organization [facility] Address [address] [place] [address] Phone Care Team Providers Care Special Education Secretary Name Role Phone Panchito Morales MD Primary Care Provider [phone] Medications No known medications Active Problems No known active problems Social History Tobacco Use Types Packs/Day Years Used Date Smoking Tobacco: Never Assessed Education Answer Date Recorded Are you interested in more education? Not on cira e 12/27/2022 Are you concerned about learning? Not on file 12/27/2022 No 12/27/2022 No 12/27/2022 Digital Access Answer Date Recorded No 01/27/2023 No 01/27/2023 Reliable internet access at home? Not on file 01/27/2023 Device with a working camera? Not on file Comments Unknown Sex and Gender Information Value Date Recorded Sex Assigned at Not on file Legal Sex Female 12:44 PM EDT Gender Identity Not on file Sexual Orientation Not on file Plan of Treatment Not on file Medical Devices Not on file Insurance [facility] Care Teams Special Education Secretary Relationship Specialty Start Date End Date Panchito Morales MD [address] [place] [address] [place] [address] PCP - General 12/03/24 Additional Source Comments The information contained in this document represents components of the legal health record. It is not the complete legal health record.[facility]
--- OUTSIDE RECORDS SUMMARY | 2025-04-19 12:38 | XMS_ITS | Patient Health Record ---
Author Organization [facility] Address [address] [place] [address] Care Team Providers Care Financial Adviser Name Role Phone Rose Dior MD Primary Care Provider Unavailab Benitez Pike Jr Unavailable Reason For Referral No Information Medications Medication SIG (Take, Route, Frequency, Duration) Notes Start Date End Date Status La Active traZODone HCl Active Hyoscyamine Sulfate 0.375 MG 1 tablet Orally every 12 hrs for 30 day(s) 06/15/2012 Active Omeprazole 20 MG 1 capsule Orally Onc e a day for 30 day(s) 06/15/2012 Active Metformin & Diet Manage Prod Active Vicodin Active Baclofen Active Gabapentin Active Social History Tobacco Use: Social History Observation Description Date Details (start date - stop date) Never Smoker NA - NA Tobacco Use/Smoking Question Answer Notes Patient is a nonsmoker Alcohol Screen Question Answer Notes Did you have a drink contain ing alcohol in the past year? Yes Points 1 Interpretation Negative How often did you have a dri nk containing alcohol in the past year? Monthly or less (1 point) How many drinks did you have on a typical day when you were drinking in the past year? 1 or 2 drinks (0 point) Section Notes: She does not use tobacco. Sh e drinks one alcoholic drink per 6 months. Problems Problem Type SNOMED Code ICD Code Onset Dates Problem Status W/U Status Risk Notes Problem Abdominal pain, right upper quadrant (789.01) Active confirmed Problem Epigastric pain (36754612) Abdominal pain, epigastric (789.06) Active confirmed Plan Of Treatment No Information Insurance Providers Payer Name Payer Address Payer Phone Subscriber Number Group Number Insured Name Patient Relationship to Insured Coverage Start Date Coverage End Date [facility] [address] [place], [place] [id number] ELMER CONTRERAS Self - patient is the insured Medical (General) History Medical History History ICD Code neck/shoulder pain muscle spasms diabetes mellitus, borderline Surgical History Surgery Date(Month/Year) laparoscopy neck surgery
== END 2025-04-19 11:55 | disposition home or self-care (01) ==
LOC: HO.PMC 11:14
PROVIDERS: PCP Internal Medicine; Visit Provider Anesthesiology
DX: M19.011 Primary osteoarthritis, right shoulder (principal); M19.012 Primary osteoarthritis, left shoulder; M17.11 Unilateral primary osteoarthritis, right knee; G89.4 Chronic pain syndrome; M75.50 Bursitis of unspecified shoulder; M75.90 Shoulder lesion, unspecified, unspecified shoulder
CPT/HCPCS: 99213

== ENCOUNTER → 2025-04-19 11:14 | Outpatient (BNVA) | payer OTHER, SELFPAY | PROVIDERS: PCP Internal Medicine; Visit Provider Anesthesiology | DX: M19.011 Primary osteoarthritis, right shoulder (principal); M19.012 Primary osteoarthritis, left shoulder; M17.11 Unilateral primary osteoarthritis, right knee; G89.4 Chronic pain syndrome; M79.7 Fibromyalgia | CPT/HCPCS: 99212 ==

== ENCOUNTER 2025-05-03 13:25 | Outpatient (AMB) | payer OTHER, SELFPAY ==
[2025-05-03 13:28] VITALS: BP 136/82; PULSE 93; O2SAT 99; BMI 36.4
--- NOTE | 2025-05-03 13:28 | MHC.PC.OV ---
Vital Signs 05/03/25 13:28 Height 5 ft 5 in Weight 219 lb BMI 36.4 BP 136/82 Blood Pressure Location Lt brachial Position Sitting Pulse 93 Pulse Source Pulse Oximeter Pulse Oximetry (%) 99 Oxygen Delivery Method Room Air Intake Visit Reasons: CHILO DR Morales Allergies Penicillins Allergy (Unknown, Verified 05/03/25 13:28) Hives Seasonal Allergies Allergy (Verified 05/03/25 13:28) itchy nose/sneezing Medication List - Last Reconciled 05/03/25 by Grover Garcia MD albuterol sulfate 90 mcg/actuation 2 puffs inhalation Q6H PRN 15 days aspirin 81 mg PO DAILY atorvastatin 10 mg PO DAILY clotrimazole-betamethasone 1-0.05 % 1 appl topical BID 2 weeks gabapentin 600 mg PO .QD loratadine (Claritin) 10 mg PO DAILY metformin 500 mg PO BIDWMEAL 90 days naloxone 4 mg/actuation (Narcan) 4 mg intranasal Q2M PRN tizanidine 4 mg PO DAILY tramadol 50 mg PO TID PRN 30 days zolpidem 10 mg PO BEDTIME Tobacco use date assessed: 11/11/24 Dental Screening Dental Screen Date: 11/11/[address] Morales HPI Details BP high here in the office but states BP at home is good PFSH Medical History (Updated 05/03/25 @ 14:12 by Grover Garcia MD) Cerebellar infarct Cerebellar infarct Diabetes mellitus with neuropathy Osteoarthritis of right knee Insomnia Diabetes Osteoarthritis of shoulders, bilateral Bronchitis Fibromyalgia Thyroid activity decreased Knee arthropathy Bursitis and tendinitis of shoulder region Surgical History History of shoulder surgery H/O knee surgery Family History (Updated 05/03/25 @ 13:58 by Grover Garcia MD) Father Stomach cancer Mother No problems noted. Sister No problems noted. Maternal Grandmother Breast cancer Paternal Aunt Breast cancer Social History (Updated 05/03/25 @ 14:02 by Grover Garcia MD) Household Members: Significant Other Housing: House Do you presently have visiting nurse or other home services: No Alcohol intake: never Patient Tobacco Use Status: Former Tobacco user Tobacco use type: Cigarette Years Smoked: quit 8 years old (1 pck a day for 2 years ) e-Cigarette/Vaping Use: Never Used Second Hand Smoke Exposure: Yes service: No Current occupational status: disabled Current occupational exposures/hazards: No Cognitive needs: Yes Hearing needs: No Vision needs: Yes Questionnaire PHQ-9 Over the last 2 weeks, how often have you been bothered by any of the following problems? 1. Little interest or pleasure in doing things: not at all 2. Feeling down, depressed, or hopeless: not at all 3. Trouble falling or staying asleep, or sleeping too much: not at all 4. Feeling tired or having little energy: not at all 5. Poor appetite or overeating: not at all 6. Feeling bad about yourself - or that you are a failure or have let yourself or your family down: not at all 7. Trouble concentrating on things, such as reading the newspaper or watching television: not at all 8. Moving or speaking so slowly that other people could have noticed. Or the opposite - being so fidgety or restless that you have been moving around a lot more than usual: not at all 9. Thoughts that you would be better off or of hurting yourself in some way: not at all Total score: 0 Depression Screening Interpretation: Negative Depression Screening Done: Yes Source: Developed by Drs. Spenser Lopez, Guerda Mayberry, Eliot Espitia and colleagues, with an educational sinan from [employer]. Thrive Questionnaire Date Thrive assessed: 05/03/25 I am a: Patient What is your living situation today?: I have a steady place to live Within the past 12 months, did the food you bought not last and you didn't have the money to get more?: Never true Within the past 12 months, did you worry whether your food would run out before you got money to buy more?: Never true Do you have trouble paying for medicines?: No Do you have trouble getting transportation to medical appointments?: No Do you have trouble paying your heating and electricity bill?: No Do you have trouble taking care of your child, family member or friend?: No Do you have trouble with day-to-day activities such as bathing, preparing meals, shopping, managing finances, etc.?: No Are you currently unemployed and looking for a job?: No Are you interested in more education?: No Please select the resources that you would like help with: None Currently or been in a relationship where the following occur: I choose not to answer THRIVE Score: 0 AUDIT C Alcohol Use Questionnaire (AUDIT-C) 1. How often do you have a drink containing alcohol?: Never 2. How many drinks containing alcohol do you have on a typical day when you are drinking?: 1 or 2 3. How often do you have six or more drinks on one occasion?: Never Total Score: 0 BRADLEY-7 AMB Questionnaire BRADLEY-7 Date BRADLEY - 7 assessed: 05/03/25 Feeling nervous, anxious, or on edge: 0 = Not at all Not being able to stop or control worryin = Not at all Worrying too much about different things: 0 = Not at all Trouble relaxin = Several days Being so restless that it is hard to sit still: 0 = Not at all Becoming easily annoyed or irritable: 0 = Not at all Feeling afraid as if something awful might happen: 0 = Not at all Total BRADLEY-7 score (0-4 normal; 5-9 mild; 10-14 moderate; 15-21 severe): 1 Source: Developed by Drs. Spenser Lopez, Guerda Mayberry, Eliot Espitia and colleagues, with an educational sinan from [employer]. Physical exam (Primary Care) Vital Signs: Last Vital Signs Pulse 93 05/03/25 13:28 BP 136/82 05/03/25 13:28 Pulse Ox 99 05/03/25 13:28 Oxygen Delivery Method Room Air 05/03/25 13:28 BMI result Body Mass Index 36.4 Tobacco/Smoking Status: Tobacco use Status Tobacco use date assessed 11/11/24 05/03/25 13:29 Patient Tobacco Use Status Former Tobacco user 05/03/25 14:02 Tobacco use type Cigarette 05/03/25 14:02 e-Cigarette/Vaping Use Never Used 05/03/25 14:02 PHQ-9: PHQ-9 Score PHQ-9: Total score 0 05/03/25 13:46 Depression Screening Interpretation: Negative Thrive Assessment: Date of Thrive Assessment Date Thrive assessed 05/03/25 05/03/25 13:29 Currently or been in a relationship where the following occur: I choose not to answer Const General: alert; No acute distress Eyes Conjunctivae: conjunctivae normal Resp Auscultation: clear to auscultation bilaterally Cardio Rate: regular rate Rhythm: regular rhythm GI Inspection: Yes normal to inspection Extrem General: Yes normal to inspection and No edema Results AMB Hemoglobin A1c AMB Hemoglobin A1c 8.1 % Last Edit by Kaylyn Carver CMA on 05/03/25 13:44 Results Reviewed Results Reviewed: Laboratory Last Values Hgb A1c (Clinic) 8.1 % (4.0-6.0) H 05/03/25 13:29 Coding Level of Care Code New Pt Level 5 (99711) Diagnoses Type 2 diabetes mellitus with hyperglycemia E11.65 Hyperlipidemia E78.5 History of CVA (cerebrovascular accident) Z86.73 Insomnia G47.00 Breast cancer screening by mammogram Z. Colon cancer screening Z. Assessment & Plan Assessment & Plan (1) Type 2 diabetes mellitus with hyperglycemia: [facility] Code(s): E11.65 - Type 2 diabetes mellitus with hyperglycemia Category: Medical Plan: Decrease the amount of carbohydrate intake, pasta, bread, rice and potatoes are all sugar and that is aside from all the sweet stuff, remember that fruits are good but they are Sweet also. Hemoglobin A1c goal of less than 6.5. (2) Hyperlipidemia: Code(s): E78.5 - Hyperlipidemia, unspecified Category: Medical Plan: Avoid fried foods, chicken skin, eggs, butter margarine, pastries and meat. Be it pork or beef they have a lot of cholesterol LDL goal of less than 100 and triglyceride of less than 150 on atorvastatin 10 mg once a day (3) History of CVA (cerebrovascular accident): Comment: balance 11/2021 cerebellar infarct Code(s): Z86.73 - Personal history of transient ischemic attack (TIA), and cerebral infarction without residual deficits Category: Medical Plan: Control the cholesterol, weight, blood pressure, diabetes on aspirin 81 mg once a day (4) Insomnia: Code(s): G47.00 - Insomnia, unspecified Category: Medical (5) Breast cancer screening by mammogram: Code(s): Z12. - Encounter for screening mammogram for malignant neoplasm of breast Category: Medical (6) Colon cancer screening: Code(s): Z12. - Encounter for screening for malignant neoplasm of colon Category: Medical Plan History of Present Illness The patient is a 44-year-old female presenting for management of multiple chronic conditions and preventative care. The patient has a history of cerebrovascular accident with cerebellar infarct, which occurred in November 2021, affecting her balance and coordination. She experiences difficulty with coordination on the left side, which was noted during the physical examination. The patient has hypercholesterolemia, with a previous LDL cholesterol level of 92 mg/dL in 2021. She is currently on atorvastatin 10 mg once a day for cholesterol management. 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 She is on tramadol for pain management and has a history of knee osteoarthritis, bursitis, and tendinitis of the shoulder. The patient had shingles in October, which has since resolved. The patient has a history of elevated blood sugar, with a previous reading of 175 mg/dL, but no hemoglobin A1c was recorded. She is on metformin 500 mg once a day, which will be increased to twice a day to better manage her diabetes mellitus. The patient reports insomnia and is currently on Zolpidem for sleep management. The patient is obese, with a weight of 212 pounds as of August. She acknowledges the need for weight management through diet and exercise. The patient has hypertension, with blood pressure readings noted to be elevated during the visit. She is advised to monitor her blood pressure at home and bring the readings to the next visit. The patient has a family history of diabetes and breast cancer, with her grandmother and aunt having had breast cancer. She has not had a recent mammogram and is advised to undergo screening. Health Maintenance - Mammogram recommended due to family history of breast cancer - Colon cancer screening discussed with stool test option - Blood work requested for fasting glucose and cholesterol levels - Pneumonia vaccination confirmed, next due at age 63 - Flu vaccination advised in May - Tetanus vaccination discussed, patient opted to wait Social History - Former smoker, quit over 30 years ago, smoked a pack a day for a few years - No alcohol consumption - Engages in limited physical activity, plans to increase exercise - Family history of diabetes and breast cancer Review of Systems - Neurological: Reports dizziness and coordination issues post-stroke. Denies seizures or headaches. - Cardiovascular: Reports elevated blood pressure readings. Denies chest pain or palpitations. - Respiratory: Denies asthma or lung problems. - Musculoskeletal: Reports chronic pain in neck, shoulder, and knee. Denies swelling. - Endocrine: Reports elevated blood sugar. Denies thyroid problems. - Dermatological: Reports history of shingles. - Sleep: Reports insomnia. Physical Exam General: Cooperative, healthy appearing, comfortable, no acute distress and well developed Orientation: Patient oriented x3 Limitations: No limitations Head: Normal to inspection Ears: Hearing grossly normal bilaterally Nose: Normal external nose present, but patient reports frequent nosebleeds Face and sinus: Normal facial exam Eyes: Appearance normal, both eyes and all related structures Neck: Normal visual inspection and Yes full ROM Respiratory: Normal respiratory effort and able to speak in complete sentences. Clear to auscultation bilaterally Cardiovascular: Regular rate and rhythm. Normal S1 and S2 GI: Normal to inspection. Soft to palpation and nontender Skin: No rashes or lesions noted Neuro: Patient oriented x3, but reports dizziness and balance issues due to previous cerebellar stroke Extremities: Normal to inspection, but patient reports pain in the neck, right shoulder, and right knee due to arthritis and fibromyalgia. Results - Labs: Previous LDL cholesterol level of 92 mg/dL in 2021 - Labs: Blood sugar level of 175 mg/dL, no hemoglobin A1c recorded Plan Patient was informed and verbally consented to the use of an ambient scribe for clinic note documentation during this visit. 1. Cerebrovascular Accident With Cerebellar Infarct The patient experienced a cerebrovascular accident with cerebellar infarct in November 2021, affecting balance and coordination. She is advised to continue monitoring her symptoms and engage in physical therapy to improve coordination. 2. Hypercholesterolemia The patient is on atorvastatin 10 mg once a day to manage hypercholesterolemia, with a previous LDL level of 92 mg/dL. The goal is to maintain LDL cholesterol below 100 mg/dL. 3. Chronic Pain Syndrome The patient is managed by a pain specialist and is on tramadol for chronic pain syndrome, including knee osteoarthritis and shoulder bursitis. Continued pain management and evaluation of medication efficacy are recommended. 4. Diabetes Mellitus The patient has diabetes mellitus with a history of elevated blood sugar levels. Metformin dosage is increased to twice a day to improve glycemic control, with a target hemoglobin A1c of less than 6.5%. 5. Hypertension The patient has hypertension with elevated blood pressure readings noted during the visit. She is advised to monitor blood pressure at home and bring readings to the next visit for further evaluation. 6. Obesity The patient is obese, weighing 212 pounds as of August, and acknowledges the need for weight management. Dietary modifications and increased physical activity are recommended to achieve weight loss. 7. Preventative Care Preventative care measures include mammogram screening due to family history of breast cancer and colon cancer screening with a stool test option. Vaccinations include pneumonia and flu shots, with the next pneumonia shot due at age 63. Discussion Notes During the visit, I discussed with the patient the management of her chronic conditions, including diabetes, hypertension, and hypercholesterolemia. We reviewed the importance of lifestyle modifications, such as diet and exercise, to manage obesity and improve overall health. I emphasized the need for regular monitoring of blood pressure and blood sugar levels, and the importance of adherence to prescribed medications. Preventative care measures, including mammogram and colon cancer screening, were also discussed, given her family history of breast cancer. Patient Instructions - Monitor blood pressure at home and bring readings to the next visit. - Increase metformin to twice a day with meals. - Engage in regular physical activity and follow a healthy diet to manage weight. - Schedule a mammogram and consider colon cancer screening with a stool test. - Get a flu shot in May. Orders: Orders AMB Hemoglobin A1c Today Grover Garcia MD Z13.9 - Encounter for screening, unspecified Thyroid Stimulating Hormone Today Grover Garcia MD E11.65 - Type 2 diabetes mellitus with hyperglycemia Lipid Panel Today Grover Garcia MD E11.65 - Type 2 diabetes mellitus with hyperglycemia, E78.00 - Pure hypercholesterolemia, unspecified Vitamin B12 and Folate Today Grover Garcia MD E11.65 - Type 2 diabetes mellitus with hyperglycemia Vitamin D 25-OH Total Today Grover Garcia MD E11.65 - Type 2 diabetes mellitus with hyperglycemia MM tomosynthesis screening BI Today Grover Garcia MD Z12.31 - Encounter for screening mammogram for malignant neoplasm of breast Complete Blood Count Auto Diff Today Grover Garcia MD E11.65 - Type 2 diabetes mellitus with hyperglycemia Comprehensive Met. Panel Today Grover Garcia MD E11.65 - Type 2 diabetes mellitus with hyperglycemia Creatinine Urine Today Grover Garcia MD E11.65 - Type 2 diabetes mellitus with hyperglycemia Microalbumin, Random (w Creat) Today Grover Garcia MD E11.65 - Type 2 diabetes mellitus with hyperglycemia Free T4 (Free Thyroxine) Today Grover Garcia MD E11.65 - Type 2 diabetes mellitus with hyperglycemia Referrals Cologuard Test Grover Garcia MD Z12.11 - Encounter for screening for malignant neoplasm of colon Medications: New lancets (FreeStyle Lancets) As directed check BS QD 100 ea 3RF Grover Garcia MD E11.65 - Type 2 diabetes mellitus with hyperglycemia blood sugar diagnostic (FreeStyle Lite Strips) As directed check the BS QD 100 ea 3RF Grover Garcia MD E11.65 - Type 2 diabetes mellitus with hyperglycemia blood-glucose meter (FreeStyle Lite Meter kit) As directed 1 ea 0RF Grover Garcia MD E11.65 - Type 2 diabetes mellitus with hyperglycemia Changed From gabapentin 600 mg PO TID 90 tabs 4RF E11.65 - Type 2 diabetes mellitus with hyperglycemia To gabapentin 600 mg PO .QD E11.65 - Type 2 diabetes mellitus with hyperglycemia America Almanza MD From metformin 500 mg PO DAILY 90 days 90 tabs 7RF E11.65 - Type 2 diabetes mellitus with hyperglycemia To metformin 500 mg PO BIDWMEAL 180 tabs 7RF 90 days E11.65 - Type 2 diabetes mellitus with hyperglycemia Grover Garcia MD
--- OUTSIDE RECORDS SUMMARY | 2025-05-03 15:39 | XMS_ITS | Clinical Summary ---
Author Organization [facility] Address [address] [place] [address] Phone Care Team Providers Care Senior Mortgage Loan Processor Name Role Phone Panchito Morales MD Primary Care Provider [phone] Medications No known medications Active Problems No [...] file Medical Devices Not on file Insurance [facility] Care Teams Senior Mortgage Loan Processor Relationship Specialty Start Date End Date Panchito Morales MD [address] [place] [address] [place] [address] PCP - General 12/03/24 Additional Source Comments The information contained in this document represents components of the legal health record. It is not the complete legal health record.[facility]
--- OUTSIDE RECORDS SUMMARY | 2025-05-03 15:39 | XMS_ITS | Patient Health Record ---
Author Organization [facility] Ajay rachael KulkarniEnid Address [address] [place] [address] Care Team Providers Care Field Operations Farm Manager Name Role Phone Rose Dior MD Primary Care Provider Unavailab Adrian Turner Unavailable [phone] Reason For Referral No Information Medications Medication SIG (Take, Route, Fr equency, Duration) Notes Start Date End Date Status Baclofen Active Gabapentin Active La Active traZODone HCl Active oxyCODONE-Acetaminophen Active Levothyroxine Sodium Active Problems Problem Type SNOMED Code ICD Code Onset Dates Problem Status W/U Status Risk Notes Problem Disorder of sebaceous gland (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
--- OUTSIDE RECORDS SUMMARY | 2025-05-03 15:39 | XMS_ITS | Patient Health Record ---
Author Organization [facility] Address [address] [place] [address] Care Team Providers Care Central Office Equipment Installer Name Role Phone Rose Dior MD Primary [...] Problem Status W/U Status Risk Notes Problem Right upper quadrant pain (590481942) Abdominal pain, right upper quadrant (789.01) Active confirmed Problem Epigastric pain (81368810) Abdominal pain, epigastric (789.06) Active confirmed Plan Of Treatment No Information Insurance Providers Payer Name Payer Address Payer Phone Subscriber Number Group Number Insured Name Patient Relationship to Insured Coverage Start Date Coverage End Date [facility] [address] [place], [place] [id number] [phone] [id number] ELMER CONTRERAS Self - patient is the insured Medical (General) History Medical History History ICD Code neck/shoulder pain muscle spasms diabetes mellitus, borderline Surgical History Surgery Date(Month/Year) laparoscopy neck surgery
== END 2025-05-03 14:19 | disposition home or self-care (01) ==
LOC: HO.HMCH 13:26
PROVIDERS: PCP Internal Medicine; Visit Provider Internal Medicine
DX: E11.69 Type 2 diabetes mellitus with other specified complication (principal); E78.5 Hyperlipidemia, unspecified; Z86.73 Personal history of transient ischemic attack (TIA), and cerebral infarction without residual deficits; G47.00 Insomnia, unspecified; Z12.31 Encounter for screening mammogram for malignant neoplasm of breast; Z12.11 Encounter for screening for malignant neoplasm of colon

== ENCOUNTER → 2025-05-03 13:25 | Outpatient (BNVA) | payer OTHER, SELFPAY | PROVIDERS: PCP Internal Medicine; Visit Provider Internal Medicine | DX: E11.65 Type 2 diabetes mellitus with hyperglycemia (principal); E78.5 Hyperlipidemia, unspecified; G47.00 Insomnia, unspecified; E78.00 Pure hypercholesterolemia, unspecified; G89.4 Chronic pain syndrome; E66.9 Obesity, unspecified; I10 Essential (primary) hypertension; Z86.73 Personal history of transient ischemic attack (TIA), and cerebral infarction without residual deficits; Z68.34 Body mass index [BMI] 34.0-34.9, adult | CPT/HCPCS: 83036; 99202 ==

== ENCOUNTER 2025-06-14 11:16 | Outpatient (AMB) | payer OTHER, SELFPAY ==
--- NOTE | 2025-06-14 11:20 | A.OFFVIS_ITS ---
Vital Signs 06/14/25 11:21 Height 5 ft 5 in Weight 219 lb BMI 36.4 BP 167/101 H Blood Pressure Location Rt brachial Position Sitting Respiration 16 Pulse 99 Pulse Source Pulse Oximeter Pulse Oximetry (%) 98 Oxygen Delivery Method Room Air Intake Visit Reasons: Pill Count Intake Note: Patient here for a pill count routine of Tramadol. Per directions patient should have 48 pills. Patient presented 45 pills. Last took 9am. Allergies Penicillins Allergy (Unknown, Verified 05/03/25 13:28) Hives Seasonal Allergies Allergy (Verified 05/03/25 13:28) itchy nose/sneezing HPI Comments Details: Lisa is back in my office for the follow-up and pain medication refill. She reports today level of her pain 02/07. She reports tramadol has no side effects. We agreed last time that I will schedule her for physical therapy in the spring. She presented today for follow-up and pill count. She supposed to have 48 pills in her possession. She came with 45 pills in her possession. I explained to the patient that she has 3 pills short. She is within the limits and I will prescribe her medications again however she has strictly warned that she needs to bring all her medications with her on her pill count and we should observe excess of the medications. She had some medial branch blocks performed back in [place]. I think I can offer her diagnostic medial branch block L3, L4, dorsal ramus L5 bilateral good results I can offer her sprint PNS to help her lower back pain. The same approach could be done for her neck pain. She receives gabapentin 600 mg from PCP. In the past I attempted to perform injections Infrapatellar saphenous nerve block resulted in 40% pain relieve. Suprepatelarr saphenous nerve resulted in 45% pain relieve only. She is also suffering from the shoulder osteoarthritis. She had suprascapular nerve block. Before that she received interarticular steroid injection.? Unfortunately neither block was working for her. Prior: c/o? pain in the neck with radiation into the left shoulder.? She reports that she is suffering from this pain as well as pain in the back in the knee as well as fibromyalgia for long period of time.? ? She reports that cold and weather changes aggravate her pain as well as movements. She was suspended once for noncompliance. Her prior risk was mild for opioid addiction however now the risk will be elevated to moderate and if she is suspended it will be 1 year suspension. [facility] Medical History (Updated 05/03/25 @ 14:12 by Grover Garcia MD) Cerebellar infarct Cerebellar infarct Diabetes mellitus with neuropathy Osteoarthritis of right knee Insomnia Diabetes Osteoarthritis of shoulders, bilateral Bronchitis Fibromyalgia Thyroid activity decreased Knee arthropathy Bursitis and tendinitis of shoulder region Surgical History History of shoulder surgery H/O knee surgery Family History (Updated 05/03/25 @ 13:58 by Grover Garcia MD) Father Stomach cancer Mother No problems noted. Sister No problems noted. Maternal Grandmother Breast cancer Paternal Aunt Breast cancer Social History (Updated 05/03/25 @ 14:02 by Grover Garcia MD) Household Members: Significant Other Housing: House Do you presently have visiting nurse or other home services: No Alcohol intake: never Patient Tobacco Use Status: Former Tobacco user Tobacco use type: Cigarette Years Smoked: quit 8 years old (1 pck a day for 2 years ) e-Cigarette/Vaping Use: Never Used Second Hand Smoke Exposure: Yes service: No Current occupational status: disabled Current occupational exposures/hazards: No Cognitive needs: Yes Hearing needs: No Vision needs: Yes Review of Systems Const All systems reviewed & are unremarkable except as noted in HPI and below Physical Exam Vital Signs: Last Vital Signs Pulse 99 06/14/25 11:21 Resp 16 06/14/25 11:21 BP 167/101 H 06/14/25 11:21 Pulse Ox 98 06/14/25 11:21 Oxygen Delivery Method Room Air 06/14/25 11:21 BMI result Body Mass Index 36.4 General: Appears afebrile. Alert and oriented. Mood and affect appropriate. Follows and participates in conversation appropriately. Respiratory effort is unlabored. No cough. Able to transition from sit to stand unassisted. Ambulates with bilaterally normal heel strike and toe off. Const Nutritional Appearance: obese HEENT Head: Yes normocephalic and Yes atraumatic Ears: hearing grossly normal bilaterally Eyes General: appearance normal, both eyes and all related structures Eyelids: Yes eyelids normal Pupils: Equal, round and reactive pupils present EOM: EOMs intact bilaterally Neck Neck: Yes normal visual inspection and Yes no JVD Resp Effort & Inspection: normal respiratory effort, able to speak in complete sentences and no audible wheezes Cardio Jugular venous distension: no JVD Back/Spine/Pelvis Thoracic/Lumbar Spine: thoracic and lumbar spine normal to inspection, Lasegue's sign negative, straight leg raise negative bilaterally, pain with thoraco-lumbar ROM, thoraco-lumbar ROM limited, No thoracic spinal tenderness and No lumbar spinal tenderness Sacroiliac joints: bilaterally nontender Neuro Cranial nerves: Yes Equal, round and reactive pupils present Psych Appearance: grossly normal Mental Status: mental status grossly normal Speech and movement: Normal speech and movement present and Clear speech present Affect: normal affect Attitude: cooperative Thought process: Normal thought process present Thought content: Normal thought content present, suicidality (none), no homicidality and No Depressive thoughts present Insight: Good insight present (Psych) Judgement: Good judgement present (Psych) Assessment & Plan Assessment & Plan (1) Osteoarthritis of shoulders, bilateral: Code(s): M19.011 - Primary osteoarthritis, right shoulder; M19.012 - Primary osteoarthritis, left shoulder Category: Medical (2) Osteoarthritis of right knee: Code(s): M17.11 - Unilateral primary osteoarthritis, right knee Category: Medical (3) Chronic pain syndrome: Comment: neck , R shoulder and R knee Code(s): G89.4 - Chronic pain syndrome Category: Medical (4) Bursitis and tendinitis of shoulder region: Code(s): M75.50 - Bursitis of unspecified shoulder; M75.90 - Shoulder lesion, unspecified, unspecified shoulder Category: Medical Plan Her pill count is correct today however she is 3 pills short. Discussion was held about being careful about dose adherence. We agreed that her situation with transportation will improve in the spring and I will refer her for the physical therapy. Tramadol with 1 refills is prescribed on 06/28/2025 with 1 refill I will see her in 2 months. Medications: Refilled tramadol 50 mg PO TID PRN 90 tabs 1RF pain 30 days G89.4 - Chronic pain syndrome, Z79.891 - retirement (current) use of opiate analgesic Coding Level of Care Code Est Pt Level 3 (00366) Diagnoses Osteoarthritis of shoulders, bilateral M19.011; M19.012 Osteoarthritis of right knee M17.11 Chronic pain syndrome G89.4 Bursitis and tendinitis of shoulder region M75.50; M75.90
[2025-06-14 11:21] VITALS: BP 167/101; PULSE 99; RESP 16; O2SAT 98; BMI 36.4
--- OUTSIDE RECORDS SUMMARY | 2025-06-14 13:57 | XMS_ITS | Patient Health Record ---
Author Organization [facility] Ajay rachael KulkarniDonalds Address [address] [place] [address] Care Team Providers Care Field Assistant Name Role Phone Rose Dior MD Primary Care Provider Unavailab Adrian Turner Unavailable [phone] Reason For Referral No Information Medications Medication SIG (Take, Route, Fr equency, Duration) Notes Start Date End Date Status Baclofen Active Gabapentin Active La Active traZODone HCl Active oxyCODONE-Acetaminophen Active Levothyroxine Sodium Active Problems Problem Type SNOMED Code ICD Code Onset Dates Problem Status W/U Status Risk Notes Problem Disorder of sebaceous gland (3151222) Xerosis (706.8) Active confirmed Plan Of Treatment No Information Insurance Providers Payer Name Payer Address Payer Phone Subscriber Number Group Number Insured Name Patient Relationship to Insured Coverage Start Date Coverage End Date [facility] [id number] [place] [address] [id number] Jude Guerrero Spouse - patient is the spouse of the insured Medical (General) History Medical History History ICD Code fibromyalgia chicken pox thyroid disorder Surgical History Surgery Date(Month/Year) laproscopy 2003
--- OUTSIDE RECORDS SUMMARY | 2025-06-14 13:57 | XMS_ITS | Clinical Summary ---
Author Organization [facility] Address [address] [place] [address] Phone Care Team Providers Care Linux Engineer Name Role Phone Panchito Morales MD Primary Care Provider [phone] Medications No known medications Active Problems No [...] file Medical Devices Not on file Insurance [facility] ACO [facility] A[facility] * Guarantor: Pres[employer] catndy Account Type Relation to Patient Date of Phone Billing Address Personal/Family Self 1980 [address] [facility] [place] Care Teams Linux Engineer Relationship Specialty Start Date End Date Panchito Morales MD [address] [place] [address] [place] [address] PCP - General 12/03/24 Additional Source Comments The information contained in this document represents components of the legal health record. It is not the complete legal health record.[facility]
--- OUTSIDE RECORDS SUMMARY | 2025-06-14 13:57 | XMS_ITS | Patient Health Record ---
Author Organization [facility] Address [address] [place] [address] Care Team Providers Care Urban Planner Name Role Phone Rose Dior MD Primary Care Provider Unavailab Benitez Pike Jr Unavailable Reason For Referral No Information Medications Medication SIG (Take, Route, Frequency, Duration) Notes Start Date End Date Status La Active traZODone HCl Active Hyoscyamine Sulfate 0.375 MG 1 tablet Orally every 12 hrs; Duration: 30 day(s) 06/15/2012 Active Omeprazole 20 MG 1 capsule Orally Onc e a day; Duration: 30 day(s) 06/15/2012 Active Metformin & Diet [...] Risk Notes Problem Right upper quadrant pain (837143754) Abdominal pain, right upper quadrant (789.01) Active confirmed Problem Epigastric pain (48536503) Abdominal pain, epigastric (789.06) Active confirmed Plan Of Treatment No Information Insurance Providers Payer Name Payer Address Payer Phone Subscriber Number Group Number Insured Name Patient Relationship to Insured Coverage Start Date Coverage End Date [facility] [address] [place], [place] [id number] ELMER CONTRERAS Self - patient is the insured Medical (General) History Medical History History ICD Code neck/shoulder pain muscle spasms diabetes mellitus, borderline Surgical History Surgery Date(Month/Year) laparoscopy neck surgery
== END 2025-06-14 11:41 | disposition home or self-care (01) ==
LOC: HO.PMC 11:16
PROVIDERS: PCP Internal Medicine; Visit Provider Anesthesiology
DX: M19.011 Primary osteoarthritis, right shoulder (principal); M19.012 Primary osteoarthritis, left shoulder; M17.11 Unilateral primary osteoarthritis, right knee; G89.4 Chronic pain syndrome; M75.50 Bursitis of unspecified shoulder; M75.90 Shoulder lesion, unspecified, unspecified shoulder
CPT/HCPCS: 99213

== ENCOUNTER → 2025-06-14 11:16 | Outpatient (BNVA) | payer OTHER, SELFPAY | PROVIDERS: PCP Internal Medicine; Visit Provider Anesthesiology | DX: M19.011 Primary osteoarthritis, right shoulder (principal); M19.012 Primary osteoarthritis, left shoulder; M79.7 Fibromyalgia; M17.11 Unilateral primary osteoarthritis, right knee; G89.4 Chronic pain syndrome; M75.50 Bursitis of unspecified shoulder; M75.90 Shoulder lesion, unspecified, unspecified shoulder | CPT/HCPCS: 99212 ==

== ENCOUNTER 2025-08-16 11:16 | Outpatient (AMB) | payer OTHER, SELFPAY ==
--- NOTE | 2025-08-16 11:19 | MHC.OFFVIS ---
Vital Signs 08/16/25 11:27 Height 5 ft 5 in Weight 214 lb BMI 35.6 BP 176/110 H Blood Pressure Location Rt brachial Position Sitting Respiration 16 Pulse 99 Pulse Source Pulse Oximeter Pulse Oximetry (%) 100 Oxygen Delivery Method Room Air Intake Visit Reasons: PILL COUNT Intake Note: Patient here for a pill count of Tramadol per directions patient should have 33 pills, patient presented 40 pills. Last took 8am. Multimedia Technician Required: No Accompanied by: Self / Same As Patient Allergies Penicillins Allergy (Unknown, Verified 08/16/25 11:29) Hives Seasonal Allergies Allergy (Verified 08/16/25 11:29) itchy nose/sneezing HPI Comments Details: Lisa is back in my office for the follow-up and pain medication refill. She reports today level of her pain 7. to 8/10. She reports that this higher than her usual 5-6 level of pain. She reports flexing forward aggravate her pain and flexing backwards does not affects her pain. She also reports pain with prolonged sitting. Briefly examination was done and see exam as below. I was left under impression that her sacroiliac joint bilateral got exacerbated. I will schedule her for bilateral diagnostic sacroiliac joint injection. She presents today for pill count. She supposed to have 33 pills in her possession. She presented 40 pills in her possession. This demonstrates responsible attitude to were the opioid medications. She receives 50 mg p.o. t.i.d. of tramadol. We prescribe it once in 2 weeks.She reports tramadol has no side effects. She receives gabapentin 600 mg from PCP. In the past I attempted to perform injections Infrapatellar saphenous nerve block resulted in 40% pain relieve. Suprepatelarr saphenous nerve resulted in 45% pain relieve only. She is also suffering from the shoulder osteoarthritis. She had suprascapular nerve block. Before that she received interarticular steroid injection.? Unfortunately neither block was working for her. Prior: c/o? pain in the neck with radiation into the left shoulder.? She reports that she is suffering from this pain as well as pain in the back in the knee as well as fibromyalgia for long period of time.? ? She reports that cold and weather changes aggravate her pain as well as movements. She was suspended once for noncompliance. Her prior risk was mild for opioid addiction however now the risk will be elevated to moderate and if she is suspended it will be 1 year suspension. [facility] Medical History (Updated 08/16/25 @ 11:42 by Bill Sierra MD) Cerebellar infarct Cerebellar infarct Diabetes mellitus with neuropathy Osteoarthritis of right knee Insomnia Diabetes Osteoarthritis of shoulders, bilateral Bronchitis Fibromyalgia Thyroid activity decreased Knee arthropathy Bursitis and tendinitis of shoulder region Surgical History History of shoulder surgery H/O knee surgery Family History (Updated 05/03/25 @ 13:58 by Grover Garcia MD) Father Stomach cancer Mother No problems noted. Sister No problems noted. Maternal Grandmother Breast cancer Paternal Aunt Breast cancer Social History (Updated 05/03/25 @ 14:02 by Grover Garcia MD) Household Members: Significant Other Housing: House Do you presently have visiting nurse or other home services: No Alcohol intake: never Patient Tobacco Use Status: Former Tobacco user Tobacco use type: Cigarette Years Smoked: quit 8 years old (1 pck a day for 2 years ) e-Cigarette/Vaping Use: Never Used Second Hand Smoke Exposure: Yes service: No Current occupational status: disabled Current occupational exposures/hazards: No Cognitive needs: Yes Hearing needs: No Vision needs: Yes Review of Systems Const All systems reviewed & are unremarkable except as noted in HPI and below Physical Exam Vital Signs: Last Vital Signs Pulse 99 08/16/25 11:27 Resp 16 08/16/25 11:27 BP 176/110 H 08/16/25 11:27 Pulse Ox 100 08/16/25 11:27 Oxygen Delivery Method Room Air 08/16/25 11:27 BMI result Body Mass Index 35.6 General: Appears afebrile. Alert and oriented. Mood and affect appropriate. Follows and participates in conversation appropriately. Respiratory effort is unlabored. No cough. Able to transition from sit to stand unassisted. Ambulates with bilaterally normal heel strike and toe off. Const Nutritional Appearance: obese HEENT Head: Yes normocephalic and Yes atraumatic Ears: hearing grossly normal bilaterally Eyes General: appearance normal, both eyes and all related structures Eyelids: Yes eyelids normal Pupils: Equal, round and reactive pupils present EOM: EOMs intact bilaterally Neck Neck: Yes normal visual inspection and Yes no JVD Resp Effort & Inspection: normal respiratory effort, able to speak in complete sentences and no audible wheezes Cardio Jugular venous distension: no JVD Back/Spine/Pelvis Other: Santos test is positive bilaterally, pelvic compression test is positive bilaterally, pelvic distraction test is positive bilaterally, Gaenslen test is positive bilaterally. SLR is negative bilaterally. Thoracic/Lumbar Spine: thoracic and lumbar spine normal to inspection, Lasegue's sign negative, straight leg raise negative bilaterally, pain with thoraco-lumbar ROM, thoraco-lumbar ROM limited, No thoracic spinal tenderness and No lumbar spinal tenderness Sacroiliac joints: bilaterally ( Tenderness on palpation) tender to palpation Neuro Cranial nerves: Yes Equal, round and reactive pupils present Psych Appearance: grossly normal Mental Status: mental status grossly normal Speech and movement: Normal speech and movement present and Clear speech present Affect: normal affect Attitude: cooperative Thought process: Normal thought process present Thought content: Normal thought content present, suicidality (none), no homicidality and No Depressive thoughts present Insight: Good insight present (Psych) Judgement: Good judgement present (Psych) Assessment & Plan Assessment & Plan (1) Osteoarthritis of shoulders, bilateral: Code(s): M19.011 - Primary osteoarthritis, right shoulder; M19.012 - Primary osteoarthritis, left shoulder Category: Medical (2) Osteoarthritis of right knee: Code(s): M17.11 - Unilateral primary osteoarthritis, right knee Category: Medical (3) Chronic pain syndrome: Comment: neck , R shoulder and R knee Code(s): G89.4 - Chronic pain syndrome Category: Medical (4) Bursitis and tendinitis of shoulder region: Code(s): M75.50 - Bursitis of unspecified shoulder; M75.90 - Shoulder lesion, unspecified, unspecified shoulder Category: Medical (5) Sacroiliitis: Code(s): M46.1 - Sacroiliitis, not elsewhere classified Category: Medical (6) Somatic dysfunction of both sacroiliac joints: Code(s): M99.04 - Segmental and somatic dysfunction of sacral region Category: Medical Plan Her pill count is correct today she presented today with excess of 7 pills. This demonstrates responsible attitude to were the opioid medications. She reports severe pain in the projection of the bilateral sacroiliac joints. See medical exam as above. I will schedule her for bilateral diagnostic sacroiliac joint injection. I will refill her medications tramadol 50 mg p.o. t.i.d. p.r.n. pain due on 07/28/2025. 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
[2025-08-16 11:27] VITALS: BP 176/110; PULSE 99; RESP 16; O2SAT 100; BMI 35.6
--- OUTSIDE RECORDS SUMMARY | 2025-08-16 14:57 | XMS_ITS | Clinical Summary ---
Author Organization [facility] Address [address] [place] [address] Phone Care Team Providers Care Clinic Director Name Role Phone Panchito Morales MD Primary Care Provider [phone] Medications No known medications Active Problems No [...] file Medical Devices Not on file Insurance [facility] ACO [facility] ACO [facility] Care Teams Clinic Director Relationship Specialty Start Date End Date Panchito Morales MD [address] [place] [address] [place] [address] PCP - General 12/03/24 Additional Source Comments The information contained in this document represents components of the legal health record. It is not the complete legal health record.[facility]
--- OUTSIDE RECORDS SUMMARY | 2025-08-16 14:57 | XMS_ITS | Patient Health Record ---
Author Organization [facility] Address [address] [place] [address] Care Team Providers Care Pharmacy Innovation Assistant Name Role Phone Rose Dior MD Primary Care Provider Unavailab Benitez Pike Jr Unavailable [phone] Reason For Referral No Information Medications Medication SIG (Take, Route, Frequency, Duration) Notes Start Date End Date Status La Active traZODone HCl Active Hyoscyamine Sulfate 0.375 MG Tablet Extended Release 12 Hour 1 tablet Orally every 12 hrs; Duration: 30 day(s) 06/15/2012 Active Omeprazole 20 MG Capsule Delayed Release 1 capsule Orally Once a day; Duration: 30 day(s) 06/15/2012 Active Metformin & Diet Manage Prod Active Vicodin Active Baclofen Active Gabapentin Active Social History Tobacco Use: Social History Observation Description Date Details (start date - stop date) Never Smoker NA - NA Social History Drugs/Alcohol: Social Info Question Answer Notes Alcohol Screen Did you have a drink containing alcohol in the past year? Yes Points 1 Interpretation Negative How many drinks did you have on a typical day when you were drinking in the past year? 1 or 2 drinks (0 point) How often did you have a drink containing alcohol in the past year? Monthly or less (1 point) Tobacco Use: Social Info Question Answer Notes Tobacco Use/Smoking Patient is a nonsmoker Section Notes: She does not use tobacco. Sh e drinks one alcoholic drink per 6 months. Problems Problem Type SNOMED Code ICD Code Onset Dates Problem Status W/U Status Risk Notes Problem Right upper quadrant pain (952356721) Abdominal pain, right upper quadrant (789.01) Active confirmed Problem Epigastric pain (26317128) Abdominal pain, epigastric (789.06) Active confirmed Plan Of Treatment No Information Insurance Providers Payer Name Payer Address Payer Phone Subscriber Number Group Number Insured Name Patient Relationship to Insured Coverage Start Date Coverage End Date [facility] [address] [place], [place] [id number] [phone] [id number] ELMER CONTRERAS Self - patient is the insured Medical (General) History Medical History History ICD Code neck/shoulder pain muscle spasms diabetes mellitus, borderline Surgical History Surgery Date(Month/Year) laparoscopy neck surgery
--- OUTSIDE RECORDS SUMMARY | 2025-08-16 14:57 | XMS_ITS | Patient Health Record ---
Author Organization [facility] Ajay rachael Horowitz Address [address] [place] [address] Care Team Providers Care Ticket Sorter Name Role Phone Rose Dior MD Primary Care Provider Unavailab Adrian Turner Unavailable [phone] Reason For Referral No Information Medications Medication SIG (Take, Route, Fr equency, Duration) Notes Start Date End Date Status Baclofen Active Gabapentin Active La Active traZODone HCl Active oxyCODONE-Acetaminophen Active Levothyroxine Sodium Active Problems Problem Type SNOMED Code ICD Code Onset Dates Problem Status W/U Status Risk Notes Problem Disorder of sebaceous gland (6183693) Xerosis (706.8) Active confirmed Plan Of Treatment No Information Insurance Providers Payer Name Payer Address Payer Phone Subscriber Number Group Number Insured Name Patient Relationship to Insured Coverage Start Date Coverage End Date [facility] [id number] [place] [address] [id number] Jude Guerrero Spouse - patient is the spouse of the insured Medical (General) History Medical History History ICD Code fibromyalgia chicken pox thyroid disorder Surgical History Surgery Date(Month/Year) laproscopy 2003
== END 2025-08-16 11:32 | disposition home or self-care (01) ==
LOC: HO.PMC 11:16
PROVIDERS: PCP Internal Medicine; Visit Provider Anesthesiology
DX: M19.011 Primary osteoarthritis, right shoulder (principal); M19.012 Primary osteoarthritis, left shoulder; M17.11 Unilateral primary osteoarthritis, right knee; G89.4 Chronic pain syndrome; M75.50 Bursitis of unspecified shoulder; M75.90 Shoulder lesion, unspecified, unspecified shoulder; M46.1 Sacroiliitis, not elsewhere classified; M99.04 Segmental and somatic dysfunction of sacral region
CPT/HCPCS: 99213

== ENCOUNTER → 2025-08-16 11:16 | Outpatient (BNVA) | payer OTHER, SELFPAY | PROVIDERS: PCP Internal Medicine; Visit Provider Anesthesiology | DX: M46.1 Sacroiliitis, not elsewhere classified (principal); M99.04 Segmental and somatic dysfunction of sacral region; M79.7 Fibromyalgia; M19.011 Primary osteoarthritis, right shoulder; M19.012 Primary osteoarthritis, left shoulder; M17.11 Unilateral primary osteoarthritis, right knee; G89.4 Chronic pain syndrome; M75.52 Bursitis of left shoulder; M75.51 Bursitis of right shoulder; Z51.81 Encounter for therapeutic drug level monitoring; Z79.891 Long term (current) use of opiate analgesic | CPT/HCPCS: 99212 ==